=== PATIENT | male | born 1950 | race Caucasian/White ===

== ENCOUNTER 2019-05-04 22:58 | Emergency (ER) | payer MEDICARE, OTHER ==
[~2019-05-04] VITALS: Ht 177.8 cm; Wt 90.9 kg
[2019-05-04 22:59] VITALS: Ht 177.8 cm; Wt 90.9 kg
[2019-05-04] MEDS ORDERED: UROCIT-K10 MEQ PO (23:01)
[2019-05-04] MEDS ORDERED: NEURONTIN 400400 MG PO ×2 (23:01→23:04)
[2019-05-04] MEDS ORDERED: LISINOPRIL10 MG PO ×2 (23:01→23:05)
[2019-05-04] MEDS ORDERED: LIPITOR40 MG PO (23:02)
[2019-05-04] MEDS ORDERED: FLOMAX0.4 MG PO (23:02)
[2019-05-04] MEDS ORDERED: NORVASC10 MG PO (23:02)
[2019-05-04] MEDS ORDERED: CYMBALTA60 MG PO (23:03)
[2019-05-04] MEDS ORDERED: KLONOPIN1 MG PO (23:03)
[2019-05-04] MEDS ORDERED: VITAMIN B-121000 MCG PO (23:03)
[2019-05-04] MEDS ORDERED: FUROSEMIDE20 MG PO (23:04)
[2019-05-04] MEDS ORDERED: FLUTICASONE PRO16 GM NASAL (23:04)
[2019-05-04] MEDS ORDERED: HYDROCHLOROTHIA50 MG PO (23:05)
[2019-05-04] MEDS ORDERED: CLARITIN 10 MG10 MG PO (23:05)
[2019-05-04] MEDS ORDERED: GLUCOPHAGE500 MG PO (23:05)
[2019-05-04] MEDS ORDERED: REMERON15 MG PO (23:05)
[2019-05-04] MEDS ORDERED: NAPROSYN500 MG PO (23:06)
[2019-05-04] MEDS ORDERED: PIOGLITAZONE15 MG PO (23:06)
[2019-05-04] MEDS ORDERED: BAYER CHEWABLE81 MG PO (23:07)
[2019-05-04] MEDS ORDERED: ULTRAM50 MG PO (23:07)
[2019-05-05 00:06] LABS: HEMATOCRIT 38.8 % (42.0-54.0); HEMOGLOBIN 12.8 g/dL (13.5-17.5); LYMPHOCYTES 9.3 % (15-50); MCH 28.3 pg (26.0-34.0); MCV 85.8 fL (80.0-100.0); MEAN PLATELET VOLUME 10.5 fL (7.4-10.4); NEUTROPHILS 86.3 % (40-80); PLATELET COUNT 225 10x3/uL (130-400); RBC 4.52 10x6/uL (4.20-6.10); RDW 13.9 % (11.5-14.5); WBC 10.9 10x3/uL (4.8-10.8)
[2019-05-05 00:26] LABS: CALC OSMOLALITY 283 mosm/kg (275-300); CALCIUM 8.8 mg/dL (8.5-10.1); CARBON DIOXIDE 26.7 mmol/L (21.0-32.0); CHLORIDE - SERUM 102 mmol/L (98-107); GLUCOSE 167 mg/dL (74-106); POTASSIUM - SERUM 3.9 mmol/L (3.5-5.1); SODIUM 138 mmol/L (136-145); UREA NITROGEN 24 mg/dL (7-18); eGFR NON AFRICAN AMERICAN 78 mL/min (90-120)
[2019-05-05 00:38] LABS: ALBUMIN 3.5 g/dL (3.4-5.0); ALKALINE PHOSPHATASE 84 U/L (46-116); ALT (SGPT) 23 U/L (10-68); BILIRUBIN - TOTAL 0.89 mg/dL (0.2-1.3); PROTEIN - SERUM 7.2 g/dL (6.4-8.2)
[2019-05-05] MEDS ORDERED: TORADOL10 MG PO (00:54)
[2019-05-05 01:38] VITALS: BP 134/66
[2019-05-05 01:46] LABS: APPEARANCE CLEAR (CLEAR); BILIRUBIN NEGATIVE (NEGATIVE); COLOR YELLOW (YELLOW); GLUCOSE NEGATIVE (NEGATIVE); KETONE NEGATIVE (NEGATIVE); NITRITE NEGATIVE (NEGATIVE); PROTEIN 1+ mg/dL (NEGATIVE); SPECIFIC GRAVITY 1.015 (1.005-1.020); UROBILINOGEN NORMAL (NORMAL)
[2019-05-05 01:48] LABS: BACTERIA FEW /hpf (NEGATIVE); EPITHELIAL CELLS 0-5 /hpf (0-5); MUCUS <1+ /lpf (NONE SEEN); WHITE CELLS - URINE 0-5 /hpf (NEGATIVE)
[2019-05-13] MEDS ORDERED: VOLTAREN100 GM (10:20)
[2019-05-13] MEDS ORDERED: CYMBALTA60 MG PO (10:21)
[2019-05-13] MEDS ORDERED: FUROSEMIDE20 MG PO (10:22)
[2019-05-13] MEDS ORDERED: REMERON15 MG PO (10:26)
[2019-05-13] MEDS ORDERED: MULTI-DAY VITAM1 TAB PO (10:26)
[2019-05-13] MEDS ORDERED: VIMOVO 500-201 EACH PO (10:26)
[2019-05-13] MEDS ORDERED: PIOGLITAZONE15 MG (10:28)
[2019-06-09 09:39] VITALS: Ht 177.8 cm; Wt 90.9 kg
== END 2019-05-05 01:38 | disposition home or self-care (01) ==
LOC: D.ER 22:58
PROVIDERS: Emergency Medicine
DX: N13.8 Other obstructive and reflux uropathy (principal); N20.1 Calculus of ureter

== ENCOUNTER 2019-05-15 08:20 | Day surgery (SDC) | payer MEDICARE, OTHER ==
[2019-05-13 11:18] LABS: CALC OSMOLALITY 285 mosm/kg (275-300); CALCIUM 9.6 mg/dL (8.5-10.1); CHLORIDE - SERUM 106 mmol/L (98-107); GLUCOSE 120 mg/dL (74-106); POTASSIUM - SERUM 3.7 mmol/L (3.5-5.1); SODIUM 142 mmol/L (136-145); UREA NITROGEN 18 mg/dL (7-18); eGFR NON AFRICAN AMERICAN 78 mL/min (90-120)
[2019-05-13 11:30] LABS: HEMATOCRIT 40.1 % (42.0-54.0); MCH 28.7 pg (26.0-34.0); MCHC 32.4 g/dL (31.0-37.0); MCV 88.5 fL (80.0-100.0); MEAN PLATELET VOLUME 11.2 fL (7.4-10.4); RBC 4.53 10x6/uL (4.20-6.10); RDW 14.4 % (11.5-14.5); WBC 8.5 10x3/uL (4.8-10.8)
[~2019-05-15] VITALS: Ht 177.8 cm; Wt 104.3 kg
[~2019-05-15 08:20] MED LIST: BAYER CHEWABLE81 MG PO; CLARITIN 10 MG10 MG PO; CYMBALTA60 MG PO; FLOMAX0.4 MG PO; FLUTICASONE PRO16 GM NASAL; FUROSEMIDE20 MG PO; GLUCOPHAGE500 MG PO; HYDROCHLOROTHIA50 MG PO; KLONOPIN1 MG PO; LIPITOR40 MG PO; LISINOPRIL10 MG PO; MULTI-DAY VITAM1 TAB PO; NAPROSYN500 MG PO; NEURONTIN 400400 MG PO; NORVASC10 MG PO; PIOGLITAZONE15 MG; PIOGLITAZONE15 MG PO; REMERON15 MG PO; TORADOL10 MG PO; ULTRAM50 MG PO; UROCIT-K10 MEQ PO; VIMOVO 500-201 EACH PO; VITAMIN B-121000 MCG PO; VOLTAREN100 GM
[2019-05-15] MEDS ORDERED: HYDROCODON-ACE1 EAC7 PO (09:37)
[2019-05-15] MEDS ORDERED: ZOFRAN8 MG PO (09:38)
[2019-05-15 09:44] VITALS: BP 129/69; Ht 177.8 cm; Wt 104.3 kg
--- NOTE | 2019-05-15 09:57 | NUR ---
4849 REQUEST FOR BEHAVIORAL HEALTH CONSULT CALLED IN TO ASHLEIGH YOON, OPERATOR HELPER.
--- NOTE | 2019-05-15 10:57 | NUR ---
DR. FABIAN NOTIFED AND REVIEWED PT'S BEHAVIOR AND ASSESSMENT RESULTS. PT IS A LOW RISK PER DR. FABIAN. DR. FABIAN STATED TO GIVE RESOURCES TO PT AT TIME OF DISCHARGE. NO FURHTER ORDERS AT THIS TIME. RESOURCES REVIEWED WITH PT AND HE VERBALIZIED UNDERSTANDING.
--- NOTE | 2019-05-16 09:08 | OP ---
PATIENT NAME: GILDARDO INIGUEZ MEDICAL RECORD: [id number] :46 LOCATION:[facility] ADMISSION DATE: SURGEON: DANY CARRILLO MD DATE OF OPERATION: 05/15/2019 SURGEON: Dany Carrillo MD ANESTHESIA: General anesthesia by Dariel Carrasco CRNA. DIAGNOSIS: A 7-mm right proximal ureteral stone, 5-mm right lower pole renal stone. PROCEDURES: Cystoscopy, right ureteral stent insertion 6-Slovenian x 26 cm with string attached, right extracorporeal shock wave lithotripsy. 2250 shocks were given to the right proximal ureteral stone, 750 shocks were given to right lower pole renal stone. FINDINGS: Radiodense proximal ureteral and renal stone. BLOOD LOSS: None. CLINICAL HISTORY: This is a 68-year-old male who has a history of kidney stones since he was age 20. He came to the Emergency Room with gross hematuria and passage of 2 kidney stones. He continued to have right flank pain. A CT scan of the abdomen and pelvis shows a 7 x 6 mm right ureteropelvic junction stone and also a 5-mm lower pole renal stone. There are some smaller punctate renal stones in the right kidney also. On the left side, there is a 20-mm renal stone, which will require a percutaneous nephrolithotomy in the future to take care of. We are now treating the right side. He is not allergic to any medications. He was given Ancef pottery decoration designer to the OR. DESCRIPTION OF PROCEDURE: The patient was given induction of general anesthesia. He was then placed into dorsal lithotomy position and prepped and draped. Fluoroscopy revealed the stone to be visible as radiodensities. We targeted the proximal ureteral stone first. Lithotripsy was started after targeting the stone in 2 planes. In the meantime, we performed cystoscopy. He has single ureteral orifices with no signs of bladder tumors. A Sensor wire was placed into the right ureteral orifice and pushed past the stone into the renal pelvis. Over the wire, we inserted the 6-Slovenian x 24 cm ureteral stent. Once the stent was in correct position, the wire was withdrawn entirely. The distal end of the stent was pushed into the bladder using the pusher. The bladder was then emptied through the cystoscope. The scope was removed. The string on the distal end of stent was maintained. It was tied to itself in a knot and cut shorter. We gave the ureteral stone 1500 shocks. At this time, it was seen to have fragmented along the course of the ureteral stent. We then switched our focus to the lower pole stone. This was targeted. It broke up after 750 shocks. We then went back to the ureteral stone. There were still some fairly large fragments left and we used the remaining shock wave energy of 750 on to the right proximal ureteral stone. Therefore, the right proximal ureteral stone had a total of 2250 shocks. At the end of the procedure, all the stones were seen to be well fragmented. I will see him back in 2 weeks' time with a KUB to determine if the stones have completely cleared. At that time, if he is stone free on the right side will remove the stent. We will make arrangements for the left-sided PCNL in the future also. OPERATIVE REPORT [id number] GILDARDO INIGUEZ TRANSINT:[id number] Voice Confirmation ID: [id number] DOCUMENT ID: [id number] DANY CARRILLO MD at 0908 CC: [id number] DICTATION DATE: 05/15/19 1349 CONTRACT WRITER: 05/15/19 2139 [facility] 05/15/19 [facility] [address] [place] [address]
== END 2019-05-15 16:06 | disposition home or self-care (01) ==
LOC: D.OPS 08:20 → D.PAN 10:30 → D.OPS 12:45 → D.PAN 12:45 → D.OPS 16:06
PROVIDERS: Anesthesiology; ATTEND Urology
DX: N20.0 Calculus of kidney (principal)

== ENCOUNTER → 2019-05-30 10:40 | Outpatient (CLI) | payer MEDICARE, OTHER ==
[2019-05-15 09:44] VITALS: BMI 33.0
[~2019-05-30 10:40] MED LIST changes: +HYDROCODON-ACE1 EAC7 PO; +ZOFRAN8 MG PO
== END | disposition home or self-care (01) ==
LOC: D.RAD 08:30
PROVIDERS: ATTEND Urology
DX: N20.0 Calculus of kidney (principal)

== ENCOUNTER 2019-06-08 16:42 | Inpatient (IN) | payer MEDICARE, OTHER ==
[~2019-06-08] VITALS: Ht 177.8 cm; Wt 91.2 kg
--- NOTE | ~2019-06-08 | HEMODYNAMI ---
PATIENT:GILDARDO INIGUEZ MEDICAL RECORD: [id number] : 46 LOCATION:[facility] D.2309 ADMISSION DATE: 06/08/19 Generatedon:06/10/201915:47 Patient name: GILDARDO INIGUEZ Patient #: [id number] : 1950 Date of study: 06/10/2019 Page: Of Hemodynamic Procedure Report Patient Data Patient Demographics Procedure consent was obtained First Name: GILDARDO Gender: Male Last Name: HIRA : 1950 [facility] Initial: C Age: 68 year(s) Patient #: [id number] Race: SSN: [id number] Additional ID: [id number] Contact details Address: [address] [place] [address] State: [place] City: [facility] Zip code: [address] Admission Admission Data Admission Date: 06/08/2019 Admission Time: 18:59 Arrival Date: 06/08/2019 Arrival Time: 18:59 Admit Source: Emergency Insurance Payor: Medicare department [facility] #: [id number] Room #: D.2309 Height (in.): 70.08 BSA: 2.09 (m2) Height (cm.): 178 BMI: 28.72 (kg/m2) Weight (lbs.): 200.62 Weight (kg.): 91 Lab Results Lab Result Date: 06/10/2019 Lab Result Time: 0:00 Biochemistry Name Units Result Min Max BUN mg/dl 91 --(----)-* 7 18 Creatinine mg/dl 3.8 --(----)-* 0.6 1.3 eGFR ml/min 17 *-(----)-- 90 120 NONAFRICAN CBC Name Units Result Min Max Hemoglobin g/dl 12.1 *-(----)-- 13.5 17.5 Procedure Procedure Types Cath Procedure Diagnostic Procedure C Coronaries only Sedation Charges Moderate Sedation up to 15 minutes Procedure Description Procedure Date Procedure Date: 06/10/2019 Procedure Start Time: 15:28 Procedure End Time: 15:42 Procedure Staff Name Function Renny Malone MD Performing Physician Kaylin Campbell RT Monitor Dorinda Elliott RT Scrub Mariah Wheeler RN Nurse Procedure Data Cath Procedure Fluoroscopy Diagnostic fluoroscopy Total fluoroscopy Time: 1.2 time: 1.2 min min Diagnostic fluoroscopy Total fluoroscopy dose: 423 dose: 423 mGy mGy Contrast Material Contrast Material Type Amount (ml) Isovue 300 25 Entry Location Entry Primary Successful Side Size Upsize Upsize Entry Closure Succes sful Closure Location (Fr) 1 (Fr) 2 (Fr) Remarks Device Remarks Femoral Right 5 Fr Exoseal artery Estimated blood loss: 5 ml Diagnostic catheters Device Type Used For End Catheter Placement MULTIPACK JL 4.0 5Fr Left Coronary catheter Angiography MULTIPACK 3DRC 5Fr Right Coronary catheter Angiography Procedure Complications No complications Procedure Medications Medication Administration Route Dosage Oxygen etCO2 Nasal cannula 3 l/min Lidocaine 2% added to field 20 Heparin Flush Bag added to field 2 bags (1000units/500ml NS) 0.9% NaCl I.V. 100 ml/hr Versed I.V. 1 mg Fentanyl I.V. 50 mcg Integrilin (Bolus I.V. 8.5 ml 2mg/ml) Integrilin Drip I.V. drip 7.3 ml/hr (75mg/100ml) Hemodynamics Rest BSA: 2.09 (m2) HGB: 12.1 (g/dl) O2 Consumption: Estimated: 254.21 (ml/min) O2 Co nsumption indexed: Estimated:121.63 (ml/min/m) Heart Rate: 86 (bpm) Snapshots Pre Cath Intra NCS Post Cath Vital Signs Time Heart Resp SPO2 etCO2 NIBP Rhythm Pain Sedation Rate (ipm) (%) (mmHg) (mmHg) Status Level (bpm) 15:19:08 111 28 92 0 104/73(93) NSR w/ ST 0 (11) 9(A) Elevation , No pain 15:23:14 111 24 92 0 116/76(88) NSR w/ ST 0 (11) 9(A) Elevation , No pain 15:27:26 115 25 92 0 118/72(93) NSR w/ ST 0 (11) 9(A) Elevation , No pain 15:31:40 113 29 92 0 125/73(99) NSR w/ ST 0 (11) 9(A) Elevation , No pain 15:35:56 112 26 92 0 121/72(95) NSR w/ ST 0 (11) 9(A) Elevation , No pain 15:40:08 115 25 92 0 121/78(93) NSR w/ ST 0 (11) 9(A) Elevation , No pain Medications Time Medication Route Dose Verified Delivered Reason Notes Effectiveness by by 15:21:39 Oxygen etCO2 3 Renny Lemus used for Nasal l/min [facility] RN procedure cannula 15:21:46 Lidocaine 2% added 20ml Renny Lawson for local to vial [facility] anesthetic field MD SMITH 15:21:53 Heparin Flush added 2 Renny Renny used for Bag to bags [facility] procedure (1000units/500ml field MD SMITH NS) 15:22:04 0.9% NaCl I.V. 100 Renny Lemus Per ml/hr [facility] RN physician 15:23:33 Versed I.V. 1 mg Renny Lemus for sedation [facility] RN, MD 15:23:39 Fentanyl I.V. 50 Renny Philipie for sedation mcg [facility] RN, MD 15:41:42 Integrilin Drip I.V. 7.3 Renny Lemus for renal (75mg/100ml) drip ml/hr [facility] RN antiplatelet dose MD therapy infusion. 15:41:42 Integrilin I.V. 8.5 Renny Lemus for (Bolus 2mg/ml) ml [facility] RN antiplatelet MD therapy Procedure Log Time Note 14:49:41 Informed consent obtained and on chart 14:51:08 Admit Source: Emergency department 14:51:13 Arrival Date: 06/08/2019 6:59:00 PM 14:51:46 Insurance Payor : Medicare 14:51:56 Patient Height : 70.08 inches 14:52:00 Patient Weight : 200.62 lbs 14:52:40 Lab Result : Hemoglobin 12.1 g/dl 14:52:40 Lab Result : eGFR NONAFRICAN 17 ml/min 14:52:40 Lab Result : BUN 91 mg/dl 14:52:40 Lab Result : Creatinine 3.8 mg/dl 14:53:11 Procedure Status Urgent Heart Cath (IP). 14:53:20 Diagnostic Cath Status : Elective 14:53:44 Dorinda Elliott RT(R) sent for patient. Start room use. 14:53:45 Time tracking: Regular hours (M-F 7:00 - 5:00) 14:53:49 Plan of Care:Hemodynamics will remain stable., Cardiac rhythm will remain stable., Comfort level will be maintained., Respiratory function will remain adequate., Patient/ family verbilizes understanding of procedure., Procedure tolerated without complication., Recovers from procedure without complications.. 15:08:53 Patient received from ICU to [facility] 2 Alert and oriented. Tansferred to table in Supine position. 15:08:54 Warm blankets applied, and rachael hugger turned on for patient comfort. 15:08:55 Correct patient and procedure confirmed by team. 15:08:55 ECG and BP/O2 sat monitors applied to patient. 15:15:34 Pt transferred to with 3 liters oxygen via nasal cannula. 15:17:58 Vital chart was started 15:18:01 Baseline sample Acquired. 15:18:13 Full Disclosure recording started 15:18:17 H&P Date Dictated: 06/10/2019 New H&P dictated by physician.. 15:18:19 Pre-procedure instructions explained to patient. 15:18:19 Pre-op teaching completed and patient verbalized understanding. 15:18:20 Family in waiting room. 15:18:22 Patient NPO since Midnight. 15:18:25 Is the patient allergic to Iodine/contrast media? No. 15:18:26 Was the patient premedicated? Yes 15:18:27 Is patient on blood thinner?Yes 15:18:36 ACC The patient was administered the following blood thiners within the last 24 hours: ACCPlavix 15:18:39 Patient diabetic? Yes. 15:18:40 If diabetic: On Metformin? No 15:18:43 Previous problem with sedation/anesthesia? No ? 15:18:45 Snore? Yes 15:18:46 Sleep apnea? No 15:18:47 Deviated septum? No 15:18:48 Opens mouth fully? Yes 15:18:49 Sticks out tongue? Yes 15:19:05 Airway obstruction? No ? 15:19:07 Dentures? No ? 15:19:11 Pre procedure: right dorsailis pedis pulse 2+ Normal; easily identifiable; not easily obliterated 15:19:14 Pre procedure: left dorsailis pedis pulse 2+ Normal; easily identifiable; not easily obliterated 15:19:17 Patient pain scale 0/10 ?. 15:19:24 IV patent on arrival in left forearm with 0.9% NaCl at [facility]. 15:19:28 Lab results completed and on chart. 15:19:32 Risk of Mortality: 3.4 15:19:37 Risk of blood transfusion: 4.1 15:19:42 Risk of ELDA: 23.8 15:19:47 Right groin area was prepped with chlora-prep and draped in sterile fashion 15:19:49 Alarms reviewed by R. N. 15:19:49 Sharps counted by scrub and verified by R.N. 15:19:51 Physician arrived 15:19:51 --------ALL STOP TIME OUT------ 15:19:51 Final Timeout: patient, procedure, and site verified with staff and physician. All members of the team are in agreement. 15:19:54 Right groin site verified by team. 15:19:58 Fire Safety Assessment: A--An alcohol-based skin anteseptic being used preoperatively., C--Open oxygen or nitrous oxide is being used., D--An ESU, laser, or fiber-optic light is being used. 15:20:01 Physical assessment completed. ASA score P 2 - A patient with mild systemic disease as per Renny Malone MD. 15:20:05 3a) 45-59 Moderately reduced kidney function. 15:20:08 Maximum allowable contrast dose (3.7 X eGFR X 0.75)47 ml. 15:20:12 Sedation plan: IV Moderate Sedation Medication:Versed, Fentanyl 15:21:39 Oxygen 3 l/min etCO2 Nasal cannula was administered by Mariah Wheeler RN; used for procedure; Verbal order read back and verified. 15:21:46 Lidocaine 2% 20ml vial added to field was administered by Renny Malone MD; for local anesthetic; Verbal order read back and verified. 15:21:53 Heparin Flush Bag (1000units/500ml NS) 2 bags added to field was administered by Renny Malone MD; used for procedure; Verbal order read back and verified. 15:22:04 0.9% NaCl 100 ml/hr I.V. was administered by Mariah Wheeler RN; Per physician; Verbal order read back and verified. 15:23:23 Use device set Femoral Dx 15:23:24 ACIST Syringe (19989) opened to sterile field. 15:23:24 Bag Decanter (2002S) opened to sterile field. 15:23:25 Medline Cath Pack ([id number]) opened to sterile field. 15:23:26 ACIST Hand Control (32723) opened to sterile field. 15:23:26 ACIST Manifold (95536) opened to sterile field. 15:23:27 DIAGNOSTIC Multipack 5Fr catheter set ([id number]) opened to sterile field. 15:23:27 Tegaderm 4 x 4 (1626W) opened to sterile field. 15:23:29 SHEATH 5FR House (QFH955) opened to sterile field. 15:23:29 EMERALD Guide Wire (856-681) opened to sterile field. 15:23:33 Versed 1 mg I.V. was administered by Mariah Wheeler RN; for sedation; Verbal order read back and verified. 15:23:39 Fentanyl 50 mcg I.V. was administered by Mariah Wheeler RN; for sedation; Verbal order read back and verified. 15:28:12 Procedure started. 15:28:28 Local anesthetic to right femoral artery with Lidocaine 2% by Renny Malone MD.INITIAL ACCESS ONLY 15:32:32 A 5 Fr sheath was inserted into the Right Femoral artery 15:32:45 A MULTIPACK JL 4.0 5Fr catheter was advanced over the wire and used for Left Coronary Angiography. 15:32:53 LCA angiography performed. 15:32:56 Injector settings: Ml/sec: 3, Volume: 6, 15:33:04 Zero performed for pressure channel P1 15:34:59 Catheter removed. 15:35:04 A MULTIPACK 3DRC 5Fr catheter was advanced over the wire and used for Right Coronary Angiography. 15:36:52 RCA angiography performed. 15:36:54 Injector settings: Ml/sec: 3, Volume: 6, 15:37:44 Zero performed for pressure channel P1 15:39:35 Catheter removed. 15:40:15 no LV performed due to creatinine level per Dr Malone 15:40:25 EXOSEAL 5Fr (EX500) opened to sterile field. 15:40:33 Sheath removed intact; hemostasis achieved with Exoseal to the Right Femoral artery. 15:40:35 Procedure ended.(Physican Out) 15:40:43 Fluoroscopy time 01.20 minutes. 15:40:47 Flurop Dose total: 423 15:40:47 Fluoroscopy dose: 423 mGy 15:40:52 Dose Area Product 01310 mGy/cm. 15:41:07 Contrast amount:Isovue 300 25ml. 15:41:08 Maximum allowable dose exceeded? No. 15:41:09 Sharps counted by scrub and verified by R.N. 15:41:10 Insertion/operative site no bleeding no hematoma. 15:41:13 Post-op/insertion site Right Femoral artery dressed using a 4 x 4 and Tegaderm. 15:41:16 Post procedure rhythm: unchanged. 15:41:18 Estimated blood loss: 5 ml 15:41:19 Post procedure instruction explained to patient.Patient verbalizes understanding. 15:41:20 Patient needs reinforcement of post procedure teaching. 15:41:33 Procedure type changed to Cath procedure, Diagnostic procedure, C, Coronaries only, Sedation Charges, Moderate Sedation up to 15 minutes 15:41:33 Procedure and supply charges have been captured, reviewed, submitted and are correct. 15:41:42 Integrilin Drip (75mg/100ml) 7.3 ml/hr I.V. drip was administered by Mariah Wheeler RN; for antiplatelet therapy; renal dose infusion. Verbal order read back and verified. 15:41:42 Integrilin (Bolus 2mg/ml) 8.5 ml I.V. was administered by Mariah Wheeler RN; for antiplatelet therapy; Verbal order read back and verified. 15:42:22 Procedure Complication : No complications 15:42:24 Vital chart was stopped 15:42:26 [facility] Findings: MVD- MD will discuss options w/ pt 15:42:28 Operative report dictated upon procedure completion. 15:42:29 See physician's report for complete and final results. 15:42:32 Report given to ICU. 15:42:34 Patient transfered to ICU with Stretcher. 15:42:36 Procedure ended. 15:42:36 Full Disclosure recording stopped 15:42:42 End room use (Document Last) Device Usage Item Name Manufacture Quantity Catalog Hospital Part Current Minimal L ot# / Number Charge Number Stock Stock Serial# Code ACIST Acist 1 62300 182701 733173 [id number] 20 Syringe Medical (62111) Systems Inc Bag Microtek 1 2001S 471422 15930 231070 5 Decanter Medical Inc. () Medline Medline 1 [id number] 613350 61820 522431 5 Cath Pack ([id number]) ACIST Hand Acist 1 72947 338324 203500 009497 5 Control Medical (28814) Systems Inc ACIST Acist 1 95957 852393 039827 203837 5 Manifold Medical (41477) Systems Inc DIAGNOSTIC Cardinal 1 [id number] 054513 08751 282715 30 [email or web address] Health 5Fr catheter set (LC0052) Tegaderm 4 3M 1 1626W 004899 447401 015993 5 x 4 (1626W) SHEATH 5FR Terumo 1 TRR937 352153 996594 742729 5 House (HRO926) EMERALD Cardinal 1 952-455 786644 027002 250452 5 Guide Wire [facility] (502455) MULTIPACK Cardinal 1 034588 5 JL 4.0 5Fr Health catheter MULTIPACK Cardinal 1 896424 5 3DRC 5Fr Health catheter EXOSEAL 5Fr Cardinal 1 EX500 666376 517571 789411 10 (EX500) Health Signature Audit [place] Stage Time Signature Unsigned Intra-Procedure 06/10/2019 Kaylin Campbell 3:43:43 PM RT(R) Intra-Procedure 06/10/2019 Mariah Wheeler RN 3:44:08 PM Intra-Procedure 06/10/2019 Renny Contreras 3:47:16 PM Luke SMITH Signatures Performing Physician : Signature : Renny Malone MD Date : Time : Monitor : Kaylin Campbell RT Signature : Date : Time : Nurse : Mariah Wheeler RN Signature : Date : Time : [place] [address] [place] [address]
--- NOTE | ~2019-06-08 | HEMODYNAMI ---
PATIENT:GILDARDO INIGUEZ MEDICAL RECORD: [id number] : 46 LOCATION:D[facility] D.2309 ADMISSION DATE: 06/08/19 Generatedon:06/11/201915:17 Patient name: GILDARDO INIGUEZ Patient #: [id number] : 1950 Date of study: 06/11/2019 Page: Of Hemodynamic Procedure Report Patient Data Patient Demographics First Name: GILDARDO Gender: Male Last Name: HIRA : 1950 [facility] Initial: C Age: 68 year(s) Patient #: [id number] Race: SSN: [id number] Additional ID: [id number] Contact details Address: [address] [place] [address] State: [place] City: [facility] Zip code: [address] Admission Admission Data Admission Date: 06/08/2019 Admission Time: 18:59 Arrival Date: 06/08/2019 Arrival Time: 18:59 Admit Source: Emergency Insurance Payor: Medicare department HIC #: [id number] Room #: D.2309 Height (in.): 70.08 BSA: 2.09 (m2) Height (cm.): 178 BMI: 28.72 (kg/m2) Weight (lbs.): 200.62 Weight (kg.): 91 Lab Results Lab Result Date: 06/10/2019 Lab Result Time: 0:00 Biochemistry Name Units Result Min Max BUN mg/dl 91 --(----)-* 7 18 Creatinine mg/dl 3.8 --(----)-* 0.6 1.3 eGFR ml/min 17 *-(----)-- 90 120 NONAFRICAN CBC Name Units Result Min Max Hemoglobin g/dl 12.1 *-(----)-- 13.5 17.5 Procedure Procedure Types Cath Procedure Diagnostic Procedure LHC LH w/Coronaries PCI Procedure PTCA PTCA Initial x2 Hemochron ACT Test Procedure Description Procedure Date Procedure Date: 06/11/2019 Procedure Start Time: 14:46 Procedure End Time: 15:06 Procedure Staff Name Function Renny Malone MD Performing Physician Dorinda Elilott RT Scrub Henry Bauer RN Nurse Gerber Waite RT Monitor Procedure Data Cath Procedure Fluoroscopy Diagnostic fluoroscopy Total fluoroscopy Time: 3.3 time: 3.3 min min Diagnostic fluoroscopy Total fluoroscopy dose: 668 dose: 668 mGy mGy Contrast Material Contrast Material Type Amount (ml) Isovue 370 55 Entry Location Entry Primary Successful Side Size Upsize Upsize Entry Closure Succes sful Closure Location (Fr) 1 (Fr) 2 (Fr) Remarks Device Remarks Femoral Right 5 Fr 6 Fr Exoseal artery Short Diagnostic catheters Device Type Used For End Catheter Placement MULTIPACK JL 4.0 5Fr Left Coronary catheter Angiography Procedure Complications No complications Procedure Medications Medication Administration Route Dosage 0.9% NaCl I.V. 100 ml/hr Oxygen NC 8 l/min Heparin Flush Bag added to field 2 bags (1000units/500ml NS) Lidocaine 2% added to field 20 Heparin Bolus I.V. 4000 units Hemodynamics Rest BSA: 2.09 (m2) HGB: 12.1 (g/dl) O2 Consumption: Estimated: 284.24 (ml/min) O2 Co nsumption indexed: Estimated:136 (ml/min/m) Pre Cath Intra NCS Post Cath Vital Signs Time Heart Resp SPO2 etCO2 NIBP Rhythm Pain Sedation Rate (ipm) (%) (mmHg) (mmHg) Status Level (bpm) 14:41:18 109 23 92 0 118/68(89) NSR 0 (11) 10(A) , No pain 14:45:34 109 28 91 0 108/71(94) NSR 0 (11) 10(A) , No pain 14:49:50 111 27 92 0 117/67(82) NSR 0 (11) 10(A) , No pain 14:54:08 112 29 92 0 119/72(86) NSR 0 (11) 10(A) , No pain 14:58:28 110 27 92 0 118/70(95) NSR 0 (11) 10(A) , No pain 15:02:46 111 28 92 0 117/73(86) NSR 0 (11) 10(A) , No pain 15:07:04 113 28 92 0 119/75(95) NSR 0 (11) 10(A) , No pain Medications Time Medication Route Dose Verified Delivered Reason Notes Effectiveness by by 14:39:16 0.9% NaCl I.V. 100 Henry Henry Per physician ml/hr Lizette Bauer RN RN 14:39:29 Oxygen NC 8 Henry Henry for low 02 sats l/min Lizette Bauer RN RN 14:39:41 Heparin Flush added 2 Henry Henry used for Bag to bags Lizette Bauer procedure (1000units/500ml field RN RN NS) 14:39:52 Lidocaine 2% added 20ml Henry Henry for local to vial Lizette Bauer anesthetic RN RN 14:56:42 Heparin Bolus I.V. 4000 Henry Henry for units Lizette Bauer anticoagulation RN rehab therapist Log Time Note 14:22:18 Patient Weight : 200.62 lbs 14:22:18 Patient Height : 70.08 inches 14:23:31 Procedure Status Urgent Heart Cath (IP). 14:23:53 ACC Patient presents with Non-STEMI CCS Anginal Class 4--Inability to carry out any physical activity w/o angina. Angina may occur at rest. 14:24:00 Gerber Acit RT(R) sent for patient. Start room use. 14:24:11 Time tracking: Regular hours (M-F 7:00 - 5:00) 14:24:24 Plan of Care:Hemodynamics will remain stable., Cardiac rhythm will remain stable., Comfort level will be maintained., Respiratory function will remain adequate., Patient/ family verbilizes understanding of procedure., Procedure tolerated without complication., Recovers from procedure without complications.. 14:24:37 Patient received from ICU to CCL 1 Alert and oriented. Tansferred to table in Supine position. 14:24:38 Warm blankets applied, and rachael hugger turned on for patient comfort. 14:24:40 Correct patient and procedure confirmed by team. 14:24:46 H&P Date Dictated: 06/11/2019 Within 30 days and on chart., H&P Addendum completed by physician on day of procedure. (MUST COMPLETE FOR ALL OUTPATIENTS). 14:24:50 Pre-procedure instructions explained to patient. 14:24:54 Family in waiting room. 14:24:57 Patient NPO since Midnight. 14:25:03 Is the patient allergic to Iodine/contrast media? No. 14:25:11 Is patient on blood thinner?Yes 14:35:33 ACC The patient was administered the following blood thiners within the last 24 hours: ACCPlavix 14:36:18 Patient diabetic? Yes. 14:36:20 If diabetic: On Metformin? No 14:36:21 ----Pre-sedation anethsthesia assessment.---- 14:36:23 Previous problem with sedation/anesthesia? No ? 14:36:25 Snore? Yes 14:36:26 Sleep apnea? No 14:36:28 Deviated septum? No 14:36:29 Opens mouth fully? Yes 14:36:30 Sticks out tongue? Yes 14:36:33 Airway obstruction? No ? 14:36:35 Dentures? No ? 14:36:41 Pre procedure: right dorsailis pedis pulse 2+ Normal; easily identifiable; not easily obliterated 14:36:45 Patient pain scale 0/10 ?. 14:36:49 IV patent on arrival in left antecubital with 0.9% NaCl at [facility]. 14:36:54 Lab results completed and on chart. 14:37:23 Right groin area was prepped with chlora-prep and draped in sterile fashion 14:37:24 Alarms reviewed by R. N. 14:37:25 Sharps counted by scrub and verified by R.N. 14:37:26 --------ALL STOP TIME OUT------ 14:37:26 Physician arrived 14:37:27 Final Timeout: patient, procedure, and site verified with staff and physician. All members of the team are in agreement. 14:37:31 Right groin site verified by team. 14:37:35 Fire Safety Assessment: A--An alcohol-based skin anteseptic being used preoperatively., C--Open oxygen or nitrous oxide is being used., D--An ESU, laser, or fiber-optic light is being used. 14:37:39 Physical assessment completed. ASA score P 2 - A patient with mild systemic disease as per Renny Malone MD. 14:38:22 Maximum allowable contrast dose (3.7 X eGFR X 0.75)47.17 ml. 14:38:27 Sedation plan: IV Moderate Sedation Medication:Versed, Fentanyl 14:39:16 0.9% NaCl 100 ml/hr I.V. was administered by Henry Bauer RN; Per physician; Verbal order read back and verified. 14:39:29 Oxygen 8 l/min NC was administered by Henry Bauer RN; for low 02 sats; Verbal order read back and verified. 14:39:41 Heparin Flush Bag (1000units/500ml NS) 2 bags added to field was administered by Henry Bauer RN; used for procedure; Verbal order read back and verified. 14:39:52 Lidocaine 2% 20ml vial added to field was administered by Henry Bauer RN; for local anesthetic; Verbal order read back and verified. 14:40:05 Vital chart was started 14:44:43 Use device set Femoral Dx 14:44:44 ACIST Syringe (64489) opened to sterile field. 14:44:45 Medline Cath Pack ([id number]) opened to sterile field. 14:44:45 Bag Decanter (2002S) opened to sterile field. 14:44:47 ACIST Hand Control (41565) opened to sterile field. 14:44:49 DIAGNOSTIC Multipack 5Fr catheter set (XB2830) opened to sterile field. 14:44:49 ACIST Manifold (26331) opened to sterile field. 14:44:52 Tegaderm 4 x 4 (1626W) opened to sterile field. 14:44:54 SHEATH 5FR [place] (FUN076) opened to sterile field. 14:44:55 EMERALD Guide Wire (831-458) opened to sterile field. 14:46:42 Full Disclosure recording started 14:46:42 Procedure started. 14:46:56 Local anesthetic to right femoral artery with Lidocaine 2% by Renny Malone MD.INITIAL ACCESS ONLY 14:47:05 A 5 Fr sheath was inserted into the Right Femoral artery 14:49:42 A MULTIPACK JL 4.0 5Fr catheter was advanced over the wire and used for Left Coronary Angiography. 14:49:46 LCA angiography performed. 14:52:16 Catheter removed. 14:53:29 SHEATH 6FR [place] (LHG933) opened to sterile field. 14:53:31 INFLATOR Merit BasixCompak (ZT1898) opened to sterile field. 14:56:42 Heparin Bolus 4000 units I.V. was administered by Henry Bauer RN; for anticoagulation; Verbal order read back and verified. 14:57:13 GUIDE 6FR JL 4.0 catheter ([id number]) opened to sterile field. 14:57:15 WHISPER 300cm guide wire ([id number]) opened to sterile field. 14:57:16 PERCUTANEOUS ENTRY 19GA needle opened to sterile field. 14:57:42 Sheath upsized to a 6 Fr Short. 14:57:59 6 Fr JL 4 guide catheter was inserted over the wire 14:58:05 WHISPER wire advanced. 14:58:42 Inflate balloon Inflation number: 1 A EUPHORA 3.0 x 15 Balloon ([id number]) was prepped and advanced across the Mid CX , then inflated to 3 TITA for 0:14 (min:sec) . 15:00:47 Balloon removed over the wire. 15:00:52 Wire removed. 15:01:00 WHISPER wire advanced. 15:01:31 Inflation number: 1 The EUPHORA 3.0 x 15 Balloon ([id number]) was reinflated across the Dist LAD 97, to 6 TITA for 0:17 (min:sec) . 15:02:39 Inflation number: 2 The EUPHORA 3.0 x 15 Balloon ([id number]) was reinflated across the Dist LAD , to 6 TITA for 0:05 (min:sec) . 15:03:00 Balloon removed over the wire. 15:03:03 Wire removed. 15:03:04 Guide catheter removed. 15:03:20 Sheath removed intact; hemostasis achieved with Exoseal to the Right Femoral artery. 15:03:33 EXOSEAL 6Fr (EX600) opened to sterile field. 15:04:21 Procedure ended.(Physican Out) 15:04:22 ACT drawn and resulted at 204 seconds. (normal therapeutic range 180-240 seconds). 15:04:41 Fluoroscopy time 03.30 minutes. 15:04:48 Fluoroscopy dose: 668 mGy 15:04:48 Flurop Dose total: 668 15:04:56 Dose Area Product 86.7 mGy/cm. 15:05:02 Contrast amount:Isovue 370 55ml. 15:05:12 Maximum allowable dose exceeded? Yes. 15:05:13 Sharps counted by scrub and verified by R.N. 15:05:20 Insertion/operative site no bleeding no hematoma. 15:05:24 Post-op/insertion site Right Femoral artery dressed using a 4 x 4 and Tegaderm. 15:05:27 Post right femoral artery:stable 15:05:29 Post Procedure Pulses reassessed and unchanged 15:05:31 Post procedure: right dorsailis pedis pulse 1+ Palpable, but thready & weak; easily obliterated. 15:05:34 Post-procedure physical assessment completed. ASA score P 2 - A patient with mild systemic disease as per Renny Malone MD. 15:05:38 Post procedure rhythm: unchanged. 15:05:40 Post procedure instruction explained to patient.Patient verbalizes understanding. 15:05:44 Procedure and supply charges have been captured, reviewed, submitted and are correct. 15:06:04 Procedure type changed to Cath procedure, Diagnostic procedure, LHC, LHC w/Coronaries, PCI procedure, PTCA, PTCA Initial x2, Hemochron ACT Test 15:06:10 Procedure Complication : No complications 15:06:13 Vital chart was stopped 15:06:17 Operative report dictated upon procedure completion. 15:06:18 See physician's report for complete and final results. 15:06:21 Report given to ICU. 15:06:24 Patient transfered to ICU with Bed. 15:06:26 Full Disclosure recording stopped 15:06:26 Procedure ended. 15:06:29 End room use (Document Last) Intervention Summary Intervention Notes Time ActionType Lesion and Equipment Action# Pressure Duration Attributes Used 14:58:42 Inflate Mid CX EUPHORA 1 3 00:14 balloon 3.0 x 15 Balloon ([id number]) 15:01:31 Reinflate Dist LAD EUPHORA 1 6 00:17 balloon 3.0 x 15 Balloon ([id number]) 15:02:39 Reinflate Dist LAD EUPHORA 2 6 00:05 balloon 3.0 x 15 Balloon ([id number]) Device Usage Item Name Manufacture Quantity Catalog Hospital Part Current Minimal Lot# / Number Charge Number Stock Stock Serial# Code ACIST Acist 1 50832 664879 207436 316675 20 Syringe Medical (61317) Systems Inc Bag Decanter Microtek 1 2001S 711466 58726 026451 5 (2001S) Medical Inc. Medline Cath Medline 1 [id number] 258556 48848 508978 5 Pack ([id number]) ACIST Hand Acist 1 33039 856374 351450 575972 5 Control Medical (32605) Systems Inc ACIST Acist 1 89190 725514 298076 818353 5 Manifold Medical (33208) Systems Inc DIAGNOSTIC Cardinal 1 QM9976 405268 87864 515525 30 MultipZeltiq Aesthetics 5Fr catheter set (ID4607) Tegaderm 4 x 3M 1 1626W 119255 565190 487412 5 4 (1626W) SHEATH 5FR Terumo 1 PNP111 199349 336377 472803 5 [place] (HSF686) EMERALD Cardinal 1 502-455 615112 723105 143725 5 Guide Wire [facility] (502-455) MULTIPACK JL Cardinal 1 597249 5 4.0 5Fr Instapio catheter SHEATH 6FR Terumo 1 VQQ648 220271 265439 835922 40 [place] (HIS440) INFLATOR [facility] 1 BY1472 890026 407216 194224 15 [facility] Medical BasixCompak (HS1757) GUIDE 6FR JL Medtronic 1 KH1NC92 373444 98570 786491 1 4.0 catheter (KB5KH81) WHISPER Khan 1 [id number] 270140 507045 203685 5 300cm guide Vascular wire ([id number]) PERCUTANEOUS [facility] 1 E85265 614114 274531 5 9808706 ENTRY 19GA needle EUPHORA 3.0 Medtronic 1 [id number] 660215 031212 743032 5 [id number] x 15 Balloon ([id number]) EXOSEAL 6Fr Cardinal 1 EX600 257535 619696 268777 10 (EX600) Health Signature Audit [place] Stage Time Signature Unsigned Intra-Procedure 06/11/2019 Dorinda Elliott 3:16:39 PM RT(R) Intra-Procedure 06/11/2019 Gerber Waite RT(R) 3:17:02 PM Intra-Procedure 06/11/2019 Henry 3:17:21 PM Lizette SOTELO Intra-Procedure 06/11/2019 Renny Contreras 3:17:56 PM Luke SMITH [facility] [address] [place] [address]
--- NOTE | ~2019-06-08 | HEMODYNAMI ---
PATIENT:GILDARDO INIGUEZ MEDICAL RECORD: [id number] : 46 LOCATION[facility] D.2127 ADMISSION DATE: 06/08/19 Generatedon:06/20/201914:03 Patient name: GILDARDO INIGUEZ Patient #: [id number] : 1950 Date of study: 06/20/2019 Page: Of Hemodynamic Procedure Report Patient Data Patient Demographics Procedure consent was obtained First Name: GILDARDO Gender: Male Last Name: HIRA : 1950 [facility] Initial: C Age: 68 year(s) Patient #: [id number] Race: SSN: [id number] Additional ID: [id number] Contact details Address: [address] [place] [address] State: [place] City: [facility] Zip code: [address] Past Medical History Allergies: No known allergies Admission Admission Data Admission Date: 06/08/2019 Admission Time: 18:59 Arrival Date: 06/08/2019 Arrival Time: 18:59 Admit Source: Other Insurance Payor: Medicare Room #: D.2127 [facility] #: [id number] Height (in.): 70.08 BSA: 2.09 (m2) Height (cm.): 178 BMI: 28.72 (kg/m2) Weight (lbs.): 200.62 Weight (kg.): 91 Lab Results Lab Result Date: 06/20/2019 Lab Result Time: 0:00 Biochemistry Name Units Result Min Max BUN mg/dl 25 --(----)-* 7 18 Creatinine mg/dl 1.1 --(--*-)-- 0.6 1.3 eGFR ml/min 70.96294 *-(----)-- 90 120 NONAFRICAN CBC Name Units Result Min Max Hematocrit % 31.8 *-(----)-- 42 54 Hemoglobin g/dl 10.2 *-(----)-- 13.5 17.5 Procedure Procedure Types Cath Procedure Diagnostic Procedure SOLIS Procedure Description Procedure Date Procedure Date: 06/20/2019 Procedure Start Time: 13:46 Procedure End Time: 14:01 Procedure Staff Name Function Renny Malone MD Performing Physician Henry Bauer RN Nurse Samantha Quezdaa RT Monitor Srinivasan Craft MD Additional personnel Dorinda Elliott RT Durability Technician Amelia Bates Wardrobe Specialty Worker Procedure Data Cath Procedure Estimated blood loss: 0 ml Procedure Complications No complications Procedure Medications Medication Administration Route Dosage 0.9% NaCl I.V. 100 ml/hr Oxygen etCO2 Nasal cannula 5 l/min Refer to Anesthesia Notes for Sedation Medications Hurricaine Florien P.O. 1 Sprays Hemodynamics Rest BSA: 2.09 (m2) HGB: 10.2 (g/dl) O2 Consumption: Estimated: 267.74 (ml/min) O2 Consumption indexed: Estimated:128.11 (ml/min/m) Heart Rate: 103 (bpm) Snapshots Pre Cath Intra NCS Post Cath Vital Signs Time Heart Resp SPO2 etCO2 NIBP (mmHg) Rhythm Pain Sedation Rate (ipm) (%) (mmHg) Status Level (bpm) 13:40:18 103 27 93 0 123/76(106) NSR 0 (11) 10(A) , No pain 13:44:38 103 18 98 24.5 120/75(98) NSR 0 (11) 10(A) , No pain 13:49:11 89 29 97 20.1 98/46(71) NSR 0 (11) 8(A) , No pain 13:53:33 94 29 96 11.9 106/44(62) NSR 0 (11) 8(A) , No pain 13:57:53 90 50 97 16.3 88/44(61) NSR 0 (11) 9(A) , No pain 13:59:42 95 33 99 3.7 96/58(77) NSR 0 (11) 9(A) , No pain Medications Time Medication Route Dose Verified Delivered Reason Notes Effecti veness by by 13:35:21 0.9% NaCl I.V. 100 Henry Henry Per ml/hr Lizette Bauer physician RN RN 13:35:38 Oxygen etCO2 5 Henry Henry for low 02 Nasal l/min Lizette Bauer sats cannula RN RN 13:45:15 Hurricaine P[address]O. 1 Henry Figueroa for local Florien Sprays Lizette Bauer anesthetic RN RN 13:48:34 Refer to Henry Figueroa for Anesthesia Lizette Bauer sedation Notes for RN RN Sedation Medications Procedure Log Time Note 13:23:58 Patient Height : 70.08 inches 13:23:58 Patient Weight : 200.62 lbs 13:32:25 Diagnostic Cath Status : Elective 13:32:44 Informed consent obtained and on chart 13:33:37 Lab Result : eGFR NONAFRICAN 70.66113 ml/min 13:33:37 Lab Result : Creatinine 1.1 mg/dl 13:33:37 Lab Result : BUN 25 mg/dl 13:33:37 Lab Result : Hemoglobin 10.2 g/dl 13:33:37 Lab Result : Hematocrit 31.8 % 13:33:59 Procedure Status Urgent Heart Cath (IP). 13:34:04 Dorinda Elliott RT(R) sent for patient. Start room use. 13:34:07 Time tracking: Regular hours (M-F 7:00 - 5:00) 13:34:12 Plan of Care:Hemodynamics will remain stable., Cardiac rhythm will remain stable., Comfort level will be maintained., Respiratory function will remain adequate., Patient/ family verbilizes understanding of procedure., Procedure tolerated without complication., Recovers from procedure without complications.. 13:34:20 Admit Source: Other 13:34:27 H&P Date Dictated: 06/20/2019 Within 30 days and on chart.. 13:35:07 Patient allergic to No known allergies 13:35:14 Srinivasan Craft MD present and monitoring patient for TIVA. 13:35:18 Patient received from Med II to CCL 3 Alert and oriented. Tansferred to table in Supine position. 13:35:19 Warm blankets applied, and rachael hugger turned on for patient comfort. 13:35:19 Correct patient and procedure confirmed by team. 13:35:21 0.9% NaCl 100 ml/hr I.V. was administered by Henry Bauer RN; Per physician; Verbal order read back and verified. 13:35:21 ECG and BP/O2 sat monitors applied to patient. 13:35:31 ACC Patient presents with Stable Angina CCS Anginal Class 2--Slight limitation of ordinary activity. 13:35:38 Oxygen 5 l/min etCO2 Nasal cannula was administered by Henry Bauer RN; for low 02 sats; Verbal order read back and verified. 13:35:45 Pre-procedure instructions explained to patient. 13:35:46 Pre-op teaching completed and patient verbalized understanding. 13:35:49 Family unavailable. 13:35:51 Patient NPO since Midnight. 13:36:08 IV patent on arrival in left antecubital with 0.9% NaCl at [facility]. 13:36:13 Lab results completed and on chart. 13:36:18 Stress Test: no; N/A ? 13:36:27 Sharps counted by scrub and verified by R.N. 13:36:28 Alarms reviewed by R. N. 13:39:01 Vital chart was started 13:39:03 Baseline sample Acquired. 13:39:07 Rhythm: sinus tachycardia 13:39:08 Full Disclosure recording started 13:39:58 Is patient on blood thinner?Yes 13:40:01 ACC The patient was administered the following blood thiners within the last 24 hours: ACCPlavix 13:40:22 Patient diabetic? Yes. 13:40:24 If diabetic: On Metformin? No 13:40:27 Previous problem with sedation/anesthesia? No ? 13:40:28 Snore? Yes 13:40:29 Sleep apnea? No 13:40:30 Deviated septum? No 13:40:31 Opens mouth fully? Yes 13:40:33 Sticks out tongue? Yes 13:40:34 Airway obstruction? No ? 13:40:37 Dentures? No ? 13:42:37 --------ALL STOP TIME OUT------ 13:42:38 Final Timeout: patient, procedure, and site verified with staff and physician. All members of the team are in agreement. 13:42:41 Physical assessment completed. ASA score P 4 - A patient with severe systemic disease that is a constant threat to life as per Renny Malone MD. 13:42:46 Sedation plan: TIVA Medication:Propofol 13:45:15 Hurricaine Florien 1 Sprays P.O. was administered by Henry Bauer RN; for local anesthetic; Verbal order read back and verified. 13:45:35 [facility] present for SOLIS. 13:46:15 SOLIS 13:46:30 Procedure started. 13:48:22 SOLIS started. 13:48:34 Refer to Anesthesia Notes for Sedation Medications was administered by Henry Bauer RN; for sedation; Verbal order read back and verified. 13:54:14 SOLIS completed. 13:54:18 Procedure ended.(Physican Out) 13:55:50 Post-procedure physical assessment completed. ASA score P 4 - A patient with severe systemic disease that is a constant threat to life as per Renny Malone MD. 13:55:53 Post procedure rhythm: sinus rhythm 13:55:55 Estimated blood loss: 0 ml 13:55:57 Post procedure instruction explained to patient.Patient verbalizes understanding. 13:55:57 Patient needs reinforcement of post procedure teaching. 13:56:10 Procedure and supply charges have been captured, reviewed, submitted and are correct. 13:56:39 SOLIS Findings: POSITIVE ENDOCARDITIS 13:56:54 Operative report dictated upon procedure completion. 13:56:55 See physician's report for complete and final results. 14:01:09 Procedure Complication : No complications 14:01:12 Vital chart was stopped 14:01:19 Report given to Med II. 14:01:22 Patient transfered to Med II with Bed. 14:01:23 Procedure ended. 14:01:23 Full Disclosure recording stopped 14:01:32 End room use (Document Last) 14:02:04 End room use (Document Last) 14:02:37 End room use (Document Last) Signature Audit [place] Stage Time Signature Unsigned Intra-Procedure 06/20/2019 Samantha Quezada 2:02:04 PM RT(R) Intra-Procedure 06/20/2019 Henry 2:02:37 PM Lizette SOTELO Intra-Procedure 06/20/2019 Renny Contreras 2:03:39 PM Luke SMITH [facility] [id number] [place] [address]
--- NOTE | 2019-06-08 17:08 | NUR ---
FSBS 532 AT THIS TIME
--- NOTE | 2019-06-08 17:09 | NUR ---
ADVISED EDRenzo FOFANA THAT PATIENT AHS HAD 500 CC BOLUS OF NS GIVEN FULL STACK PYTHON DEVELOPER. ORDER FOR 500 CC NORMAL SALINE BOLUS GIVEN TO TOLAL 1 LITER BOLUS FOR PATIENT.
[2019-06-08 17:20] LABS: APPEARANCE HAZY (CLEAR); BILIRUBIN NEGATIVE (NEGATIVE); COLOR YELLOW (YELLOW); GLUCOSE 1000 mg/dL (NEGATIVE); KETONE NEGATIVE (NEGATIVE); NITRITE POSITIVE (NEGATIVE); PROTEIN TRACE mg/dL (NEGATIVE); UROBILINOGEN NORMAL (NORMAL)
[2019-06-08 17:21] LABS: AMORPHOUS SEDIMENT >1+ /lpf (NONE SEEN); BACTERIA MODERATE /hpf (NEGATIVE); MUCUS <1+ /lpf (NONE SEEN); SPERMATOZOA RARE /hpf (NONE SEEN)
[2019-06-08 17:30] VITALS: BP 141/95
[2019-06-08 17:42] LABS: BASOPHILS 0.1 % (0-2); EOSINOPHILS 0 % (0-7); HEMATOCRIT 35.8 % (42.0-54.0); HEMOGLOBIN 12.1 g/dL (13.5-17.5); IMMATURE GRANULOCYTES 2.5 % (0-5); LYMPHOCYTES 1.9 % (15-50); MCH 28.1 pg (26.0-34.0); MCHC 33.8 g/dL (31.0-37.0); MCV 83.1 fL (80.0-100.0); MEAN PLATELET VOLUME 12.2 fL (7.4-10.4); MONOCYTES 0.8 % (2-11); NEUTROPHILS 94.7 % (40-80); PLATELET COUNT 159 10x3/uL (130-400); RBC 4.31 10x6/uL (4.20-6.10); RDW 14.6 % (11.5-14.5); WBC 15.1 10x3/uL (4.8-10.8)
[2019-06-08 17:53] LABS: ALBUMIN 2.3 g/dL (3.4-5.0); ALKALINE PHOSPHATASE 100 U/L (46-116); ALT (SGPT) 49 U/L (10-68); BILIRUBIN - TOTAL 1.67 mg/dL (0.2-1.3); CALCIUM 8.6 mg/dL (8.5-10.1); CARBON DIOXIDE 21.4 mmol/L (21.0-32.0); CHLORIDE - SERUM 96 mmol/L (98-107); CREATININE - SERUM 2.3 mg/dL (0.6-1.3); POTASSIUM - SERUM 3.7 mmol/L (3.5-5.1); PROTEIN - SERUM 6.2 g/dL (6.4-8.2); SODIUM 131 mmol/L (136-145); UREA NITROGEN 76 mg/dL (7-18); eGFR NON AFRICAN AMERICAN 30 mL/min (90-120)
[2019-06-08 17:55] LABS: CALC OSMOLALITY 310 mosm/kg (275-300)
[2019-06-08 17:56] LABS: GLUCOSE 540 mg/dL (74-106)
--- NOTE | 2019-06-08 17:56 | NUR ---
CRITICAL LAB CALLED BY JIG GRINDER SET UP OPERATOR AT THIS TIME. GLUCOSE OF 540. NOTIFIED EDP
[2019-06-08 18:00] LABS: KETONE - SERUM NEGATIVE (NEGATIVE)
--- NOTE | 2019-06-08 18:17 | NUR ---
FSBS 400 AT THIS TIME
--- NOTE | 2019-06-08 18:21 | NUR ---
BLOOD CULTURES HAVE BEEN DRAWN
[2019-06-08 18:26] VITALS: BP 152/79
[2019-06-08 20:21] VITALS: BP 141/73
[2019-06-08 22:25] VITALS: BP 141/73; BMI 28.7
--- NOTE | 2019-06-08 23:34 | NUR ---
AIDEE AT 1945 WITH ER STAFF. CONFUSED , O2 AT 2L VIA N/C. IV TO RIGHT FA. ORDERS FOR NS AT 100ML/HR. FSBS TAKEN AT 2118 458 RECHECK 446, GAVE 28 UNITS OF HUMULIN REG. RECHECK AT 2205 FSBS WAS 400. UROLOGIST CALLED AND INFORMED. NO NEW ORDERS.
[2019-06-09 00:30] VITALS: BP 145/76
--- NOTE | 2019-06-09 02:48 | NUR ---
PATIENT PULLED OUT IV RESITED IV TO LEFT FA 22GAGE TOLARATED WELL.
[2019-06-09 05:00] VITALS: BP 141/85
[2019-06-09 06:17] LABS: ANION GAP 16.3 mmol/L (8-16); CALCIUM 8.9 mg/dL (8.5-10.1); CARBON DIOXIDE 23.2 mmol/L (21.0-32.0); CREATININE - SERUM 2.1 mg/dL (0.6-1.3); MAGNESIUM - SERUM 2.1 mg/dL (1.8-2.4); PHOSPHOROUS 3.1 mg/dL (2.5-4.9); POTASSIUM - SERUM 3.5 mmol/L (3.5-5.1)
[2019-06-09 06:31] LABS: HEMATOCRIT 35.8 % (42.0-54.0); MCH 28.4 pg (26.0-34.0); MCHC 33.5 g/dL (31.0-37.0); MCV 84.8 fL (80.0-100.0); MEAN PLATELET VOLUME 12.1 fL (7.4-10.4); PLATELET COUNT 213 10x3/uL (130-400); RBC 4.22 10x6/uL (4.20-6.10); RDW 14.9 % (11.5-14.5); WBC 23.6 10x3/uL (4.8-10.8)
[2019-06-09 08:45] VITALS: BP 142/79
[2019-06-09 09:39] VITALS: BMI 28.6
[2019-06-09 09:44] LABS: INR 1.14 (0.85-1.17); PROTIME 14.1 SECONDS (11.6-15.0)
[2019-06-09 10:20] LABS: BASOPHILS 1 % (0-2); LYMPHOCYTES 9 % (15-50); MONOCYTES 10 % (2-11); NEUTROPHILS 73 % (40-80); PLATELET ESTIMATE NORMAL
--- NOTE | 2019-06-09 11:14 | NUR ---
PLACED IN TEMP CONTACT ISOLATION. 2+ GRAM COCCI AND CLUSTERS WELL STAPH IN URINE.
--- NOTE | 2019-06-09 11:21 | NUR ---
PATIENT WAS WET. MITA AND I CHANGED HIM. BACK FROM RADIOLOGY.
[2019-06-09 16:46] VITALS: BP 119/70
[2019-06-09 19:30] VITALS: BP 125/60
--- NOTE | 2019-06-09 20:00 | NUR ---
ALERT RESTING IN BED, DENIES PAIN, O2 IN CONTINOUS USE AT 3L APPEARS SOB WITH DEMINISHED BREATH SOUNDS, SEE SHIFT ASSESSMENT, CALL LIGHT IN REACH
[2019-06-10] VITALS (20 sets, daily range): BP systolic 99–122; BP diastolic 50–84
--- NOTE | 2019-06-10 | NUR ---
CALL RECIEVED FROM POPPED CORN OVEN ATTENDANT REPORTS PT APPEARS TO BE IN VTACH, PT RESTING IN BED WITH EYES CLOSED AROUSED EASILY, REPORTS HAVING MILD PAIN TO MID CHEST AREA WITH PRESSURE FEELING, RAPID RESPONSE CALLED
--- NOTE | 2019-06-10 00:10 | NUR ---
ICU NURSE AND RT WITH PT EKG DONE ICU NURSE TAKING TO JOHN STRNIGER WHO IS IN ICU, VITAL SIGNS STABLE O2 SAT AT 90-92% RT INCREASED O2 TO 4 L, PT REPORTS PAIN AND PRESSURE BETTER NOW, HR REMAINING AT 123
--- NOTE | 2019-06-10 00:30 | NUR ---
JOHN HERE TO ASSESS PT, ORDERS RECIEVED
--- NOTE | 2019-06-10 01:00 | NUR ---
PT RESTING IN BED REPORTS PAIN BETTER NOW NO MORE PRESSURE, CALL LIGHT IN REACH INSTRUCTED TO CALL FOR ANY RETURN OF PAIN OR PRESSURE
[2019-06-10 01:27] LABS: CREATINE KINASE 152 UL (21-232)
[2019-06-10 01:29] LABS: TROPONIN-I 0.119 ng/mL (0.000-0.060)
[2019-06-10 07:45] LABS: CALCIUM 8.5 mg/dL (8.5-10.1); CARBON DIOXIDE 19.1 mmol/L (21.0-32.0); CHLORIDE - SERUM 104 mmol/L (98-107); CKMB 90.5 U/L (0.0-3.6); GLUCOSE 227 mg/dL (74-106); MAGNESIUM - SERUM 2.4 mg/dL (1.8-2.4); SODIUM 139 mmol/L (136-145)
[2019-06-10 07:47] LABS: CALC OSMOLALITY 312 mosm/kg (275-300); CREATINE KINASE 574 UL (21-232); CREATININE - SERUM 3.8 mg/dL (0.6-1.3); PHOSPHOROUS 4.9 mg/dL (2.5-4.9); POTASSIUM - SERUM 4.3 mmol/L (3.5-5.1); UREA NITROGEN 91 mg/dL (7-18); eGFR NON AFRICAN AMERICAN 17 mL/min (90-120)
[2019-06-10 07:48] LABS: TROPONIN-I 16.728 ng/mL (0.000-0.060)
[2019-06-10 07:53] LABS: BASOPHILS 0.2 % (0-2); EOSINOPHILS 0 % (0-7); HEMATOCRIT 34.2 % (42.0-54.0); HEMOGLOBIN 11.2 g/dL (13.5-17.5); IMMATURE GRANULOCYTES 1.8 % (0-5); LYMPHOCYTES 2.9 % (15-50); MCH 28.1 pg (26.0-34.0); MCHC 32.7 g/dL (31.0-37.0); MCV 85.7 fL (80.0-100.0); MEAN PLATELET VOLUME 12.1 fL (7.4-10.4); NEUTROPHILS 91.1 % (40-80); PLATELET COUNT 188 10x3/uL (130-400); RBC 3.99 10x6/uL (4.20-6.10); RDW 15.2 % (11.5-14.5); WBC 22.1 10x3/uL (4.8-10.8)
--- NOTE | 2019-06-10 07:58 | NUR ---
after review chart, noted the trop went from 0.119 to 16.728 notified Carlos CONTE and Keila the RN. Dr Garvey called telemetry, they stated he was [address] Sinus [address] with elevated ST segments
[2019-06-10 08:07] LABS: C-REACTIVE PROTEIN 31.5 mg/dL (0.0-0.9)
--- NOTE | 2019-06-10 08:19 | NUR ---
SPOKE WITH DR. SILVA, INFORMED HIM OF INCREASE IN CARDIAC ENZYMES. NO NEW ORDERS VERBALIZED. PT SLEEPING, NO REPORTS OF DISCOMFORT.
[2019-06-10 09:22] LABS: CHOL - HDL RATIO 8.4 ratio (2.3-4.9); LDL-HDL RATIO 3.5 ratio (1.5-3.5)
[2019-06-10 09:33] LABS: ERYTHROCYTE SEDIMENTATION RATE 74 mm/hr (0-20)
--- NOTE | 2019-06-10 11:10 | NUR ---
PATIENT RECEIVED TO ICU VIA BED. PATIENT ALERT AND ORIENTED X 4, VSS. INCONTINENT OF URINE. CLEANED AND LINENS CHANGED, REPOSTIONED IN BED. HR - 110 ST ON CM, RR 20, BSS CLEAR BUT DIMINISHED. SPO2 - 95% ON NC AT 4 LPM. IV INFUSING TO LEFT FA 20 GA, D51/2NS WITH 100 MEQ OF BICARB INFUSING AT 100 CC/HR WITH NO S/S OF INFILTRATION. T - 98.1. HEAD TO TOE ASSESSMENT COMPLETED.
--- NOTE | 2019-06-10 12:09 | NUR ---
22 GA IV TO LEFT WRIST X 1 ATTEMPT. POSITIVE BLOOD RETURN AND FLUSHES EASILY.
--- NOTE | 2019-06-10 13:00 | NUR ---
PATIENT RESTING QUIETLY, VSS. NO NEEDS AT THIS TIME. TURNED AND REPOSTIONED IN BED.
[2019-06-10 14:02] LABS: CKMB 297.3 U/L (0.0-3.6)
--- NOTE | 2019-06-10 14:03 | CN ---
PATIENT NAME:GILDARDO INIGUEZ MEDICAL RECORD: [id number] : 46 LOCATION:MANDY.2309 ADMIT DATE: 06/08/19 ACCOUNT: [id number] CONSULTING PHYSICIAN: STEF SILVA MD REFERRING PHYSICIAN: NITA RANDALL MD DATE OF CONSULTATION: 06/10/2019 HISTORY OF PRESENT ILLNESS: A 68-year-old gentleman with known history of coronary artery disease status post intervention, has a history of diabetes mellitus, fair control, admitted with flank pain, probably urosepsis with increased lactic acid, started on antibiotics. Had ischemic symptoms last night from cardiovascular standpoint. Subsequently, found to have elevated cardiac enzymes consistent with NSTEMI. We are asked to see him concerning his cardiovascular status. PAST MEDICAL HISTORY: Includes history of; 1. Coronary artery disease, status post intervention. 2. Hypertension. 3. Hyperlipidemia. 4. Diabetes mellitus. 5. Chronic renal insufficiency. 6. Renal calculi in the past. ALLERGIES: MILK. MEDICATIONS: Typically include lisinopril 10 mg p.o. daily, amlodipine 10 mg p.o. daily, atorvastatin 80 mg p.o. daily, Neurontin 400 t.i.d., tramadol 50 b.i.d., [place] 5/325 every day, Naprosyn 500 b.i.d., Lasix 20 every day, hydrochlorothiazide 50 every day, pioglitazone 45 mg p.o. every day. SOCIAL HISTORY: Nonsmoker, nondrinker. REVIEW OF SYSTEMS: The patient reports easy bruising but reports no swollen glands. The patient reports no fever, no night sweats, no significant weight gain, no significant weight loss. No significant exercise tolerance. The patient reports no dry eyes, no irritation, no vision change. Patient reports no difficulty hearing and no ear pain. Patient reports no frequent nose bleeds or nose and sinus problems. Patient reports on arm pain on exertion. No shortness of breath while lying down. No history of heart murmur. Patient reports no cough, no wheezing or coughing up blood. Patient reports no abdominal pain, no vomiting. Normal appetite. No diarrhea and not vomiting blood. No nausea and no constipation. Patient reports no incontinence. No difficulty urinating. No hematuria. No increased frequency. Patient reports no muscle aches. No weakness, no arthralgias, no back pain. No swelling of the extremities. Patient reports no abnormal mole, no jaundice, no rashes. Reports no loss of consciousness. No weakness and no numbness. No seizures, dizziness, or headaches. The patient reports no depression, no sleep disturbance, feeling safe in a relationship and no alcohol abuse. Patient reports on fatigue. Reports no runny nose or sinus pressure. No itching, no hives, and no frequent sneezing. PHYSICAL EXAMINATION: GENERAL: Elderly gentleman in no acute distress. VITAL SIGNS: Blood pressure 104/64, pulse of 104. HEENT: Normocephalic, atraumatic. CONSULT REPORT [id number] GILDARDO INIGUEZ NECK: No JVD or bruit. HEART: Regular. A II/ systolic ejection murmur. LUNGS: Fair air excursion. ABDOMEN: Soft, nontender. EXTREMITIES: Pulses decreased, 1+ with no edema. IMPRESSION: Acute coronary syndrome, non-ST segment elevation myocardial infarction, creatinine at 3.8 at this point. However, given the marked bump in enzymes, concern with his diffuse ST changes some residual left main disease, we will plan for angiography. Obviously, high risk procedure with possibility of worsening renal insufficiency, etc. discussed with the patient in detail. TRANSINT:[id number] Voice Confirmation ID: [id number] DOCUMENT ID: [id number] STEF SILVA MD at 1403 CC: [id number] DICTATION DATE: 06/10/19 0849 TAILOR HELPER: 06/10/19 1124 ADM IN [place] [id number] [place] [address]
[2019-06-10 14:04] LABS: CREATINE KINASE 1578 UL (21-232)
[2019-06-10 14:20] LABS: TROPONIN-I 46.657 ng/mL (0.000-0.060)
--- NOTE | 2019-06-10 15:06 | NUR ---
CHRISTI TO BOLT MACHINE OPERATOR. REASSESSMENT COMPLETED. VSS.
--- NOTE | 2019-06-10 16:20 | NUR ---
PATIENT BACK FROM CREDIT VERIFICATION CLERK, RIGHT GROIN SOFT NO HEMATOMA, DRESSING C/D/I. PATIENT DROWSY. VSS. INTEGRILIN INFUSING AT 7.3 CC/HR STARTED AT 1540 HRS AND TO TRANSFUSE FOR 18 HOURS (D/C AT 0940 AM ON 06/11/19).
--- NOTE | 2019-06-10 17:04 | NUR ---
PATIENT RESTING QUEITLY NO NEEDS AT THIS TIME. VSS.
--- NOTE | 2019-06-10 19:00 | NUR ---
ASSESSMENT COMPLETED. PT CONT TO LAY FLAT S/P INDUSTRIAL WELDER. DENIES ANY NEEDS OR PAIN. CALL LIGHT IN REACH.
--- NOTE | 2019-06-10 21:00 | NUR ---
AT APPROX 2029, PT C/O ABD PAIN. ABD BECAME HARD AND LEFT SIDE HARD WELL. PER JOHN MCDERMOTT APRN/DR. RANDALL, PLACED ROBLES CATHETER WTIH APPROX 1700 ML RETURN. STOPPED FLOW AT APPROX 800 ML AND RESTARTED AFTER APPROX 10 MINS FOR THE REST OF URINE TO FLOW. ALREADY ON CONTACT ISOLATION FOR MRSA IN URINE. ABD LESS DISTENDED AND HARD
--- NOTE | 2019-06-10 23:00 | NUR ---
RE-ASSESSMENT COMPLETED. NO CHANGES OTHER THAN NEW ROBLES CATHETER PREVIOUSLY MENTIONED. CALL LIGHT IN REACH
[2019-06-11] VITALS (22 sets, daily range): BP systolic 98–137; BP diastolic 59–87
--- NOTE | 2019-06-11 01:00 | NUR ---
LAYING IN BED. EASILY WAKES. DENIES ANY NEEDS. CALL LIGHT IN REACH. RIGHT GROIN DRSG STILL CDI, SOFT.
--- NOTE | 2019-06-11 03:00 | NUR ---
RE-ASSESSMENT COMPLETED. NO CHANGES SINCE LAST ASSESSMENT
--- NOTE | 2019-06-11 05:00 | NUR ---
LAYING IN BED, CALL LIGHT IN REACH. EASILY WAKES TO NAME. DENIES ANY NEEDS
[2019-06-11 06:10] LABS: CALCIUM 8.4 mg/dL (8.5-10.1); MAGNESIUM - SERUM 2.5 mg/dL (1.8-2.4); PHOSPHOROUS 4.1 mg/dL (2.5-4.9)
[2019-06-11 06:12] LABS: CREATININE - SERUM 2.7 mg/dL (0.6-1.3)
[2019-06-11 06:13] LABS: ANION GAP 13.9 mmol/L (8-16); CARBON DIOXIDE 24.6 mmol/L (21.0-32.0); POTASSIUM - SERUM 3.5 mmol/L (3.5-5.1)
--- NOTE | 2019-06-11 07:10 | NUR ---
AWAKES EASILY TO VERBAL STIMULI SKIN WARM AND DRY. IV RIGHT HAND INFUSING WITH INTEGRINLIN INFUSING AT 7.3 ML/HR. IV WITHOTU REDNESS OR SWELLING. LEFT FOREARM INFUSING WITH D51/2 NS WITH 2 AMPS OF NA BICARB AT 100 ML HOUR. ROBLES CATH PATEHT. NAPPING WHEN NOT AWAKEN BY STAFF.
[2019-06-11 07:32] LABS: HEMATOCRIT 35.2 % (42.0-54.0); HEMOGLOBIN 11.6 g/dL (13.5-17.5); MCH 27.8 pg (26.0-34.0); MCV 84.4 fL (80.0-100.0); MEAN PLATELET VOLUME 12.2 fL (7.4-10.4); PLATELET COUNT 264 10x3/uL (130-400); RBC 4.17 10x6/uL (4.20-6.10); RDW 15.4 % (11.5-14.5)
--- NOTE | 2019-06-11 08:00 | NUR ---
DR. SILVA HERE NOTIFIED OF INCREASE OF OXYGEN DUE TO PULSE OX DROPPING. NO NEW ORDERS RECEIVED.
[2019-06-11 08:54] LABS: CHOL - HDL RATIO 8.1 ratio (2.3-4.9); LDL-HDL RATIO 3.4 ratio (1.5-3.5)
--- NOTE | 2019-06-11 09:00 | NUR ---
PO MEDS TAKEN WITHOUT DIFFICULTY. GOOD SWALLOWING. GOOD COUGH EFFORT. SLOW TO RESPOND. QUITE. DENIES PAIN.
[2019-06-11 09:25] LABS: ANISOCYTOSIS OCC; CRENATED CELLS 1+; LYMPHOCYTES 2 % (15-50); MONOCYTES 8 % (2-11); NEUTROPHILS 78 % (40-80); PLATELET ESTIMATE NORMAL; POLYCHROMASIA OCC; ROULEAUX OCC; SMUDGE CELLS OCC
--- NOTE | 2019-06-11 09:50 | NUR ---
Nutrition follow-up: Pt now in ICU s/p rapid response Has been NPO for heart cath Diet: ADA consistent CHO with very poor po intake Labs reviewed; BUN/Cr elevated Wt: 229# Will offer nutritional supplements. If po intake remains poor will need to begin nutrition support. RDN following.
--- NOTE | 2019-06-11 11:00 | NUR ---
LUNG SOUNDS VERY DIMINSHED. ROBLES CATH PATENT SOME BLOOD CLOTS NOTED.
--- NOTE | 2019-06-11 11:10 | MORECARE ---
CASE MANAGEMENT DISCHARGE SUMMARY PATIENT: GILDARDO INIGUEZ UNIT: [id number] ADM DATE: 06/08/19 AGE: 68 : 48 SEX: M ROOM/BED: D.2309 AUTHOR: KULDIP JAY PHYSICIAN: REFERRING PHYSICIAN: NITA RANDALL MD DATE OF SERVICE: 06/11/19 Discharge Plan Patient Name: GILDARDO INIGUEZ [facility] [facility] 1950 Planned Disposition: Anticipated Discharge Date: Discharge Date: Expected LOS: Initial Reviewer: [email or web address] Initial Review Date: 06/11/2019 Generated: 06/11/19 12:10 pm Patient Name: GILDARDO INIGUEZ Page [id number] at 1110 All edits/amendments must be made on the electronic document DICTATION DATE: 06/11/19 1110 HOG ROOM SUPERVISOR: MADHAV 06/11/19 1110 RPT#: [id number] DC DATE: STATUS: ADM IN [facility] [address] [place] [address] END OF REPORT
--- NOTE | 2019-06-11 11:17 | MORECARE ---
CASE MANAGEMENT DISCHARGE SUMMARY PATIENT: GILDARDO INIGUEZ UNIT: [id number] ADM DATE: 06/08/19 AGE: 68 : 48 SEX: M ROOM/BED: D.2309 AUTHOR: KULDIP JAY PHYSICIAN: REFERRING PHYSICIAN: NITA RANDALL MD DATE OF SERVICE: 06/11/19 Discharge Plan Patient Name: GILDARDO INIGUEZ [facility] : 1950 Planned Disposition: Anticipated Discharge Date: Discharge Date: Expected LOS: Initial Reviewer: [email or web address] Initial Review Date: 06/11/2019 Generated: 06/11/19 12:17 pm DCPIA - Discharge Planning Initial Assessment Updated by [email or web address]: Lissy Ambrosio on 06/11/19 11:17 am * Is the patient Alert and Oriented? Yes * How many steps to enter\exit or inside your home? * [facility] * Pharmacy [facility] * Preadmission Environment Home Alone * ADLs Independent * Equipment Walker * List name and contact numbers for known caregivers / representatives who currently or will assist patient after discharge: [facility]- [phone] * Verbal permission to speak to the caregivers and representatives has been obtained from the patient. Yes * Community resources currently utilized None * Additional services required to return to the preadmission environment? No * Can the patient safely return to the preadmission environment? Yes * Has this patient been hospitalized within the prior 30 days at any hospital? No Last DP export: 06/11/19 10:10 a Patient Name: GILDARDO INIGUEZ Page [id number] at 1117 All edits/amendments must be made on the electronic document DICTATION DATE: 06/11/19 1117 PRODUCTION SUPERVISOR OFF SHIFT: MADHAV 06/11/19 1117 RPT#: [id number] DC DATE: STATUS: ADM IN [address] [place] [address] END OF REPORT
--- NOTE | 2019-06-11 11:31 | MORECARE ---
CASE MANAGEMENT DISCHARGE SUMMARY PATIENT: GILDARDO INIGUEZ UNIT: [id number] ADM DATE: 06/08/19 AGE: 68 : 48 SEX: M ROOM/BED: D.2309 AUTHOR: MISTY,DOC PHYSICIAN: REFERRING PHYSICIAN: NITA RANDALL MD DATE OF SERVICE: 06/11/19 Discharge Plan Patient Name: GILDARDO INIGUEZ Facility: [facility]:[place] : 1950 Planned Disposition: Anticipated Discharge Date: Discharge Date: Expected LOS: Initial Reviewer: [email or web address] Initial Review Date: 06/11/2019 Generated: 06/11/19 12:31 pm Comments DCP- Discharge Planning Updated by [email or web address]: Lissy Ambrosio on 06/11/19 10:[address] Patient Name: GILDARDO INIGUEZ Admission Status: ER Accout number: [id number] Admission Date: 06-08-2019 : 1950 Admission Diagnosis:SEPSIS, UNSPECIFIED ORGANISM Attending: NITA RANDALL Current LOS: 3 Anticipated DC Date: Planned Disposition: Primary Insurance: MEDICARE A & B Discharge Planning Comments: CM met with patient at bedside after explaining CM role and obtaining verbal consent. Patient lives at home alone with his service dog (Hilda) where he is independent with his care and plans to return there upon discharge. Patient feels this would be a safe discharge. CM discussed availability / needs of home health and medical equipment. Patient states his medical POA is Jose Su [phone]. Patient did state that if needed he is interested in Inpatient Rehab or SNF rehab. WAQAS signed. Patient denies any discharge needs at this time. Patient states he will have his family drive him home upon discharge. CM will continue to follow and assist as needed with discharge planning / needs. Steel Fixer: Lissy Ambrosio DCPIA - Discharge Planning Initial Assessment Updated by [email or web address]: Lissy Ambrosio on 06/11/19 11:17 am * Is the patient Alert and Oriented? Yes * How many steps to enter\exit or inside your home? * [facility] * Pharmacy [place] - [facility] * Preadmission Environment Home Alone * ADLs Independent * Equipment Walker * List name and contact numbers for known caregivers / representatives who currently or will assist patient after discharge: JOSE SU [facility]- [phone] * Verbal permission to speak to the caregivers and representatives has been obtained from the patient. Yes * Community resources currently utilized None * Additional services required to return to the preadmission environment? No * Can the patient safely return to the preadmission environment? Yes * Has this patient been hospitalized within the prior 30 days at any hospital? No Last DP export: 06/11/19 10:17 a Patient Name: GILDARDO INIGUEZ Page [phone] at 1131 All edits/amendments must be made on the electronic document DICTATION DATE: 06/11/19 113 CONTACT LENS MOLDER: MADHAV 06/11/19 113 RPT#: [id number] DC DATE: STATUS: ADM IN [facility] [address] [place] [address] END OF REPORT
--- NOTE | 2019-06-11 12:00 | NUR ---
NURSE PRACTIONER FOR DR. RANDALL HERE. INFORMED OF PULSE OX DROPPING AND INCREASING OXYGEN. ORDERS RECEIVED FOR BREAHING TREATMENT.
--- NOTE | 2019-06-11 13:00 | NUR ---
NO CHANGES NOTED. OXYGEN INCREASED TO KEEP PULSE OX ABOVE 90%. SHORTNESS OF BREATH NOTED.
--- NOTE | 2019-06-11 14:00 | NUR ---
PREOP DONE FOR HEART CATH
--- NOTE | 2019-06-11 14:19 | NUR ---
TO STARCH DUMPER PER BED AND PORTABLE OXYGEN AT 8 LITERS.
--- NOTE | 2019-06-11 14:51 | NUR ---
NURSE PRACTIONER FOR DR. RANDALL HERE. INFORMED OF DECLINE IN PULSE OX AND INCREASING OXYGEN. ORDERS FOR BREATHING TREATMENTS RECEIVED.
--- NOTE | 2019-06-11 15:35 | NUR ---
RETURNED TO ROOM AWAKE AND ALERT SKIN WARM AND DRY. RIGHT GROIN DRESSING DRY AND INTACT. PEDAL PULSES PALABLE. NO DISTRESS. PATIENT LAYING FLAT INBED WITHOUT DISTRESS. MONITOR ST.
--- NOTE | 2019-06-11 16:00 | NUR ---
RIGHT GROIN DRESSING DRY AND INTACT NO SWELLING. PEDAL PULSES PALABLE. TAKING PO FLUIDS WELL. COUGHING UP THICK YELLOW SPUTUM.
--- NOTE | 2019-06-11 17:00 | NUR ---
NO CHANGES. FRIENDS HERE UPDATE GIVEN. TALKED WITH DR. RANDALL. RIGHT GROIN DRESSING DRY AND INTACT. PEDAL PULSES PALABLE. NO DISTRESS. OXYGEN AT 8 LITER NC.
--- NOTE | 2019-06-11 17:30 | NUR ---
DINNER TRAY SERVED AND SET UP FOR PATIENT. HEAD OF BED ELEVATED 30 DEGREES. RIGHT GROIN DRESSING DRY AND INTACT. PEDAL PULSES PALABLE.
--- NOTE | 2019-06-11 18:29 | NUR ---
COMPLETE BED CHANGE. NO SKIN BREAKDOWN NOTED. PATIENT TOLERATED POORLY. PAIN PILL GIVEN. DRINKING FLUIDS WELL. NS AT KVO ONLY IV FLUID INFUSING. ROBLES CATH PATENT. MINIMAL BLOOD IN ROBLES CATH.
--- NOTE | 2019-06-11 19:00 | NUR ---
ASSESSMENT COMPLETED. LAYING IN BED WITH EYES CLOSED, EASILY WAKES. DENIES ANY NEEDS. PERIPHERAL PULSES PRESENT AND EQUAL.
--- NOTE | 2019-06-11 21:00 | NUR ---
REPOSITIONED. DENIES ANY NEEDS. CALL LIGHT IN REACH
--- NOTE | 2019-06-11 23:00 | NUR ---
RE-ASSESSMENT COMPELTED. NO CHANGES SINCE LAST ASSESSMENT. CHG BATH GIVEN WITH COMPLETE LINEN CHANGE
[2019-06-12] VITALS (14 sets, daily range): BP systolic 100–129; BP diastolic 67–87
--- NOTE | 2019-06-12 01:00 | NUR ---
LAYING IN BED, CALL LIGHT IN REACH. EASILY WAKES. REPOSITIONED
--- NOTE | 2019-06-12 03:00 | NUR ---
RE-ASSESSMENT COMPLETED. NO CHANGES SINCE LAST ASSESSMENT. CALL LIGHT IN REACH.
[2019-06-12 04:57] LABS: ANION GAP 9.7 mmol/L (8-16); CARBON DIOXIDE 29.3 mmol/L (21.0-32.0); HEMATOCRIT 34.8 % (42.0-54.0); HEMOGLOBIN 11.6 g/dL (13.5-17.5); LYMPHOCYTES 3.2 % (15-50); MAGNESIUM - SERUM 2.6 mg/dL (1.8-2.4); MCH 28.3 pg (26.0-34.0); MCHC 33.3 g/dL (31.0-37.0); MCV 84.9 fL (80.0-100.0); MEAN PLATELET VOLUME 12.1 fL (7.4-10.4); NEUTROPHILS 93.1 % (40-80); PHOSPHOROUS 3.2 mg/dL (2.5-4.9); PLATELET COUNT 218 10x3/uL (130-400); RDW 15.7 % (11.5-14.5); VANCOMYCIN - RANDOM 4.5 ug/mL (10.0-20.0); WBC 22.8 10x3/uL (4.8-10.8)
--- NOTE | 2019-06-12 05:00 | NUR ---
DENIES ANY NEEDS. CALL LIGHT IN REACH. REPOSITIONED.
[2019-06-12 05:13] LABS: CREATININE - SERUM 1.7 mg/dL (0.6-1.3)
--- NOTE | 2019-06-12 07:34 | NUR ---
UP IN BED AWAKE AT THIS TIME. VSS. NO ACUTE DISTRESS NOTED. CALL LIGHT IN REACH. WILL CONTINUE PLAN OF CARE.
--- NOTE | 2019-06-12 09:02 | NUR ---
UP IN BED AWAKE AT THIS TIME. VSS. NO ACUTE DISTRESS NOTED. WILL CONTINUE PLAN OF CARE.
--- NOTE | 2019-06-12 11:02 | NUR ---
NO ACUTE DISTRESS NOTED. VSS. CALL LIGHT IN REACH. PULSES PRESENT. RT GROIN SITE CDI, NO EDEMA, NO DRAINAGE, NO BLEEDING. WILL CONTINUE PLAN OF CARE.
--- NOTE | 2019-06-12 13:32 | NUR ---
LEFT AT THIS TIME FOR RENOGRAM WITH NUCLEAR MED. VSS. NO ACUTE DISTRESS NOTED. LEFT VIA BED ACCOMPANIED BY HOSPITAL STAFF. WILL CONTINUE PLAN OF CARE.
--- NOTE | 2019-06-12 13:33 | NUR ---
PER DR TONIA HIGGINS TO TRANSFER TO FLOOR.
--- NOTE | 2019-06-12 14:15 | NUR ---
RETURNED FROM [facility] AT THIS TIME. VSS. NO ACUTE DISTRESS NOTED. WILL CONTINUE PLAN OF CARE.
--- NOTE | 2019-06-12 16:31 | NUR ---
REPORT CALLED TO RECIEVING NURSE. WILL HUBER PT SHORTLY.
--- NOTE | 2019-06-12 17:24 | NUR ---
CHG BATH OFFERED; PT REFUSED.
--- NOTE | 2019-06-12 17:51 | NUR ---
PT TRANSFERRED TO ROOM 2127 AT THIS TIME VIA BED ACCOMPANIED BY HOSPITAL STAFF. VSS. NO ACUTE DISTRESS NOTED. TRASNSFERRED WITH ALL PERSONAL ITEMS. NO FURTHER ACTIONS.
--- NOTE | 2019-06-12 18:25 | NUR ---
NEW PATIENT ICU TRANSFER VIA HOSPITAL BED ACOMPANIED BY ICU PERSONNEL. PATIENT TRANSFERRED TO HOSPITAL BED. PATIENT IS AWAKE, ALERT AND ORIENTED X 4. PATIENT DENIES ANY NEEDS OR PAIN. PATIENT IS STABLE AND VSS. WILL CONTINUE WITH PLAN OF CARE.
--- NOTE | 2019-06-12 19:10 | NUR ---
EVENING ROUNDS COMPLETED. VSS, AAOX3, ALTHOUGH APPEARS LETHARGIC. PT PLACED ON TELEMETRY, 98 SR AT THIS TIME. CONTACT PRECAUTION PROTOCOLS IN PLACE. PT C/O OF LOWER ABDOMINAL PAIN. PAIN MED WILL BE ADMINISTER WHEN DUE. PT DENIES ANY FURTHER NEEDS AT THIS WILL CPOC.
[2019-06-13] VITALS: BP 117/78
[2019-06-13 04:00] VITALS: BP 163/82
[2019-06-13 08:00] VITALS: BP 141/87
--- NOTE | 2019-06-13 08:22 | NUR ---
ALERT AND ORIENTED. TELEMERTY SHOWS SR 94. LEFT FA SL. O2 AT 10 L/M HIGH FLOW. DRSG TO RIGHT GROIN CLEAN AND DRY. ROBLES CATH PATENT TO GRAVITY BAG. PT IS ON ISOLATION FOR MRSA IN BLEED. WILL MONITOR
[2019-06-13 12:02] VITALS: BP 121/76
[2019-06-13 12:13] LABS: HEMATOCRIT 38.7 % (42.0-54.0); MCH 28.5 pg (26.0-34.0); MCHC 33.6 g/dL (31.0-37.0); MCV 84.9 fL (80.0-100.0); MEAN PLATELET VOLUME 12.9 fL (7.4-10.4); PLATELET COUNT 214 10x3/uL (130-400); RBC 4.56 10x6/uL (4.20-6.10); RDW 15.4 % (11.5-14.5); WBC 24.3 10x3/uL (4.8-10.8)
[2019-06-13 12:23] LABS: CALC OSMOLALITY 276 mosm/kg (275-300); CALCIUM 7.6 mg/dL (8.5-10.1); CARBON DIOXIDE 22.9 mmol/L (21.0-32.0); CHLORIDE - SERUM 101 mmol/L (98-107); CREATININE - SERUM 0.9 mg/dL (0.6-1.3); GLUCOSE 341 mg/dL (74-106); POTASSIUM - SERUM 4.2 mmol/L (3.5-5.1); SODIUM 126 mmol/L (136-145); UREA NITROGEN 44 mg/dL (7-18); eGFR NON AFRICAN AMERICAN 89 mL/min (90-120)
--- NOTE | 2019-06-13 14:15 | NUR ---
Nutrition Follow-up: Recent transfer from ICU. Heart cath 06/11. Diet: Cardiac PO intake: 63% avg x 4 meals Wt: 234# No BMs recorded Labs noted: Na 126, Glu 341, Ca 7.6 Meds noted: Solumedrol, Miralax, Humulin -Change to cardiac diabetic diet. -Offer Glucerna with meals. -RD following.
[2019-06-13 14:16] LABS: BURR CELLS OCC; CRENATED CELLS 1+; LYMPHOCYTES 8 % (15-50); MONOCYTES 7 % (2-11); NEUTROPHILS 78 % (40-80); PLATELET ESTIMATE NORMAL; ROULEAUX OCC
--- NOTE | 2019-06-13 15:16 | NUR ---
OT NOTE: PT COMPLETED BED MOB TASKS WITH MOD A. PT COMPLETED LB HYGIENE TASK WITH MAX A. PT COMPLETED BUE AROM LIMITED APPROX TO 40 DEGREES OF FLEXION. THANK YOU,YAMIL WILLIS
[2019-06-13 16:00] VITALS: BP 127/77
--- NOTE | 2019-06-13 16:07 | NUR ---
I have reviewed this patient and I concur with the Shift Assessment completed by the Licensed Practical Nurse today this shift.
--- NOTE | 2019-06-13 17:20 | MORECARE ---
CASE MANAGEMENT DISCHARGE SUMMARY PATIENT: GILDARDO INIGUEZ UNIT: [id number] ADM DATE: 06/08/19 AGE: 68 : 48 SEX: M ROOM/BED: D.3657 AUTHOR: MISTY,DOC PHYSICIAN: REFERRING PHYSICIAN: NITA RANDALL MD DATE OF SERVICE: 06/13/19 Discharge Plan Patient Name: GILDARDO INIGUEZ Facility: [facility]:[place] : 1950 Planned Disposition: E Mail System Administrator Care Fac MCR Anticipated Discharge Date: Discharge Date: Expected LOS: Initial Reviewer: [email or web address] Initial Review Date: 06/11/2019 Generated: 06/13/19 6:20 pm DCP- Discharge Planning Updated by [email or web address]: Lissy Ambrosio on 06/11/19 10:[address] Patient Name: GILDARDO INIGUEZ Admission Status: ER Accout number: [id number] Admission Date: 06-08-2019 : 1950 Admission Diagnosis:SEPSIS, UNSPECIFIED ORGANISM Attending: NITA RANDALL Current LOS: 3 Anticipated DC Date: Planned Disposition: Primary Insurance: MEDICARE A & B Discharge Planning Comments: CM met with patient at bedside after explaining CM role and obtaining verbal consent. Patient lives at home alone with his service dog (Hilda) where he is independent with his care and plans to return there upon discharge. Patient feels this would be a safe discharge. CM discussed availability / needs of home health and medical equipment. Patient states his medical POA is [facility] [phone]. Patient did state that if needed he is interested in Inpatient Rehab or SNF rehab. WAQAS signed. Patient denies any discharge needs at this time. Patient states he will have his family drive him home upon discharge. CM will continue to follow and assist as needed with discharge planning / needs. Rail Assembler: Lissy Ambrosio DCPIA - Discharge Planning Initial Assessment Updated by [email or web address]: Lissy Ambrosio on 06/11/19 11:17 am * Is the patient Alert and Oriented? Yes * How many steps to enter\exit or inside your home? * [facility]CP [facility] * [facility] [place] [facility] * Preadmission Environment Home Alone * ADLs Independent * Equipment Walker * List name and contact numbers for known caregivers / representatives who currently or will assist patient after discharge: JOSE SU [facility]- [phone] * Verbal permission to speak to the caregivers and representatives has been obtained from the patient. Yes * Community resources currently utilized None * Additional services required to return to the preadmission environment? No * Can the patient safely return to the preadmission environment? Yes * Has this patient been hospitalized within the prior 30 days at any hospital? No External Providers External Provider: Gretta Dick [facility] Next Contact Date: 06/13/2019 Service Request Date: Service Type: Resolution: Reviewer: Comments: Last DP export: 06/11/19 10:31 a Patient Name: GILDARDO INIGUEZ Page 14949 at 1720 All edits/amendments must be made on the electronic document DICTATION DATE: 06/13/191719 SUPERVISOR ORDNANCE TRUCK INSTALLATION: MADHAV 06/13/191719 RPT#: [id number] DC DATE: STATUS: ADM IN [facility] [address] [place] [address] END OF REPORT
--- NOTE | 2019-06-13 17:39 | MORECARE ---
CASE MANAGEMENT DISCHARGE SUMMARY PATIENT: GILDARDO INIGUEZ UNIT: [id number] ADM DATE: 06/08/19 AGE: 68 : 48 SEX: M ROOM/BED: D.1110 AUTHOR: MISTY,DOC PHYSICIAN: REFERRING PHYSICIAN: NITA RANDALL MD DATE OF SERVICE: 06/13/19 Discharge Plan Patient Name: GILDARDO INIGUEZ Facility: [facility]:[place] : 1950 Planned Disposition: [facility] Fac [facility]CR Anticipated Discharge Date: Discharge Date: Expected LOS: Initial Reviewer: [id number] Initial Review Date: 06/11/2019 Generated: 06/13/19 6:39 pm Comments DCP- Discharge Planning Updated by [id number]: Moi Cruz on 06/13/19 4:[address] Patient Name: GILDARDO INIGUEZ Encounter No: [id number] : 1950 Primary Insurance: MEDICARE A & B Anticipated DC Date: Planned Disposition: [facility] Fac [facility] External Planned Provider: [facility] [place] DCP follow-up note: CM RECEIVED LTACH ORDER; CM MET WITH PT IN ROOM, DISCUSSED ORDER, PROVIDERS OF LTACH AND LOCATIONS. PT STATES HE LIVES IN [place] AND WANTS TO BE EVALUATED FOR ADMISSION TO [facility] IN [place]. IMPORTANT MESSAGE FROM MEDICARE PROVIDED AND EXPLAINED. CM CALLED MELANIE OF [facility], , REQUESTED EVAULATION SOON POSSIBLE AND ASKED THAT PT BE EVALUATED THIS WEEKEND IF POSSIBLE FOR LTACH ADMISSION. CM FAXED REFERRAL TO [facility] AT [phone]. CM WAITING ADMISSION DETERMINATION FROM [facility]. Moi Cruz, CASE MANAGEMENT DCP- Discharge Planning Updated by [email or web address]: Lissy Ambrosio on 06/11/19 10:[address] Patient Name: GILDARDO INIGUEZ Admission Status: ER Accout number: [id number] Admission Date: 06-08-2019 : 1950 Admission Diagnosis:SEPSIS, UNSPECIFIED ORGANISM Attending: NITA RANDALL Current LOS: 3 Anticipated DC Date: Planned Disposition: Primary Insurance: MEDICARE A & B Discharge Planning Comments: CM met with patient at bedside after explaining CM role and obtaining verbal consent. Patient lives at home alone with his service dog (Hilda) where he is independent with his care and plans to return there upon discharge. Patient feels this would be a safe discharge. CM discussed availability / needs of home health and medical equipment. Patient states his medical POA is Jose Su [phone]. Patient did state that if needed he is interested in Inpatient Rehab or SNF rehab. WAQAS signed. Patient denies any discharge needs at this time. Patient states he will have his family drive him home upon discharge. CM will continue to follow and assist as needed with discharge planning / needs. Extractor Loader And Unloader: Lissy Ambrosio DCSUNGA - Discharge Planning Initial Assessment Updated by [id number]: Lissy Ambrosio on 06/11/19 11:17 am * Is the patient Alert and Oriented? Yes * How many steps to enter\exit or inside your home? * [facility] * [facility] - [facility] * Preadmission Environment Home Alone * ADLs Independent * Equipment Walker * List name and contact numbers for known caregivers / representatives who currently or will assist patient after discharge: JOSE SU - [place] - MED POA- [phone] * Verbal permission to speak to the caregivers and representatives has been obtained from the patient. Yes * Community resources currently utilized None * Additional services required to return to the preadmission environment? No * Can the patient safely return to the preadmission environment? Yes * Has this patient been hospitalized within the prior 30 days at any hospital? No Coverage Notice Reviewer: [id number] Sun Cruz Notice Issued Date-Time: 06/13/2019 16:35 Notice Type: IM Discharge Notice Notice Delivered To: Patient Relationship to Patient: Director Business Travel Name: Delivery Method: HAND - Hand Delivered Meggan Days: Prior Verbal Notification: Recipient Understood Notice: Yes Recipient Signature: Yes Med Rec Note Co-signed by Attending: Coverage Notice Comment: Last DP export: 06/13/19 4:20 p Patient Name: GILDARDO INIGUEZ Page 92761 at 5514 All edits/amendments must be made on the electronic document DICTATION DATE: 06/13/191738 ANALYTICAL SCIENTIST: MADHAV 06/13/191738 RPT#: [id number] [place] DATE: STATUS: ADM IN [facility] [address] [facility] [place] [address] END OF REPORT
--- NOTE | 2019-06-13 19:20 | NUR ---
RECEIVED REPORT, WILL ASSUME CARE OF PT, SLEEPING,NO DISTRESS NOTICED AT THIS TIME, BED IS LOW, SRX2, CALL LIGHT IN REACH, WILL CONTINUE PLAN OF CARE
[2019-06-13 20:30] VITALS: BP 109/74
[2019-06-14] VITALS: BP 116/74
[2019-06-14 04:30] VITALS: BP 113/72
[2019-06-14 05:35] LABS: BASOPHILS 0.1 % (0-2); EOSINOPHILS 0 % (0-7); HEMATOCRIT 38.3 % (42.0-54.0); HEMOGLOBIN 12.9 g/dL (13.5-17.5); IMMATURE GRANULOCYTES 2.7 % (0-5); LYMPHOCYTES 3.6 % (15-50); MCH 28.4 pg (26.0-34.0); MCHC 33.7 g/dL (31.0-37.0); MCV 84.2 fL (80.0-100.0); MEAN PLATELET VOLUME 11.8 fL (7.4-10.4); MONOCYTES 3.7 % (2-11); NEUTROPHILS 89.9 % (40-80); PLATELET COUNT 211 10x3/uL (130-400); RBC 4.55 10x6/uL (4.20-6.10); RDW 15.2 % (11.5-14.5); WBC 26.3 10x3/uL (4.8-10.8)
[2019-06-14 05:49] LABS: CALC OSMOLALITY 290 mosm/kg (275-300); CALCIUM 8.1 mg/dL (8.5-10.1); CARBON DIOXIDE 25.8 mmol/L (21.0-32.0); CHLORIDE - SERUM 106 mmol/L (98-107); GLUCOSE 149 mg/dL (74-106); POTASSIUM - SERUM 4.6 mmol/L (3.5-5.1); SODIUM 140 mmol/L (136-145); UREA NITROGEN 38 mg/dL (7-18); eGFR NON AFRICAN AMERICAN 78 mL/min (90-120)
--- NOTE | 2019-06-14 07:43 | NUR ---
REPORT RECIEVED. PT SITTING FOWLERS IN BED. RR EVEN AND UNLABORED ON 6L HF NC. PT HAS A L FA PIV THAT IS SL AND A L HAND PIV THAT IS SL. HE HAS A ROBLES DRAINING. BED LOCKED AND IN LOWEST POSITION, CALL LIGHT WITHIN REACH. WILL CTM
[2019-06-14 08:01] VITALS: BP 133/78
[2019-06-14 11:56] VITALS: BP 118/75
[2019-06-14 15:43] VITALS: BP 131/82
--- NOTE | 2019-06-14 16:25 | NUR ---
I have reviewed this patient and I concur with the Shift Assessment completed by the Licensed Practical Nurse today this shift.
--- NOTE | 2019-06-14 19:00 | NUR ---
REPORT RECEIVED. PT UP IN BED RR EVEN AND UNLABORED ON 6L HF. NO S/SX OF DISTRESS NOTED AT THIS TIME. PT DENIES NEEDS. SRX2, CALL LIGHT IN REACH. WILL CTM.
[2019-06-14 20:30] VITALS: BP 118/78
[2019-06-15] VITALS: BP 117/69
[2019-06-15 05:08] LABS: HEMOGLOBIN 11.8 g/dL (13.5-17.5); MCH 28.4 pg (26.0-34.0); MCHC 32.8 g/dL (31.0-37.0); MCV 86.5 fL (80.0-100.0); PLATELET COUNT 244 10x3/uL (130-400); RBC 4.16 10x6/uL (4.20-6.10); RDW 15.5 % (11.5-14.5)
[2019-06-15 05:10] LABS: BURR CELLS OCC; EOSINOPHILS 1 % (0-7); LYMPHOCYTES 10 % (15-50); MONOCYTES 6 % (2-11); NEUTROPHILS 75 % (40-80); PLATELET ESTIMATE NORMAL; ROULEAUX OCC
[2019-06-15 05:21] LABS: CALC OSMOLALITY 293 mosm/kg (275-300); CALCIUM 7.6 mg/dL (8.5-10.1); CARBON DIOXIDE 26.4 mmol/L (21.0-32.0); CHLORIDE - SERUM 107 mmol/L (98-107); CREATININE - SERUM 0.8 mg/dL (0.6-1.3); POTASSIUM - SERUM 4.7 mmol/L (3.5-5.1); SODIUM 140 mmol/L (136-145); UREA NITROGEN 39 mg/dL (7-18); eGFR NON AFRICAN AMERICAN > 90 mL/min (90-120)
[2019-06-15 05:23] LABS: GLUCOSE 213 mg/dL (74-106)
--- NOTE | 2019-06-15 07:00 | NUR ---
RECEIVED REPORT. ASSUMED CARE OF PATIENT. CALL LIGHT WITHIN REACH. NO DISTRESS. DENIES NEEDS. PATIENT NOTED TO SPEAK WITH A "STUDDER".
[2019-06-15 08:50] VITALS: BP 120/77
--- NOTE | 2019-06-15 11:19 | NUR ---
FSBS 209. 12 UNITS HUMULIN ADMINISTERED PER SLIDING SCALE.
[2019-06-15 12:56] VITALS: BP 138/80
--- NOTE | 2019-06-15 15:12 | NUR ---
PATIENT LEAVING UNIT VIA BED AT THIS TIME FOR CT OF ABD AND PELVIS DUE TO PAIN.
--- NOTE | 2019-06-15 15:47 | NUR ---
RETURNED FROM MRI AT THIS TIME. PATIENT MEDICATED FOR PAIN. CALL LIGHT WITHIN REACH. NO DISTRESS.
--- NOTE | 2019-06-15 16:30 | NUR ---
FSBS 233. 12 UNITS OF HUMULIN ADMINISTERED PER SLIDING SCALE.
--- NOTE | 2019-06-15 16:56 | NUR ---
CULTURE CULTURE SENT TO LAB.
[2019-06-15 17:30] VITALS: BP 135/69
--- NOTE | 2019-06-15 19:05 | NUR ---
BEDSIDE REPORT COMPLETED AT THIS TIME, NO CHANGES NOTED FROM NURSE REPORT, PT IS AAOX3 PT IS CONFUSED TO TIME. PT DENIES COMPLAINTS AT THIS TIME, NO DISTRESS NOTED, WILL MONITOR FOR CHANGES
[2019-06-15 20:04] VITALS: BP 106/63
[2019-06-16 00:01] VITALS: BP 117/55
[2019-06-16 05:28] VITALS: BP 121/62
[2019-06-16 05:38] LABS: BASOPHILS 0.1 % (0-2); EOSINOPHILS 0.2 % (0-7); HEMATOCRIT 38.1 % (42.0-54.0); HEMOGLOBIN 12.7 g/dL (13.5-17.5); IMMATURE GRANULOCYTES 4.1 % (0-5); LYMPHOCYTES 5.4 % (15-50); MCHC 33.3 g/dL (31.0-37.0); MCV 83.9 fL (80.0-100.0); MONOCYTES 4.7 % (2-11); NEUTROPHILS 85.5 % (40-80); PLATELET COUNT 297 10x3/uL (130-400); RBC 4.54 10x6/uL (4.20-6.10); RDW 15.1 % (11.5-14.5); WBC 26.7 10x3/uL (4.8-10.8)
[2019-06-16 05:48] LABS: CALC OSMOLALITY 283 mosm/kg (275-300); CALCIUM 8.2 mg/dL (8.5-10.1); CARBON DIOXIDE 27.6 mmol/L (21.0-32.0); CHLORIDE - SERUM 106 mmol/L (98-107); CREATININE - SERUM 0.9 mg/dL (0.6-1.3); POTASSIUM - SERUM 4.2 mmol/L (3.5-5.1); SODIUM 138 mmol/L (136-145); UREA NITROGEN 31 mg/dL (7-18); eGFR NON AFRICAN AMERICAN 89 mL/min (90-120)
[2019-06-16 05:51] LABS: GLUCOSE 108 mg/dL (74-106)
--- NOTE | 2019-06-16 07:10 | NUR ---
ASSESSMENT DONE. DENIES NEEDS
[2019-06-16 08:00] VITALS: BP 213/120
--- NOTE | 2019-06-16 09:24 | MORECARE ---
CASE MANAGEMENT DISCHARGE SUMMARY PATIENT: GILDARDO INIGUEZ UNIT: [id number] ADM DATE: 06/08/19 AGE: 68 : 48 SEX: M ROOM/BED: D.0489 AUTHOR: MISTY,DOC PHYSICIAN: REFERRING PHYSICIAN: NITA RANDALL MD DATE OF SERVICE: 06/16/19 Discharge Plan Patient Name: GILDARDO INIGUEZ Facility: [facility]:[place] : 1950 Planned Disposition: Flume Worker Acute Care Facility Anticipated Discharge Date: 06/16/19 Discharge Date: Expected LOS: 8 Initial Reviewer: [email or web address] Initial Review Date: 06/11/2019 Generated: 06/16/19 10:24 am Comments DCP- Discharge Planning Updated by [email or web address]: Moi Cruz on 06/16/19 8:[address] Patient Name: GILDARDO INIGUEZ Encounter No: [id number] : 1950 Primary Insurance: MEDICARE A & B Anticipated DC Date: 06-16-2019 Planned Disposition: Longterm Acute Care Facility External Planned Provider: [facility] DCP follow-up note: CM REVIEWED FAX CONFIRMATION, FAX DID NOT COMPLETE TO [facility] ON SUNDAY EVENING. CM FAXED REFERRAL AGAN TO [facility] AT [phone]. CM FAXED UPDATED REFERRAL INFORMATION TO [facility] AT [phone]. CM WAITING ADMISSION DETERMINATION FROM [facility]. ALEX Cerrato DCP- Discharge Planning Updated by [id number]: Moi Cruz on 06/13/19 4:[address] Patient Name: GILDARDO INIGUEZ Encounter No: [id number] : 1950 Primary Insurance: MEDICARE A & B Anticipated DC Date: Planned Disposition: Flume Worker Care Fac [facility] External Planned Provider: [facility] [place] DCP follow-up note: CM RECEIVED LTACH ORDER; CM MET WITH PT IN ROOM, DISCUSSED ORDER, PROVIDERS OF LTACH AND LOCATIONS. PT STATES HE LIVES IN [place] AND WANTS TO BE EVALUATED FOR ADMISSION TO [facility] IN [place]. IMPORTANT MESSAGE FROM MEDICARE PROVIDED AND EXPLAINED. CM CALLED MELANIE OF [facility], , REQUESTED EVAULATION SOON POSSIBLE AND ASKED THAT PT BE EVALUATED THIS WEEKEND IF POSSIBLE FOR LTACH ADMISSION. CM FAXED REFERRAL TO [facility] AT [phone]. CM WAITING ADMISSION DETERMINATION FROM [facility]. Moi Cruz, CASE MANAGEMENT DCP- Discharge Planning Updated by [id number]: Lissy Ambrosio on 06/11/19 10:[address] Patient Name: GILDARDO INIGUEZ Admission Status: ER Accout number: [id number] Admission Date: 06-08-2019 : 1950 Admission Diagnosis:SEPSIS, UNSPECIFIED ORGANISM Attending: NITA RANDALL Current LOS: 3 Anticipated DC Date: Planned Disposition: Primary Insurance: MEDICARE A & B Discharge Planning Comments: CM met with patient at bedside after explaining CM role and obtaining verbal consent. Patient lives at home alone with his service dog (Hilda) where he is independent with his care and plans to return there upon discharge. Patient feels this would be a safe discharge. CM discussed availability / needs of home health and medical equipment. Patient states his medical POA is Jose Su [phone]. Patient did state that if needed he is interested in Inpatient Rehab or SNF rehab. WAQAS signed. Patient denies any discharge needs at this time. Patient states he will have his family drive him home upon discharge. CM will continue to follow and assist as needed with discharge planning / needs. Weighter: Lissy Ambrosio DCPIA - Discharge Planning Initial Assessment Updated by [email or web address]: Lissy Ambrosio on 06/11/19 11:17 am * Is the patient Alert and Oriented? Yes * How many steps to enter\exit or inside your home? * [facility]CP [facility] * Pharmacy [facility] - [facility] * Preadmission Environment Home Alone * ADLs Independent * Equipment Walker * List name and contact numbers for known caregivers / representatives who currently or will assist patient after discharge: JOSE SU - [facility] MED POA- [phone] * Verbal permission to speak to the caregivers and representatives has been obtained from the patient. Yes * Community resources currently utilized None * Additional services required to return to the preadmission environment? No * Can the patient safely return to the preadmission environment? Yes * Has this patient been hospitalized within the prior 30 days at any hospital? No Coverage Notice Reviewer: [id number] Sun Cruz Notice Issued Date-Time: 06/13/2019 16:35 Notice Type: IM Discharge Notice Notice Delivered To: Patient Relationship to Patient: Top Lift Cutter Name: Delivery Method: HAND - Hand Delivered Meggan Days: Prior Verbal Notification: Recipient Understood Notice: Yes Recipient Signature: Yes Med Rec Note Co-signed by Attending: Coverage Notice Comment: Last DP export: 06/13/19 4:39 p Patient Name: GILDARDO INIGUEZ Page 11950 at 0924 All edits/amendments must be made on the electronic document DICTATION DATE: 06/16/19923 LEARNING ADMINISTRATOR: MADHAV 06/16/19923 RPT#: [id number] DC DATE: STATUS: ADM IN [facility] [address] [place] [address] END OF REPORT
[2019-06-16 12:00] VITALS: BP 93/48
--- NOTE | 2019-06-16 14:00 | NUR ---
I have reviewed this patient and I concur with the Shift Assessment completed by the Licensed Practical Nurse today this shift.
--- NOTE | 2019-06-16 14:29 | NUR ---
OT NOTE: PT REPORTING SEVERE PAIN IN BACK, HIPS, AND KNEES. PT LIEING ON L SIDE; ABLE TO MOVE FEET TO EOB WITH MIN ASSIST AND EXT TIME; SUPINE TO SIT WITH MAX ASSIST AND SEVERE PAIN. SITTING BALANCE ON EOB WITHOUT SUPPORT. PERFORMED UE AND LE EXS WHILE ON EOB BUT ONLY ABLE TO PERFORM A FEW REPS AT A TIME DUE TO PAIN AND WEAKNESS. ABLE TO WASH FACE WITH CLOTH AND SET UP, HOWEVER, UNABLE TO ECTOR OR DOFF GOWN WITHOUT MAX ASSIST; TOTAL ASSIST TO ECTOR SOCKS. PT WITH CONTINUED CONFUSION. BACK TO BED WITH MAX ASSIST X 2 FOR SIT TO SUPINE, ROLLING SIDE TO SIDE, AND SCOOTING UP IN BED. ABDULLAHI VERMA, OTR/L
--- NOTE | 2019-06-16 14:38 | NUR ---
OT NOTE: PT HAD C/O PAIN IN BACK AREA. NURSING AWARE. PT COMPLETED BED MOB TASK WITH MAX A. PT COMPLETED EOB SITTING WITH SBA/CGA. PT COMPLETED SUPINE TO SIT WITH MAX A. PT COMPLETED BUE AROM AX WITHIN AVAILABLE ROM. THANK YOU, YAMIL WILLIS
--- NOTE | 2019-06-16 15:12 | MORECARE ---
CASE MANAGEMENT DISCHARGE SUMMARY PATIENT: GILDARDO INIGUEZ UNIT: [id number] ADM DATE: 06/08/19 AGE: 68 : 48 SEX: M ROOM/BED: D.2620 AUTHOR: MISTY,DOC PHYSICIAN: REFERRING PHYSICIAN: NITA RANDALL MD DATE OF SERVICE: 06/16/19 Discharge Plan Patient Name: GILDARDO INIGUEZ Facility: [facility]:[place] : 1950 Planned Disposition: Wire Inspector Acute Care Facility Anticipated Discharge Date: 06/16/19 Discharge Date: Expected LOS: 8 Initial Reviewer: [id number] Initial Review Date: 06/11/2019 Generated: 06/16/19 4:11 pm Comments DCP- Discharge Planning Updated by [email or web address]: Moi Cruz on 06/16/19 2:[address] Patient Name: GILDARDO INIGUEZ Encounter No: [id number] : 1950 Primary Insurance: MEDICARE A & B Anticipated DC Date: 06-16-2019 Planned Disposition: Long-Term Acute Care Facility External Planned Provider: [facility] [place] DCP follow-up note: CM REVIEWED FAX CONFIRMATION, FAX DID NOT COMPLETE TO [facility] ON SUNDAY EVENING. CM FAXED REFERRAL AGAN TO [facility] AT [phone]. CM FAXED UPDATED REFERRAL INFORMATION TO [facility] AT [phone]. CM WAITING ADMISSION DETERMINATION FROM [facility]. Moi Cruz CASE MANAGEMENT Appended by Moi Cruz on 06/16/2019 15:10 EMBEDDED SYSTEMS DESIGNER: CM RECEIVED CALL FROM MELANIE [facility], , WHO INFORMED CM THAT HER DOCTOR WILL NOT ACCEPT UNTIL WBC ARE BELOW 20 AND PT'S IS CURRENTLY AT 26.7. MELANIE ALSO INFORMED CM THAT THE SOURCE OF INFECTION AND NEEDED ANTIBIOTICS HAVE TO BE IDENTIFIED PRIOR TO SCHOOL BUS INSPECTOR REVIEW AT [facility]. DG LOPEZ NOTIFIED. CM WAITING ON WBC TO TREND DOWN AND WILL RESUBMIT TO [facility] WHEN BELOW 20. ALEX CELAYA DCP- Discharge Planning Updated by [email or web address]: Moi Cruz on 06/13/19 4:[address] Patient Name: GILDARDO INIGUEZ Encounter No: [id number] : 1950 Primary Insurance: MEDICARE A & B Anticipated DC Date: Planned Disposition: [facility] Inspector Care Fac [facility] External Planned Provider: [facility] [place] DCP follow-up note: CM RECEIVED LTACH ORDER; CM MET WITH PT IN ROOM, DISCUSSED ORDER, PROVIDERS OF LTACH AND LOCATIONS. PT STATES HE LIVES IN [place] AND WANTS TO BE EVALUATED FOR ADMISSION TO [facility] IN [place]. IMPORTANT MESSAGE FROM MEDICARE PROVIDED AND EXPLAINED. CM CALLED MELANIE OF [facility], , REQUESTED EVAULATION SOON POSSIBLE AND ASKED THAT PT BE EVALUATED THIS WEEKEND IF POSSIBLE FOR LTACH ADMISSION. CM FAXED REFERRAL TO [facility] AT [phone]. CM WAITING ADMISSION DETERMINATION FROM [facility]. Moi Cruz, CASE MANAGEMENT DCP- Discharge Planning Updated by [id number]: Lissy Ambrosio on 06/11/19 10:[address] Patient Name: GILDARDO INIGUEZ Admission Status: ER Accout number: [id number] Admission Date: 06-08-2019 : 1950 Admission Diagnosis:SEPSIS, UNSPECIFIED ORGANISM Attending: NITA RANDALL Current LOS: 3 Anticipated DC Date: Planned Disposition: Primary Insurance: MEDICARE A & B Discharge Planning Comments: CM met with patient at bedside after explaining CM role and obtaining verbal consent. Patient lives at home alone with his service dog (Hilda) where he is independent with his care and plans to return there upon discharge. Patient feels this would be a safe discharge. CM discussed availability / needs of home health and medical equipment. Patient states his medical POA is Jose Su [phone]. Patient did state that if needed he is interested in Inpatient Rehab or SNF rehab. WAQAS signed. Patient denies any discharge needs at this time. Patient states he will have his family drive him home upon discharge. CM will continue to follow and assist as needed with discharge planning / needs. Putty Mixer: Lissy Ambrosio DCPIA - Discharge Planning Initial Assessment Updated by [id number]: Lissy Ambrosio on 06/11/19 11:17 am * Is the patient Alert and Oriented? Yes * How many steps to enter\exit or inside your home? * [facility]CP [facility] * [facility] - [facility] * Preadmission Environment Home Alone * ADLs Independent * Equipment Walker * List name and contact numbers for known caregivers / representatives who currently or will assist patient after discharge: JOSE SU [facility]- [phone] * Verbal permission to speak to the caregivers and representatives has been obtained from the patient. Yes * Community resources currently utilized None * Additional services required to return to the preadmission environment? No * Can the patient safely return to the preadmission environment? Yes * Has this patient been hospitalized within the prior 30 days at any hospital? No Coverage Notice Reviewer: [id number] Sun Cruz Notice Issued Date-Time: 06/13/2019 16:35 Notice Type: IM Discharge Notice Notice Delivered To: Patient Relationship to Patient: Cementer Hand Name: Delivery Method: HAND - Hand Delivered Meggan Days: Prior Verbal Notification: Recipient Understood Notice: Yes Recipient Signature: Yes Med Rec Note Co-signed by Attending: Coverage Notice Comment: Last DP export: 06/16/19 8:24 a Patient Name: GILDARDO INIGUEZ Page 70099 at 1512 All edits/amendments must be made on the electronic document DICTATION DATE: 06/16/191510 LAY HEALTH ADVOCATE: MADHAV 06/16/191510 RPT#: [id number] DC DATE: STATUS: ADM IN [facility] [address] [place] [address] END OF REPORT
[2019-06-16 16:00] VITALS: BP 116/65
--- NOTE | 2019-06-16 19:26 | NUR ---
RECEIVED BEDSIDE REPORT. PATIENT IS ALERT AND ORIENTED X 3. RESPIRATIONS ARE EVEN AND UNLABORED. NO S/S OF DISTRESS. NO C/O PAIN. NEEDS MET. CALL LIGHT WITHIN REACH. WILL CPOC.
[2019-06-16 20:45] VITALS: BP 113/69
[2019-06-17 00:30] VITALS: BP 117/70
--- NOTE | 2019-06-17 02:38 | NUR ---
PATIENT APPEARS TO BE SLEEPING. RESPIRATIONS ARE EVEN AND UNLABORED. NO S/S OF DISTRESS. NO C/O PAIN. CALL LIGHT WITHIN REACH. WILL CPOC.
[2019-06-17 04:43] VITALS: BP 119/71
[2019-06-17 05:57] LABS: HEMATOCRIT 36.1 % (42.0-54.0); HEMOGLOBIN 12.6 g/dL (13.5-17.5); MCH 29.4 pg (26.0-34.0); MCHC 34.9 g/dL (31.0-37.0); MCV 84.1 fL (80.0-100.0); MEAN PLATELET VOLUME 12.2 fL (7.4-10.4); PLATELET COUNT 343 10x3/uL (130-400); RBC 4.29 10x6/uL (4.20-6.10); RDW 14.9 % (11.5-14.5); WBC 26.8 10x3/uL (4.8-10.8)
[2019-06-17 06:24] LABS: CALC OSMOLALITY 285 mosm/kg (275-300); CALCIUM 8.1 mg/dL (8.5-10.1); CARBON DIOXIDE 27.2 mmol/L (21.0-32.0); CHLORIDE - SERUM 107 mmol/L (98-107); GLUCOSE 114 mg/dL (74-106); POTASSIUM - SERUM 4.7 mmol/L (3.5-5.1); SODIUM 139 mmol/L (136-145); UREA NITROGEN 33 mg/dL (7-18); eGFR NON AFRICAN AMERICAN 78 mL/min (90-120)
--- NOTE | 2019-06-17 07:15 | NUR ---
ASSESSMENT DONE. DENIES NEEDS
[2019-06-17 07:39] LABS: LYMPHOCYTES 8 % (15-50); MONOCYTES 4 % (2-11); NEUTROPHILS 85 % (40-80); PLATELET ESTIMATE NORMAL
[2019-06-17 08:00] VITALS: BP 125/68
[2019-06-17 12:00] VITALS: BP 141/77
--- NOTE | 2019-06-17 13:13 | OP ---
PATIENT NAME: GILDARDO INIGUEZ MEDICAL RECORD: [id number] :[birth year] LOCATION:D. D.7 ADMISSION DATE:06/08/19 SURGEON: STEF SILVA MD DATE OF OPERATION: 06/10/2019 PROCEDURE: Left heart catheterization, selective coronary angiography, right femoral artery approach. CATHETERS: 5-Armenian sheath, 5/4 left and right Nkechi, 5/4 pig. The procedure was well tolerated. The patient was returned to ICU after procedure finished. ExoSeal device placed. FINDINGS: Left ventriculography not performed (Echo, EF 35% to 40%) CORONARY ANATOMY: LEFT MAIN: Left main is free of disease. LAD: Entirely smooth-walled vessel until distal two-thirds and is totally occluded with thrombus appearing area at the distal portion of the LAD. CIRCUMFLEX: Again, is totally smooth walled vessel as is the first OM. At the distal portion, there appears to be thrombus again distally. RIGHT CORONARY ARTERY: The right coronary artery is a smooth-walled vessel, no significant stenosis. IMPRESSION: This certainly has appearance of embolic phenomena spontaneous thrombosis, no significant lesion noticed anywhere else may have been somewhat hypercoagulable sepsis. At this point in time, decision was made to use IV antiplatelet as well as continue Lovenox. This will decrease the contrast load as well. If creatinine stays stable, we will take a relook hopefully. Given the appearance of the vessel, may not need intervention or only minimal intervention. TRANSINT:[id number] Voice Confirmation ID: [id number] DOCUMENT ID: [id number] STEF SILVA MD at 1313 CC: [id number] DICTATION DATE: 06/10/19 1551 WARE TESTER: 06/10/19 2151 ADM IN [facility] [address] [place] [address]
--- NOTE | 2019-06-17 13:13 | EC ---
PATIENT:GILDARDO INIGUEZ DATE OF SERVICE: 06/08/19 SEX: M MEDICAL RECORD: [id number] DATE OF : [birth year] LOCATION:D.M2 D.212 AGE OF PATIENT: 68 ADMISSION DATE: 06/08/19 REFERRING PHYSICIAN: INTERPRETING PHYSICIAN: STEF SILVA MD ECHOCARDIOGRAM REPORT ECHO CHARGES Date: CLINICAL DIAGNOSIS: ECHOCARDIOGRAPHIC MEASUREMENTS (adult normal given) AC root (d.<3.7cm) cm LV Septum d (<1.2 cm> cm Valve Excursion cm LV Septum (systole) cm Left Atria (s.<4.0cm> cm LVPW d(<1.2cm) cm RV (d.<2.3cm) cm LVPW (sytole) cm LV diastole(<5.6CM) cm MV E-F(>70mm/sec) cm LV systole cm LVOT Diameter cm MV exc.(>10mm) cm Est.ejection fraction (50-75%) % DOPPLER: LVIT cm/sec A cm/sec E cm/sec LA cm/sec RVSP mmHg LVOT cm/sec AOP1/2T m/s Asc. Ao cm/sec RVOT cm/sec RA cm/sec PA cm/sec AV Gradient Peak mmHg AV Mean mmHg AV Area cm MV Gradient Peak mmHg MV Mean mmHg MV Area cm COMMENTS: Inspector Penetrant: Social Studies Teacher: JIAN# Pericardial Effusion DATE OF SERVICE: Adequate 2D Echo, Color Flow, Spectral Doppler, and M-mode LVH is present. LV internal dimension is normal. There is hypokinesis of the anterior apex, lateral apex, and anterior apical region. Overall function is reduced, at 30% to 35%. Aortic valve sclerosis without evidence of stenosis by Doppler interrogation. Left atrium is normal at 3.4 cm. Mitral valve shows no prolapse. Trace MR. Right-sided chamber is grossly normal. Trace TR. ECHOCARDIOGRAM REPORT [id number] GILDARDO INIGUEZ TRANSINT:[id number] Voice Confirmation ID: [id number] DOCUMENT ID: [id number] STEF SILVA MD at 1313 CC: [id number] DICTATION DATE: 06/11/19 1436 NEWSPAPER COPY EDITOR: 06/11/191958 ADM IN [address] [place] [address]
--- NOTE | 2019-06-17 13:13 | OP ---
PATIENT NAME: GILDARDO INIGUEZ MEDICAL RECORD: [id number] :[birth year] LOCATION:D.M2 D.7 ADMISSION DATE:06/08/19 SURGEON: STEF SILVA MD DATE OF OPERATION: 06/11/2019 Catheterization, PTCA report. We placed a 6-German sheath in the right femoral artery. Repeat angiography showed still marked thrombus burden in the circumflex and LAD. We then placed 300 cm Whisper wire down this portion of the circumflex using a 3.0 x 15 mm [place] balloon, went up and down the vessel, which showed still a significant thrombus burden, but improvement in the distal lumen. Next, a wire was placed down the LAD and balloon inflations were performed. This showed really no improvement in LAD. IMPRESSION: Successful percutaneous transluminal coronary angioplasty to the circumflex with improved distal flow still marked thrombus burden in the LAD. Sheath closed with ExoSeal device. Plavix has previously been loaded. Heparin was used during the case. TRANSINT:[id number] Voice Confirmation ID: [id number] DOCUMENT ID: [id number] STEF SILVA MD at 1313 CC: [id number] DICTATION DATE: 06/11/19 1517 SENIOR GAMEMASTER: 06/11/19 2818 ADM IN [facility] [address] [place] [address]
--- NOTE | 2019-06-17 13:19 | MORECARE ---
CASE MANAGEMENT DISCHARGE SUMMARY PATIENT: GILDARDO INIGUEZ UNIT: [id number] ADM DATE: 06/08/19 AGE: 68 : 48 SEX: M ROOM/BED: D.1189 AUTHOR: MISTY,DOC PHYSICIAN: REFERRING PHYSICIAN: NITA RANDALL MD DATE OF SERVICE: 06/17/19 Discharge Plan Patient Name: GILDARDO INIGUEZ Facility: [facility]:[place] : 1950 Planned Disposition: Cash Manager Acute Care Facility Anticipated Discharge Date: 06/16/19 Discharge Date: Expected LOS: 8 Initial Reviewer: [email or web address] Initial Review Date: 06/11/2019 Generated: 06/17/19 2:19 pm Comments DCP- Discharge Planning Updated by [email or web address]: Moi Cruz on 06/16/19 2:[address] Patient Name: GILDARDO INIGUEZ Encounter No: [id number] : 1950 Primary Insurance: MEDICARE A & B Anticipated DC Date: 06-16-2019 Planned Disposition: [facility] Acute Care Facility External Planned Provider: [facility] DCP follow-up note: CM REVIEWED FAX CONFIRMATION, FAX DID NOT COMPLETE TO [facility] ON SUNDAY EVENING. CM FAXED REFERRAL AGAN TO [facility] AT [phone]. CM FAXED UPDATED REFERRAL INFORMATION TO [facility] AT [phone]. CM WAITING ADMISSION DETERMINATION FROM [facility]. 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 MELANIE ALSO INFORMED CM THAT THE SOURCE OF INFECTION AND NEEDED ANTIBIOTICS HAVE TO BE IDENTIFIED PRIOR TO FILM CRITIC REVIEW AT [facility]. DG LOPEZ NOTIFIED. CM WAITING ON WBC TO TREND DOWN AND WILL RESUBMIT TO [facility] WHEN BELOW 20. ALEX CELAYA DCP- Discharge Planning Updated by [email or web address]: Moi Cruz on 06/13/19 4:[address] Patient Name: GILDARDO INIGUEZ Encounter No: [id number] : 1950 Primary Insurance: MEDICARE A & B Anticipated DC Date: Planned Disposition: Cash Manager Care Fac MCR External Planned Provider: [facility] [place] DCP follow-up note: CM RECEIVED LTACH ORDER; CM MET WITH PT IN ROOM, DISCUSSED ORDER, PROVIDERS OF LTACH AND LOCATIONS. PT STATES HE LIVES IN [place] AND WANTS TO BE EVALUATED FOR ADMISSION TO [facility] IN [place]. IMPORTANT MESSAGE FROM MEDICARE PROVIDED AND EXPLAINED. CM CALLED MELANIE OF [facility], , REQUESTED EVAULATION SOON POSSIBLE AND ASKED THAT PT BE EVALUATED THIS WEEKEND IF POSSIBLE FOR LTACH ADMISSION. CM FAXED REFERRAL TO [facility] AT [phone]. CM WAITING ADMISSION DETERMINATION FROM [facility]. Moi Cruz, CASE MANAGEMENT DCP- Discharge Planning Updated by [email or web address]: Lissy Ambrosio on 06/11/19 10:[address] Patient Name: GILDARDO INIGUEZ Admission Status: ER Accout number: [id number] Admission Date: 06-08-2019 : 1950 Admission Diagnosis:SEPSIS, UNSPECIFIED ORGANISM Attending: NITA RANDALL Current LOS: 3 Anticipated DC Date: Planned Disposition: Primary Insurance: MEDICARE A & B Discharge Planning Comments: CM met with patient at bedside after explaining CM role and obtaining verbal consent. Patient lives at home alone with his service dog (Hilda) where he is independent with his care and plans to return there upon discharge. Patient feels this would be a safe discharge. CM discussed availability / needs of home health and medical equipment. Patient states his medical POA is [facility] [phone]. Patient did state that if needed he is interested in Inpatient Rehab or SNF rehab. WAQAS signed. Patient denies any discharge needs at this time. Patient states he will have his family drive him home upon discharge. CM will continue to follow and assist as needed with discharge planning / needs. Dock Boss: Lissy Ambrosio DCPIA - Discharge Planning Initial Assessment Updated by [email or web address]: Lissy Ambrosio on 06/11/19 11:17 am * Is the patient Alert and Oriented? Yes * How many steps to enter\exit or inside your home? * [facility] * [facility] * Preadmission Environment Home Alone * ADLs Independent * Equipment Walker * List name and contact numbers for known caregivers / representatives who currently or will assist patient after discharge: JOSE SU [facility]- [phone] * Verbal permission to speak to the caregivers and representatives has been obtained from the patient. Yes * Community resources currently utilized None * Additional services required to return to the preadmission environment? No * Can the patient safely return to the preadmission environment? Yes * Has this patient been hospitalized within the prior 30 days at any hospital? No External Providers External Provider: [facility] Next Contact Date: 06/17/2019 Service Request Date: Service Type: Resolution: Reviewer: Comments: Coverage Notice Reviewer: [email or web address] - Moi Cruz Notice Issued Date-Time: 06/13/2019 16:35 Notice Type: IM Discharge Notice Notice Delivered To: Patient Relationship to Patient: Transition Teacher Name: Delivery Method: HAND - Hand Delivered Meggan Days: Prior Verbal Notification: Recipient Understood Notice: Yes Recipient Signature: Yes Med Rec Note Co-signed by Attending: Coverage Notice Comment: Last DP export: 06/16/19 2:12 p Patient Name: GILDARDO INIGUEZ Page 82293 at 1319 All edits/amendments must be made on the electronic document DICTATION DATE: 06/17/19 1319 ELECTRICAL TECHNICIAN INSTRUCTOR: MADHAV 06/17/19 1319 RPT#: [id number] DC DATE: STATUS: ADM IN [facility] [address] [place] [address] END OF REPORT
--- NOTE | 2019-06-17 13:33 | MORECARE ---
CASE MANAGEMENT DISCHARGE SUMMARY PATIENT: GILDARDO INIGUEZ UNIT: [id number] ADM DATE: 06/08/19 AGE: 68 : 48 SEX: M ROOM/BED: D.0248 AUTHOR: MISTY,DOC PHYSICIAN: REFERRING PHYSICIAN: NITA RANDALL MD DATE OF SERVICE: 06/17/19 Discharge Plan Patient Name: GILDARDO INIGUEZ Facility: [facility]:[place] : 1950 Planned Disposition: Inpatient Rehab Anticipated Discharge Date: 06/18/19 Discharge Date: Expected LOS: 10 Initial Reviewer: [email or web address] Initial Review Date: 06/11/2019 Generated: 06/17/19 2:33 pm Comments DCP- Discharge Planning Updated by [email or web address]: Moi Cruz on 06/16/19 2:[address] Patient Name: GILDARDO INIGUEZ Encounter No: [id number] : 1950 Primary Insurance: MEDICARE A & B Anticipated DC Date: 06-16-2019 Planned Disposition: [facility] Acute Care Facility External Planned Provider: [facility] DCP follow-up note: CM REVIEWED FAX CONFIRMATION, FAX DID NOT COMPLETE TO [facility] ON SUNDAY EVENING. CM FAXED REFERRAL AGAN TO [facility] AT [phone]. CM FAXED UPDATED REFERRAL INFORMATION TO [facility] AT [phone]. CM WAITING ADMISSION DETERMINATION FROM [facility]. 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 MELANIE ALSO INFORMED CM THAT THE SOURCE OF INFECTION AND NEEDED ANTIBIOTICS HAVE TO BE IDENTIFIED PRIOR TO LAMP CLEAN[address] LIGHT REVIEW AT [facility]. DG LOPEZ NOTIFIED. CM WAITING ON WBC TO TREND DOWN AND WILL RESUBMIT TO [facility] WHEN BELOW 20. ALEX CELAYA DCP- Discharge Planning Updated by [email or web address]: Moi Cruz on 06/13/19 4:[address] Patient Name: GILDARDO INIGUEZ Encounter No: [id number] : 1950 Primary Insurance: MEDICARE A & B Anticipated DC Date: Planned Disposition: [facility] Care Fac MCR External Planned Provider: [facility] [place] DCP follow-up note: CM RECEIVED LTACH ORDER; CM MET WITH PT IN ROOM, DISCUSSED ORDER, PROVIDERS OF LTACH AND LOCATIONS. PT STATES HE LIVES IN [place] AND WANTS TO BE EVALUATED FOR ADMISSION TO [facility] IN [place]. IMPORTANT MESSAGE FROM MEDICARE PROVIDED AND EXPLAINED. CM CALLED M[facility]ANIE OF [facility], , REQUESTED EVAULATION SOON POSSIBLE AND ASKED THAT PT BE EVALUATED THIS WEEKEND IF POSSIBLE FOR LTACH ADMISSION. CM FAXED REFERRAL TO [facility] AT [phone]. CM WAITING ADMISSION DETERMINATION FROM [facility]. Moi Cruz, CASE MANAGEMENT DCP- Discharge Planning Updated by [email or web address]: Lissy Ambrosio on 06/11/19 10:[address] Patient Name: GILDARDO INIGUEZ Admission Status: ER Accout number: [id number] Admission Date: 06-08-2019 : 1950 Admission Diagnosis:SEPSIS, UNSPECIFIED ORGANISM Attending: NITA RANDALL Current LOS: 3 Anticipated DC Date: Planned Disposition: Primary Insurance: MEDICARE A & B Discharge Planning Comments: CM met with patient at bedside after explaining CM role and obtaining verbal consent. Patient lives at home alone with his service dog (Hilda) where he is independent with his care and plans to return there upon discharge. Patient feels this would be a safe discharge. CM discussed availability / needs of home health and medical equipment. Patient states his medical POA is [facility] [phone]. Patient did state that if needed he is interested in Inpatient Rehab or SNF rehab. WAQAS signed. Patient denies any discharge needs at this time. Patient states he will have his family drive him home upon discharge. CM will continue to follow and assist as needed with discharge planning / needs. Mail Order Biller: Lissy Ambrosio DCPIA - Discharge Planning Initial Assessment Updated by [email or web address]: Lissy Ambrosio on 06/11/19 11:17 am * Is the patient Alert and Oriented? Yes * How many steps to enter\exit or inside your home? * [facility] * [facility] * Preadmission Environment Home Alone * ADLs Independent * Equipment Walker * List name and contact numbers for known caregivers / representatives who currently or will assist patient after discharge: JO[facility] SU [facility]- [phone] * Verbal permission to speak to the caregivers and representatives has been obtained from the patient. Yes * Community resources currently utilized None * Additional services required to return to the preadmission environment? No * Can the patient safely return to the preadmission environment? Yes * Has this patient been hospitalized within the prior 30 days at any hospital? No Coverage Notice Reviewer: THAO Cruz Notice Issued Date-Time: 06/13/2019 16:35 Notice Type: IM Discharge Notice Notice Delivered To: Patient Relationship to Patient: Carpet Cleaning Technician Name: Delivery Method: HAND - Hand Delivered Meggan Days: Prior Verbal Notification: Recipient Understood Notice: Yes Recipient Signature: Yes Med Rec Note Co-signed by Attending: Coverage Notice Comment: Reviewer: THAO Cruz Notice Issued Date-Time: 06/17/2019 12:55 Notice Type: IM Discharge Notice Notice Delivered To: Patient Relationship to Patient: Carpet Cleaning Technician Name: Delivery Method: HAND - Hand Delivered Meggan Days: Prior Verbal Notification: Recipient Understood Notice: Yes Recipient Signature: Yes Med Rec Note Co-signed by Attending: Coverage Notice Comment: Reviewer: THAO Cruz Notice Issued Date-Time: 06/17/2019 12:55 Notice Type: Patient Choice Letter Notice Delivered To: Patient Relationship to Patient: Carpet Cleaning Technician Name: Delivery Method: HAND - Hand Delivered Meggan Days: Prior Verbal Notification: Recipient Understood Notice: Yes Recipient Signature: Yes Med Rec Note Co-signed by Attending: Coverage Notice Comment: [facility] Last DP export: 06/17/19 12:19 Patient Name: GILDARDO INIGUEZ Page [id number] at 1333 All edits/amendments must be made on the electronic document DICTATION DATE: 06/17/19 1333 WELDING MACHINE OPERATOR ELECTRON BEAM: MADHAV 06/17/19 1333 RPT#: [id number] DC DATE: STATUS: ADM IN [facility] [address] [place] [address] END OF REPORT
--- NOTE | 2019-06-17 13:42 | MORECARE ---
CASE MANAGEMENT DISCHARGE SUMMARY PATIENT: GILDARDO INIGUEZ UNIT: [id number] ADM DATE: 06/08/19 AGE: 68 : 48 SEX: M ROOM/BED: D.8537 AUTHOR: MISTY,DOC PHYSICIAN: REFERRING PHYSICIAN: NITA RANDALL MD DATE OF SERVICE: 06/17/19 Discharge Plan Patient Name: GILDARDO INIGUEZ [facility] [facility] 1950 Planned Disposition: Inpatient Rehab Anticipated Discharge Date: 06/18/19 Discharge Date: Expected LOS: 10 Initial Reviewer: [email or web address] Initial Review Date: 06/11/2019 Generated: 06/17/19 2:41 pm Comments DCP- Discharge Planning Updated by [email or web address]: Moi Cruz on 06/17/19 12:[address] Patient Name: GILDARDO INIGUEZ Encounter No: [id number] : 1950 Primary Insurance: MEDICARE A & B Anticipated DC Date: 06-18-2019 Planned Disposition: Inpatient Rehab External Planned Provider: [facility] DCP follow-up note: CM RECEIVED CALL FROM MELANIE SU AND THEN CHRIS JONES, BOTH REPORTING TO BE PT'S FRIENDS. BOTH ASKED THAT CM NOTIFY [facility] OF PT'S HOSPITAL STAY HE IS MISSING OUTPATIENT APPOINTMENTS AND ASKED FOR PLACEMENT IN [facility] OR [facility] FOR CONTINUED CARE. CM SPOKE TO CARE TEAM DURING MULTIDICIPLINARY TEAM MEETING, INFORMED OF LTACH DENIAL UNTIL PT'S WBC BELOW 20; DB OF INPATIENT REHAB AT [facility] INFORMED TEAM THAT INPATIENT REHAB WILL CONSIDER PT AND THEN TRANSITION TO LONG-TERM CARE IF NEEDED. CM SPOKE TO PT IN ROOM, DISCUSSED LTACH DENIAL, AVAILABILITY OF INPATIENT REHAB AT [facility] WELL DISCUSSED HIS FRIENDS SUGGESTION FOR REHAB AT [facility] OR [facility]. PT REQUESTED TO BE CONSIDERED FOR REHAB AT [facility] FIRST HE WILL GET MORE THERAPY; PT SIGNED CHOICE FOR [facility] AND [facility]. IMPORTANT MESSAGE FROM MEDICARE PROVIDED AND EXPLAINED. CM CALLED ABDULLAHI OF [facility] AT [phone]. PROVIDED REFERRAL INFORMATION, FAXED REFERRAL INFORMATION TO [facility] AT [phone]. CM CALLED [facility], , SPOKE TO NEGRITO AND NOTIFIED OF PT BEING IN HOSPITAL, ALL UPCOMING APPOINTMENTS WITH [place] CANCELLED FOR THIS MONTH. CM FAXED UPDATE TO [facility] AT [phone]. CM SPOKE TO DG LOPEZ AND RECEIVED INPATIENT REHAB PRESCREENING ORDER. CM NOTIFIED DB OF [facility]. CM WAITING ADMISSION DETERMINATION FROM [facility] WELL ADMISSION DETERMINATION FROM [facility]. ALEX Cerrato DCP- Discharge Planning Updated by [id number]: Moi Cruz on 06/16/19 2:[address] Patient Name: GILDARDO INIGUEZ Encounter No: [id number] : 1950 Primary Insurance: MEDICARE A & B Anticipated DC Date: 06-16-2019 Planned Disposition: Group Home Acute Care Facility External Planned Provider: [facility] [place] DCP follow-up note: CM REVIEWED FAX CONFIRMATION, FAX DID NOT COMPLETE TO [facility] ON SUNDAY EVENING. CM FAXED REFERRAL AGAN TO [facility] AT [phone]. CM FAXED UPDATED REFERRAL INFORMATION TO [facility] AT [phone]. CM WAITING ADMISSION DETERMINATION FROM [facility]. Moi Cruz CASE MANAGEMENT Appended by Moi Cruz on 06/16/2019 15:10 NUCLEAR MEDICINE TECHNICIAN: CM RECEIVED CALL FROM MELANIE [facility], , WHO INFORMED CM THAT HER DOCTOR WILL NOT ACCEPT UNTIL WBC ARE BELOW 20 AND PT'S IS CURRENTLY AT 26.7. MELANIE ALSO INFORMED CM THAT THE SOURCE OF INFECTION AND NEEDED ANTIBIOTICS HAVE TO BE IDENTIFIED PRIOR TO TAPE CUTTING MACHINE OPERATOR REVIEW AT [facility]. DG LOPEZ NOTIFIED. CM WAITING ON WBC TO TREND DOWN AND WILL RESUBMIT TO [facility] WHEN BELOW 20. ALEX CERRATO DCP- Discharge Planning Updated by [email or web address]: Moi Cruz on 06/13/19 4:[address] Patient Name: GILDARDO INIGUEZ Encounter No: [id number] : 1950 Primary Insurance: MEDICARE A & B Anticipated DC Date: Planned Disposition: Group Home Care Fac MCR External Planned Provider: [facility] DCP follow-up note: CM RECEIVED LTACH ORDER; CM MET WITH PT IN ROOM, DISCUSSED ORDER, PROVIDERS OF LTACH AND LOCATIONS. PT STATES HE LIVES IN [place] AND WANTS TO BE EVALUATED FOR ADMISSION TO [facility] [place]. IMPORTANT MESSAGE FROM MEDICARE PROVIDED AND EXPLAINED. CM CALLED MELANIE OF [facility], , REQUESTED EVAULATION SOON POSSIBLE AND ASKED THAT PT BE EVALUATED THIS WEEKEND IF POSSIBLE FOR LTACH ADMISSION. CM FAXED REFERRAL TO [facility] AT [phone]. CM WAITING ADMISSION DETERMINATION FROM [facility]. Moi Cruz, CASE MANAGEMENT DCP- Discharge Planning Updated by [email or web address]: Lissy Ambrosio on 06/11/19 10:[address] Patient Name: GILDARDO INIGUEZ Admission Status: ER Accout number: [id number] Admission Date: 06-08-2019 : 1950 Admission Diagnosis:SEPSIS, UNSPECIFIED ORGANISM Attending: NITA RANDALL Current LOS: 3 Anticipated DC Date: Planned Disposition: Primary Insurance: MEDICARE A & B Discharge Planning Comments: CM met with patient at bedside after explaining CM role and obtaining verbal consent. Patient lives at home alone with his service dog (Hilda) where he is independent with his care and plans to return there upon discharge. Patient feels this would be a safe discharge. CM discussed availability / needs of home health and medical equipment. Patient states his medical POA is [facility] [phone]. Patient did state that if needed he is interested in Inpatient Rehab or SNF rehab. WAQAS signed. Patient denies any discharge needs at this time. Patient states he will have his family drive him home upon discharge. CM will continue to follow and assist as needed with discharge planning / needs. Squeegeer And Former: Lissy Ambrosio DCPIA - Discharge Planning Initial Assessment Updated by [id number]: Lissy Ambrosio on 06/11/19 11:17 am * Is the patient Alert and Oriented? Yes * How many steps to enter\exit or inside your home? * [facility]CP [facility] * [facility]acy [place] [facility] * Preadmission Environment Home Alone * ADLs Independent * Equipment Walker * List name and contact numbers for known caregivers / representatives who currently or will assist patient after discharge: JOSE SU [facility]- [phone] * Verbal permission to speak to the caregivers and representatives has been obtained from the patient. Yes * Community resources currently utilized None * Additional services required to return to the preadmission environment? No * Can the patient safely return to the preadmission environment? Yes * Has this patient been hospitalized within the prior 30 days at any hospital? No Coverage Notice Reviewer: THAO Cruz Notice Issued Date-Time: 06/13/2019 16:35 Notice Type: IM Discharge Notice Notice Delivered To: Patient Relationship to Patient: Manager Web Application Name: Delivery Method: HAND - Hand Delivered Meggan Days: Prior Verbal Notification: Recipient Understood Notice: Yes Recipient Signature: Yes Med Rec Note Co-signed by Attending: Coverage Notice Comment: Reviewer: THAO Cruz Notice Issued Date-Time: 06/17/2019 12:55 Notice Type: IM Discharge Notice Notice Delivered To: Patient Relationship to Patient: Manager Web Application Name: Delivery Method: HAND - Hand Delivered Meggan Days: Prior Verbal Notification: Recipient Understood Notice: Yes Recipient Signature: Yes Med Rec Note Co-signed by Attending: Coverage Notice Comment: Reviewer: THAO Cruz Notice Issued Date-Time: 06/17/2019 12:55 Notice Type: Patient Choice Letter Notice Delivered To: Patient Relationship to Patient: Manager Web Application Name: Delivery Method: HAND - Hand Delivered Meggan Days: Prior Verbal Notification: Recipient Understood Notice: Yes Recipient Signature: Yes Med Rec Note Co-signed by Attending: Coverage Notice Comment: [facility] Last DP export: 06/17/19 12:33 Patient Name: GILDARDO INIGUEZ Page [phone] at 1342 All edits/amendments must be made on the electronic document DICTATION DATE: 06/17/19 1341 CORN CUTTER: MADHAV 06/17/19 1341 RPT#: [id number] DC DATE: STATUS: ADM IN [facility] [address] [place] [address] END OF REPORT
--- NOTE | 2019-06-17 13:58 | MORECARE ---
CASE MANAGEMENT DISCHARGE SUMMARY PATIENT: GILDARDO INIGUEZ UNIT: [id number] ADM DATE: 06/08/19 AGE: 68 : 48 SEX: M ROOM/BED: D.4142 AUTHOR: MISTY,DOC PHYSICIAN: REFERRING PHYSICIAN: NITA RANDALL MD DATE OF SERVICE: 06/17/19 Discharge Plan Patient Name: GILDARDO INIGUEZ [facility] [facility] 1950 Planned Disposition: Inpatient Rehab Anticipated Discharge Date: 06/18/19 Discharge Date: Expected LOS: 10 Initial Reviewer: [id number] Initial Review Date: 06/11/2019 Generated: 06/17/19 2:58 pm Comments DCP- Discharge Planning Updated by [email or web address]: Moi Cruz on 06/17/19 12:[address] Patient Name: GILDARDO INIGUEZ Encounter No: [id number] : 1950 Primary Insurance: MEDICARE A & B Anticipated DC Date: 06-18-2019 Planned Disposition: Inpatient Rehab External Planned Provider: [facility] IN[facility]IENT [facility] DCP follow-up note: CM RECEIVED CALL FROM MELANIE SU AND THEN CHRIS JONES, BOTH REPORTING TO BE PT'S FRIENDS. BOTH ASKED THAT CM NOTIFY [place] OF PT'S HOSPITAL STAY HE IS MISSING OUTPATIENT APPOINTMENTS AND ASKED FOR PLACEMENT IN [facility] OR [facility] FOR CONT[facility]UED CARE. CM SPOKE TO CARE TEAM DURING MULTIDICIPLINARY TEAM MEETING, INFORMED OF LTACH DENIAL UNTIL PT'S WBC BELOW 20; DB OF INPATIENT REHAB AT [facility] INFORMED TEAM THAT INPATIENT REHAB WILL CONSIDER PT AND THEN TRANSITION TO PENITENTIARY CARE IF NEEDED. CM SPOKE TO PT IN ROOM, DISCUSSED LTACH DENIAL, AVAILABILITY OF INPATIENT REHAB AT [facility] WELL DISCUSSED HIS FRIENDS SUGGESTION FOR REHAB AT [facility] OR [facility]. PT REQUESTED TO BE CONSIDERED FOR REHAB AT [facility] FIRST HE WILL GET MORE THERAPY; PT SIGNED CHOICE FOR [facility] AND [facility]. IMPORTANT MESSAGE FROM MEDICARE PROVIDED AND EXPLAINED. CM CALLED ABDULLAHI OF [facility] AT [phone]. PROVIDED REFERRAL INFORMATION, FAXED REFERRAL INFORMATION TO [facility] AT [phone]. CM CALLED [facility], , SPOKE TO NEGRITO AND NOTIFIED OF PT BEING IN HOSPITAL, ALL UPCOMING APPOINTMENTS WITH [place] CANCELLED FOR THIS MONTH. CM FAXED UPDATE TO [facility] AT [phone]. CM SPOKE TO DG LOPEZ AND RECEIVED INPATIENT REHAB PRESCREENING ORDER. CM NOTIFIED DB OF [facility] INPATIENT REHAB. CM WAITING ADMISSION DETERMINATION FROM [facility] INPATIENT [facility]HAB WELL ADMISSION DETERMINATION FROM [facility]. ALEX Cerrato DCP- Discharge Planning Updated by [id number]: Moi Cruz on 06/16/19 2:[address] Patient Name: GILDARDO INIGUEZ Encounter No: [id number] : 1950 Primary Insurance: MEDICARE A & B Anticipated DC Date: 06-16-2019 Planned Disposition: [facility] Acute Care Facility External Planned Provider: [facility] [place] [place] DCP follow-up note: CM REVIEWED FAX CONFIRMATION, FAX DID NOT COMPLETE TO [facility] ON SUNDAY EVENING. CM FAXED REFERRAL AGAN TO [facility] AT [phone]. CM FAXED UPDATED REFERRAL INFORMATION TO [facility] AT [phone]. CM WAITING ADMISSION DETERMINATION FROM [facility]. Moi Cruz CASE MANAGEMENT Appended by Moi Cruz on 06/16/2019 15:10 DIRECTOR BUILDING: CM RECEIVED CALL FROM MELANIE [facility], , WHO INFORMED CM THAT HER DOCTOR WILL NOT ACCEPT UNTIL WBC ARE BELOW 20 AND PT'S IS CURRENTLY AT 26.7. MELANIE ALSO INFORMED CM THAT THE SOURCE OF INFECTION AND NEEDED ANTIBIOTICS HAVE TO BE IDENTIFIED PRIOR TO 3D ARTIST REVIEW AT [facility]. DG LOPEZ NOTIFIED. CM WAITING ON WBC TO TREND DOWN AND WILL RESUBMIT TO [facility] WHEN BELOW 20. ALEX CERRATO DCP- Discharge Planning Updated by [email or web address]: Moi Cruz on 06/13/19 4:[address] Patient Name: GILDARDO INIGUEZ Encounter No: [id number] : 1950 Primary Insurance: MEDICARE A & B Anticipated DC Date: Planned Disposition: [facility] Care Fac MCR External Planned Provider: [facility] DCP follow-up note: CM RECEIVED LTACH ORDER; CM MET WITH PT IN ROOM, DISCUSSED ORDER, PROVIDERS OF LTACH AND LOCATIONS. PT STATES HE LIVES IN [place] AND WANTS TO BE EVALUATED FOR ADMISSION TO [facility] [place]. IMPORTANT MESSAGE FROM MEDICARE PROVIDED AND EXPLAINED. CM CALLED MELANIE OF [facility], , REQUESTED EVAULATION SOON POSSIBLE AND ASKED THAT PT BE EVALUATED THIS WEEKEND IF POSSIBLE FOR LTACH ADMISSION. CM FAXED REFERRAL TO [facility] AT [phone]. CM WAITING ADMISSION DETERMINATION FROM [facility]. Moi Cruz, CASE MANAGEMENT DCP- Discharge Planning Updated by [email or web address]: Lissy Ambrosio on 06/11/19 10:[address] Patient Name: GILDARDO INIGUEZ Admission Status: ER Accout number: [id number] Admission Date: 06-08-2019 : 1950 Admission Diagnosis:SEPSIS, UNSPECIFIED ORGANISM Attending: NITA RANDALL Current LOS: 3 Anticipated DC Date: Planned Disposition: Primary Insurance: MEDICARE A & B Discharge Planning Comments: CM met with patient at bedside after explaining CM role and obtaining verbal consent. Patient lives at home alone with his service dog (Hilda) where he is independent with his care and plans to return there upon discharge. Patient feels this would be a safe discharge. CM discussed availability / needs of home health and medical equipment. Patient states his medical POA is [facility] [phone]. Patient did state that if needed he is interested in Inpatient Rehab or SNF rehab. WAQAS signed. Patient denies any discharge needs at this time. Patient states he will have his family drive him home upon discharge. CM will continue to follow and assist as needed with discharge planning / needs. Wildlife Biostation Research Ecologist: Lissy Ambrosio DCPIA - Discharge Planning Initial Assessment Updated by [email or web address]: Lissy Ambrosio on 06/11/19 11:17 am * Is the patient Alert and Oriented? Yes * How many steps to enter\exit or inside your home? * [facility]CP [facility] [place] [facility] * Preadmission Environment Home Alone * ADLs Independent * Equipment Walker * List name and contact numbers for known caregivers / representatives who currently or will assist patient after discharge: [facility]- [phone] * Verbal permission to speak to the caregivers and representatives has been obtained from the patient. Yes * Community resources currently utilized None * Additional services required to return to the preadmission environment? No * Can the patient safely return to the preadmission environment? Yes * Has this patient been hospitalized within the prior 30 days at any hospital? No External Providers External Provider: OTHER-OTHER Next Contact Date: 06/17/2019 Service Request Date: Service Type: Resolution: Reviewer: Comments: Coverage Notice Reviewer: THAO Cruz Notice Issued Date-Time: 06/13/2019 16:35 Notice Type: IM Discharge Notice Notice Delivered To: Patient Relationship to Patient: Trailer Body Assembler Name: Delivery Method: HAND - Hand Delivered Meggan Days: Prior Verbal Notification: Recipient Understood Notice: Yes Recipient Signature: Yes Med Rec Note Co-signed by Attending: Coverage Notice Comment: Reviewer: THAO Cruz Notice Issued Date-Time: 06/17/2019 12:55 Notice Type: IM Discharge Notice Notice Delivered To: Patient Relationship to Patient: Trailer Body Assembler Name: Delivery Method: HAND - Hand Delivered Meggan Days: Prior Verbal Notification: Recipient Understood Notice: Yes Recipient Signature: Yes Med Rec Note Co-signed by Attending: Coverage Notice Comment: Reviewer: THAO Cruz Notice Issued Date-Time: 06/17/2019 12:55 Notice Type: Patient Choice Letter Notice Delivered To: Patient Relationship to Patient: Trailer Body Assembler Name: Delivery Method: HAND - Hand Delivered Meggan Days: Prior Verbal Notification: Recipient Understood Notice: Yes Recipient Signature: Yes Med Rec Note Co-signed by Attending: Coverage Notice Comment: LORENA GALLAGHER OR OSMAN [employer] Last DP export: 06/17/19 12:42 Patient Name: GILDARDO INIGUEZ Page 15497 at 1358 All edits/amendments must be made on the electronic document DICTATION DATE: 06/17/19 1358 CLIENT SERVICE MANAGER: MADHAV 06/17/19 135 RPT#: [id number] DC DATE: STATUS: ADM IN [facility] [address] [place] [address] END OF REPORT
--- NOTE | 2019-06-17 14:02 | NUR ---
OT NOTE: PT PERFORMED SO MUCH BETTER TODAY. BED MOB WITH MOD ASSIST; UE AROM EXS X 5 REPS X 3 SETS; PERFORMED SIT TO STAND WITH MOD ASSIST; ABLE TO STAND X 5 MIN; ABLE TO TAKE APPROX 4 SIDE STEPS TODAY. BACK TO BED WITH MOD ASSIST. PERFORMING SO MUCH BETTER. REPORTED PAIN OF 6/10 VS 9/10 ON PREVIOUS DAY. ABDULLAHI VERMA, OTR/L
--- NOTE | 2019-06-17 14:14 | NUR ---
Nutrition Follow-up: Pt unavailable on multiple attempts to visit. Chart reviewed. Diet: Diabetic PO intake: 0-25% (06/16-06/17) No new wt Last BM: 06/14 per chart Labs noted: Glu 114, Ca 8.1 Meds noted: Lantus, Solumedrol, Miralax, Humulin -Continue current diet as tolerated. -+Glucerna with meals -Rec may consider appetite stimulant. -RD following.
--- NOTE | 2019-06-17 15:08 | NUR ---
OT NOTE: PT COMPLETED BED MOB WITH MIN A. PT COMPLETED EOB WITH MIN A. PT COMPLETED SIT TO STAND WITH MOD A. PT COMPLETED BUE AROM AXS. THANK YOU,YAMIL WILLIS
[2019-06-17 16:00] VITALS: BP 153/76
--- NOTE | 2019-06-17 16:00 | NUR ---
I have reviewed this patient and I concur with the Shift Assessment completed by the Licensed Practical Nurse today this shift.
--- NOTE | 2019-06-17 16:21 | NUR ---
Rehab Prescreening Consult recieved and the chart has been reviewed. He is a good ARU candidate when he is medically stable. He has a WBC of 26.8 today, will see if it begins to trend down. Discussed with the CM Zane Cruz. Jazz Recio RN Clinical Liaison, Rehab
--- NOTE | 2019-06-17 17:12 | NUR ---
WITHOUT CHANGES OR DISTRESS NOTED AT THIS TIME. DENIES NEEDS
--- NOTE | 2019-06-17 21:20 | NUR ---
HS MEDS GIVEN WITH FRESH ICE WATER.
[2019-06-17 22:12] VITALS: BP 105/64
[2019-06-18 00:15] VITALS: BP 116/61
--- NOTE | 2019-06-18 02:37 | NUR ---
RESTING WITH EYES CLOSED, RESPERATIONS EVEN, NO S/S DISTRESS NOTED.
--- NOTE | 2019-06-18 04:19 | NUR ---
I have reviewed this patient and I concur with the Shift Assessment completed by the Licensed Practical Nurse today this shift.
[2019-06-18 04:30] VITALS: BP 104/55
--- NOTE | 2019-06-18 07:18 | NUR ---
AM ROUNDS- PT RESTING COMFORTABLY WITH EYES CLOSED, RESP EVEN AND NONLABORED ON 2L. LT WRIST IV SL AND LT FA IV INFUSING NS AT 10CC/HR. ROBLES CATHETER DRAINING TO GRAVITY. MONITOR SHOWING SR WITH RATE OF 74. CALL LIGHT IN REACH, BEDSIDE RAILS X2, NAD NOTED, WILL CONTINUE TO MONITOR.
[2019-06-18 08:06] LABS: BASOPHILS 0 % (0-2); EOSINOPHILS 0.3 % (0-7); HEMATOCRIT 35.9 % (42.0-54.0); HEMOGLOBIN 11.6 g/dL (13.5-17.5); IMMATURE GRANULOCYTES 1.6 % (0-5); LYMPHOCYTES 6.7 % (15-50); MCH 28.2 pg (26.0-34.0); MCHC 32.3 g/dL (31.0-37.0); MCV 87.1 fL (80.0-100.0); MEAN PLATELET VOLUME 12.1 fL (7.4-10.4); MONOCYTES 4.3 % (2-11); NEUTROPHILS 87.1 % (40-80); PLATELET COUNT 321 10x3/uL (130-400); RBC 4.12 10x6/uL (4.20-6.10); RDW 15.4 % (11.5-14.5); WBC 24.9 10x3/uL (4.8-10.8)
[2019-06-18 08:17] LABS: ANION GAP 10.1 mmol/L (8-16); CARBON DIOXIDE 27.1 mmol/L (21.0-32.0); CREATININE - SERUM 1.1 mg/dL (0.6-1.3); POTASSIUM - SERUM 4.2 mmol/L (3.5-5.1); VANCOMYCIN - TROUGH 38.2 ug/mL (10.0-20.0)
--- NOTE | 2019-06-18 08:24 | NUR ---
AM MEDS GIVEN AT THIS TIME, PT IN BED, EATING BREAKFAST, DENIES ANY NEEDS AT THIS TIME. CALL LIGHT IN REACH,NAD NOTED, WILL CONTINUE TO MONITOR.
[2019-06-18 09:36] VITALS: BP 115/50
--- NOTE | 2019-06-18 11:12 | NUR ---
BLOOD SUGAR OF 256, 16 UNITS GIVEN PER S/S. PT RESTING COMFORTABLY IN BED, DENIES ANY NEEDS AT THIS TIME. CALL LIGHT IN REACH, NAD NOTED, WILL CONTINUE TO MONITOR.
--- NOTE | 2019-06-18 12:12 | MORECARE ---
CASE MANAGEMENT DISCHARGE SUMMARY PATIENT: GILDARDO INIGUEZ UNIT: [id number] ADM DATE: 06/08/19 AGE: 68 : [birth year] SEX: M ROOM/BED: D.2127 AUTHOR: MISTYDOC PHYSICIAN: REFERRING PHYSICIAN: NITA RANDALL MD DATE OF SERVICE: 06/18/19 Discharge Plan Patient Name: GILDARDO INIGUEZ Facility: [facility]:[place] : 1950 Planned Disposition: Inpatient Rehab Anticipated Discharge Date: 06/18/19 Discharge Date: Expected LOS: 10 Initial Reviewer: [email or web address] Initial Review Date: 06/11/2019 Generated: 06/18/19 1:12 pm Comments DCP- Discharge Planning Updated by [email or web address]: González Jacob on 06/18/19 11:[address] Patient Name: GILDARDO INIGUEZ Encounter No: [id number] : 1950 Primary Insurance: MEDICARE A & B Anticipated DC Date: 06-18-2019 Planned Disposition: Inpatient Rehab External Planned Provider: [facility] INPATIENT REHAB DCP follow-up note: CM RECEIVED CALL FROM CARMEN DOCKERY WHO REFUSED PT FOR REHAB AND IV ANTIBOITICS. CM SPOKE TO CARE TEAM DURING MULTIDISCIPLINARY TEAM MEETING, WAS ADVISED BY DB OF INPATIENT REHAB THAT THEY WILL ACCEPT TODAY; DG LOPEZ INFORMED TEAM SHE PLANS TO DISCHARGE PT TODAY TO REHAB. PT TODAY. CM NOTIFIED PT WHO IS IN AGREEMENT WITH PLAN. [facility] INPATIENT REHAB TO CONTACT MED 2 NURSE WITH ROOM NUMBER WHEN READY TO ACCEPT PT AND NURSE REPORT. González Jacob CASE MANAGEMENT DCP- Discharge Planning Updated by [email or web address]: González Jacob on 06/17/19 12:[address] Patient Name: GILDARDO INIGUEZ Encounter No: [id number] : 1950 Primary Insurance: MEDICARE A & B Anticipated DC Date: 06-18-2019 Planned Disposition: Inpatient Rehab External Planned Provider: [facility] INPATIENT REHAB DCP follow-up note: CM RECEIVED CALL FROM MELANIE SU AND MIGEL JONES, BOTH REPORTING TO BE PT'S FRIENDS. BOTH ASKED THAT [facility] NOTIFY [facility] OF [facility] STAY HE IS MISSING OUTPATIENT APPOINTMENTS AND ASKED FOR PLACEMENT IN [facility] OR [facility] FOR CONTINUED CARE. CM SPOKE TO CARE TEAM DURING MULTIDICIPLINARY TEAM MEETING, INFORMED OF LTACH DENIAL UNTIL PT'S WBC BELOW 20; DB OF INPATIENT REHAB [facility] INFORMED TEAM THAT INPATIENT REHAB WILL CONSIDER PT AND THEN TRANSITION TO PENITENTIARY CARE IF NEEDED. CM SPOKE TO PT IN ROOM, DISCUSSED LTACH DENIAL, AVAILABILITY OF INPATIENT REHAB AT [facility] WELL DISCUSSED HIS FRIENDS SUGGESTION FOR REHAB AT [facility] OR [facility]. PT REQUESTED TO BE CONSIDERED FOR REHAB AT [facility] FIRST HE WILL GET MORE THERAPY; PT SIGNED CHOICE FOR [facility] AND [facility]. IMPORTANT MESSAGE FROM MEDICARE PROVIDED AND EXPLAINED. CM CALLED ABDULLAHI OF [facility] AT [phone]. PROVIDED REFERRAL INFORMATION, FAXED REFERRAL INFORMATION TO [facility] AT [phone]. CM CALLED [facility] [place], , SPOKE TO NEGRITO AND NOTIFIED OF PT BEING IN HOSPITAL, ALL [facility]POINTMENTS WITH [facility] CANCELLED FOR THIS MONTH. CM FAXED UPDATE TO [facility] AT [phone]. CM SPOKE TO DG LOPEZ AND RECEIVED INPATIENT REHAB PRESCREENING ORDER. CM NOTIFIED DB OF [facility] INPATIENT REHAB. CM WAITING ADMISSION DETERMINATION FROM [facility] INPATIENT REHAB WELL ADMISSION DETERMINATION FROM [facility]. ALEX Cerrato MANAGEMENT DCP- Discharge Planning Updated by [id number]: González Jacob on 06/16/19 2:[address] Patient Name: GILDARDO INIGUEZ Encounter No: [id number] : 1950 Primary Insurance: MEDICARE A & B Anticipated DC Date: 06-16-2019 Planned Disposition: Intermediate Acute Care Facility External Planned Provider: [facility] [place] DCP follow-up note: CM REVIEWED FAX CONFIRMATION, FAX DID NOT COMPLETE TO [facility] ON SUNDAY EVENING. CM FAXED REFERRAL AGAN TO [facility] AT [phone]. CM FAXED UPDATED REFERRAL INFORMATION TO [facility] AT [phone]. CM WAITING ADMISSION DETERMINATION FROM [facility]. González Jacob CASE MANAGEMENT Appended by González Jacob on 06/16/2019 15:10 LACQUER SPRAY BOOTH OPERATOR: CM RECEIVED CALL FROM MELANIE OF [facility], , WHO INFORMED CM THAT HER DOCTOR WILL NOT ACCEPT UNTIL WBC ARE BELOW 20 AND PT'S IS CURRENTLY AT 26.7. MELANIE ALSO INFORMED CM THAT THE SOURCE OF INFECTION AND NEEDED ANTIBIOTICS HAVE TO BE IDENTIFIED PRIOR TO HYDROELECTRIC PRODUCTION TECHNICIAN REVIEW AT [facility]. DG LOPEZ NOTIFIED. CM WAITING ON WBC TO TREND DOWN AND WILL RESUBMIT TO [facility] WHEN BELOW 20. GONZÁLEZ JACOB, CASE MANAGEMENT DCP- Discharge Planning Updated by [id number]: González Jacob on 06/13/19 4:[address] Patient Name: GILDARDO INIGUEZ Encounter No: [id number] : 1950 Primary Insurance: MEDICARE A & B Anticipated DC Date: Planned Disposition: Intermediate Care [facility] External Planned Provider: [facility] DCP follow-up note: CM RECEIVED LTACH ORDER; CM MET WITH PT IN ROOM, DISCUSSED ORDER, PROVIDERS OF LTACH AND LOCATIONS. PT STATES HE LIVES IN [place] AND WANTS TO BE EVALUATED FOR ADMISSION TO [facility] IN [place]. IMPORTANT MESSAGE FROM MEDICARE PROVIDED AND EXPLAINED. CM CALLED MELANIE OF [facility], , REQUESTED EVAULATION SOON POSSIBLE AND ASKED THAT PT BE EVALUATED THIS WEEKEND IF POSSIBLE FOR LTACH ADMISSION. CM FAXED REFERRAL TO [facility] AT [phone]. CM WAITING ADMISSION DETERMINATION FROM [facility]. González Jacob CASE MANAGEMENT DCP- Discharge Planning Updated by [email or web address]: Lissy Ambrosio on 06/11/19 10:[address] Patient Name: GILDARDO INIGUEZ Admission Status: ER Accout number: [id number] Admission Date: 06-08-2019 : 1950 Admission Diagnosis:SEPSIS, UNSPECIFIED ORGANISM Attending: NITA RANDALL Current LOS: 3 Anticipated DC Date: Planned Disposition: Primary Insurance: MEDICARE A & B Discharge Planning Comments: CM met with patient at bedside after explaining CM role and obtaining verbal consent. Patient lives at home alone with his service dog (Hilda) where he is independent with his care and plans to return there upon discharge. Patient feels this would be a safe discharge. CM discussed availability / needs of home health and medical equipment. Patient states his medical POA is [facility] [phone]. Patient did state that if needed he is interested in Inpatient Rehab or SNF rehab. WAQAS signed. Patient denies any discharge needs at this time. Patient states he will have his family drive him home upon discharge. CM will continue to follow and assist as needed with discharge planning / needs. Vehicle Window Tinter: Lissy Ambrosio DCSUNGA - Discharge Planning Initial Assessment Updated by [id number]: Lissy Ambrosio on 06/11/19 11:17 am * Is the patient Alert and Oriented? Yes * How many steps to enter\exit or inside your home? * [facility]CP [facility] * [facility] [place] [facility] * Preadmission Environment Home Alone * ADLs Independent * Equipment Walker * List name and contact numbers for known caregivers / representatives who currently or will assist patient after discharge: [facility] [place] [facility] POA- [phone] * Verbal permission to speak to the caregivers and representatives has been obtained from the patient. Yes * Community resources currently utilized None * Additional services required to return to the preadmission environment? No * Can the patient safely return to the preadmission environment? Yes * Has this patient been hospitalized within the prior 30 days at any hospital? No Coverage Notice Reviewer: THAO Jacob Notice Issued Date-Time: 06/13/2019 16:35 Notice Type: IM Discharge Notice Notice Delivered To: Patient Relationship to Patient: Flatwork Ironer Name: Delivery Method: HAND - Hand Delivered Meggan Days: Prior Verbal Notification: Recipient Understood Notice: Yes Recipient Signature: Yes Med Rec Note Co-signed by Attending: Coverage Notice Comment: Reviewer: THAO Jacob Notice Issued Date-Time: 06/17/2019 12:55 Notice Type: IM Discharge Notice Notice Delivered To: Patient Relationship to Patient: Flatwork Ironer Name: Delivery Method: HAND - Hand Delivered Meggan Days: Prior Verbal Notification: Recipient Understood Notice: Yes Recipient Signature: Yes Med Rec Note Co-signed by Attending: Coverage Notice Comment: Reviewer: THAO Jacob Notice Issued Date-Time: 06/17/2019 12:55 Notice Type: Patient Choice Letter Notice Delivered To: Patient Relationship to Patient: Flatwork Ironer Name: Delivery Method: HAND - Hand Delivered Meggan Days: Prior Verbal Notification: Recipient Understood Notice: Yes Recipient Signature: Yes Med Rec Note Co-signed by Attending: Coverage Notice Comment: LORENA GALLAGHER OR OSMAN GURROLA Last DP export: 06/17/19 12:58 Patient Name: GILDARDO INIGUEZ Page [id number] at 1212 All edits/amendments must be made on the electronic document DICTATION DATE: 06/18/191211 AGRICULTURE INSTRUCTOR: MADHAV 06/18/19 1212 RPT#: [id number] DC DATE: STATUS: ADM IN [facility] [address] [place] [address] END OF REPORT
[2019-06-18 14:47] VITALS: BP 120/69
--- NOTE | 2019-06-18 16:40 | NUR ---
BLOOD SUGAR OF 131, NO COVERAGE NEEDED PER S/S. PT RESTING COMFORTABLY IN BED, DENIES ANY NEEDS AT THIS TIME. CALL LIGHT IN REACH, NAD NOTED.
--- NOTE | 2019-06-18 23:09 | NUR ---
REPOSITIONED IN BED FOR COMFORT, ADJUSTED PILLOWS BEHIND BACK AND HEAD.
[2019-06-19 06:06] LABS: HEMATOCRIT 32.5 % (42.0-54.0); HEMOGLOBIN 10.7 g/dL (13.5-17.5); MCH 28.2 pg (26.0-34.0); MCHC 32.9 g/dL (31.0-37.0); MCV 85.5 fL (80.0-100.0); MEAN PLATELET VOLUME 11.1 fL (7.4-10.4); PLATELET COUNT 385 10x3/uL (130-400); RDW 15.2 % (11.5-14.5); WBC 22.6 10x3/uL (4.8-10.8)
[2019-06-19 06:10] LABS: ALBUMIN 1.2 g/dL (3.4-5.0); ALKALINE PHOSPHATASE 79 U/L (46-116); ALT (SGPT) 30 U/L (10-68); BILIRUBIN - TOTAL 1.02 mg/dL (0.2-1.3); CALC OSMOLALITY 281 mosm/kg (275-300); CALCIUM 7.5 mg/dL (8.5-10.1); CHLORIDE - SERUM 107 mmol/L (98-107); POTASSIUM - SERUM 3.9 mmol/L (3.5-5.1); PROTEIN - SERUM 5.1 g/dL (6.4-8.2); SODIUM 138 mmol/L (136-145); UREA NITROGEN 28 mg/dL (7-18); VANCOMYCIN - RANDOM 13.7 ug/mL (10.0-20.0); eGFR NON AFRICAN AMERICAN 78 mL/min (90-120)
[2019-06-19 06:12] LABS: GLUCOSE 104 mg/dL (74-106)
[2019-06-19 06:29] LABS: LYMPHOCYTES 3 % (15-50); MONOCYTES 4 % (2-11); NEUTROPHILS 93 % (40-80); PLATELET ESTIMATE NORMAL
[2019-06-19 08:00] VITALS: BP 135/59
--- NOTE | 2019-06-19 08:00 | NUR ---
AM ROUNDS COMPLETED. INTRODUCED MYSELF TO PT PRIMARY RN FOR TODAYS SHIFT. PT IS RESTING QUIETLY IN BED AND DENIES ANY CURRENT PAIN OR NEEDS AT THIS TIME. CL IN REACH, BED IN LOWEST, SIDE RAILS X2 ROBLES DRAINING TO GRAVITY. WILL CTM.
[2019-06-19 12:00] VITALS: BP 118/58
--- NOTE | 2019-06-19 12:48 | NUR ---
PT UP IN CHAIR WITH PHYSICAL THERAPY AND STATES HE IS FEELING MUCH BETTER GETTING OOB AND MOVING AROUND. RR NONLABORED WITH NC @2L IN PLACE. ROBLES DRAINING TO GRAVITY BILAT LEGS SWOLLEN WILL ENCOURAGE HIM TO ELEVATE THEM. NO CURRENT NEEDS. WILL CTM.
--- NOTE | 2019-06-19 14:13 | NUR ---
THERAPY AT BEDSIDE AND ASSISTED PT BACK INTO BED. PT YELLS UPON TRANSFERS AND STATES IT HURTS HIS BACK AND HIPS. PT NOW RESTING IN BED AND STATES HE IS COMFORTABLE. CL IN REACH, BED IN LOWEST, SIDE RAILS X2. WILL CTM.
--- NOTE | 2019-06-19 14:42 | NUR ---
OT NOTE: PT PERFORMED VERY WELL TODAY. CONT TO REQUIRE EXTENSIVE ASSIST WITH BED MOB INCLUDING ROLLING SIDE TO SIDE AND SUPINE TO SIT. MAX ASSIST TO SCOOT TO EOB. ABLE TO WASH FACE AND HANDS WITH CLOTH WHILE ON EOB. MIN ASSIST TO ECTOR GOWN BUT UNABLE TO TIE DUE TO DECREASED STRENGTH IN B HANDS. SIT TO STAND WITH MOD ASSIST X 2, HOWEVER, ONCE UP , PT ABLE TO TAKE STEPS TO CHAIR WITH USE OF WALKER AND EXTENDED AMOUNT OF TIME. STAND TO SIT WITH MOD ASSIST. TOLERATED SITTING UP IN CHAIR FOR 3 HRS. ASSISTED BACK TO BED WITH MAX ASSIST X 2 FOR SIT TO STAND, BUT AGAIN, ONCE UP, ABLE TO TAKE STEPS BACK TO BED WITH WALKER AND MIN ASSIST. SIT TO SUPINE WITH MAX ASSIST PT IS UNABLE TO GET LEGS BACK ON BED. EDUCATED ON UE/LE EXS TO PERFORM IN BED TO PREVENT STIFFNESS AND SKIN BREAKDOWN. ABDULLAHI VERMA, OTR/L
--- NOTE | 2019-06-19 16:23 | NUR ---
FSBS 272 PROVIDED PT WITH 16UNITS OF INSULIN PER SS. PT RESTING QUIETLY TURNED ON HIS SIDE WAITING ON HIS DINNER TRAY. EMPTIED 800CC OF ORANGISH COLORED URINE FROM ROBLES CATHETER. PT DENIES ANY CURRENT PAIN OR NEEDS AT THIS TIME. CL IN REACH. WILL CTM.
[2019-06-19 17:49] VITALS: BP 127/63
--- NOTE | 2019-06-19 18:14 | NUR ---
PT ATE DINNER AND REQUESTED BEING REPOSITIONED. REPOSITIONED PT UP IN BED AND ELEVATED BILAT FEET ON PILLOWS. PT VOICED THANKS AND IS RESTING QUIETLY DENIES AND FURTHER NEEDS AT THIS TIME. CL IN REACH, BED IN LOWEST, SIDE RAILS X2. WILL CTM.
[2019-06-19 20:30] VITALS: BP 117/62
--- NOTE | 2019-06-20 01:22 | NUR ---
RESTING WITH EYES CLOSED, RESPERATIONS EVEN, NO S/S DISTRESS NOTED.
--- NOTE | 2019-06-20 02:37 | NUR ---
I have reviewed this patient and I concur with the Shift Assessment completed by the Licensed Practical Nurse today this shift.
--- NOTE | 2019-06-20 02:49 | NUR ---
REPOSITIONED IN BED FOR COMFORT.
[2019-06-20 04:30] VITALS: BP 108/57
[2019-06-20 06:53] LABS: ALBUMIN 1.3 g/dL (3.4-5.0); ANION GAP 13.2 mmol/L (8-16); BILIRUBIN - TOTAL 1.18 mg/dL (0.2-1.3); CALCIUM 7.9 mg/dL (8.5-10.1); CARBON DIOXIDE 23.2 mmol/L (21.0-32.0); CREATININE - SERUM 1.1 mg/dL (0.6-1.3); POTASSIUM - SERUM 4.4 mmol/L (3.5-5.1); PROTEIN - SERUM 4.8 g/dL (6.4-8.2); VANCOMYCIN - RANDOM 12.8 ug/mL (10.0-20.0)
[2019-06-20 07:00] LABS: BASOPHILS 0 % (0-2); EOSINOPHILS 0.1 % (0-7); HEMATOCRIT 31.8 % (42.0-54.0); HEMOGLOBIN 10.2 g/dL (13.5-17.5); IMMATURE GRANULOCYTES 0.7 % (0-5); LYMPHOCYTES 7.1 % (15-50); MCH 27.7 pg (26.0-34.0); MCHC 32.1 g/dL (31.0-37.0); MCV 86.4 fL (80.0-100.0); MEAN PLATELET VOLUME 11.2 fL (7.4-10.4); MONOCYTES 5.5 % (2-11); NEUTROPHILS 86.6 % (40-80); PLATELET COUNT 402 10x3/uL (130-400); RBC 3.68 10x6/uL (4.20-6.10); RDW 15.3 % (11.5-14.5); WBC 20.9 10x3/uL (4.8-10.8)
--- NOTE | 2019-06-20 07:45 | NUR ---
ASSESSMENT DONE. DENIES NEEDS
[2019-06-20 09:13] VITALS: BP 109/57
[2019-06-20 09:39] VITALS: BP 109/57
--- NOTE | 2019-06-20 11:30 | NUR ---
OT NOTE: PT PERFORMED WELL TODAY. BED MOB WITH MOD ASSIST AND EXT TIME; SIT TO STAND WITH MOD ASSIST X 2; ABLE TO AMB APPROX 6 STEPS WITH WALKER TO CHAIR AND TRANSFERRED WITH MIN ASSIST. UE/LE AROM EXS; GROSS/FINE MOTOR TASKS TO IMPROVE LAMP SHADE ASSEMBLER STRENGTH AND COORDINATION. ABDULLAHI VERMA, OTR/L
--- NOTE | 2019-06-20 14:05 | NUR ---
Nutrition Follow-up: SOLIS today Diet: NPO PO intake: 75-100% (06/19) No new wt - daily wts ordered Last recorded BM: 06/14 Labs noted: Glu 110, Ca 7.9, Alb 1.3 Meds noted: Miralax, Humulin -Rec resume diet following procedure. -Need new wt. -RD following.
--- NOTE | 2019-06-20 14:42 | NUR ---
I have reviewed this patient and I concur with the Shift Assessment completed by the Licensed Practical Nurse today this shift.
--- NOTE | 2019-06-20 16:51 | NUR ---
WITHOUT CHANGES OR DISTRESS NOTED AT THIS TIME. DENIES NEEDS
[2019-06-20 17:52] VITALS: BP 87/53
--- NOTE | 2019-06-20 19:30 | NUR ---
REPORT RECEIVED. RR EVEN AND UNLABORED ON 2L HF. PT C/O OF 5/10 BILATERAL HIP PAIN. RR EVEN AND UNLABORED. NO S/SX OF DISTRESS NOTED. NO FURHTER VOICED C/O OR CONCERNS NOTED. S2X2, CALL LIGHT IN REACH. WILL CTM.
--- NOTE | 2019-06-20 19:31 | NUR ---
OT NOTE: PT COMPLETED HYGIENE TASKS WITH MAX A. PT COMPLETED BED MOB TASKS WITH MOD A FOR POSITIONING USING SIDE RAIL. THANK YOU,YAMIL WILLIS
[2019-06-20 20:00] VITALS: BP 114/54
[2019-06-21] VITALS: BP 121/61
[2019-06-21 04:00] VITALS: BP 126/58
[2019-06-21 07:02] LABS: BASOPHILS 0 % (0-2); EOSINOPHILS 0.1 % (0-7); HEMATOCRIT 31.4 % (42.0-54.0); HEMOGLOBIN 9.9 g/dL (13.5-17.5); IMMATURE GRANULOCYTES 0.6 % (0-5); LYMPHOCYTES 5.4 % (15-50); MCH 27.6 pg (26.0-34.0); MCHC 31.5 g/dL (31.0-37.0); MCV 87.5 fL (80.0-100.0); MEAN PLATELET VOLUME 10.9 fL (7.4-10.4); MONOCYTES 7.3 % (2-11); NEUTROPHILS 86.6 % (40-80); PLATELET COUNT 388 10x3/uL (130-400); RBC 3.59 10x6/uL (4.20-6.10); RDW 15.6 % (11.5-14.5); WBC 17.4 10x3/uL (4.8-10.8)
[2019-06-21 07:34] LABS: ALBUMIN 1.1 g/dL (3.4-5.0); ALKALINE PHOSPHATASE 72 U/L (46-116); ALT (SGPT) 23 U/L (10-68); BILIRUBIN - TOTAL 0.84 mg/dL (0.2-1.3); CALC OSMOLALITY 279 mosm/kg (275-300); CARBON DIOXIDE 25.1 mmol/L (21.0-32.0); CHLORIDE - SERUM 108 mmol/L (98-107); CREATININE - SERUM 0.9 mg/dL (0.6-1.3); GLUCOSE 95 mg/dL (74-106); POTASSIUM - SERUM 4.3 mmol/L (3.5-5.1); PROTEIN - SERUM 5.3 g/dL (6.4-8.2); SODIUM 138 mmol/L (136-145); UREA NITROGEN 23 mg/dL (7-18); VANCOMYCIN - RANDOM 6.1 ug/mL (10.0-20.0); eGFR NON AFRICAN AMERICAN 89 mL/min (90-120)
[2019-06-21 09:05] VITALS: BP 142/79
--- NOTE | 2019-06-21 10:44 | NUR ---
ALERT AND ORIENTED,CONFUSED AT TIMES.. TELEMERTY SHOWS SR 84. O2 AT 2 LM HIGH FLOW. LEFT WRIST AND LEFT FA HAVE SLS. ROBLES CATH PATEN TO GRAVITY BAG. PT IS ON ISOLATION. SR UP WITH CALL LIGHT IN REACH
[2019-06-21 12:41] VITALS: BP 129/63
[2019-06-21 14:08] LABS: PLT FUNCT.(P2Y12) PLAVIX 70 PRU (194-418)
--- NOTE | 2019-06-21 14:30 | NUR ---
I have reviewed this patient and I concur with the Shift Assessment completed by the Licensed Practical Nurse today this shift.
[2019-06-21 16:11] VITALS: BP 139/71
--- NOTE | 2019-06-21 19:10 | NUR ---
REPORT RECEIVED. PT RESTING IN BED. RR EVEN AND UNLABORED ON 2L HF. NO S/SX OF DISTRESS NOTED AT THIS TIME. NO VOICED C/O OR CONCERNS NOTED. CALL LIGHT IN REACH. WILL CTM.
[2019-06-21 20:36] VITALS: BP 126/67
[2019-06-22 00:27] VITALS: BP 98/55
--- NOTE | 2019-06-22 03:34 | NUR ---
PT C/O SHOULDER AND BACK PAIN. PROVIDED NORCO PER PRN ORDER. WILL CTM.
[2019-06-22 04:45] VITALS: BP 106/48
[2019-06-22 05:31] LABS: BASOPHILS 0 % (0-2); EOSINOPHILS 0.3 % (0-7); HEMOGLOBIN 9.6 g/dL (13.5-17.5); IMMATURE GRANULOCYTES 0.5 % (0-5); LYMPHOCYTES 3.6 % (15-50); MCH 27.8 pg (26.0-34.0); MEAN PLATELET VOLUME 10.8 fL (7.4-10.4); MONOCYTES 7.4 % (2-11); NEUTROPHILS 88.2 % (40-80); PLATELET COUNT 459 10x3/uL (130-400); RBC 3.45 10x6/uL (4.20-6.10); RDW 15.7 % (11.5-14.5); WBC 16.9 10x3/uL (4.8-10.8)
[2019-06-22 06:03] LABS: ALBUMIN 1.1 g/dL (3.4-5.0); ALKALINE PHOSPHATASE 87 U/L (46-116); ALT (SGPT) 23 U/L (10-68); BILIRUBIN - TOTAL 0.83 mg/dL (0.2-1.3); CALC OSMOLALITY 276 mosm/kg (275-300); CALCIUM 8.2 mg/dL (8.5-10.1); CARBON DIOXIDE 27.7 mmol/L (21.0-32.0); CHLORIDE - SERUM 106 mmol/L (98-107); CREATININE - SERUM 0.9 mg/dL (0.6-1.3); GLUCOSE 71 mg/dL (74-106); PROTEIN - SERUM 5.3 g/dL (6.4-8.2); SODIUM 138 mmol/L (136-145); UREA NITROGEN 22 mg/dL (7-18); eGFR NON AFRICAN AMERICAN 89 mL/min (90-120)
[2019-06-22 08:28] VITALS: BP 115/60
[2019-06-22 12:00] VITALS: BP 122/59
[2019-06-22 16:32] VITALS: BP 137/72
--- NOTE | 2019-06-22 19:20 | NUR ---
REPORT RECEIVED. PT IN BED RESTING WITH EYES CLOSED. RR EVEN AND UNLABORED ON 3L NC. NO S/SX OF DISTRESS NOTED AT THIS TIME. NO NEEDS EXPRESSED. SRX2, CALL LIGHT IN REACH WILL CTM.
[2019-06-22 20:45] VITALS: BP 116/59
--- NOTE | 2019-06-23 | NUR ---
PT IS HAVING SOME CONFUSION TONIGHT, REPEATING QUESTIONS. DISORIENTED TO THE TIME. NO FURTHER NEEDS EXPRESSED.
[2019-06-23 00:30] VITALS: BP 131/57
[2019-06-23 04:30] VITALS: BP 113/56
[2019-06-23 05:56] LABS: BASOPHILS 0.1 % (0-2); EOSINOPHILS 0.3 % (0-7); HEMATOCRIT 30.2 % (42.0-54.0); HEMOGLOBIN 9.6 g/dL (13.5-17.5); IMMATURE GRANULOCYTES 0.4 % (0-5); LYMPHOCYTES 7.8 % (15-50); MCH 27.9 pg (26.0-34.0); MCHC 31.8 g/dL (31.0-37.0); MCV 87.8 fL (80.0-100.0); MEAN PLATELET VOLUME 10.7 fL (7.4-10.4); MONOCYTES 8.4 % (2-11); PLATELET COUNT 426 10x3/uL (130-400); RBC 3.44 10x6/uL (4.20-6.10); RDW 15.6 % (11.5-14.5); WBC 13.5 10x3/uL (4.8-10.8)
[2019-06-23 06:33] LABS: ALBUMIN 1.1 g/dL (3.4-5.0); ALKALINE PHOSPHATASE 87 U/L (46-116); ALT (SGPT) 24 U/L (10-68); BILIRUBIN - TOTAL 0.77 mg/dL (0.2-1.3); CALC OSMOLALITY 276 mosm/kg (275-300); CALCIUM 8.5 mg/dL (8.5-10.1); CARBON DIOXIDE 26.9 mmol/L (21.0-32.0); CHLORIDE - SERUM 104 mmol/L (98-107); CREATININE - SERUM 0.9 mg/dL (0.6-1.3); PROTEIN - SERUM 5.7 g/dL (6.4-8.2); SODIUM 136 mmol/L (136-145); UREA NITROGEN 20 mg/dL (7-18); eGFR NON AFRICAN AMERICAN 89 mL/min (90-120)
[2019-06-23 06:46] LABS: GLUCOSE 137 mg/dL (74-106)
--- NOTE | 2019-06-23 07:00 | NUR ---
PT AWAKE AND ORIENTED WHEN I ENTERED ROOM THIS MORNING. LYING IN BED. NO COMPLAINTS OR CONCERNS AT THIS TIME. CL IN REACH, SRX2.
--- NOTE | 2019-06-23 10:40 | NUR ---
I have reviewed this patient and I concur with the Shift Assessment completed by the Licensed Practical Nurse today this shift.
[2019-06-23 11:31] VITALS: Ht 177.8 cm; Wt 91.2 kg
[2019-06-23 12:41] LABS: INR 1.2 (0.85-1.17); PROTIME 14.7 SECONDS (11.6-15.0)
[2019-06-23 12:42] LABS: APTT 44.6 SECONDS (22.8-39.4)
[2019-06-23 12:56] LABS: PHOSPHOROUS 4.2 mg/dL (2.5-4.9); T4 THYROXIN - FREE 1.28 ng/dL (0.76-1.46); THYROID STIMULATING HORMONE 4.71 uIU/mL (0.36-3.74)
[2019-06-23 13:41] VITALS: BP 145/85
[2019-06-23 16:32] VITALS: BP 123/74
--- NOTE | 2019-06-23 18:27 | NUR ---
PT AWAKE AND ORIENTED, CRYING OUT IN PAIN PERIODICALLY BUT PAIN MEDICATION NOT AVALIABLE AT THIS TIME. WILL PROVIDE WHEN AVALIABLE. PTS GIRLFIREND HAS BEEN IN ROOM MOST OF THE DAY. BATH PROVIDED, PT REARRANGED, CLEAN AND DRY AT THIS TIME. DENIES FRUTHER NEEDS AT THSI TIME. CL INR EACH,S RX2.
[2019-06-23 20:00] VITALS: BP 132/68
--- NOTE | 2019-06-23 21:40 | NUR ---
BOTH PIVS TO THE LEFT ARM LEAKING, BOTH IV CATHS REMOVED, TIP INTACT. WILL ATTEMPT TO RESITE IV.
--- NOTE | 2019-06-23 22:16 | NUR ---
2 NURSES UNSUCCESSFUL IN RESITING IV. CALL PLACED TO ER TO ASK IF THEY WILL ATTEMPT.
[2019-06-23 23:31] LABS: APPEARANCE CLEAR (CLEAR); BILIRUBIN NEGATIVE (NEGATIVE); COLOR YELLOW (YELLOW); GLUCOSE NEGATIVE (NEGATIVE); KETONE NEGATIVE (NEGATIVE); NITRITE NEGATIVE (NEGATIVE); PROTEIN TRACE mg/dL (NEGATIVE); UROBILINOGEN NORMAL (NORMAL)
[2019-06-23 23:34] LABS: BACTERIA FEW /hpf (NEGATIVE); EPITHELIAL CELLS 0-5 /hpf (0-5)
[2019-06-24] VITALS (37 sets, daily range): BP systolic 106–140; BP diastolic 46–72
--- NOTE | 2019-06-24 01:00 | NUR ---
IV SITED TO RIGHT HAND, 22 GUAGE, 2ND ATTEMPT BY Divina STEINER. IV VANC INFUSING.
--- NOTE | 2019-06-24 02:11 | NUR ---
REPOSITIONED IN BED FOR COMFORT.
--- NOTE | 2019-06-24 02:44 | NUR ---
I have reviewed this patient and I concur with the Shift Assessment completed by the Licensed Practical Nurse today this shift.
--- NOTE | 2019-06-24 04:18 | NUR ---
MEDICAL ADMINISTRATIVE AT BED SIDE, PT CLIPPED AND HIBICLENS BATH GIVEN. REPOSITIONED IN BED FOR COMFORT.
[2019-06-24 05:02] LABS: INR 1.35 (0.85-1.17); PROTIME 16.1 SECONDS (11.6-15.0)
[2019-06-24 05:03] LABS: APTT 42.5 SECONDS (22.8-39.4)
[2019-06-24 05:04] LABS: ANION GAP 9.5 mmol/L (8-16); BILIRUBIN - TOTAL 0.96 mg/dL (0.2-1.3); CALCIUM 8.4 mg/dL (8.5-10.1); CARBON DIOXIDE 26.6 mmol/L (21.0-32.0); POTASSIUM - SERUM 4.1 mmol/L (3.5-5.1); PROTEIN - SERUM 5.2 g/dL (6.4-8.2)
[2019-06-24 05:09] LABS: CREATININE - SERUM 1.3 mg/dL (0.6-1.3)
[2019-06-24 05:24] LABS: HEMATOCRIT 27.2 % (42.0-54.0); HEMOGLOBIN 8.8 g/dL (13.5-17.5); MCH 27.7 pg (26.0-34.0); MCHC 32.4 g/dL (31.0-37.0); MCV 85.5 fL (80.0-100.0); MEAN PLATELET VOLUME 10.4 fL (7.4-10.4); PLATELET COUNT 339 10x3/uL (130-400); RBC 3.18 10x6/uL (4.20-6.10); WBC 27.5 10x3/uL (4.8-10.8)
[2019-06-24 08:28] LABS: ANISOCYTOSIS OCC; BURR CELLS OCC; CRENATED CELLS OCC; LYMPHOCYTES 2 % (15-50); MONOCYTES 8 % (2-11); NEUTROPHILS 80 % (40-80); PLATELET ESTIMATE NORMAL; ROULEAUX OCC
[2019-06-24 12:35] LABS: PROTIME 18.8 SECONDS (11.6-15.0)
[2019-06-24 12:43] LABS: INR 1.64 (0.85-1.17)
--- NOTE | 2019-06-24 13:00 | NUR ---
PT ARRIVED IN THE UNIT. HOOKED TO ICU MONITORS. 8.0 ETT NOTED 22 AT THE LIP. RIGHT IJ SWAN NOTED ABOUT 51 CM. SWAN LOCKED. MIDSTERANAL AND SUBATERNAL DRESSING C/D/I. SUBSTERANAL CT X2 BIFURCATED INTO A SINGLE CT NOTED. CONNECTED TO 20 OF SUCTION WITH NO AIR LEAK. TPM WIRES CONNECTED TO PACEMAKER TURNED OFF PER DR MCDONALD. FC NOTED WITH CLEAR, YELLOW URINE. CALL LIGHT IN REACH. WLL CONT POC.
--- NOTE | 2019-06-24 13:30 | NUR ---
ABG DR MCDONALD NOTIFIED.
--- NOTE | 2019-06-24 13:45 | NUR ---
CT OUTPUT BLOODY WITH INCREASING OUT PUT. CLOTS NOTED DR MCDONALD NOTIFIED.
--- NOTE | 2019-06-24 13:50 | NUR ---
DR MCDONALD STATED TO GIVEN 1 PRBC AND TO GIVE 20 OF K.
--- NOTE | 2019-06-24 13:50 | NUR ---
Nutrition Follow-up: Moved to CVIVU today. Now s/p aortic valve replacement. COOK BOAT signed off yesterday. Diet: NPO PO intake: ~37% average x last 8 meals recorded WT: 240# (06/24/19); 234# (06/12/19) Last recorded BM: 06/23/19 Labs noted: Ca 8.4, Glu 194, Alb 1.0 Meds noted: miralax, humulin, reglan, pepcid -Rec resume diet following -RD following
--- NOTE | 2019-06-24 14:40 | NUR ---
JACKIE STARTED PER DR MCDONALD.
--- NOTE | 2019-06-24 14:50 | NUR ---
DR MCDONALD STATED TO GET ABG AT 6PM.
--- NOTE | 2019-06-24 14:55 | NUR ---
INCREAESED BLEADING AND CLOTS NOTED FROM CT. DR MCDONALD NOTIFIED.
--- NOTE | 2019-06-24 15:30 | NUR ---
GIVEN PLATLETS PER DR MCDONALD.
--- NOTE | 2019-06-24 15:50 | NUR ---
1 PRBC AND [address] MCDONALD. PT CONTS TO HAVE BLOODY DRAINAGE FROM CT AND STARTING TO LEAK AND OOZ AROUND THE CT INSERTION SITES. DR MCDNOALD AT THE PTS BEDSIDE AND AWARE.
--- NOTE | 2019-06-24 17:09 | NUR ---
SPOKE MAX IN THE PHARMACY AND TOLD HER THAT DR AZEVEDO WANTED VANC 1.5 TO BE MIDNIGHT AND NOON (Q12H). MAX IN PHARMACY RESCHELDED IT.
[2019-06-24 17:26] LABS: BASOPHILS 0.1 % (0-2); EOSINOPHILS 0.1 % (0-7); HEMATOCRIT 27.1 % (42.0-54.0); IMMATURE GRANULOCYTES 0.5 % (0-5); LYMPHOCYTES 4.5 % (15-50); MCH 28.5 pg (26.0-34.0); MCHC 33.2 g/dL (31.0-37.0); MCV 85.8 fL (80.0-100.0); MEAN PLATELET VOLUME 10.3 fL (7.4-10.4); NEUTROPHILS 88.8 % (40-80); PLATELET COUNT 220 10x3/uL (130-400); RBC 3.16 10x6/uL (4.20-6.10); RDW 14.5 % (11.5-14.5)
[2019-06-24 17:38] LABS: WBC 14.3 10x3/uL (4.8-10.8)
[2019-06-24 17:43] LABS: INR 1.35 (0.85-1.17); PROTIME 16.1 SECONDS (11.6-15.0)
--- NOTE | 2019-06-24 17:45 | NUR ---
CT CANISTER CHANGED OUT. OUT PUT AT 850 WITH BLOODY DRAINAGED. CANISTERED CHANGED TO BLOOD CLOTS BLOCKING DRAIN FLOW.
--- NOTE | 2019-06-24 18:00 | NUR ---
DR MCDONALD CALLED AND NOTIFIED ABOUT PT INCREASE BLEEDING. CALLED REHAB SPEC TO CALL IN OR TEAM. BACK TO THE OR PER DR MCDONALD.
--- NOTE | 2019-06-24 18:30 | NUR ---
PT LEFT TO THE OR.
--- NOTE | 2019-06-24 19:00 | NUR ---
REPORT RECEIVED BY DAY SHIFT RN, PT IN O.R. AT THIS TIME
[2019-06-24 20:27] LABS: INR 1.4 (0.85-1.17); PROTIME 16.6 SECONDS (11.6-15.0)
--- NOTE | 2019-06-24 20:37 | NUR ---
PT ARRIVED TO CVICU VIA OR BED WITH , AND OR TEAM AT BEDSIDE, PT SEDATED ON VENT PER ORDERS, ETT SECURED, LS CLEAR BILAT, RT IJ CVL PATENT DRSG C/D/I, RT IJ SWAN LOCKED NOTED 52cm, MIDSTERNAL AND SUBSTERNAL DRSG'S C/D/I, SUBSTERNAL CTx2, CT-ANTERIOR BLOODY FLUID NOTED IN TUBE, CT-POSTERIOR NO DRAINAGE NOTED, BOTH CT TO 20cm SUCTION, NO AIR LEAK NOTED, SUBSTERNAL TPM WIRES SECURED AND CONNECTED TO PACEMAKER, PACEMAKER CAME FROM O.R. TURNED OFF, CRITICORE ROBLES CATH SECURED PATENT WITH CLEAR YELLOW VOID, BOY HOSE AND SCD'S PLACED ON BLE, RT RADIAL ART LINE ZEROED WITH GOOD WAVEFORM ON CM, WRIST PROTECTOR SECURED, BILAT WRIST RESTRAINTS REPOSITIONED, SKIN ASSESSED, PT PLACED ON CVICU MONITORS, NO S/S OF ACUTE DISTRESS NOTED, VSS, WILL CONTINUE TO MONITOR
--- NOTE | 2019-06-24 22:35 | NUR ---
CALLED, UPDATE GIVEN, INFORMED OF NO POSTERIOR CT OUTPUT, STATED PT " IS JUST DRY" AND "NOT CONCERNED". ALSO UPDATE GIVEN ON ALL V/S AND SWANS PRESSURES, ALSO NOTED HEART TONES MUFFLED, NO ORDERS RECEIVED FROM , WILL CONTINUE TO MONITOR AND POC
--- NOTE | 2019-06-24 23:00 | NUR ---
REASSESSMENT COMPLETE PER FLOW SHEET, NO ACUTE CHANGES FROM PRIOR ASSESSMENT NOTED, ALL DRSG'S C/D/I, CTx2 TO 20cm SUCTION, NO AIR LEAK NOTED, CT-ANTERIOR WITH BLOODY DRAINAGE IN TUBES, CT-POSTERIOR NO DRAINAGE NOTED IN TUBE, PPP, VSS, PARTIAL BATH GIVEN, ELEVATED EXTREMITIES ON PILLOWS, SCROTUM ELEVATED, ROBLES CARE COMPLETED, BOY HEATON AND SCD'S BLE, CALL LIGHT IN REACH,M RESTRAINTS ASSESED, NO S/S OF PAIN OR DISTRESS AT THIS TIME, WILL CONTINUE TO MONITOR
[2019-06-25] VITALS (81 sets, daily range): BP systolic 98–149; BP diastolic 57–88
--- NOTE | 2019-06-25 00:11 | NUR ---
RESPIRATORY THERAPIST GUADALUPE CHANGED VENT SETTINGS PER ORDERS ANLS DECREASED FiO2 TO 70% PER ABG'S, PT VSS, NO S/S OF DISTRESS, WILL CONTINUE TO MONITOR
--- NOTE | 2019-06-25 02:05 | NUR ---
RT GUADALUPE DECREASED FiO2 TO 60% ON VENT PER ABG'S, PT VSS, NO S/S OF DISTRESS NOTED, WILL CONTINUE TO MONITOR
--- NOTE | 2019-06-25 03:00 | NUR ---
REASSESSMENT COMPLETE PER FLOW SHEET, NO ACUTE CHANGES FROM PRIOR ASSESSMENT NOTED, ALL DRSG'S C/D/I, CTx2 TO 20cm SUCTION, NO AIR LEAK NOTED, CRITICORE ROBLES CATH PATENT WITH CLEAR YELLOW VOID, NSR WITH PVC'S ON CM, OTHER VSS, REPOSITIONED FOR COMFORT, PARTIAL BATH COMPLETED, BOY HOSE AND SCD'S ON BLE, ORAL CARE AND SUCTIONING COMPLETED, CALL LIGHT IN REACH, BED ALARM ON, WILL CONTINUE TO MONITOR AND POC
--- NOTE | 2019-06-25 04:00 | NUR ---
RT GUADALUPE DECREASED FiO2 TO 50% PER ABG'S, ORAL CARE AND SUCTIONING COMPLETED, PT VSS, ABG K+ TREATED PER SEP/ORDERS, WILL CONTINUE TO MONITOR
--- NOTE | 2019-06-25 05:00 | NUR ---
PT SEDATED ON VENT, OPENS EYES AND FOLLOWS COMMANDS WITH VERBAL STEMULI, NO ACUTE DISTRESS NOTED, ORAL CARE AND SUCTIONING COMPLETED, REPOSITIONED FOR COMFORT, VSS, WILL CONTINUE TO MONITOR
[2019-06-25 06:07] LABS: BASOPHILS 0.1 % (0-2); EOSINOPHILS 0.5 % (0-7); HEMATOCRIT 28.5 % (42.0-54.0); HEMOGLOBIN 9.8 g/dL (13.5-17.5); IMMATURE GRANULOCYTES 0.5 % (0-5); MCH 29.3 pg (26.0-34.0); MCHC 34.4 g/dL (31.0-37.0); MCV 85.1 fL (80.0-100.0); MEAN PLATELET VOLUME 10.4 fL (7.4-10.4); NEUTROPHILS 83.9 % (40-80); PLATELET COUNT 252 10x3/uL (130-400); RBC 3.35 10x6/uL (4.20-6.10); RDW 14.6 % (11.5-14.5); WBC 11.9 10x3/uL (4.8-10.8)
[2019-06-25 06:17] LABS: APTT 33.6 SECONDS (22.8-39.4); INR 1.21 (0.85-1.17); PROTIME 14.8 SECONDS (11.6-15.0)
[2019-06-25 06:22] LABS: BILIRUBIN - TOTAL 1.39 mg/dL (0.2-1.3); CARBON DIOXIDE 23.9 mmol/L (21.0-32.0); CREATININE - SERUM 1.2 mg/dL (0.6-1.3); MAGNESIUM - SERUM 2.3 mg/dL (1.8-2.4); PHOSPHOROUS 4.7 mg/dL (2.5-4.9); POTASSIUM - SERUM 3.9 mmol/L (3.5-5.1); PROTEIN - SERUM 5.2 g/dL (6.4-8.2)
--- NOTE | 2019-06-25 07:51 | NUR ---
REPORT RECIEVED. SHIFT ASSESSMENT COMPLETE. PT REPOSITIONED. PT OPENS EYES TO SPEECH. FOLLOWS COMMANDS. LIGHTLY SEDATED. RIJ CENTRAL LINE WITH SWAN. DOBUTAMINE AT 5MCG, DIPRIVAN, K+ REPLACE AND PLASMALYTE INFUSING. ON VENT AT 40%. 8.0 ETT, 22 AT LIP. SOME BLOOD TINGED SECRETION WITH SUCTION NOTED. PT GENERALIZED EDEMA, WITH PITTING AT FEET. BRUISING NOTED TO ABDOMEN AND HANDS. WEEPING EDEMA NOTED AT ARMS, RUPTURED BLISTER AT RIGHT HIP. SCROTAL EDEMA. DRESSING AT RIGHT GROIN. MIDSTERNAL INCISION, DRESSING C,D,I. SUBSTERNAL DRESSING C,D,I OVER CHEST TUBE X2 AND TPM WIRES X2. MINIMAL OUTPUT FROM CHEST TUBE DRAINS. RIGHT RADIAL ART LINE. CRITICORE ROBLES. TEDS AND SCDS. CLEAR LUNG SOUNDS, HYPO BOWEL SOUNDS. VSS. TEMP 99.4
--- NOTE | 2019-06-25 09:00 | NUR ---
DR MCDONALD HAS BEEN BY TO SEE PATIENT. ASKED FOR DOBUTAMINE TO BE CHANGED TO 3MCG. OK TO WEAN. MAY REMOVE SWAN AFTER EXTUBATION AND VSS. PT AWAKE AT THIS TIME. DIPRIVAN IS OFF.
--- NOTE | 2019-06-25 09:59 | NUR ---
BLOOD DRAWN FROM VTJ CVL FOR CULTURES. RT CHANGED VENT SETTING TO SPONT DR RANDALL HAS BEEN IN TO SEE PATIENT.
--- NOTE | 2019-06-25 11:17 | NUR ---
PT EXTUBATED AT 11:16. PLACED ON 3L NC.
--- NOTE | 2019-06-25 12:20 | NUR ---
Nutrition Follow-up: POD 1 AVR. Extubated this AM. Diet: NPO Wt: 224.8# (wt on 06/23 was 240.3# on Med 2; scale discrepancy?) Last BM: 06/23 per chart Labs noted: Glu 144, Ca 8.0, Alb 2.0 Meds noted: KCl -Rec ADAT to cardiac diabetic as medically feasible; if unable to advance diet within 24-48 hours, rec nutrition support. -RD following.
--- NOTE | 2019-06-25 14:49 | NUR ---
PT RESTING AT THIS TIME. NO DISTRESS. CALL LIGHT IN REACH.
--- NOTE | 2019-06-25 17:10 | NUR ---
SUBSTERNAL DRESSING CHANGED PER PROTOCOL
--- NOTE | 2019-06-25 19:00 | NUR ---
REPORT RECEIVED AT BEDSIDE, SHIFT ASSESSMENT COMPLETE PER FLOW SHEET, PT AWAKE AND ALERT WITH PERIODS OF CONFUSION, ABLE TO REORIENT PT, CUP OF ICE WATER GIVEN PER REQUEST, NO SWALLOWING DIFFICULTY NOTED, REPOSITIONED PT UP IN BED FOR COMFORT, RT IJ CVL PATENT DRSG C/D/I, MIDSTERNAL AND SUBSTERNAL DRSG'S C/D/I, SUBSTERNAL CTx2 TO 20cm SUCTION, NO AIR LEAK NOTED, BLOODY DRAINAGE IN TUBES, TPM WIRES x2 CONNECTED TO PACEMAKER, PACEMAKER IS TURNED OFF, RT RADIAL ART LINE SECURED WITH WRIST PROTECTOR IN PLACE, POOR WAVEFORM ON CM, SENSATION AND COLOR INTACT IN RT ARM/HAND, CRITICORE ROBLES CATH PATENT WITH DARK YELLOW URINE, SCROTUM SWOLLEN, ELEVATED SCROTUM WITH SLING, BOY HOSE AND SCD'S ON BLE, VSS, NSR ON CM, CALL LIGHT IN REACH, BED ALARM ON, WILL CONTINUE TO ASSESS
--- NOTE | 2019-06-25 19:45 | NUR ---
PT C/O ACHING INCISIONAL PAIN RATED 8/10 ON NUMERIC PAIN SCALE, REPOSITIONED UP IN BED BY RNx2, PAIN MED GIVEN PER SEP/ORDERS, VSS, NSR ON CM, WILL CONTINUE TO MONITOR
--- NOTE | 2019-06-25 21:00 | NUR ---
MEDS GIVEN PER MAR/ORDERS, PT ABLE TO SWALLOW MEDS AND FLUID WITHOUT DIFFICULTY, PT STATED "LESS PAIN" SINCE PAIN MEDICATION, AND "ABLE TO SLEEP" PT VSS, NSR ON CM, SMALL ICE WATER GIVEN PER REQUEST, WILL CONTINUE TO MONITOR
--- NOTE | 2019-06-25 23:00 | NUR ---
REASSESSMENT COMPLETE PER FLOW SHEET, NO ACUTE CHANGES NOTED FROM PRIOR ASSESSMENT, REPOSITIONED PT IN BED FOR COMFORT, PT AWAKE AND ALERT AT THIS TIME, VSS, NSR ON CM, TCDB AND I/S COMPLETED [id number], MUCH ENCOURAGEMENT NEEDED, REVIEWED TEACHING ON USE OF I/S WITH PT, ALL DRSG'S C/D/I, RT RADIAL ART LINE CONTINUES TO HAVE POOR WAVEFORM ON CM, ALL PULSES PALPABLE, SCROTAL SWELLING PRESENT WITH SLING TO ELEVATE, CRITICORE ROBLES CATH PATENT WITH DARK YELLOW URINE, SMALL DRINK GIVEN OPER REQUEST, NO S/S OF ACUTE DISTRESS, CALL LIGHT IN REACH, BED ALARM ON, WILL CONTINUE TO MONITOR AND POC
[2019-06-26] VITALS (32 sets, daily range): BP systolic 109–144; BP diastolic 61–96
--- NOTE | 2019-06-26 01:15 | NUR ---
FSBG 91, INSULIN GTT TURNED OFF, 8 OUNCES ORANGE JUICE GIVEN, PT AWAKE AND ALERT, VSS, WILL CONTINUE TO MONITOR
--- NOTE | 2019-06-26 03:00 | NUR ---
REASSESSMENT COMPLETE PER FLOW SHEET, NO ACUTE CHANGES FROM PRIOR ASSESSMENT, PT AAOx4, DENIES PAIN OR NEEDS AT THIS TIME, VSS, RT RADIAL ART LINE INTACT WITH WRIST PROTECTOR POOR WAVEFORM ON CM, ALL OTHER DRSG'S C/D/I, REPOSITIONED FOR COMFORT, I/S COMPLETED WITH POOR EFFORT FROM PT 250-500ML x10, TCDB COMPLETED, PT NEEDED MUCH ENCOURAGEMENT, DRINK OF WATER GIVEN PER REQUEST, CALL LIGHT IN REACH, BED ALARM ON, WILL CONTINUE TO MONITOR
--- NOTE | 2019-06-26 06:00 | NUR ---
RT IJ CVL DRSG CHANGED PER PROTOCOL, DRSG C/D/I, PT TOLLERATED PROCEDURE WELL WITH NO S/S OF ACUTE DISTRESS, VSS, NSR ON CM, WILL CONTINUE TO MONITOR
[2019-06-26 07:05] LABS: BASOPHILS 0.2 % (0-2); EOSINOPHILS 0.6 % (0-7); HEMATOCRIT 29.4 % (42.0-54.0); HEMOGLOBIN 9.6 g/dL (13.5-17.5); IMMATURE GRANULOCYTES 0.3 % (0-5); LYMPHOCYTES 10.1 % (15-50); MCH 28.8 pg (26.0-34.0); MCHC 32.7 g/dL (31.0-37.0); MONOCYTES 7.4 % (2-11); NEUTROPHILS 81.4 % (40-80); PLATELET COUNT 240 10x3/uL (130-400); RBC 3.33 10x6/uL (4.20-6.10); RDW 15.3 % (11.5-14.5); WBC 11.7 10x3/uL (4.8-10.8)
[2019-06-26 07:09] LABS: MCV 88.3 fL (80.0-100.0)
[2019-06-26 07:18] LABS: ALBUMIN 1.8 g/dL (3.4-5.0); ANION GAP 8.9 mmol/L (8-16); BILIRUBIN - TOTAL 1.07 mg/dL (0.2-1.3); CALCIUM 7.8 mg/dL (8.5-10.1); CARBON DIOXIDE 27.9 mmol/L (21.0-32.0); CREATININE - SERUM 1.1 mg/dL (0.6-1.3); POTASSIUM - SERUM 3.8 mmol/L (3.5-5.1); PROTEIN - SERUM 5.4 g/dL (6.4-8.2)
--- NOTE | 2019-06-26 07:30 | NUR ---
REPORT RECEIVED. SHIFT ASSESSMENT COMPLETE. PT AWAKE, C/O PAIN. HAS BEEN DANGLED. LITTLE OUTPUT FROM CHEST TUBES. PT ALAN SITTING UP. KEPT PUSHING AGAINST NURSES AND FLAILING AROUND. VERY LITTLE ASSIST FROM PATIENT HOLDING HIMSELF UP. C/O CHOKING AT TIMES. REMINDED HIM TO COUGH TO HELP MOVE SPUTUM. DOES NOT WANT TO DO THINGS FOR HIMSELF. HAS TO BE ENCOURAGED.
--- NOTE | 2019-06-26 09:55 | NUR ---
DOBUTAMINE GTT STOPPED PER DR MCDONALD ORDER.
--- NOTE | 2019-06-26 11:51 | TEE ---
PATIENT:GILDARDO INIGUEZ MEDICAL RECORD: [id number] LOCATION:[place] [address] AGE OF PATIENT: 68 ADMISSION DATE: 06/08/19 SEX: M REFERRING PHYSICIAN: STEF SILVA MD INTERPRETING PHYSICIAN: STEF SILVA MD TRANSESOPHAGEAL ECHOCARDIOGRAM Date: 06/20/19 SOLIS CHARGE Y INDICATIONS: Endocarditis PREMEDICATIONS: PATIENT'S RESPONSE PROCEDURE DOPPLER MEASUREMENTS: LVIT LA PA RA LVOT RVOT Asc. Ao AV Gradient Peak AV Mean AV Area MV Gradient Peak MV Mean MV Area INTERPRETATION: Doppler: 2-D: COLOR FLOW DOPPLER NORMAL SALINE STUDY: MISCELLANOUS: DIAGNOSIS: PLAN: Experimental Aircraft Mechanic:3 Dr. Gregg Retail Experience Specialist: Cristofer GUTIERREZ COMMENTS: DATE OF SERVICE: 06/20/2019 After general sedation via anesthesia via TIVA, a transesophageal Omniplane probe was placed in the distal esophagus and proximal stomach without difficulty. FINDINGS: LVH appears present. LV internal dimension is normal. Wall motion is normal. EF is greater than or equal to 55%. Aortic valve has obvious vegetation. This appears to be on the left coronary cusp, this is 2 cm, fairly TRANSESOPHAGEAL ECHOCARDIOGRAM REPORT [id number] GILDARDO INIGUEZ sessile with no more than trace. Left atrium appears normal. Left atrium appendage is well visualized without significant regurgitation. Right-sided chambers appear grossly normal. Trace TR. TRANSINT:[id number] Voice Confirmation ID: [id number] DOCUMENT ID: [id number] at 1151 CC: STEF SILVA MD [id number] DICTATION DATE: 06/25/19 1316 OFFICE ASSISTANCE: 06/25/19 1055 ADM IN [facility] [address] [place] [id number]
--- NOTE | 2019-06-26 16:34 | NUR ---
PT HAD LARGE BM. WHILE CLEANING HIM UP HE BRADIED DOWN TO 27, SATS DROPPED. TPM TURNED ON. DR AZEVEDO CAME TO ROOM. ORDERED FOR SETTING TO BE VVI 60. PT RECOVERED RHYTHM ON OWN. ADDITIONAL SUPPLEMENTAL O2 WAS PROVIDED. PT CONVERSANT. AWARE OF SITUATION AND SURROUNDS. NURSE STAYED AT BEDSIDE TO MONITOR. SUBSTERNAL DRESSING CHANGED.
--- NOTE | 2019-06-26 16:51 | NUR ---
INSULIN GTT INITIATED PER PROTOCOL
--- NOTE | 2019-06-26 17:54 | NUR ---
PT HAD ANOTHER LARGE BM.
--- NOTE | 2019-06-26 18:32 | NUR ---
PT CLEANED UP FROM ANOTHER LARGE BOWEL MOVEMENT. THEN IMMEDIATELY ASKED FOR BEDPAN.
--- NOTE | 2019-06-26 19:00 | NUR ---
REPORT RECEIVED, SHIFT ASSESSMENT COMPLETE, PT AWAKE AND ALRET TO PLACE/TIME/SITUATION, ABLE TO ANSWER QUESTIONS, DENIES PAIN AT THIS TIME, RT IJ CVL PATENT DRSG C/D/I, RT RADIAL ART LINE IN PLACE WITH POOR WAVEFORM ON CM, ZEROED ART LINE WITH NO IMPROVEMENT OF WAVEFORM, NIBP READING ON LEFT UPPER ARM, MIDSTERNAL/SUBSTERNAL DRSG'S C/D/I, SUBSTERNAL CTx2 WTO 20cm SUCTION NO AIR LEAK NOTED, SEROSANG DRAINAGE NOTED IN CT'S, TPM WIRES x2 CONNECTED TO PACEMAKER, PACEMAKER ON VVI RATE 60bpm Vma 10, PT NSR @86bpm, OTHER VSS, NC @4 L/MIN, CRITICORE ROBLES CATH PATENT WITH CLEAR YELLOW URINE, SCROTAL SWELLING NOTED, SLING PLACED UNDER SCROTUM AND ELEVATED, SKIN CARE COMPLETED, BOY HEATON AND SCD'S ON BLE, I/S COMPLETED 500ml x10, MUCH ENCOURAGEMENT AND RETEACHING NEEDED, TCDB COMPLETED, REPOSITIONED IN BED FOR COMFORT, PT STATED HE NEEDS BED BACH, BED BACH PLACED UNDER PT AND REPOSITIONED FOR COMFORT USE, CUP ICE WATER GIVEN PER REQUEST, CALL LIGHT IN REACH, BED ALARM ON, WILL CONTINUE TO MONITOR AND POC
--- NOTE | 2019-06-26 19:30 | NUR ---
PT REMOVED FROM BEDPAN, PERICARE COMPLETED, PT HAD SEMIFORMED BROWN BM, PARTIAL LINEN CHANGE, SCROTUM ENLARGED PLACED SLING UNDER SCROTUM AND ELEVATED, SKIN CARE COMPLETED, VSS, PT GETS MODERATLY ANXIOUS WITH MOVEMENT ON TO SIDE WITH RNx2 AT BEDSIDE, PT REPOSITIONED UP IN BED FOR COMFORT, HOB ELEVATED, DRINK OF ICE WATER GIVEN PER REQUEST, WARM BLANKET PLACED ON PT, VSS, PT DENIES PAIN AT THIS TIME, WILL CONTINUE TO MONITOR
--- NOTE | 2019-06-26 22:30 | NUR ---
CALL LIGHT PRESSED, RN AT BEDSIDE, PT AWAKE AND ALERT, C/O NOSE BLEEDING FROM LEFT NARE, LIGHT AMOUNT OF RED CLOTTING BLOOD UNDER LEFT NARE, STERIL WATER SOAKED 4X4 GAUZE PLACED UNDER LEFT NARE, BLEEDING CONTROLLED WITH 4X4 GAUZE, BLOOD CLEANED FROM AROUND NOSE AND MOUTH, PT DENIES PAIN OR DISCOMFORT AT THIS TIME, VSS, NSR ON CM. PT STATED NOSE BLEED "STARTED FROM MEDICATION THAT WAS PUT IN NOSE" NC OXYGEN REPOSITIONED WITH GAUZE ON BOTH SIDES OF NOSE TO REDUCE IRRITATION OF NARE, PT STATED HE WAS "COMFORTABLE" AND " NO PAIN" WHEN ASKED BY RN, BLEEDIING CONTROLLED, WILL CONTINUE TO MONITOR
--- NOTE | 2019-06-26 23:45 | NUR ---
PT USED CALL LIGHT, RN AT BEDSIDE PT REQUESTING GRAPES TO EAT, PT GIVEN SMALL CUP WITH GRAPES, RN ELEVATED HOB TO 40 DEGREES AND BEDSIDE TABLE REPOSITIONED IN REACH OF PT, PT ANXIOUS AND REQUESTING TO LAY FLAT, RN DISCUSSED WITH PT THE NEED IN POSITION CHANGE AND HAVE HOB ELEVATED, PT ABLE TO SWALLOW FOOD WITHOUT DISTRESS, CALL LIGHT IN REACH, BED ALARM ON, VSS, WILL CONTINUE TO MONITOR
--- NOTE | 2019-06-26 23:45 | NUR ---
PT COUGHING INCREASED, CALL LIGHT PRESSED, RN AND RT CHRIS AT BEDSIDE, SUCTIONED THICK KEE MUCOUS, PT STATED "I STARTED TO COUGH AFTER DRINK OF WATER.", ORAL CARE COMPLETED WITH MOUTH WASH AND SUCTIONING, PT STATED " IFEEL BETTER NOW." VSS, NSR @ 87bpm ON CM, PT C/O INCISIONAL ACHING DISCOMFORT FROM COUGHING AND MOVEMENT, RATED 7/10 ON NUMERIC PAIN SCALE, PRN PAIN MED GIVEN PER SEP/, NO ACUTE S/S OF DISTRESS NOTED, CALL LIGHT IN REACH, BED ALARM ON, WILL CONTINUE TO MONITOR
[2019-06-27] VITALS (24 sets, daily range): BP systolic 95–127; BP diastolic 50–82
[2019-06-27 06:48] LABS: BASOPHILS 0.1 % (0-2); EOSINOPHILS 0.3 % (0-7); HEMATOCRIT 31.8 % (42.0-54.0); HEMOGLOBIN 10.4 g/dL (13.5-17.5); IMMATURE GRANULOCYTES 0.5 % (0-5); LYMPHOCYTES 11.2 % (15-50); MCHC 32.7 g/dL (31.0-37.0); MCV 88.6 fL (80.0-100.0); MEAN PLATELET VOLUME 10.5 fL (7.4-10.4); NEUTROPHILS 81.9 % (40-80); PLATELET COUNT 228 10x3/uL (130-400); RBC 3.59 10x6/uL (4.20-6.10); RDW 15.3 % (11.5-14.5); WBC 10.9 10x3/uL (4.8-10.8)
[2019-06-27 07:09] LABS: ALBUMIN 1.7 g/dL (3.4-5.0); ALKALINE PHOSPHATASE 71 U/L (46-116); ALT (SGPT) 31 U/L (10-68); BILIRUBIN - TOTAL 0.85 mg/dL (0.2-1.3); CALC OSMOLALITY 290 mosm/kg (275-300); CALCIUM 7.6 mg/dL (8.5-10.1); CARBON DIOXIDE 29.1 mmol/L (21.0-32.0); CHLORIDE - SERUM 106 mmol/L (98-107); GLUCOSE 91 mg/dL (74-106); PHOSPHOROUS 3.8 mg/dL (2.5-4.9); POTASSIUM - SERUM 3.4 mmol/L (3.5-5.1); SODIUM 143 mmol/L (136-145); UREA NITROGEN 30 mg/dL (7-18); eGFR NON AFRICAN AMERICAN 78 mL/min (90-120)
--- NOTE | 2019-06-27 11:24 | NUR ---
Nutrition Follow-up: Nurse reports pt did not eat much this AM. Diet: Diabetic Wt: 225.9# (up from 224.8# on 06/25) Last BM: 06/27 per chart Labs noted: K+ 3.4, Glu 91, Ca 7.6, Alb 1.7, PO4 3.8 Meds noted: Lasix, KDur, Senokot, Colace, KCl -Rec appetite stimulant. May consider Procalamine. -Monitor wt. -RD following.
--- NOTE | 2019-06-27 13:00 | NUR ---
MEDIASTINAL CHEST TUBES DC'D BY DR. AZEVEDO'S NURSE.
--- NOTE | 2019-06-27 19:00 | NUR ---
PT ASSESSMENT COMPLETED AT THIS TIME, NO CHANGES NOTED FROM NURSE REPORT, PT IS AWAKE AND ALERT IN THE BED, PT DENIES COMPLAINTS AT THIS TIME, VSS, WILL MONITOR FOR CHANGES
--- NOTE | 2019-06-27 19:11 | NUR ---
ORAL CARE DONE WITH PERIDEX
--- NOTE | 2019-06-27 21:00 | NUR ---
PT GIVEN PO MEDS AT THIS TIME, PT ELIZABETH WELL, NO DISTRESS OR COMPLAINTS AT THIS TIME, VSS, WILL CONT TO MONITOR FOR CHANGES
--- NOTE | 2019-06-27 23:00 | NUR ---
PT REASSESSMENT COMPLETED AT THIS TIME, NO CHANGES NOTED WILL MONITOR FOR CHANGES
[2019-06-28] VITALS (23 sets, daily range): BP systolic 93–141; BP diastolic 51–95
--- NOTE | 2019-06-28 01:00 | NUR ---
PT RESTING WITH EYES CLOSED RESP EVEN NON LABORED, VSS, NO DISTRESS NOTED AT THIS TIME
--- NOTE | 2019-06-28 03:00 | NUR ---
PT REASSESSMENT COMPLETED AT THIS TIME, NO CHANGES NOTED, VSS
--- NOTE | 2019-06-28 05:00 | NUR ---
I&O AND DAILY WEIGHT COMPLETED AT THIS TIME, NO CHANGES NOTED, VSS
[2019-06-28 06:14] LABS: BASOPHILS 0.2 % (0-2); EOSINOPHILS 0.7 % (0-7); HEMATOCRIT 30.7 % (42.0-54.0); HEMOGLOBIN 9.8 g/dL (13.5-17.5); IMMATURE GRANULOCYTES 1.2 % (0-5); LYMPHOCYTES 10.6 % (15-50); MCH 28.7 pg (26.0-34.0); MCHC 31.9 g/dL (31.0-37.0); MEAN PLATELET VOLUME 10.6 fL (7.4-10.4); MONOCYTES 8.3 % (2-11); PLATELET COUNT 255 10x3/uL (130-400); RBC 3.41 10x6/uL (4.20-6.10); RDW 15.6 % (11.5-14.5); WBC 10.1 10x3/uL (4.8-10.8)
[2019-06-28 06:28] LABS: ALBUMIN 1.6 g/dL (3.4-5.0); ALKALINE PHOSPHATASE 73 U/L (46-116); ALT (SGPT) 27 U/L (10-68); BILIRUBIN - TOTAL 0.95 mg/dL (0.2-1.3); CALC OSMOLALITY 290 mosm/kg (275-300); CALCIUM 7.9 mg/dL (8.5-10.1); CARBON DIOXIDE 28.8 mmol/L (21.0-32.0); CHLORIDE - SERUM 106 mmol/L (98-107); CREATININE - SERUM 0.9 mg/dL (0.6-1.3); GLUCOSE 124 mg/dL (74-106); MAGNESIUM - SERUM 1.8 mg/dL (1.8-2.4); PHOSPHOROUS 3.6 mg/dL (2.5-4.9); POTASSIUM - SERUM 3.3 mmol/L (3.5-5.1); PROTEIN - SERUM 5.4 g/dL (6.4-8.2); SODIUM 143 mmol/L (136-145); UREA NITROGEN 26 mg/dL (7-18); eGFR NON AFRICAN AMERICAN 89 mL/min (90-120)
--- NOTE | 2019-06-28 17:51 | MORECARE ---
CASE MANAGEMENT DISCHARGE SUMMARY PATIENT: GILDARDO INIGUEZ UNIT: [id number] ADM DATE: 06/08/19 AGE: 68 : [birth year] SEX: M ROOM/BED: D[facility] AUTHOR: MISTY,DOC PHYSICIAN: REFERRING PHYSICIAN: NITA RANDALL MD DATE OF SERVICE: 06/28/19 Discharge Plan Patient Name: GILDARDO INIGUEZ Facility: [facility]:[place] : 1950 Planned Disposition: Inpatient Rehab Anticipated Discharge Date: 06/18/19 Discharge Date: Expected LOS: 10 Initial Reviewer: [email or web address] Initial Review Date: 06/11/2019 Generated: 06/28/19 6:50 pm Comments DCP- Discharge Planning Updated by [email or web address]: Lissy Ambrosio on 06/28/19 4:[address] late entry 06/27/19 CM spoke with patient and his friend regarding discharge planning / needs. WAQAS signed for [facility] Inpatient Rehab if needed and agrees. CM will continue to follow and assist as needed with discharge planning / needs. DCP- Discharge Planning Updated by [id number]: González Jacob on 06/18/19 11:[address] Patient Name: GILDARDO INIGUEZ Encounter No: [id number] : 1950 Primary Insurance: MEDICARE A & B Anticipated DC Date: 06-18-2019 Planned Disposition: Inpatient Rehab External Planned Provider: [facility] INPATIENT REHAB DCP follow-up note: CM RECEIVED [facility] FOR REHAB AND IV ANTIBOITICS. CM SPOKE TO CARE TEAM DURING MULTIDISCIPLINARY TEAM MEETING, WAS ADVISED BY DB OF INPATIENT REHAB THAT THEY WILL ACCEPT TODAY; DG LOPEZ INFORMED TEAM SHE PLANS TO DISCHARGE PT TODAY TO REHAB. PT TODAY. CM NOTIFIED PT WHO IS IN AGREEMENT WITH PLAN. [facility] INPATIENT REHAB TO CONTACT MED 2 NURSE WITH ROOM NUMBER WHEN READY TO ACCEPT PT AND NURSE REPORT. González Jacob, CASE MANAGEMENT DCP- Discharge Planning Updated by [id number]: González Jacob on 06/17/19 12:[address] Patient Name: GILDARDO INIGUEZ Encounter No: [id number] : 1950 Primary Insurance: MEDICARE A & B Anticipated DC Date: 06-18-2019 Planned Disposition: Inpatient Rehab External Planned Provider: [facility] INPATIENT REHAB DCP follow-up note: CM RECEIVED CALL FROM MELANIE SU AND THEN CHRIS JONES, BOTH REPORTING TO BE PT'S FRIENDS. BOTH ASKED THAT CM NOTIFY [facility] STAY HE IS MISSING OUTPATIENT APPOINTMENTS AND ASKED FOR PLACEMENT IN [facility] OR [facility] FOR CONTINUED CARE. CM SPOKE TO CARE TEAM DURING MULTIDICIPLINARY TEAM MEETING, INFORMED OF LTACH DENIAL UNTIL PT'S WBC BELOW 20; DB OF INPATIENT REHAB AT [place] INFORMED TEAM THAT INPATIENT REHAB WILL CONSIDER PT AND THEN TRANSITION TO [facility] IF NEEDED. CM SPOKE TO PT IN ROOM, DISCUSSED LTACH DENIAL, AVAILABILITY OF INPATIENT REHAB AT [place] WELL DISCUSSED HIS FRIENDS SUGGESTION FOR REHAB AT [facility] OR [facility]. PT REQUESTED TO BE CONSIDERED FOR REHAB AT [place] FIRST HE WILL GET MORE THERAPY; PT SIGNED CHOICE FOR [facility] AND [facility]. IMPORTANT MESSAGE FROM MEDICARE PROVIDED AND EXPLAINED. CM CALLED ABDULLAHI OF [facility] AT [phone]. PROVIDED REFERRAL INFORMATION, FAXED REFERRAL INFORMATION TO [facility] AT [phone]. CM CALLED [facility] [place], , SPOKE TO NEGRITO AND NOTIFIED OF PT BEING IN HOSPITAL, ALL [facility]OMING APPOINTMENTS WITH [facility] CANCELLED FOR THIS MONTH. CM FAXED UPDATE TO [facility] AT [phone]. CM SPOKE TO DG LOPEZ AND RECEIVED INPATIENT REHAB PRESCREENING ORDER. CM NOTIFIED DB OF [facility] INPATIENT REHAB. CM WAITING ADMISSION DETERMINATION FROM [facility] INPATIENT REHAB WELL ADMISSION DETERMINATION FROM [facility]. González Jacob, CASE MANAGEMENT DCP- Discharge Planning Updated by [id number]: González Jacob on 06/16/19 2:[address] Patient Name: GILDARDO INIGUEZ Encounter No: [id number] : 1950 Primary Insurance: MEDICARE A & B Anticipated DC Date: 06-16-2019 Planned Disposition: Assisted Acute Care Facility External Planned Provider: [facility] [place] DCP follow-up note: CM REVIEWED FAX CONFIRMATION, FAX DID NOT COMPLETE TO [facility] ON SUNDAY EVENING. CM FAXED REFERRAL AGAN TO [facility] AT [phone]. CM FAXED UPDATED REFERRAL INFORMATION TO [facility] AT [phone]. CM WAITING ADMISSION DETERMINATION FROM [facility]. 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 MELANIE ALSO INFORMED CM THAT THE SOURCE OF INFECTION AND NEEDED ANTIBIOTICS HAVE TO BE IDENTIFIED PRIOR TO DEBEAKER REVIEW AT [facility]. DG LOPEZ NOTIFIED. CM WAITING ON WBC TO TREND DOWN AND WILL RESUBMIT TO [facility] WHEN BELOW 20. 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 PT STATES HE LIVES IN [place] AND WANTS TO BE EVALUATED FOR ADMISSION TO [facility] IN [place]. IMPORTANT MESSAGE FROM MEDICARE PROVIDED AND EXPLAINED. CM CALLED MELANIE OF [facility], , REQUESTED EVAULATION SOON POSSIBLE AND ASKED THAT PT BE EVALUATED THIS WEEKEND IF POSSIBLE FOR LTACH ADMISSION. CM FAXED REFERRAL TO [facility] AT [phone]. CM WAITING ADMISSION DETERMINATION FROM [facility]. ALEX Cerrato DCP- Discharge Planning Updated by [id number]: Lissy Ambrosio on 06/11/19 10:[address] Patient Name: GILDARDO INIGUEZ Admission Status: ER Accout number: [id number] Admission Date: 06-08-2019 : 1950 Admission Diagnosis:SEPSIS, UNSPECIFIED ORGANISM Attending: NITA RANDALL Current LOS: 3 Anticipated DC Date: Planned Disposition: Primary Insurance: MEDICARE A & B Discharge Planning Comments: CM met with patient at bedside after explaining CM role and obtaining verbal consent. Patient lives at home alone with his service dog (Hilda) where he is independent with his care and plans to return there upon discharge. Patient feels this would be a safe discharge. CM discussed availability / needs of home health and medical equipment. Patient states his medical POA is [facility] [phone]. Patient did state that if needed he is interested in Inpatient Rehab or SNF rehab. WAQAS signed. Patient denies any discharge needs at this time. Patient states he will have his family drive him home upon discharge. CM will continue to follow and assist as needed with discharge planning / needs. Car Whacker: Lissy Ambrosio RIPIA - Discharge Planning Initial Assessment Updated by [id number]: Lissy Ambrosio on 06/11/19 11:17 am * Is the patient Alert and Oriented? Yes * How many steps to enter\exit or inside your home? * [facility] * [facility]acy [facility] * Preadmission Environment Home Alone * ADLs Independent * Equipment Walker * List name and contact numbers for known caregivers / representatives who currently or will assist patient after discharge: JOSE SU - [facility] POA- [phone] * Verbal permission to speak to the caregivers and representatives has been obtained from the patient. Yes * Community resources currently utilized None * Additional services required to return to the preadmission environment? No * Can the patient safely return to the preadmission environment? Yes * Has this patient been hospitalized within the prior 30 days at any hospital? No Coverage Notice Reviewer: [id number] Sun Jacob Notice Issued Date-Time: 06/13/2019 16:35 Notice Type: IM Discharge Notice Notice Delivered To: Patient Relationship to Patient: Camera Mechanic Name: Delivery Method: HAND - Hand Delivered Meggan Days: Prior Verbal Notification: Recipient Understood Notice: Yes Recipient Signature: Yes Med Rec Note Co-signed by Attending: Coverage Notice Comment: Reviewer: [email or web address] Jacob Notice Issued Date-Time: 06/17/2019 12:55 Notice Type: IM Discharge Notice Notice Delivered To: Patient Relationship to Patient: Camera Mechanic Name: Delivery Method: HAND - Hand Delivered Meggan Days: Prior Verbal Notification: Recipient Understood Notice: Yes Recipient Signature: Yes Med Rec Note Co-signed by Attending: Coverage Notice Comment: Reviewer: [email or web address] - González Jacob Notice Issued Date-Time: 06/17/2019 12:55 Notice Type: Patient Choice Letter Notice Delivered To: Patient Relationship to Patient: Camera Mechanic Name: Delivery Method: HAND - Hand Delivered Meggan Days: Prior Verbal Notification: Recipient Understood Notice: Yes Recipient Signature: Yes Med Rec Note Co-signed by Attending: Coverage Notice Comment: LORENA GALLAGHER OR OSMAN GLENCOE Reviewer: [id number] Sun Ambrosio Notice Issued Date-Time: 06/27/2019 12:20 Notice Type: Patient Choice Letter Notice Delivered To: Patient Relationship to Patient: Camera Mechanic Name: Delivery Method: HAND - Hand Delivered Meggan Days: Prior Verbal Notification: Recipient Understood Notice: Yes Recipient Signature: Yes Med Rec Note Co-signed by Attending: Coverage Notice Comment: [facility] Inpatient Rehab Last DP export: 06/18/19 11:12 Patient Name: GILDARDO INIGUEZ Page [id number] at 1751 All edits/amendments must be made on the electronic document DICTATION DATE: 06/28/191749 FREIGHT TALLIER: MADHAV 06/28/191749 RPT#: [id number] DC DATE: STATUS: ADM IN [facility] [address] [place] [address] END OF REPORT
--- NOTE | 2019-06-28 18:55 | NUR ---
ORAL CARE DONE WITH PERIDEX
--- NOTE | 2019-06-28 19:00 | NUR ---
PT ASSESSMENT COMPLETED AT THIS TIME, NO CHANGES NOTED FROM NURSE REPORT, VSS PT AWAKE AND ALERT, NO DISTRESS NOTED, RESP EVEN NON LABORED, PT DENIES COMPLAINTS AT THIS TIME, WILL MONITOR FOR CHANGES
--- NOTE | 2019-06-28 21:00 | NUR ---
PT GIVEN PO MEDS AT THIS TIME AND [facility] WELL, NO CHANGES NOTED, VSS, WILL CONT TO MONITOR FOR CHANGES
--- NOTE | 2019-06-28 23:00 | NUR ---
PT REASSESSMENT COMPLETED AT THIS TIME, NO CHANGES NOTED, VSS
[2019-06-29] VITALS (24 sets, daily range): BP systolic 100–133; BP diastolic 49–95
--- NOTE | 2019-06-29 01:00 | NUR ---
PT RESTING WITH EYES CLOSED RESP, EVEN AND NON LABORED, VSS, NO DISTRESS NOTED, WILL MONITOR FOR CHANGES
--- NOTE | 2019-06-29 03:00 | NUR ---
PT REASSESSMENT COMPLETED AT THIS TIME, NO CHANGES NOTED, VSS
--- NOTE | 2019-06-29 05:00 | NUR ---
I&O AND DAILY WEIGHT COMPLETED, NO CHANGES NOTED AT THIS TIME, VSS
[2019-06-29 06:05] LABS: HEMATOCRIT 31.6 % (42.0-54.0); MCH 28.6 pg (26.0-34.0); MCHC 31.6 g/dL (31.0-37.0); MCV 90.3 fL (80.0-100.0); MEAN PLATELET VOLUME 10.3 fL (7.4-10.4); RBC 3.5 10x6/uL (4.20-6.10); RDW 15.8 % (11.5-14.5); WBC 9.5 10x3/uL (4.8-10.8)
[2019-06-29 07:15] LABS: CALC OSMOLALITY 287 mosm/kg (275-300); CALCIUM 7.9 mg/dL (8.5-10.1); CARBON DIOXIDE 33.3 mmol/L (21.0-32.0); CHLORIDE - SERUM 104 mmol/L (98-107); CREATININE - SERUM 0.9 mg/dL (0.6-1.3); GLUCOSE 134 mg/dL (74-106); POTASSIUM - SERUM 3.2 mmol/L (3.5-5.1); SODIUM 142 mmol/L (136-145); UREA NITROGEN 20 mg/dL (7-18); eGFR NON AFRICAN AMERICAN 89 mL/min (90-120)
[2019-06-29 07:21] LABS: ALBUMIN 1.7 g/dL (3.4-5.0); ALKALINE PHOSPHATASE 78 U/L (46-116); ALT (SGPT) 26 U/L (10-68); BILIRUBIN - TOTAL 1.05 mg/dL (0.2-1.3); PROTEIN - SERUM 5.7 g/dL (6.4-8.2)
--- NOTE | 2019-06-29 10:08 | NUR ---
RECIEVVED AWAKE ALERT-STATING WAS NOT GOING TO GET UP -IT HURTS TOO MUCH-HAS NO STRENGTH DOESN'T WANT TO INJURE STAFF-EXPLAINED TO PT WILL STEADLY WEAKEN IF NO PHYSICAL ACTIVITY-POTENTIALLY BECOME MCC BOUND-PT STATED HE'S PLANNING TO GO TO REHAB AND TEMPORARY NURSING FACILITY-AND DOESN'T NEED TO DO ANY OF THIS AT THIS TIME-STATED DR AZEVEDO STATED YESTERDAY DID NOT HAVE TO DO AMBULATING OR GETTING UP IN CHAIR--AGREED WITH PT WILL VERIFY WITH DR AZEVEDO PHYSICAL THERAPY REQUIREMENTS--PT AGREED TO ADHERE TO DR AZEVEDO'S DIRECTION 0930-PERCOCET 10MG PO GIVEN - PREMED FOR AMBULATION-PHYSCIAL THERAPIST-MADE AWARE OF PT REFUSAL AND CONDITION FOR AMBULATION
--- NOTE | 2019-06-29 19:00 | NUR ---
PT ASSESSMENT COMPLETED AT THIS TIME, NO CHANGES NOTED FROM NURSE REPORT, VSS, NO DISTRESS NOTED, WILL MONITOR FOR CHANGES
--- NOTE | 2019-06-29 19:04 | NUR ---
ORAL CARE DONE WITH PERIDEX
--- NOTE | 2019-06-29 21:00 | NUR ---
PT GIVEN PO MEDS AT THIS TIME, PT ELIZABETH WELL, NO DISTRESS NOTED, WILL MONITOR FOR CHANGES
--- NOTE | 2019-06-29 23:00 | NUR ---
PT REASSESSMENT COMPLETED AT THIS TIME, NO CHANGES NOTED, VSS
[2019-06-30] VITALS (24 sets, daily range): BP systolic 101–129; BP diastolic 55–72
--- NOTE | 2019-06-30 01:00 | NUR ---
PT RESTING WITH EYES CLOSED, RESP EVEN AND NON LABORED, VSS, WILL MONITOR FOR CHANGES
--- NOTE | 2019-06-30 03:00 | NUR ---
PT REASSESSMENT COMPLETED AT THIS TIME, NO CHANGES NOTED IN PATIENT COND. VSS, WILL MONITOR FOR CHANGES
--- NOTE | 2019-06-30 11:14 | NUR ---
0700 PT RECIEVED IN BED ALERT AND ORIENTED VSS, TPM BATTERY CHANGED ON NIGHT PER AITCHBONE BREAKER NURSE 0800 BREAKFAST TRAY SERVED, ATE 50% 0930 ASSISTED UP TO CHAIR BY RT 1000 CVL DOES NOT DRAW, CALLED LAB FOR LABS TO BE DRAWN 1100 CALLED AND LEFT MESSAGE FOR VASCULAR ACCESS NURSE ABOUT MIDLINE
[2019-06-30 12:05] LABS: ALBUMIN 1.8 g/dL (3.4-5.0); ALKALINE PHOSPHATASE 88 U/L (46-116); ALT (SGPT) 26 U/L (10-68); BILIRUBIN - TOTAL 1.16 mg/dL (0.2-1.3); CALC OSMOLALITY 285 mosm/kg (275-300); CARBON DIOXIDE 33.2 mmol/L (21.0-32.0); CHLORIDE - SERUM 100 mmol/L (98-107); GLUCOSE 126 mg/dL (74-106); POTASSIUM - SERUM 3.6 mmol/L (3.5-5.1); PROTEIN - SERUM 5.8 g/dL (6.4-8.2); SODIUM 141 mmol/L (136-145); UREA NITROGEN 20 mg/dL (7-18); eGFR NON AFRICAN AMERICAN 78 mL/min (90-120)
[2019-06-30 12:42] LABS: BASOPHILS 0.1 % (0-2); EOSINOPHILS 0.8 % (0-7); HEMATOCRIT 31.8 % (42.0-54.0); HEMOGLOBIN 10.2 g/dL (13.5-17.5); IMMATURE GRANULOCYTES 3.7 % (0-5); LYMPHOCYTES 15.6 % (15-50); MCH 28.9 pg (26.0-34.0); MCHC 32.1 g/dL (31.0-37.0); MCV 90.1 fL (80.0-100.0); MEAN PLATELET VOLUME 10.7 fL (7.4-10.4); MONOCYTES 9.4 % (2-11); NEUTROPHILS 70.4 % (40-80); PLATELET COUNT 274 10x3/uL (130-400); RBC 3.53 10x6/uL (4.20-6.10); RDW 16.4 % (11.5-14.5); WBC 8.7 10x3/uL (4.8-10.8)
--- NOTE | 2019-06-30 13:51 | NUR ---
Nutrition Follow-up: Ate ~50% of breakfast this AM. Noted I/O's -1133 yesterday. Diet: Diabetic PO intake: 27% avg x 7 meals Wt: 200.4# (down from 225.9# on 06/27 - diuresing) Last BM: 06/26 per chart Labs noted: Glu 126, Ca 8.0, Alb 1.8 Meds noted: Lasix, KDur, Glucophage, Humulin, Senokot, Colace, KCl -Rec appetite stimulant; may consider Procalamine. -Monitor wt. -RD following.
--- NOTE | 2019-06-30 14:30 | NUR ---
ASSISTED FROM CHAIR TO BED WITH PT
--- NOTE | 2019-06-30 17:28 | NUR ---
R MIDLINE INSERTED BY VASCULAR ACCESS NURSE, R IJ CVL DCD PER PROTOCOL TIP INTACT
[2019-07-01] VITALS (15 sets, daily range): BP systolic 99–134; BP diastolic 54–77
[2019-07-01 03:58] LABS: BASOPHILS 0.1 % (0-2); EOSINOPHILS 1.1 % (0-7); HEMATOCRIT 30.9 % (42.0-54.0); HEMOGLOBIN 9.8 g/dL (13.5-17.5); IMMATURE GRANULOCYTES 3.5 % (0-5); LYMPHOCYTES 18.9 % (15-50); MCH 28.5 pg (26.0-34.0); MCHC 31.7 g/dL (31.0-37.0); MCV 89.8 fL (80.0-100.0); MEAN PLATELET VOLUME 10.4 fL (7.4-10.4); MONOCYTES 11.3 % (2-11); NEUTROPHILS 65.1 % (40-80); PLATELET COUNT 254 10x3/uL (130-400); RBC 3.44 10x6/uL (4.20-6.10); RDW 16.4 % (11.5-14.5); WBC 7.1 10x3/uL (4.8-10.8)
[2019-07-01 04:11] LABS: ALBUMIN 1.6 g/dL (3.4-5.0); ALKALINE PHOSPHATASE 83 U/L (46-116); ALT (SGPT) 24 U/L (10-68); BILIRUBIN - TOTAL 1.07 mg/dL (0.2-1.3); CALC OSMOLALITY 284 mosm/kg (275-300); CALCIUM 7.9 mg/dL (8.5-10.1); CARBON DIOXIDE 33.4 mmol/L (21.0-32.0); CHLORIDE - SERUM 102 mmol/L (98-107); GLUCOSE 127 mg/dL (74-106); POTASSIUM - SERUM 3.2 mmol/L (3.5-5.1); PROTEIN - SERUM 5.6 g/dL (6.4-8.2); SODIUM 141 mmol/L (136-145); UREA NITROGEN 19 mg/dL (7-18); eGFR NON AFRICAN AMERICAN 78 mL/min (90-120)
--- NOTE | 2019-07-01 06:00 | NUR ---
RNx2 AND CURB HOP AT BEDSIDE, ASSISTED PT TO WHEELCHAIR FROM BED, PT REQUIERS MAXIMAL ASSIST TO TRANSFER, GAIT AND ABILITY TO BARE WEIGHT ARE POOR, PT TAKEN TO RADIOLOGY FOR IMAGING PER ORDERS, PT REQUIERED MAXIMAL ASSIST IN IMAGING, PT ASSISTED IN STABILITY STANDING DURING IMAGING PROCESS BY RN x2, ASSISTED PT BACK IN WHEELCHAIR AND TRANSFERED BACK TO CVICU WITH NO S/S OF DISTRESS, PT HAVING CONVERSATION WITH STAFF DURING TRANSFER, PT VSS, ASSISTED TO BEDSIDWE CHAIR, REPOSITIONED FOR COMFORT, VSS, NSR ON CM, CALL LIGHT IN REACH, VSS, WILL CONTINUE TO MONITOR
[2019-07-01] MEDS ORDERED: ALBUTEROL2.5 MG/3 M UPD (10:49)
[2019-07-01] MEDS ORDERED: LISINOPRIL2.5 MG PO (10:50)
[2019-07-01] MEDS ORDERED: ACETAMINOPHEN325 MG PO (10:51)
[2019-07-01] MEDS ORDERED: PERCOCET 5-3251 TAB PO (10:53)
[2019-07-01] MEDS ORDERED: Saline Mist NASAL SP NASAL (10:54)
[2019-07-01] MEDS ORDERED: K-DUR20 MEQ PO (10:54)
[2019-07-01] MEDS ORDERED: COLACE100 MG PO (10:55)
[2019-07-01] MEDS ORDERED: HUMULIN REG INJ [BKC SC (10:55)
[2019-07-01] MEDS ORDERED: GLUCOPHAGE500 MG PO (10:56)
[2019-07-01] MEDS ORDERED: ASPIRIN EC81 M1 PO (10:58)
[2019-07-01] MEDS ORDERED: COREG 3.1253.125 MG PO (10:58)
[2019-07-01] MEDS ORDERED: LASIX40 MG PO (11:00)
--- NOTE | 2019-07-01 12:15 | NUR ---
ROBLES DCD TIP INTACT URINAL PROVIDED
--- NOTE | 2019-07-01 12:26 | NUR ---
0700 PT RECIEVED UP IN CHAIR VSS TPM WIRES ATTACHED TPM VVI 60 VMA 10, 1L O2, R MIDLINE DRESSING CDI, ROBLES DRAINING YELLOW URINE 0800 BREAKFAST PROVIDED 0900 AM MEDS GIVEN 1100 ASSISTED TO BED BY PT, TPM WIRES REMVED BY DR ROA NURSE ANA 1200 ATE 100% LUNCH
--- NOTE | 2019-07-01 16:50 | NUR ---
1600 REPORT CALLED TO [facility] PT TO TRANSFER TO 1109, PTS RP NOTIFIED WHILE IN UNIT, DISCUSSED CUBICIN AND THAT TODAYS DOSE WILL BE RUNNING ON PTS ARRIVAL TO UNIT
--- NOTE | 2019-07-03 09:29 | MORECARE ---
CASE MANAGEMENT DISCHARGE SUMMARY PATIENT: GILDARDO INIGUEZ UNIT: [id number] ADM DATE: 06/08/19 AGE: 68 : [birth year] SEX: M ROOM/BED: [facility] AUTHOR: MISTY,DOC PHYSICIAN: REFERRING PHYSICIAN: NITA RANDALL MD DATE OF SERVICE: 07/03/19 Discharge Plan Patient Name: GILDARDO INIGUEZ [facility] [facility] 1950 Planned Disposition: Inpatient Rehab Anticipated Discharge Date: 06/18/19 Discharge Date: 07/01/2019 Expected LOS: 10 Initial Reviewer: [id number] Initial Review Date: 06/11/2019 Generated: 07/03/19 10:29 am DCP- Discharge Planning Updated by [id number]: Lissy Ambrosio on 06/28/19 4:[address] late entry 06/27/19 CM spoke with patient and his friend regarding discharge planning / needs. WAQAS signed for [facility] Inpatient Rehab if needed and agrees. CM will continue to follow and assist as needed with discharge planning / needs. DCP- Discharge Planning Updated by [id number]: González Jacob on 06/18/19 11:[address] Patient Name: GILDARDO INIGUEZ Encounter No: [id number] : 1950 Primary Insurance: MEDICARE A & B Anticipated DC Date: 06-18-2019 Planned Disposition: Inpatient Rehab External Planned Provider: [facility] INPATIENT REHAB DCP follow-up note: CM RECEIVED CALL FROM ABDULLAHI PAUL [facility] WHO REFUSED PT FOR REHAB AND IV ANTIBOITICS. CM SPOKE TO CARE TEAM DURING MULTIDISCIPLINARY TEAM MEETING, WAS ADVISED BY DB OF INPATIENT REHAB THAT THEY WILL ACCEPT TODAY; DG LOPEZ INFORMED TEAM SHE PLANS TO DISCHARGE PT TODAY TO REHAB. PT TODAY. CM NOTIFIED PT WHO IS IN AGREEMENT WITH PLAN. [facility] INPATIENT REHAB TO CONTACT MED 2 NURSE WITH ROOM NUMBER WHEN READY TO ACCEPT PT AND NURSE REPORT. González Jacob CASE MANAGEMENT DCP- Discharge Planning Updated by [id number]: González Jacob on 06/17/19 12:[address] Patient Name: GILDARDO INIGUEZ Encounter No: [id number] : 1950 Primary Insurance: MEDICARE A & B Anticipated DC Date: 06-18-2019 Planned Disposition: Inpatient Rehab External Planned Provider: [facility] INPATIENT REHAB DCP follow-up note: CM RECEIVED CALL FROM MELANIE SU AND THEN CHRIS ROBERT, BOTH REPORTING TO BE PT'S FRIENDS. BOTH ASKED THAT [facility] HE IS MISSING OUTPATIENT APPOINTMENTS AND ASKED FOR PLACEMENT IN [facility] OR [facility] FOR CONTINUED CARE. CM SPOKE TO CARE TEAM DURING MULTIDICIPLINARY TEAM MEETING, INFORMED OF LTACH DENIAL UNTIL PT'S WBC BELOW 20; DB OF INPATIENT REHAB AT [place] INFORMED TEAM THAT INPATIENT REHAB WILL CONSIDER PT AND THEN TRANSITION TO LONGTERM CARE IF NEEDED. CM SPOKE TO PT IN ROOM, DISCUSSED LTACH DENIAL, AVAILABILITY OF INPATIENT REHAB AT [facility] DISCUSSED HIS FRIENDS SUGGESTION FOR REHAB AT [facility] OR [facility]. PT REQUESTED TO BE CONSIDERED FOR REHAB AT [place] FIRST HE WILL GET MORE THERAPY; PT SIGNED CHOICE FOR [facility] AND [facility]. IMPORTANT MESSAGE FROM MEDICARE PROVIDED AND EXPLAINED. CM CALLED ABDULLAHI OF [facility] AT [phone]. PROVIDED REFERRAL INFORMATION, FAXED REFERRAL INFORMATION TO [facility] AT [phone]. [facility] [place], , SPOKE TO NEGRITO AND NOTIFIED OF PT BEING IN HOSPITAL, ALL [facility]ING [facility]POINTMENTS WITH [facility] CANCELLED FOR THIS MONTH. CM FAXED UPDATE TO [facility] AT [phone]. CM SPOKE TO DG LOPEZ AND RECEIVED INPATIENT REHAB PRESCREENING ORDER. CM NOTIFIED DB OF [facility] INPATIENT [facility]AB. CM WAITING ADMISSION DETERMINATION FROM [facility] INPATIENT REHAB WELL ADMISSION DETERMINATION FROM [facility] LONGTERM [facility]. González Jacob, CASE MANAGEMENT DCP- Discharge Planning Updated by [id number]: González Jacob on 06/16/19 2:[address] Patient Name: GILDARDO INIGUEZ Encounter No: [id number] : 1950 Primary Insurance: MEDICARE A & B Anticipated DC Date: 06-16-2019 Planned Disposition: [facility] External Planned Provider: [facility] [place] DCP follow-up note: CM REVIEWED FAX CONFIRMATION, FAX DID NOT COMPLETE TO [facility] ON SUNDAY EVENING. CM FAXED REFERRAL AGAN TO [facility] AT [phone]. CM FAXED UPDATED REFERRAL INFORMATION TO [facility] AT [phone]. CM WAITING ADMISSION DETERMINATION FROM [facility]. González Jacob, CASE MANAGEMENT Appended by González Jacob on 06/16/2019 15:10 SIGNING TEACHER: CM RECEIVED CALL FROM MELANIE OF [facility], , WHO INFORMED CM THAT HER DOCTOR WILL NOT ACCEPT UNTIL WBC ARE BELOW 20 AND PT'S IS CURRENTLY AT 26.7. MELANIE ALSO INFORMED CM THAT THE SOURCE OF INFECTION AND NEEDED ANTIBIOTICS HAVE TO BE IDENTIFIED PRIOR TO CARE TEAM COORDINATOR SCHEDULER REVIEW AT [facility] ACUTE [facility]. DG LOPEZ NOTIFIED. CM WAITING ON WBC TO TREND DOWN AND WILL RESUBMIT TO [facility] WHEN BELOW 20. GONZÁLEZ JACOB CASE MANAGEMENT DCP- Discharge Planning Updated by [id number]: González Jacob on 06/13/19 4:[address] Patient Name: GILDARDO INIGUEZ Encounter No: [id number] : 1950 Primary Insurance: MEDICARE A & B Anticipated DC Date: Planned Disposition: [facility] Industrial [facility] Fac [facility] External Planned Provider: [facility] DCP follow-up note: CM RECEIVED LTACH ORDER; CM MET WITH PT IN ROOM, DISCUSSED ORDER, PROVIDERS OF LTACH AND LOCATIONS. PT STATES HE LIVES IN [place] AND WANTS TO BE EVALUATED FOR ADMISSION TO [facility] IN [place]. IMPORTANT MESSAGE FROM MEDICARE PROVIDED AND EXPLAINED. CM CALLED MELANIE OF [facility], , REQUESTED EVAULATION SOON POSSIBLE AND ASKED THAT PT BE EVALUATED THIS WEEKEND IF POSSIBLE FOR LTACH ADMISSION. CM FAXED REFERRAL TO [facility] AT [phone]. CM WAITING ADMISSION DETERMINATION FROM [facility]. ALEX Cerrato DCP- Discharge Planning Updated by [id number]: Lissy Ambrosio on 06/11/19 10:[address] Patient Name: GILDARDO INIGUEZ Admission Status: ER Accout number: [id number] Admission Date: 06-08-2019 : 1950 Admission Diagnosis:SEPSIS, UNSPECIFIED ORGANISM Attending: NITA RANDALL Current LOS: 3 Anticipated DC Date: Planned Disposition: Primary Insurance: MEDICARE A & B Discharge Planning Comments: CM met with patient at bedside after explaining CM role and obtaining verbal consent. Patient lives at home alone with his service dog (Hilda) where he is independent with his care and plans to return there upon discharge. Patient feels this would be a safe discharge. CM discussed availability / needs of home health and medical equipment. Patient states his medical POA is [facility] [phone]. Patient did state that if needed he is interested in Inpatient Rehab or SNF rehab. WAQAS signed. Patient denies any discharge needs at this time. Patient states he will have his family drive him home upon discharge. CM will continue to follow and assist as needed with discharge planning / needs. Solution Specialist: Lissy Ambrosio DCPIA - Discharge Planning Initial Assessment Updated by [id number]: Lissy Ambrosio on 06/11/19 11:17 am * Is the patient Alert and Oriented? Yes * How many steps to enter\exit or inside your home? * [facility] * Preadmission Environment Home Alone * ADLs Independent * Equipment Walker * List name and contact numbers for known caregivers / representatives who currently or will assist patient after discharge: JOSE SU - [facility] POA- [phone] * Verbal permission to speak to the caregivers and representatives has been obtained from the patient. Yes * Community resources currently utilized None * Additional services required to return to the preadmission environment? No * Can the patient safely return to the preadmission environment? Yes * Has this patient been hospitalized within the prior 30 days at any hospital? No Coverage Notice Reviewer: [id number] Jacob Notice Issued Date-Time: 06/13/2019 16:35 Notice Type: IM Discharge Notice Notice Delivered To: Patient Relationship to Patient: Science Writer Name: Delivery Method: HAND - Hand Delivered Meggan Days: Prior Verbal Notification: Recipient Understood Notice: Yes Recipient Signature: Yes Med Rec Note Co-signed by Attending: Coverage Notice Comment: Reviewer: [id number] Jacob Notice Issued Date-Time: 06/17/2019 12:55 Notice Type: IM Discharge Notice Notice Delivered To: Patient Relationship to Patient: Science Writer Name: Delivery Method: HAND - Hand Delivered Meggan Days: Prior Verbal Notification: Recipient Understood Notice: Yes Recipient Signature: Yes Med Rec Note Co-signed by Attending: Coverage Notice Comment: Reviewer: [id number] Sun Jacob Notice Issued Date-Time: 06/17/2019 12:55 Notice Type: Patient Choice Letter Notice Delivered To: Patient Relationship to Patient: Science Writer Name: Delivery Method: HAND - Hand Delivered Meggan Days: Prior Verbal Notification: Recipient Understood Notice: Yes Recipient Signature: Yes Med Rec Note Co-signed by Attending: Coverage Notice Comment: LORENA GALLAGHER OR OSMAN GALILEO Reviewer: [id number] Sun Ambrosio Notice Issued Date-Time: 06/27/2019 12:20 Notice Type: Patient Choice Letter Notice Delivered To: Patient Relationship to Patient: Science Writer Name: Delivery Method: HAND - Hand Delivered Meggan Days: Prior Verbal Notification: Recipient Understood Notice: Yes Recipient Signature: Yes Med Rec Note Co-signed by Attending: Coverage Notice Comment: [facility] Inpatient Rehab Reviewer: [id number] Sun Ambrosio Notice Issued Date-Time: 07/01/2019 13:25 Notice Type: IM Discharge Notice Notice Delivered To: Patient Relationship to Patient: Self Science Writer Name: Delivery Method: HAND - Hand Delivered Meggan Days: Prior Verbal Notification: Recipient Understood Notice: Yes Recipient Signature: Yes Med Rec Note Co-signed by Attending: Coverage Notice Comment: Last DP export: 06/28/19 4:51 Patient Name: GILDARDO INIGUEZ Page [id number] at 0929 All edits/amendments must be made on the electronic document DICTATION DATE: 07/03/19927 HAT COPYIST: MADHAV 07/03/19927 RPT#: [id number] DC DATE:07/01/19 STATUS: DIS IN [facility] [address] [facility] [place] [address] END OF REPORT
--- NOTE | 2019-07-03 11:25 | TEE ---
PATIENT:GILDARDO INIGUEZ MEDICAL RECORD: [id number] LOCATION:[place] [address] AGE OF PATIENT: 68 ADMISSION DATE: 06/08/19 SEX: M REFERRING PHYSICIAN: INTERPRETING PHYSICIAN: STEF SILVA MD TRANSESOPHAGEAL ECHOCARDIOGRAM Date: 06/24/19 SOLIS CHARGE Y INDICATIONS: AVR ENDOCARDITIS PREMEDICATIONS: PATIENT'S RESPONSE PROCEDURE DOPPLER MEASUREMENTS: LVIT LA PA RA LVOT RVOT Asc. Ao AV Gradient Peak AV Mean AV Area MV Gradient Peak MV Mean MV Area INTERPRETATION: LVOT DIAM 2.3 CM ENDY 1.7 CM AV VMAX 1.1 M/S AV PGMAX 4.6 mmHg LA 4.2 cm LVd 5.3 cm LVs 4.3 cm Doppler: 2-D: COLOR FLOW DOPPLER NORMAL SALINE STUDY: MISCELLANOUS: DIAGNOSIS: PLAN: Genetics Physician:3 Dr. Gregg Mobile Application Developer: Syl ROGERS COMMENTS: Procedure physician: Dr. Jang DATE OF SERVICE: Preoperatively shows LV with hypokinesis of the anterior apex true apical region and an obvious vegetation on the aortic valve. Postop shows aortic valve replacement with no significant AI and EF still 40%. TRANSESOPHAGEAL ECHOCARDIOGRAM REPORT [id number] GILDARDO INIGUEZ TRANSINT:[id number] Voice Confirmation ID: [id number] DOCUMENT ID: [id number] at 1125 CC: [id number] DICTATION DATE: 06/26/19 1228 STARTING GATE DRIVER: 06/26/19 1434 DIS IN 07/01/19 [place] [id number] [place] [address]
== END 2019-07-01 16:53 | DRG 853 ==
LOC: D.ER 16:42 → D.MS 18:59 → D.M2 18:59 → D.CVICU 18:59 → D.ICU 06-10 11:03 → D.M2 06-12 17:54 → D.CVICU 06-24 09:52
PROVIDERS: Family Medicine; Internal Medicine Cardiovascular Disease; Internal Medicine Interventional Cardiology; Internal Medicine Pulmonary Disease; Thoracic Surgery (Cardiothoracic Vascular Surgery); ADMIT Internal Medicine Nephrology; ATTEND Internal Medicine Nephrology
PROC: B2111ZZ Fluoroscopy of Multiple Coronary Arteries using Low Osmolar Contrast (ICD-10-PCS; 2019-06-10)
PROC: B2151ZZ Fluoroscopy of Left Heart using Low Osmolar Contrast (ICD-10-PCS; 2019-06-10)
PROC: 4A023N7 Measurement of Cardiac Sampling and Pressure, Left Heart, Percutaneous Approach (ICD-10-PCS; 2019-06-10)
PROC: 02703ZZ Dilation of Coronary Artery, One Artery, Percutaneous Approach (ICD-10-PCS; principal; 2019-06-11 14:24)
PROC: 02RF08Z Replacement of Aortic Valve with Zooplastic Tissue, Open Approach (ICD-10-PCS; 2019-06-24)
PROC: 0W3F0ZZ Control Bleeding in Abdominal Wall, Open Approach (ICD-10-PCS; 2019-06-24)
PROC: 05HY33Z Insertion of Infusion Device into Upper Vein, Percutaneous Approach (ICD-10-PCS; 2019-06-30)
DX: A41.9 Sepsis, unspecified organism (principal); J96.01 Acute respiratory failure with hypoxia; N17.0 Acute kidney failure with tubular necrosis; I21.4 Non-ST elevation (NSTEMI) myocardial infarction; I50.21 Acute systolic (congestive) heart failure; I33.0 Acute and subacute infective endocarditis; E43 Unspecified severe protein-calorie malnutrition; N39.0 Urinary tract infection, site not specified; J98.11 Atelectasis; I76 Septic arterial embolism; I74.8 Embolism and thrombosis of other arteries; I97.618 Postprocedural hemorrhage of a circulatory system organ or structure following other circulatory system procedure; G93.40 Encephalopathy, unspecified; E11.65 Type 2 diabetes mellitus with hyperglycemia; D64.9 Anemia, unspecified; I25.10 Atherosclerotic heart disease of native coronary artery without angina pectoris; E66.9 Obesity, unspecified; Z68.28 Body mass index [BMI] 28.0-28.9, adult; E11.9 Type 2 diabetes mellitus without complications; B95.62 Methicillin resistant Staphylococcus aureus infection as the cause of diseases classified elsewhere; N13.9 Obstructive and reflux uropathy, unspecified; G72.89 Other specified myopathies; D73.5 Infarction of spleen; I11.0 Hypertensive heart disease with heart failure; M10.9 Gout, unspecified; R53.81 Other malaise

== ENCOUNTER 2019-06-18 15:38 | Inpatient (IN) | payer MEDICARE, OTHER ==
[~2019-06-18] VITALS: Ht 177.8 cm; Wt 97.5 kg
[2019-07-01] MEDS ORDERED: ALBUTEROL2.5 MG/3 M UPD (10:49)
[2019-07-01] MEDS ORDERED: LISINOPRIL2.5 MG PO (10:50)
[2019-07-01] MEDS ORDERED: ACETAMINOPHEN325 MG PO (10:51)
[2019-07-01] MEDS ORDERED: PERCOCET 5-3251 TAB PO (10:53)
[2019-07-01] MEDS ORDERED: Saline Mist NASAL SP NASAL (10:54)
[2019-07-01] MEDS ORDERED: K-DUR20 MEQ PO (10:54)
[2019-07-01] MEDS ORDERED: COLACE100 MG PO (10:55)
[2019-07-01] MEDS ORDERED: HUMULIN REG INJ [BKC SC (10:55)
[2019-07-01] MEDS ORDERED: GLUCOPHAGE500 MG PO (10:56)
[2019-07-01] MEDS ORDERED: ASPIRIN EC81 M1 PO (10:58)
[2019-07-01] MEDS ORDERED: COREG 3.1253.125 MG PO (10:58)
[2019-07-01] MEDS ORDERED: LASIX40 MG PO (11:00)
--- NOTE | 2019-07-01 17:16 | NUR ---
ADMITTED FROM CVICU. ALERT AND ORIENTED. BLAIR TO CHEST. PUCTURE SITES TO ABD WITH BANDAIDS. TWO ARE OPEN AREAS. CL IN REACH. SAFTEY INSTRUCTIONS GIVEN. ALARM ON BED.
--- NOTE | 2019-07-01 18:20 | NUR ---
QUESTIONED IF NEEDED K+ 20MCG AND 10MCG. CALLED [facility]/ NURSE ASKED DR AZEVEDO. HE WANTS PATIENT TO HAVE BOTH THE 20MCG AND THE 10MCG.
--- NOTE | 2019-07-01 19:38 | NUR ---
GREETED PATIENT AND INTRODUCED MYSELF HIS NURSE. PATIENT FINISHED SIGNING ADMISSION PAPERWORK. DENIES ANY NEEDS AT THIS TIME. CALL LIGHT IN REACH.
[2019-07-01 20:00] VITALS: BP 102/57
[2019-07-01 22:54] VITALS: BP 102/57; BMI 30.9
--- NOTE | 2019-07-02 01:16 | NUR ---
PT. AWAKE AND RESTING QUIETLY IN BED. CONTINUES TO HAVE DRY HACKY COUGH. NOTE MADE TO DR. OLIVIER. CALL LIGHT IN REACH.
--- NOTE | 2019-07-02 02:16 | NUR ---
PT. RESTING QUIETLY WITH EYES CLOSED. RESPIRATIONS EVEN. NO S/S OF DISTRESS. CALL LIGHT IN REACH.
--- NOTE | 2019-07-02 04:23 | NUR ---
PT. RESTING QUIETLY WITH EYES CLOSED. RESPIRATIONS EVEN. NO S/S OF DISTRESS. CALL LIGHT IN REACH.
[2019-07-02 07:27] LABS: BASOPHILS 0.2 % (0-2); EOSINOPHILS 0.8 % (0-7); HEMATOCRIT 32.1 % (42.0-54.0); HEMOGLOBIN 10.2 g/dL (13.5-17.5); IMMATURE GRANULOCYTES 3.8 % (0-5); LYMPHOCYTES 14.2 % (15-50); MCH 28.7 pg (26.0-34.0); MCHC 31.8 g/dL (31.0-37.0); MCV 90.2 fL (80.0-100.0); MEAN PLATELET VOLUME 10.6 fL (7.4-10.4); MONOCYTES 10.7 % (2-11); NEUTROPHILS 70.3 % (40-80); PLATELET COUNT 294 10x3/uL (130-400); RBC 3.56 10x6/uL (4.20-6.10); RDW 16.5 % (11.5-14.5); WBC 8.4 10x3/uL (4.8-10.8)
[2019-07-02 07:51] LABS: CALC OSMOLALITY 281 mosm/kg (275-300); CALCIUM 8.3 mg/dL (8.5-10.1); CARBON DIOXIDE 31.4 mmol/L (21.0-32.0); CHLORIDE - SERUM 102 mmol/L (98-107); CREATININE - SERUM 0.9 mg/dL (0.6-1.3); GLUCOSE 134 mg/dL (74-106); SODIUM 140 mmol/L (136-145); UREA NITROGEN 16 mg/dL (7-18); eGFR NON AFRICAN AMERICAN 89 mL/min (90-120)
[2019-07-02 07:57] LABS: POTASSIUM - SERUM 4.3 mmol/L (3.5-5.1)
[2019-07-02 08:00] VITALS: BP 116/69
--- NOTE | 2019-07-02 10:47 | NUR ---
LAYING IN BED RESTING QUIETLY. XRAY JUST TOOK FILMS OF CHEST. HE IS UNABLE TO STAND AT ALL EVEN WITH STAFF ASST. OXYGEN 2LNC IN USE. CHEST BLAIR INTACT WITH NO S/S INFECTION. USES URINAL TO VOID. BILAT TEDS HOSE IN PLACE FROM KNEES TO TOES. TEACHING ON STERNAL PRECAUTIONS WITH PT
--- NOTE | 2019-07-02 15:44 | NUR ---
LAYING IN BED WITH HEAD OF BED UP APPX 70 DEGREES. HAS TRIED TO VOID IN URINAL BUT KEEPS MISSING AND HAS SOAKED HIS PADS UNDER HIM. URINE OUTPUT SEEMS TO BE MORE THAN ENOUGH AFTER F/C DC/D. VIKTORIYAE PICC PATENT. HE IS ALERT AND ORIENTED AND PLEASANT AND COOPERATIVE. BILAT TEDS IN PLACE FROM KNEES TO TOES.
--- NOTE | 2019-07-02 18:02 | NUR ---
IS VOIDING OFTEN. TRIES TO USE THE URINAL BUT CANT UNDERSTAND WHY IT KEEPS SPILLING ON HIM WHEN HE HAS IT UPSIDE DOWN COVERING HIS PENIS........
[2019-07-02 19:15] VITALS: BP 137/62; BP 92/56
--- NOTE | 2019-07-02 19:22 | NUR ---
AWAKE AND ALERT. RESPRIATIONS UNLABORED ON O2/3L PER NASAL CANNULA. RIGHT UPPER ARM MIDLINE IV INTACT. BLAIR INTACT TO CHEST . SLIGHT SCABBED REDNESS TO INCIISON AND TO LOWER PUNCTURE SITES ON ABDOMENT. DRESSING INTACT WITH SIGNS OF BLEEDING TO PREVIOUS IJ SITE. BOY HEATON ON BLLE'S. NO ACUTE DISTRESS NOTED. CALL LIGHT IN REACH.
--- NOTE | 2019-07-02 22:59 | NUR ---
CONTINUES COUGHING AT INTERVALS. IS USED AND HEAD OF BED ADJUSTED. WILL CONTINUE TO MONITOR.
--- NOTE | 2019-07-03 03:04 | NUR ---
AWAKE AND VOIDED IN URINAL. HAD INCONTINENT EPISODE OF URINE ALSO. PADS CHANGED. ADJUSTED IN BED FOR COMFORT. USES STERNAL PRECAUTIONS INSTRUCTED.
--- NOTE | 2019-07-03 04:16 | NUR ---
MEDICATED FOR PERSISTANT COUGH WITH ROBITUSSIN. SEE MAR. STATES HE IS HAVING SINUS DRAINAGE. WILL CONTINUE TO MONITOR FOR EFFECTIVENESS.
--- NOTE | 2019-07-03 05:26 | NUR ---
RESTING NOW. COUGHING HAS SUBSIDED FOR NOW. WILL CONTINUE TO MONITOR.
[2019-07-03 06:31] LABS: HEMATOCRIT 33.1 % (42.0-54.0); HEMOGLOBIN 10.2 g/dL (13.5-17.5); MCH 28.7 pg (26.0-34.0); MCHC 30.8 g/dL (31.0-37.0); MEAN PLATELET VOLUME 10.7 fL (7.4-10.4); PLATELET COUNT 286 10x3/uL (130-400); RBC 3.55 10x6/uL (4.20-6.10); RDW 16.4 % (11.5-14.5); WBC 9.4 10x3/uL (4.8-10.8)
[2019-07-03 06:46] LABS: MCV 93.2 fL (80.0-100.0)
[2019-07-03 06:48] LABS: CALC OSMOLALITY 283 mosm/kg (275-300); CALCIUM 8.2 mg/dL (8.5-10.1); CARBON DIOXIDE 29.8 mmol/L (21.0-32.0); CHLORIDE - SERUM 104 mmol/L (98-107); CREATININE - SERUM 0.9 mg/dL (0.6-1.3); GLUCOSE 127 mg/dL (74-106); POTASSIUM - SERUM 3.8 mmol/L (3.5-5.1); SODIUM 141 mmol/L (136-145); UREA NITROGEN 15 mg/dL (7-18); eGFR NON AFRICAN AMERICAN 89 mL/min (90-120)
--- NOTE | 2019-07-03 08:06 | NUR ---
ALERT AND ORIENTED. BREKFAST SERVED. RESP EVEN ADN UNLABORED. CL IN REACH. CONTACT ISOLATION.
[2019-07-03 08:10] VITALS: BP 123/65
[2019-07-03 09:02] LABS: HYPOCHROMASIA OCC; LYMPHOCYTES 15 % (15-50); MONOCYTES 12 % (2-11); NEUTROPHILS 69 % (40-80); PLATELET ESTIMATE NORMAL; ROULEAUX OCC
--- NOTE | 2019-07-03 10:33 | NUR ---
PARTICIPATED IN THERAPY. SITTING UP IN WC AT THIS TIME IN ROOM. CL IN REACH.
[2019-07-03 13:40] VITALS: Ht 177.8 cm; Wt 97.5 kg
--- NOTE | 2019-07-03 14:38 | NUR ---
PATIENT ADMITTED TO REHAB FROM ACUTE FLOOR. DISHCARGE PLANS ARE FOR PATIENT TO DISCHARGE HOME. HIS PCP IS AT THE [place]. WILL CONTINUE TO FOLLOW WITH PATIENT.
--- NOTE | 2019-07-03 14:57 | NUR ---
REQUESTED CUBICIN X2 TIMES FROM PHARMACY. WAITING FOR IT TO BE DELIVERED. NONE ON UNIT AT THIS TIME.
--- NOTE | 2019-07-03 16:40 | NUR ---
NO CHANGE IN ASSESSMENT. REPOSITIONED IN BED. NO C/O PAIN AT THIS TIME. CL IN REACH.
--- NOTE | 2019-07-03 19:12 | NUR ---
GREETED PATIENT AND INTRODUCED MYSELF HIS NURSE. PATIENT IS RESTING QUIETLY IN BED AT THIS TIME. O2 AT 3L IN USE VIA NC. RESPIRATIONS EVEN. NO S/S OF DISTRESS. STATES THAT PAIN IS 5/10 IN MIDSTERNUM AND LEFT HIP. DENIES ANY FURTHER NEEDS AT THIS TIME. CALL LIGHT IN REACH.
[2019-07-03 19:30] VITALS: BP 104/64
--- NOTE | 2019-07-03 22:00 | NUR ---
PT. CLEANED OF INCONTINENT URINE. COMPLETE BED CHANGE. REPOSTIONED FOR COMFORT. CALL LIGHT IN REACH.
--- NOTE | 2019-07-03 23:31 | NUR ---
PT. CLEANED OF INCONTINENT URINE. COMPLETE LINEN CHANGE. REPOSITIONED FOR COMFORT. CALL LIGHT IN REACH.
--- NOTE | 2019-07-04 03:21 | NUR ---
PT. AWAKE LAYING IN BED. CALL LIGHT IN REACH.
[2019-07-04 07:08] LABS: BASOPHILS 0.2 % (0-2); HEMATOCRIT 30.9 % (42.0-54.0); HEMOGLOBIN 9.5 g/dL (13.5-17.5); IMMATURE GRANULOCYTES 2.3 % (0-5); LYMPHOCYTES 15.9 % (15-50); MCH 28.5 pg (26.0-34.0); MCHC 30.7 g/dL (31.0-37.0); MCV 92.8 fL (80.0-100.0); MEAN PLATELET VOLUME 10.5 fL (7.4-10.4); MONOCYTES 8.8 % (2-11); NEUTROPHILS 71.8 % (40-80); PLATELET COUNT 332 10x3/uL (130-400); RBC 3.33 10x6/uL (4.20-6.10); RDW 16.3 % (11.5-14.5); WBC 8.9 10x3/uL (4.8-10.8)
[2019-07-04 07:19] LABS: CALC OSMOLALITY 284 mosm/kg (275-300); CALCIUM 7.9 mg/dL (8.5-10.1); CARBON DIOXIDE 32.4 mmol/L (21.0-32.0); CHLORIDE - SERUM 104 mmol/L (98-107); CREATININE - SERUM 0.8 mg/dL (0.6-1.3); GLUCOSE 129 mg/dL (74-106); POTASSIUM - SERUM 4.1 mmol/L (3.5-5.1); SODIUM 142 mmol/L (136-145); UREA NITROGEN 12 mg/dL (7-18); eGFR NON AFRICAN AMERICAN > 90 mL/min (90-120)
--- NOTE | 2019-07-04 08:00 | NUR ---
PT RESTING IN BED WITH EYES OPEN CALL LIGHT IN REACH NO PROBLEMS WILL MONITER
--- NOTE | 2019-07-04 17:48 | NUR ---
PT RESTING IN BED WITH EYES OPEN CALL LIGHT IN REACH WILL MONITER
[2019-07-04 19:00] VITALS: BP 116/62
--- NOTE | 2019-07-04 19:25 | NUR ---
PT SITTING UP IN BED. CL IN REACH. ASSISTED PT WITH URINAL. PT VOIDED 300CC. PT DENIES FURTHER NEEDS. BED IN LOW SIDE RAILS X2. RESP EVEN AND UNLABORED. A/O X4. LUNGS CLEAR. BOWEL ACTIVE X4. STERNAL INCISION INTACT ESTEFANÍA. WILL CONTINUE TO MONITOR.
--- NOTE | 2019-07-05 01:11 | NUR ---
I have reviewed this patient and I concur with the Shift Assessment completed by the Licensed Practical Nurse today this shift.
--- NOTE | 2019-07-05 06:56 | NUR ---
PT COMPLAINING OF RIGHT FOOT HURTING AND RIGTH BIG TOE "FEELING FUNNY" BILATERAL FEET WARM TO TOUCH AND BILATERAL PULSES TO FEET. NO SIGNS OF ANYTHING OUT OF ORDINARY. WILL CONTINUE TO MONITOR.
[2019-07-05 08:00] VITALS: BP 121/72
--- NOTE | 2019-07-05 08:00 | NUR ---
PT RESTING IN BED WITH EYES OPEN CALL LIGHT IN REACH WILL MONITER
[2019-07-05 19:30] VITALS: BP 114/78
--- NOTE | 2019-07-05 19:37 | NUR ---
PT IS RESTING IN BED WITH EYES OPEN. ALERT AND ORIENTED X 3. DENIES ACUTE PAIN OR DISCOMFORT AT THIS TIME. NO NEEDS VOICED. CONTACT PRECAUTIONS OBSERVED. VSS. CHEST INCISION IS CDI. BLAIR ARE INTACT. SR'S ARE UP X 2 IN BED. CALL LIGHT AND BEDSIDE TABLE ARE WITHIN EASY REACH.
--- NOTE | 2019-07-05 22:05 | NUR ---
PT RESTING IN BED WITH EYES CLOSED. NO DISTRESS NOTED.
--- NOTE | 2019-07-05 23:50 | NUR ---
I have reviewed this patient and I concur with the Shift Assessment completed by the Licensed Practical Nurse today this shift.
--- NOTE | 2019-07-06 04:00 | NUR ---
PT RESTING IN BED WITH EYES CLOSED. NO DISTRESS NOTED. USING URINAL PRN.
[2019-07-06 08:00] VITALS: BP 142/86
--- NOTE | 2019-07-06 09:15 | NUR ---
PT AM MEDS ADMINSITERED. PT DENIES NEEDS. WCTM.
--- NOTE | 2019-07-06 19:25 | NUR ---
PT LYING IN BED WATCHING TV.CL IN REACH. DENIES NEEDS AT THIS TIME. BED IN LOW SIDE RAILS X2. RESP EVEN AND UNLABORED. LUNGS DIMINISHED. O2 ON 2L VIA NC. BOWEL ACTIVE X4. A/O X4. WILL CONTINUE TO MONITOR.
[2019-07-06 20:36] VITALS: BP 127/63
--- NOTE | 2019-07-07 00:31 | NUR ---
I have reviewed this patient and I concur with the Shift Assessment completed by the Licensed Practical Nurse today this shift.
[2019-07-07 06:15] LABS: BASOPHILS 0.2 % (0-2); EOSINOPHILS 0.5 % (0-7); HEMATOCRIT 29.7 % (42.0-54.0); LYMPHOCYTES 8.4 % (15-50); MCH 28.6 pg (26.0-34.0); MCHC 30.3 g/dL (31.0-37.0); MCV 94.3 fL (80.0-100.0); MEAN PLATELET VOLUME 10.9 fL (7.4-10.4); MONOCYTES 9.2 % (2-11); NEUTROPHILS 80.7 % (40-80); RBC 3.15 10x6/uL (4.20-6.10); RDW 16.5 % (11.5-14.5); WBC 17.2 10x3/uL (4.8-10.8)
[2019-07-07 06:23] LABS: CALC OSMOLALITY 287 mosm/kg (275-300); CALCIUM 8.3 mg/dL (8.5-10.1); CARBON DIOXIDE 30.1 mmol/L (21.0-32.0); CHLORIDE - SERUM 105 mmol/L (98-107); CREATININE - SERUM 0.9 mg/dL (0.6-1.3); GLUCOSE 136 mg/dL (74-106); POTASSIUM - SERUM 4.2 mmol/L (3.5-5.1); SODIUM 143 mmol/L (136-145); UREA NITROGEN 14 mg/dL (7-18); eGFR NON AFRICAN AMERICAN 89 mL/min (90-120)
[2019-07-07 06:38] LABS: PLATELET COUNT 555 10x3/uL (130-400)
--- NOTE | 2019-07-07 09:45 | NUR ---
PT AM MEDS ADMINSITERED. PT DENIES NEEDS. WCTM.
[2019-07-07 10:30] VITALS: BP 142/86
--- NOTE | 2019-07-07 14:44 | NUR ---
Nutrition Follow-up: Diet: Diabetic PO intake: ~86% average x last 9 meals Last BM: 07/05/19. WT: 215# (07/03/19) Meds noted: lasix, metformin, SSI. Labs noted: Glu 136. Continue current diet. RD following.
--- NOTE | 2019-07-07 20:00 | NUR ---
PT IS RESTING IN BED WITH EYES OPEN. ALERT AND ORIENTED X 3. DENIES ACUTE PAIN OR DISCOMFORT AT THIS TIME. NO NEEDS VOICED. BLAIR TO STERNUM ARE CDI. CONTACT PRECAUTIONS OBSERVED. RFA MIDLINE IV SALINE LOCK NOTED. SR'S ARE UP X 2 IN BED. CALL LIGHT AND BEDSIDE TABLE ARE WITHIN EASY REACH.
[2019-07-07 21:14] VITALS: BP 112/66
--- NOTE | 2019-07-07 22:07 | NUR ---
PT ASSISTED TO THE BATHROOM WITH MAX ASSIST FOR TRANSFERS AND ADL CARE. NO BM NOTED.
--- NOTE | 2019-07-08 00:01 | NUR ---
INC. CARE GIVEN AND PT REPOSITIONED IN BED TO HIS COMFORT.
--- NOTE | 2019-07-08 02:45 | NUR ---
I have reviewed this patient and I concur with the Shift Assessment completed by the Licensed Practical Nurse today this shift.
[2019-07-08 07:30] VITALS: BP 115/64
--- NOTE | 2019-07-08 08:33 | NUR ---
PT AM MEDS ADMINISTERED. PT RESTING IN BED, DENIES NEEDS. WCTM.
--- NOTE | 2019-07-08 10:36 | NUR ---
CARE TEAM MEETING: PATIENT PROGRESSING WELL IN THERAPY. TENATIVE DISCHARGE DATE IS 07/17/19. WILL CONTINUE TO FOLLOW WITH PATIENT.
--- NOTE | 2019-07-08 19:56 | NUR ---
AWAKE AND ALERT. RESTING IN BED WITH RESPIRATIONS UNLABORED. INCISION TO CHEST AND ABDOMENT INTACT. O2/2L ON PER NASAL CANNULA. RIGHT ARM MIDLINE SALINE LOCK INTACT. REMAINS IN ISOLATION. NO ACUTE DISTRESS NOTED. CALL LIGHT IN REACH.
[2019-07-08 21:13] VITALS: BP 106/58
--- NOTE | 2019-07-09 00:20 | NUR ---
SLEEPING WITH NO RESPIRATORY DISTRESS NOTED.
--- NOTE | 2019-07-09 03:49 | NUR ---
SLEEPING WITH RESPIRATIONS UNLABORED. NO DISTRESS NOTED.
--- NOTE | 2019-07-09 05:18 | NUR ---
QUIET HOURS. NO ACUTE CHANGES IN CONDITION THIS SHIFT. RESPRIATIONS UNLABORED WITH O2/2L ON PER NASAL CANNULA. REMAINS IN CONTACT ISOLATION. NO DISTRESS NOTED. CALL LIGHT IN REACH.
[2019-07-09 08:00] VITALS: BP 128/64
--- NOTE | 2019-07-09 10:02 | NUR ---
PATIENT IS ALERT/ORIENT. CONTINUES IN CONTACT ISOLATION. PRN PAIN MEDICATION GIVEN PER PATIENT REQUEST FOR NECK PAIN. CALL LIGHT WITHIN REACH. VOICES NO OTHER NEEDS AT THIS TIME. WILL CONTINUE WITH PLAN OF CARE.
--- NOTE | 2019-07-09 15:53 | NUR ---
PATIENT HAS VISITORS IN ROOM. CONTACT ISOLATION MAINTAINED
--- NOTE | 2019-07-09 17:57 | NUR ---
PICC LINE DRESSING CHANGED
[2019-07-09 19:31] VITALS: BP 115/61
--- NOTE | 2019-07-09 19:40 | NUR ---
AWAKE AND ALERT. RESTING IN BED WITH RESPIRATIONS UNLABORED. O2/2L ON PER NASAL CANNULA. CHEST INCISION IN TACT WITH SOME SCABBING BUT EDGES CLOSED. ABDOMINAL INCISION HEALING. RIGHT ARM MIDLINE IV INTACT. NO ACUTE DISTRESS NOTED. CALL LIGHT IN REACH.
--- NOTE | 2019-07-10 00:23 | NUR ---
RESTING IN BED WITH RESPIRATIONS UNLABORED. NO DISTRESS NOTED. CALL LIGHT IN REACH.
--- NOTE | 2019-07-10 02:26 | NUR ---
RESTING IN BED WITH RESPIRATIONS UNLABORED. NO DISTRESS NOTED. CALL LIGHT IN REACH.
--- NOTE | 2019-07-10 05:03 | NUR ---
QUIET HOURS. SLEPT IN SHORT INTERVALS. REMAINS IN ISOLATION. NO ACUTE CHANGES IN CONDITION THIS SHIFT. RESTING IN BED WITH NO DISTRESS NOTED.
[2019-07-10 06:15] LABS: BASOPHILS 0.2 % (0-2); EOSINOPHILS 0.7 % (0-7); HEMATOCRIT 28.5 % (42.0-54.0); HEMOGLOBIN 8.7 g/dL (13.5-17.5); IMMATURE GRANULOCYTES 1.9 % (0-5); LYMPHOCYTES 13.1 % (15-50); MCH 28.5 pg (26.0-34.0); MCHC 30.5 g/dL (31.0-37.0); MCV 93.4 fL (80.0-100.0); MEAN PLATELET VOLUME 10.5 fL (7.4-10.4); MONOCYTES 10.9 % (2-11); NEUTROPHILS 73.2 % (40-80); RBC 3.05 10x6/uL (4.20-6.10); RDW 16.3 % (11.5-14.5); WBC 11.7 10x3/uL (4.8-10.8)
[2019-07-10 06:23] LABS: CALC OSMOLALITY 284 mosm/kg (275-300); CALCIUM 8.3 mg/dL (8.5-10.1); CHLORIDE - SERUM 104 mmol/L (98-107); CREATININE - SERUM 0.8 mg/dL (0.6-1.3); GLUCOSE 127 mg/dL (74-106); POTASSIUM - SERUM 4.6 mmol/L (3.5-5.1); SODIUM 142 mmol/L (136-145); UREA NITROGEN 13 mg/dL (7-18); eGFR NON AFRICAN AMERICAN > 90 mL/min (90-120)
[2019-07-10 06:24] LABS: PLATELET COUNT 688 10x3/uL (130-400)
[2019-07-10 08:00] VITALS: BP 132/72
--- NOTE | 2019-07-10 08:05 | NUR ---
PATIENT IS ALERT/ORIENT. REMAINS IN CONTACT ISOLATION. VOICES NO NEEDS. CALL LIGHT WITHIN REACH. WILL CONTINUE WITH PLAN OF CARE
--- NOTE | 2019-07-10 12:44 | NUR ---
PATIENT IN REHAB ROOM. WORKING WITH PHYSICAL THERAPIST. ISOLATION PRECAUSIONS MAINTAINED. DENIES ANY PAIN/DISC AT THIS TIME
--- NOTE | 2019-07-10 13:19 | NUR ---
Nutrition Follow-up: Diet: Diabetic PO intake: 75% x last 3 meals Last BM: 07/09/19. WT: 215# (07/03/19), no new wt Meds noted: lasix, metformin, SSI. Labs noted: Glu 138. Continue current diet. RD following.
--- NOTE | 2019-07-10 15:26 | NUR ---
SPOKE WITH PATIENTS MARY LOU AND KAMARI WOULD LIKE A REFERRAL TO [facility] OR [facility] FOR POSSIBLE ADMISSION AT DISCHARGE. WILL CONTINUE TO FOLLOW WITH PATIENT AND WILL SEND REFERRAL.
--- NOTE | 2019-07-10 16:07 | NUR ---
OCCUPATIONAL THERAPIST WORKING WITH PATIENT IN ROOM.
--- NOTE | 2019-07-10 19:42 | NUR ---
AWAKE AND ALERT. RESTING IN BED. RESPRIRATIONS UNLABORED. INCISION TO CHEST HEALING WELL ABDOMEN SITES, ABDOMEN SITES HAVE SCABS. RIGHT ARM MIDLINE INTACT. ADJUSTED IN BED FOR COMFORT. NO ACUTE DISTRESS NOTED.
[2019-07-10 20:24] VITALS: BP 124/71
--- NOTE | 2019-07-11 00:03 | NUR ---
SLEEPING IN BED WITH RESPIRAITONS UNLABORED. NO DISTRESS NOTED.
--- NOTE | 2019-07-11 05:29 | NUR ---
RESTING IN BED. HASNT SLEPT MUCH TONIGHT. STATES HE IS ANXIOUS ABOUT GETTING OUT OF HERE . STATES HE WANTS TO TALK TO NATIONAL RECRUITER MORE. I INFORMED HIM I WOULD REPORT TO DAY NURSE TO LET NATIONAL RECRUITER KNOW THIS AM. HE VOICED UNDERSTANDING.
[2019-07-11 05:45] LABS: BASOPHILS 0.2 % (0-2); EOSINOPHILS 0.6 % (0-7); HEMATOCRIT 28.3 % (42.0-54.0); HEMOGLOBIN 8.7 g/dL (13.5-17.5); IMMATURE GRANULOCYTES 2.9 % (0-5); LYMPHOCYTES 13.1 % (15-50); MCH 28.4 pg (26.0-34.0); MCHC 30.7 g/dL (31.0-37.0); MCV 92.5 fL (80.0-100.0); MEAN PLATELET VOLUME 10.3 fL (7.4-10.4); MONOCYTES 12.1 % (2-11); NEUTROPHILS 71.1 % (40-80); PLATELET COUNT 663 10x3/uL (130-400); RBC 3.06 10x6/uL (4.20-6.10); RDW 15.9 % (11.5-14.5); WBC 10.8 10x3/uL (4.8-10.8)
[2019-07-11 06:23] LABS: CALC OSMOLALITY 284 mosm/kg (275-300); CALCIUM 8.5 mg/dL (8.5-10.1); CARBON DIOXIDE 31.7 mmol/L (21.0-32.0); CHLORIDE - SERUM 104 mmol/L (98-107); CREATININE - SERUM 0.8 mg/dL (0.6-1.3); GLUCOSE 136 mg/dL (74-106); POTASSIUM - SERUM 4.6 mmol/L (3.5-5.1); SODIUM 142 mmol/L (136-145); UREA NITROGEN 12 mg/dL (7-18); eGFR NON AFRICAN AMERICAN > 90 mL/min (90-120)
[2019-07-11 07:21] VITALS: BP 147/69
--- NOTE | 2019-07-11 10:30 | NUR ---
PT AM MEDS ADMINISTERED. C/O NECK PAIN, RATES PAIN 7, PAIN MEDS AND ROBAXIN GIVEN. WCTM.
--- NOTE | 2019-07-11 15:50 | NUR ---
PT ASSISTED BACK TO BED. C/O NECK PAIN, REPOSITIONED WITH SPECIFIC PILLOW. MIDLINE IV RUE INFUSING ABX. WCTM.
--- NOTE | 2019-07-11 19:15 | NUR ---
PT IS RESTING IN BED WITH EYES CLOSED. AWOKE EASILY TO VERBAL STIMULI. ALERT AND ORIENTED X 3. DENIES ACUTE PAIN OR DISCOMFORT AT THIS TIME. VSS. BLAIR TO STERNUM ARE CDI. SR'S ARE UP X 2 IN BED. CALL LIGHT AND BEDSIDE TABLE ARE WITHIN EASY REACH.
[2019-07-11 19:53] VITALS: BP 138/64
--- NOTE | 2019-07-11 21:09 | NUR ---
PT IS RESTING IN BED WITH EYES OPEN. NO NEEDS VOICED.
--- NOTE | 2019-07-12 01:52 | NUR ---
I have reviewed this patient and I concur with the Shift Assessment completed by the Licensed Practical Nurse today this shift.
--- NOTE | 2019-07-12 04:56 | NUR ---
RESTING IN BED WITH EYES CLOSED.
--- NOTE | 2019-07-12 05:32 | NUR ---
PT OFFERED A BATH AT THIS TIME. WHEN HE WAS GETTING UP, HE STATED IT WAS TO COLD RIGHT NOW. PT ASSISTED BACK TO BED.
[2019-07-12 08:00] VITALS: BP 131/81
--- NOTE | 2019-07-12 09:30 | NUR ---
PT AM MEDS ADMINISTERED. PT PARTICIPATING IN THERAPY AT THIS TIME. PT GIVEN PRN PAIN MEDICATION AND MUSCLE RELAXER. WCTM.
--- NOTE | 2019-07-12 19:32 | NUR ---
PT RESTING IN BED WITH EYES OPEN. ALERT AND ORIENTED X 3. DENIES ACUTE PAIN OR DISCOMFORT AT THIS TIME. PT ASSISTED TO THE BATHROOM WITH MOD ASSIST FOR TRANSFERS. SMALL LOOSE BM NOTED. BLAIR TO CHEST INCISION ARE CDI. CONTACT PRECAUTIONS OBSERVED. SR'S ARE UP X 2 IN BED. CALL LIGHT AND BEDSIDE TABLE ARE WITHIN EASY REACH.
--- NOTE | 2019-07-12 21:40 | NUR ---
PT IS RESTING QUIETLY IN BED WITH EYES CLOSED. NO ACUTE DISTRESS NOTED.
--- NOTE | 2019-07-12 23:23 | NUR ---
I have reviewed this patient and I concur with the Shift Assessment completed by the Licensed Practical Nurse today this shift.
--- NOTE | 2019-07-13 01:53 | NUR ---
RESTING IN BED WITH EYES CLOSED.
--- NOTE | 2019-07-13 04:54 | NUR ---
PT RESTING IN BED WITH EYES CLOSED. NO DISTRESS NOTED.
[2019-07-13 08:00] VITALS: BP 139/84
--- NOTE | 2019-07-13 19:33 | NUR ---
PT RESTING IN BED WITH EYES OPEN. NO NEEDS VOICED.
[2019-07-13 19:50] VITALS: BP 132/59
--- NOTE | 2019-07-13 22:09 | NUR ---
PT ASSISTED TO THE BATHROOM WITH MAX ASSIST FOR TRANSFERS. MOD ASSIST FOR TOILETING. LARGE PARTIALLY FORMED BM NOTED.
--- NOTE | 2019-07-14 02:44 | NUR ---
I have reviewed this patient and I concur with the Shift Assessment completed by the Licensed Practical Nurse today this shift.
[2019-07-14 06:27] LABS: BASOPHILS 0.3 % (0-2); EOSINOPHILS 0.8 % (0-7); HEMATOCRIT 30.6 % (42.0-54.0); HEMOGLOBIN 9.3 g/dL (13.5-17.5); IMMATURE GRANULOCYTES 4.6 % (0-5); LYMPHOCYTES 9.8 % (15-50); MCH 28.1 pg (26.0-34.0); MCHC 30.4 g/dL (31.0-37.0); MCV 92.4 fL (80.0-100.0); MEAN PLATELET VOLUME 10.7 fL (7.4-10.4); MONOCYTES 8.8 % (2-11); NEUTROPHILS 75.7 % (40-80); PLATELET COUNT 630 10x3/uL (130-400); RBC 3.31 10x6/uL (4.20-6.10); RDW 16.2 % (11.5-14.5); WBC 14.8 10x3/uL (4.8-10.8)
[2019-07-14 06:57] LABS: CALC OSMOLALITY 287 mosm/kg (275-300); CALCIUM 8.5 mg/dL (8.5-10.1); CARBON DIOXIDE 28.9 mmol/L (21.0-32.0); CHLORIDE - SERUM 105 mmol/L (98-107); CREATININE - SERUM 0.9 mg/dL (0.6-1.3); GLUCOSE 134 mg/dL (74-106); POTASSIUM - SERUM 4.4 mmol/L (3.5-5.1); SODIUM 143 mmol/L (136-145); UREA NITROGEN 14 mg/dL (7-18); eGFR NON AFRICAN AMERICAN 89 mL/min (90-120)
[2019-07-14 07:59] VITALS: BP 129/82
--- NOTE | 2019-07-14 08:05 | NUR ---
PATIENT REMAINS IN CONTACT ISOLOATION. PATIENT IS ALERT/ORIENT. CALL LIGHT WITHIN REACH. VOICES NO NEEDS AT THIS TIME. WILL CONTINUE WITH PLAN OF CARE
--- NOTE | 2019-07-14 10:32 | NUR ---
DR Taco OLIVIER INTO SEE PATIENT. NEW ORDER FOR REMOVAL OF SURGICAL CLIPS TO STERNUM.
--- NOTE | 2019-07-14 14:49 | NUR ---
SURGICAL CLIPS REMOVED FROM MID STERNUM WITHOUT DIFFICULTY. STERI STRIPES APPLIED
--- NOTE | 2019-07-14 16:00 | NUR ---
PATIENT HELPED BACK INTO BED BY THIS NURSE. MOD ASST FROM WHEELCHAIR TO BED
--- NOTE | 2019-07-14 16:12 | NUR ---
REFERRAL HAS BEEN FAXED TO [facility] FOR POSSIBLE ADMISSION ON 07/17/2019. WILL CONTINUE TO FOLLOW WITH PATIENT.
[2019-07-14 20:00] VITALS: BP 118/66
--- NOTE | 2019-07-14 20:27 | NUR ---
REC'D IN BED EYES CLOSED RESP. DEEP AND EVEN.CONTACT ISOLATION REMAINS IN CONTACT. WILL CONTACT WILL CONTINUE TO MONITOT FOR ANY CHGES. AND FOLLOW CURRENT PLAN OF CARE
--- NOTE | 2019-07-15 03:49 | NUR ---
I have reviewed this patient and I concur with the Shift Assessment completed by the Licensed Practical Nurse today this shift.
[2019-07-15 08:00] VITALS: BP 147/98
--- NOTE | 2019-07-15 10:00 | NUR ---
PT AM MEDS ADMINISTERD. PT DENIES NEEDS. WCTM.
[2019-07-15] MEDS ORDERED: FLOMAX0.4 MG PO (13:35)
[2019-07-15] MEDS ORDERED: PIOGLITAZONE15 MG PO (13:35)
--- NOTE | 2019-07-15 14:01 | NUR ---
[facility] HAS BEEN FAXED TO [facility] AT . WILL CONTINUE TO FOLLOW WITH PATIENT.
[2019-07-15 20:03] VITALS: BP 108/55
--- NOTE | 2019-07-15 20:06 | NUR ---
AWAKE AND ALERT. RESTING IN BED WITH RESPIRATIONS UNLABORED. CHEST INCISION INTACT WITH STERI-STRIPS IN PLACE. NO DISTRESS NOTED. CALL LIGHT IN REACH.
--- NOTE | 2019-07-16 00:18 | NUR ---
SLEEPING IN BED WITH RESPIRATIONS UNLABORED. NO DISTRESS NOTED.
--- NOTE | 2019-07-16 02:30 | NUR ---
CONTINUES RESTING IN BED WITH RESPIRATIONS UNALBORED. NO DISTRESS NOTED. REMAINS IN CONTACT ISOLATION. CALL LIGHT IN REACH.
--- NOTE | 2019-07-16 05:09 | NUR ---
QUIET HOURS. NO ACUTE CHANGES IN CONDITION THIS SHIFT. REMAINS IN ISOLATION. NO ACUTE DISTRESS NOTED. CALL LIGHT IN REACH.
[2019-07-16 08:00] VITALS: BP 117/69
[2019-07-16 08:06] LABS: CALC OSMOLALITY 283 mosm/kg (275-300); CALCIUM 8.4 mg/dL (8.5-10.1); CARBON DIOXIDE 26.1 mmol/L (21.0-32.0); CHLORIDE - SERUM 106 mmol/L (98-107); CREATININE - SERUM 0.8 mg/dL (0.6-1.3); GLUCOSE 133 mg/dL (74-106); POTASSIUM - SERUM 4.2 mmol/L (3.5-5.1); SODIUM 141 mmol/L (136-145); UREA NITROGEN 15 mg/dL (7-18); eGFR NON AFRICAN AMERICAN > 90 mL/min (90-120)
--- NOTE | 2019-07-16 08:15 | NUR ---
PT RESTING IN BED EATING BREAKFAST TOLERATING WELL WILL MONITER
[2019-07-16 08:18] LABS: HEMATOCRIT 30.6 % (42.0-54.0); HEMOGLOBIN 9.3 g/dL (13.5-17.5); MCH 28.4 pg (26.0-34.0); MCHC 30.4 g/dL (31.0-37.0); MCV 93.3 fL (80.0-100.0); MEAN PLATELET VOLUME 11.2 fL (7.4-10.4); RBC 3.28 10x6/uL (4.20-6.10); RDW 16.4 % (11.5-14.5); WBC 12.2 10x3/uL (4.8-10.8)
[2019-07-16 08:21] LABS: PLATELET COUNT 475 10x3/uL (130-400)
--- NOTE | 2019-07-16 08:43 | NUR ---
NUTRITION F/U PT REPORTS DECREASED APPETITE "FROM JUST LAYING IN BED." ENCOURAGED PT TO MAKE MENU SELECTIONS, WILL HOPEFULLY IMPROVE PO INTAKE. CURRENTLY 50 TO 75% INTAKE RECENT MEALS. BM RECORDED ON FOLLOWING
[2019-07-16 11:54] LABS: ANISOCYTOSIS OCC; CRENATED CELLS OCC; EOSINOPHILS 4 % (0-7); HELMET CELLS OCC; LYMPHOCYTES 17 % (15-50); MONOCYTES 15 % (2-11); NEUTROPHILS 63 % (40-80); PLATELET ESTIMATE INCREASED
--- NOTE | 2019-07-16 16:42 | NUR ---
CARE TEAM MEETING: TENTIVE DISCHARGE DATE IS 07/17/19. [facility] HAS DECLINED PATIENT FOR ADMISSION. A REFERRAL HAS BEEN FAXED TO [facility] AND A [facility]BERT LIST FOR ANTIBIOTICS HAS BEEN FAXED TO [facility]. WILL CONTINUE TO FOLLOW WITH PATIENT.
--- NOTE | 2019-07-16 18:44 | NUR ---
PT RESTING IN BED WITH EYES OPEN CALL LIGHT IN REACH NO PROBLEMS WILL MONITERS
[2019-07-16 19:58] VITALS: BP 99/57
--- NOTE | 2019-07-16 19:58 | NUR ---
GREETED PATIENT AND INTRODUCED MYSELF HIS NURSE. PT. IS LAYING IN BED WATCHING TV AT THIS TIME. STATES HE IS FEELING MUCH BETTER AND IS LOOKING FORWARD TO BEING DISCHARGED. PT. AOX4. RESPIRATIONS EVEN. NO S/S OF DISTRESS. CALL LIGHT IN REACH.
--- NOTE | 2019-07-17 00:39 | NUR ---
PT. RESTING QUIETLY WITH EYES CLOSED. RESPIRATIONS EVEN. NO S/S OF DISTRESS. CALL LIGHT IN REACH. RESPIRAITONS EVEN. NO S/S OF DISTRESS.
--- NOTE | 2019-07-17 03:38 | NUR ---
UT. RESTING QUIETLY WITH EYES CLOSED. RESPIRATIONS EVEN. NO S/S OF DISTRESS. CALL LIGHT IN REACH.
[2019-07-17 08:00] VITALS: BP 133/64
[2019-07-17] MEDS ORDERED: ZOLOFT100 MG PO (08:49)
--- NOTE | 2019-07-17 10:45 | NUR ---
PT RESTING IN BED, DENIES NEEDS. WCTM.
--- NOTE | 2019-07-17 19:46 | NUR ---
AWAKE AND ALERT. RESTING IN BED WITH RESPIRATIONS UNLABORED. NO ACUTE DISTRESS. MIDSTERNAL CHEST INCISION HEALING WITH STERI-STRIPS IN PLACE. RIGHT ARM MIDLINE INTACT. CALL LIGHT IN REACH.
[2019-07-17 19:52] VITALS: BP 112/64
--- NOTE | 2019-07-18 00:21 | NUR ---
C/O GAS PAIN. HYPERACTIVE BOWEL SOUNDS. NEW ORDER FOR MYLICON. WILL ADMINISTER WHEN AVAILABLE FROM PHARMACY.
--- NOTE | 2019-07-18 01:39 | NUR ---
RESTING NOW WITH ABDOMENAL PAIN SUBSIDING. NO ACUTE DISTRESS NOTED. WILL CONTINUE TO MONITOR.
--- NOTE | 2019-07-18 02:22 | NUR ---
ASSISTED UP TO BATHROOM AND HAD MEDIUM BM. NOW RESTING IN BED.
--- NOTE | 2019-07-18 03:21 | NUR ---
MEDICATED FOR CONTINUED C/O PAIN IN ABDOMEN. SEE MAR. WILL MONITOR FOR EFFECTIVENESS.
--- NOTE | 2019-07-18 05:13 | NUR ---
RESTING NOW WITH RESPIRATIONS UNLABORED. NO CURRENT C/O ABDOMINAL PAIN AT THIS TIME. CALL LIGHT IN REACH.
--- NOTE | 2019-07-18 08:00 | NUR ---
PATIENT IS ALERT/ORIENT. CALL LIGHT WITHIN REACH. VOICES NO NEEDS AT THIS TIME. PLAN TO DISCHARGE TO [facility] TODAY. WILL CONTINUE WITH PLAN OF CARE
[2019-07-18 08:07] VITALS: BP 115/71
[2019-07-18] MEDS ORDERED: CUBICIN500 MG IV (08:13)
[2019-07-18 08:16] LABS: BASOPHILS 0.1 % (0-2); EOSINOPHILS 1.1 % (0-7); HEMATOCRIT 31.5 % (42.0-54.0); HEMOGLOBIN 9.8 g/dL (13.5-17.5); MCH 28.2 pg (26.0-34.0); MCHC 31.1 g/dL (31.0-37.0); MCV 90.8 fL (80.0-100.0); MEAN PLATELET VOLUME 11.1 fL (7.4-10.4); MONOCYTES 5.6 % (2-11); NEUTROPHILS 82.2 % (40-80); PLATELET COUNT 466 10x3/uL (130-400); RBC 3.47 10x6/uL (4.20-6.10); RDW 16.3 % (11.5-14.5)
[2019-07-18 08:23] LABS: CALC OSMOLALITY 287 mosm/kg (275-300); CALCIUM 8.6 mg/dL (8.5-10.1); CHLORIDE - SERUM 106 mmol/L (98-107); GLUCOSE 159 mg/dL (74-106); POTASSIUM - SERUM 4.3 mmol/L (3.5-5.1); SODIUM 142 mmol/L (136-145); UREA NITROGEN 18 mg/dL (7-18); eGFR NON AFRICAN AMERICAN 78 mL/min (90-120)
--- NOTE | 2019-07-18 11:32 | NUR ---
PATIENT HELPED INTO BATHROOM. MOD ASST OF ONE FROM BED TO WHEELCHAIR AND WHEELCHAIR TO TOILET. CONT OF BLADDER
--- NOTE | 2019-07-18 12:01 | NUR ---
NUTRITION FOLLOW UP: INTERVIEW: Met with patient this am. He stated his appetite has not been the best and has been experiencing abdominal pain. He stated he had 4 BM yesterday. Denied vomiting and constipation. Patient was not able to eat breakfast this am due to the abdominal pain. He stated on a scale on 1 to 10, the pain was at an 8.5. DIET: Diabetic diet ALLERGIES: Milk PO INTAKE: 70% avg x 10 meals WT: 214 lbs SIG MEDS: Actos, Lasix, Metformin, Potassium citrate, KCl, Humulin, Colace SIG LABS: No recent sig lab values WILL CONTINUE TO MONITOR CLOSELY CLINICAL DIETITIAN FOLLOWING
--- NOTE | 2019-07-18 14:21 | NUR ---
DISCHARGE INSTRUCTIONS GIVEN TO PATIENT AND PATIENTS FRIEND. DISCHARGE MEDICATIONS CALLED INTO [facility] ON [address] PATIENT HELPED OUT TO CARE BY STAFF.
--- NOTE | 2019-07-18 14:52 | NUR ---
PATIENT DISCHARGED HOME WITH A FRIEND. [facility] WILL PROVIDE THERAPY AT HOME. PATIENT TO COME TO [facility] FOR IV ANTIBIOTICS DAILY FOR 22 DAYS. ORDERS HAVE BEEN FAXED TO OUTPATIENT SCHEDULING. [place] WILL CALL PATIENT WITH AN APPOINTMENT. DR. MCDONALD 08/13/2019 @ 11:15, DR. DALAL 09/09/2019 @ 2:00, DR. CARRILLO 08/18/2019 @ 9:15. PATIENT CHOICE FORM FOR HOME HEALTH WITH COMPARE DATA REVIEWED WITH PATIENT AND FORENSIC ANALYST. THEY BOTH VOICED UNDERSTANDING. DISCHARGE INSTRUCTIONS FAXED TO [place], HOME [facility], OUT PATIENT SCHEDULING AND REVIEWED WITH PATIENT AND CAREGIVER.
--- NOTE | 2019-07-21 15:23 | RHP ---
PATIENT: GILDARDO INIGUEZ MEDICAL RECORD: [id number] ACCOUNT: [id number] LOCATION:[facility] : [birth year] ADMISSION DATE: 07/01/19 REHABILITATION HISTORY AND PHYSICAL EXAMINATION POST ADMISSION PHYSICIAN EXAMINATION ADMITTING DIAGNOSIS: Disuse myopathy. HISTORY OF PRESENT ILLNESS: The patient is admitted secondary to disuse myopathy. He is a 68-year-old gentleman who is followed by the MI clinic with a past medical history of poorly-controlled diabetes, coronary artery disease with stents and angioplasty in the past, hypertension, he has got a history. He presented to the Emergency Room on 06/08/2019 with complaints of shortness of breath, right flank pain, confusion. He had a blood sugar greater than 500 and lethargic. Stated he had been feeling pretty poorly for the previous 6 days prior to his admit. He was found to be in acute renal failure, acute hypoxic respiratory failure, uncontrolled diabetes. He was septic and had a urinary tract infection. He had a cardiology consult on 06/10/2019 after having ischemic symptoms. He had V-tach and had elevated cardiac enzymes with a non-ST segment elevation myocardial infarction. His troponin went up to 46.6, CK-MB 297.3 and a CK was 1578. He underwent a left heart catheterization on 06/10/2019, findings of embolic phenomenon, spontaneous thrombosis with an EF of 35% to 40%. He had a urology consult during his stay. He has got a history of kidney stone since he was 20, had recently been in the ED with kidney stones and had a stent placed. A CT scan of his abdomen and pelvis showed a 7 x 6 mm right ureteropelvic junction stone and also a 5 mm lower pole renal stone. There were some smaller punctate renal stones in the right kidney also. The patient also has a 20 mm renal stone, which will require percutaneous nephrolithotomy in the future at some point. The patient had a cystoscopy with right ureteral stent placement with string attached, a right extracorporeal shock wave lithotripsy with 2250 shocks were given to the right proximal ureteral stone, 750 shocks were given to the right lower pole renal stone. KUB afterwards showed some changes consistent with this procedure. He had planned to have extracorporal shockwave therapy again. The stones largely had passed, stent was removed after his acute hospital stay. Had remaining 20 mm renal stone, which had to be addressed at some later point. He was placed on antibiotics. He was found to have blood and urine cultures for MRSA and has been in isolation. He was found to have endocarditis with cardiovascular surgery after having an echo done. The patient underwent an aortic valve replacement on 06/24/2019, he had some complications postop including anemia, which required blood transfusion. He had 4 units of fresh frozen plasma 7 units of packed red blood cells, 6 units of freeze placement. He has endocarditis, will require IV therapy for an extended period of time. He has been seen and followed by pulmonary during his stay. He has got bilateral pleural effusions and pneumonia during his acute stay. He has been seen by OT and PT during his stay. Currently on telemetry, he has been receiving IV antibiotic therapy, IV Lasix every 8 hours, supplement O2 anticoagulation therapy. He is on electrolyte protocol. He has got acute pain. We are monitoring his blood sugars closely. He has got decondition, proximal muscle weakness, debility, impaired mobility, gait disturbance and he is high fall risk and has self-care deficits. These are all barriers to his discharge home. Lives at home alone and was independent with his ADLs and mobility with use of a rolling walker. He is currently set up for max assist with his ADLs and mod-to-max assist for mobility. He would like to return home at his prior level of functioning with home health. HISTORY AND PHYSICAL [id number] GILDARDO INIGUEZ COMORBIDITIES: Include endocarditis, methicillin-resistant Staphylococcus aureus bacteremia, sepsis, hypoxic respiratory failure, acute renal failure, diabetes, normocytic anemia, hypertension, coronary artery disease, obesity, acute [place], bladder outlet obstruction, obstructive uropathy, disuse myopathy, acute coronary syndrome, non-ST segment elevation myocardial infarction, deconditioning, proximal muscle weakness, elevation of cardiac enzymes bilateral pleural effusions electrolyte abnormalities. PAST MEDICAL HISTORY: Significant for diabetes, hyperlipidemia, chronic renal insufficiency, renal calculi, coronary artery disease with stents and angioplasty in the past. He requires BiPAP. He has got apnea. PAST SURGICAL HISTORY: Minor surgeries during his service and kidney stones. ALLERGIES: MILK. CURRENT MEDICATIONS: Include daptomycin, he is on 1 gram IV every 24 hours; he is on Zestril 2.5 mg daily; furosemide 40 mg daily; Flonase nasal spray 1 spray daily; aspirin 81 mg daily; metformin 500 mg b.i.d. with meals; carvedilol 3.125 mg b.i.d. with meals; Ventolin updrafts as needed; he is on insulin; he is on an intermediate resistant sliding scale; potassium 20 mEq t.i.d.; potassium citrate or Urocit-K 10 mEq t.i.d. for kidney stones; Neurontin 400 mg t.i.d.; Colace 100 mg b.i.d.; Percocet 5/325 one tab every 4 hours p.r.n. and Tylenol 650 every 3 hours as needed. HABITS: No current alcohol or tobacco use. FAMILY HISTORY: Noncontributory. SOCIAL HISTORY: The patient hopes to return back home and get back to his prior level of functioning. REVIEW OF SYSTEMS: GENERAL: He does complain of some weakness and fatigue. HEENT: Denies cold, cough, or congestion. CARDIOVASCULAR: Denies any chest pain. PHYSICAL EXAMINATION: VITAL SIGNS: Stable, afebrile. GENERAL: A somewhat obese gentleman in no acute distress, alert upon exam. HEENT: Normocephalic and atraumatic. Mucosa moist. NECK: Supple. No lymphadenopathy. LUNGS: Clear at this time with no wheeze, rhonchi or rales. HEART: Regular rate and rhythm. No murmurs, rubs or gallops. ABDOMEN: Soft, benign, and nondistended. Positive bowel sounds times 4. EXTREMITIES: No clubbing, cyanosis or edema. NEUROLOGIC: He does have noted proximal muscle weakness. LABORATORY DATA: His white count is 8.4, H&H of 10 and 32, platelet count is 294. His sodium is 140, potassium 4.3, BUN and creatinine of 16 and 0.9, and blood sugar was noted to be 134. ASSESSMENT: A 68-year-old gentleman who presents secondary to disuse myopathy after prolonged hospital stay between septicemia, valve replacement, HISTORY AND PHYSICAL [id number] GILDARDO INIGUEZ endocarditis and kidney stones. The patient has potential to make improvement. We instituted the following multidisciplinary therapies including, but not limited to physical, occupational, respiratory, speech, nutritional services, prosthetics and orthotics. Given his complex medical condition and risk for more complications, rehabilitation services cannot be provided at a low level of care such a skilled nurse facility. PLAN: 1. Admit to [facility] for intensive inpatient therapy to include the following disciplines; A. Physical therapy to improve gait, all transfer skills and bed mobility to a modified independent level. B. Occupational therapy to a modified independent level. C. Case management to assist with discharge planning and placement options. D. Nutrition to assist with nutritional needs. E. Rehabilitation nursing to assist in monitoring the patient's underlying medical conditions and to assist with any type of bowel or bladder management. 2. The patient's current medication and medical care will be continued. 3. The patient will be placed on standard fall precautions. 4. The patient's estimated length of stay is approximately 7-10 days. 5. We will discuss the patient during care team staff meeting this week. We will watch closely for any signs of septicemia or problems and we will follow appropriately. I will see again in the a.m. TRANSINT:[id number] Voice Confirmation ID: [id number] DOCUMENT ID: [id number] 07/10/2019 Edited for leslie FISHER. NATALIA notes whether there has been none or any medical/functional change since admission: - No change since preadmission screen. NATALIA attests patient continues to be appropriate for IRF: - Continues to be appropriate. JASWINDER OLIVIER MD at 1523 CC: [id number] DICTATION DATE: 07/02/19 1142 CYLINDER SANDER OPERATOR: 07/02/19 1223 DIS IN 07/18/19 [id number] [place] [address]
== END 2019-07-18 15:04 | disposition home health service (06) | DRG 91 ==
LOC: D.REHAB 15:38
PROVIDERS: ADMIT Emergency Medicine; ATTEND Emergency Medicine
DX: G72.89 Other specified myopathies (principal); I21.4 Non-ST elevation (NSTEMI) myocardial infarction; A41.02 Sepsis due to Methicillin resistant Staphylococcus aureus; J96.01 Acute respiratory failure with hypoxia; N17.0 Acute kidney failure with tubular necrosis; J18.1 Lobar pneumonia, unspecified organism; I38 Endocarditis, valve unspecified; I24.9 Acute ischemic heart disease, unspecified; J90 Pleural effusion, not elsewhere classified; N39.0 Urinary tract infection, site not specified; D62 Acute posthemorrhagic anemia; E11.9 Type 2 diabetes mellitus without complications; I25.10 Atherosclerotic heart disease of native coronary artery without angina pectoris; I10 Essential (primary) hypertension; E66.9 Obesity, unspecified; N32.0 Bladder-neck obstruction; N13.9 Obstructive and reflux uropathy, unspecified; E87.8 Other disorders of electrolyte and fluid balance, not elsewhere classified; R53.1 Weakness; R53.81 Other malaise; E87.6 Hypokalemia; R00.1 Bradycardia, unspecified

== ENCOUNTER 2019-07-19 10:27 | Inpatient (IN) | payer MEDICARE, OTHER ==
[~2019-07-19] VITALS: Ht 177.8 cm; Wt 96.6 kg
--- NOTE | ~2019-07-19 | HEMODYNAMI ---
PATIENT:GILDARDO INIGUEZ MEDICAL RECORD: [id number] : 46 [facility] [id number] [id number] ADMISSION DATE: 07/19/19 Generatedon:07/22/201913:44 Patient name: GILDARDO INIGUEZ Patient #: [id number] SSN: [id number] : 1950 Date of study: 07/22/2019 Page: Of Hemodynamic Procedure Report Patient Data Patient Demographics Procedure consent was obtained First Name: GILDARDO Gender: Male Last Name: HIRA : 1950 [facility] Initial: C Age: 68 year(s) Patient #: [id number] Race: Ethnicity: or SSN: [id number] Additional ID: [id number] Contact details [address]: [address] [place] [address] State: [place] City: [place] Zip code: [address] Past Medical History Allergies: No known allergies Admission Admission Data Admission Date: 07/19/2019 Admission Time: 18:08 Room #: [id number] Lab Results Lab Result Date: 07/22/2019 Lab Result Time: 0:00 Biochemistry Name Units Result Min Max BUN mg/dl 16 --(---*)-- 7 18 eGFR ml/min 90 --(*---)-- 90 120 NONAFRICAN CBC Name Units Result Min Max Hematocrit % 28.7 *-(----)-- 42 54 Hemoglobin g/dl 9 *-(----)-- 13.5 17.5 Procedure Procedure Types Cath Procedure Diagnostic Procedure SOLIS Procedure Description Procedure Date Procedure Date: 07/22/2019 Procedure Start Time: 13:31 Procedure End Time: 13:42 Procedure Staff Name Function Renny Malone MD Performing Physician Mary Carmen Arboleda Choir Singer Samantha Quezada RT Monitor Mariah Wheeler RN Nurse Dariel Carrasco CRNA Additional personnel Wilver Rose RT Monitor Procedure Data Procedure Complications No complications Procedure Medications Medication Administration Route Dosage Oxygen etCO2 Nasal cannula 2 l/min [facility] P.O. 1 Sprays Refer to Anesthesia Notes for Sedation Medications Hemodynamics Rest HGB: 9 (g/dl) Heart Rate: 98 (bpm) Snapshots Pre Cath Intra NCS Post Cath Vital Signs Time Heart Resp SPO2 etCO2 NIBP Rhythm Pain Sedation Rate (ipm) (%) (mmHg) (mmHg) Status Level (bpm) 13:30:12 95 28 97 0 116/68(93) NSR 0 (11) 10(A) , No pain 13:32:51 80 48 96 0 93/47(56) NSR 0 (11) 9(A) , No pain 13:36:57 92 30 97 0 91/61(76) NSR 0 (11) 9(A) , No pain 13:38:33 90 25 98 0 99/48(73) NSR 0 (11) 9(A) , No pain 13:39:37 90 27 99 0 102/65(85) NSR 0 (11) 9(A) , No pain Medications Time Medication Route Dose Verified Delivered Reason Notes Effectiv eness by by 13:29:50 Oxygen etCO2 2 Renny Lemus used for Nasal l/min [facility] RN procedure cannula 13:30:00 [facility] P.O. 1 Renny Lemus Per Center Sprays [facility] RN physician 13:30:04 Refer to Renny Lemus Anesthesia [facility] RN Notes for Sedation Medications Procedure Log Time Note 12:53:49 Informed consent obtained and on chart 12:54:09 Procedure Status Urgent Heart Cath (IP). 12:54:10 Time tracking: Regular hours (M-F 7:00 - 5:00) 12:54:13 Plan of Care:Hemodynamics will remain stable., Cardiac rhythm will remain stable., Comfort level will be maintained., Respiratory function will remain adequate., Patient/ family verbilizes understanding of procedure., Procedure tolerated without complication., Recovers from procedure without complications.. 12:54:18 H&P Date Dictated: 07/22/2019 New H&P dictated by physician.. 12:56:59 Lab Result : BUN 16 mg/dl 12:56:59 Lab Result : eGFR NONAFRICAN 90 ml/min 12:56:59 Lab Result : Hemoglobin 9 g/dl 12:56:59 Lab Result : Hematocrit 28.7 % 12:58:42 Buffie Wheeler RN sent for patient. Start room use. 13:25:53 Dariel Carrasco CRNA present and monitoring patient for TIVA. 13:27:10 Patient arrived from PCU to CCL 1. Patient remains on bed/stretcher for procedure. 13:27:11 Warm blankets applied, and rachael hugger turned on for patient comfort. 13:27:12 Correct patient and procedure confirmed by team. 13:27:13 ECG and BP/O2 sat monitors applied to patient. 13::37 Rhythm: sinus rhythm 13::38 Full Disclosure recording started 13::39 Pre-procedure instructions explained to patient. 13::39 Pre-op teaching completed and patient verbalized understanding. 13::43 Family in patients room. 13::46 Patient NPO since Midnight. 13:27:50 Is the patient allergic to Iodine/contrast media? No. 13:27:55 Is patient on blood thinner?No 13:27:59 Patient diabetic? Yes. 13:28:01 If diabetic: On Metformin? Unknown 13:28:03 Previous problem with sedation/anesthesia? Yes nausea with sedation 13:28:05 Snore? No 13:28:22 Sleep apnea? No 13:28:23 Deviated septum? No 13:29:03 [facility] Teletype Mechanic present for SOLIS. 13:29:10 Vital chart was started 13:29:11 Baseline sample Acquired. 13:29:15 Opens mouth fully? Yes 13:29:16 Sticks out tongue? Yes 13:29:18 Airway obstruction? No ? 13:29:21 Dentures? No ? 13:29:38 IV patent on arrival in Left upper arm with 0.9% NaCl at [facility]. 13:29:42 Lab results completed and on chart. 13:29:46 Alarms reviewed by RTiffanie N. 13:29:50 Oxygen 2 l/min etCO2 Nasal cannula was administered by Mariah Wheeler RN; used for procedure; Verbal order read back and verified. 13:29:56 Pt prepped for SOLIS. 13:30:00 [facility] 1 Sprays P.O. was administered by Mariah Wheeler RN; Per physician; Verbal order read back and verified. 13:30:04 Refer to Anesthesia Notes for Sedation Medications was administered by Mariah Wheeler RN; ; Verbal order read back and verified. 13:30:10 Physician arrived 13:30:11 --------ALL STOP TIME OUT------ 13:30:11 Final Timeout: patient, procedure, and site verified with staff and physician. All members of the team are in agreement. 13:30:28 Fire Safety Assessment: B--The operative or invasive procedure is being performed above the xiphoid process or in the oropharynx., C--Open oxygen or nitrous oxide is being used. 13:30:37 Physical assessment completed. ASA score P 3 - A patient with severe systemic disease as per Renny Malone MD. 13:30:42 Sedation plan: TIVA Medication:Propofol 13:31:00 Procedure started. 13:31:02 SOLIS started. 13:37:22 SOLIS completed. 13:37:52 Procedure ended.(Physican Out) 13:38:54 Post procedure instruction explained to patient.Patient verbalizes understanding. 13:38:55 Patient needs reinforcement of post procedure teaching. 13:39:12 Procedure Complication : No complications 13:40:01 Procedure type changed to Cath procedure, Diagnostic procedure, SOLIS 13:41:08 SOLIS Findings: other (see MD operative note) 13:41:13 Operative report dictated upon procedure completion. 13:41:14 See physician's report for complete and final results. 13:41:28 Report given to Med/Surg. 13:42:08 Vital chart was stopped 13:42:14 Patient transfered to Med/Surg with Bed. 13:42:19 Procedure ended. 13:42:19 Full Disclosure recording stopped 13:42:21 End room use (Document Last) Signature Audit Kelso Stage Time Signature Unsigned Intra-Procedure 07/22/2019 Wilver Rose 1:43:54 PM RT(R) Intra-Procedure 07/22/2019 Mariah Wheeler RN 1:44:18 PM Intra-Procedure 07/22/2019 Renny Contreras 1:44:40 PM Luke [facility] [address] [place] [address]
[~2019-07-19 10:27] MED LIST changes: +ACETAMINOPHEN325 MG PO; +ALBUTEROL2.5 MG/3 M UPD; +ASPIRIN EC81 M1 PO; +COLACE100 MG PO; +COREG 3.1253.125 MG PO; +CUBICIN500 MG IV; +HUMULIN REG INJ [BKC SC; +K-DUR20 MEQ PO; +LASIX40 MG PO; +LISINOPRIL2.5 MG PO; +PERCOCET 5-3251 TAB PO; +Saline Mist NASAL SP NASAL; +ZOLOFT100 MG PO
[2019-07-19 12:13] LABS: HEMATOCRIT 33.3 % (42.0-54.0); HEMOGLOBIN 10.4 g/dL (13.5-17.5); MCH 28.2 pg (26.0-34.0); MCHC 31.2 g/dL (31.0-37.0); MCV 90.2 fL (80.0-100.0); MEAN PLATELET VOLUME 10.6 fL (7.4-10.4); PLATELET COUNT 489 10x3/uL (130-400); RBC 3.69 10x6/uL (4.20-6.10); RDW 16.1 % (11.5-14.5); WBC 22.5 10x3/uL (4.8-10.8)
[2019-07-19 12:24] LABS: CALC OSMOLALITY 278 mosm/kg (275-300); CALCIUM 9.1 mg/dL (8.5-10.1); CHLORIDE - SERUM 101 mmol/L (98-107); GLUCOSE 166 mg/dL (74-106); POTASSIUM - SERUM 3.9 mmol/L (3.5-5.1); SODIUM 137 mmol/L (136-145); UREA NITROGEN 16 mg/dL (7-18); eGFR NON AFRICAN AMERICAN 78 mL/min (90-120)
[2019-07-19 12:33] LABS: ALBUMIN 2.3 g/dL (3.4-5.0); ALKALINE PHOSPHATASE 113 U/L (46-116); ALT (SGPT) 19 U/L (10-68); BILIRUBIN - TOTAL 0.81 mg/dL (0.2-1.3); PROTEIN - SERUM 7.5 g/dL (6.4-8.2)
[2019-07-19 12:34] LABS: TROPONIN-I < 0.017 ng/mL (0.000-0.060)
[2019-07-19 12:44] LABS: LYMPHOCYTES 7 % (15-50); MONOCYTES 5 % (2-11); NEUTROPHILS 87 % (40-80); PLATELET ESTIMATE NORMAL
[2019-07-19 15:15] VITALS: BP 132/78
--- NOTE | 2019-07-19 15:15 | NUR ---
PT TO MRI AT THIS TIME.
--- NOTE | 2019-07-19 15:40 | NUR ---
PT RETURNED FROM MRI AT THIS TIME.
[2019-07-19 16:00] VITALS: BP 129/73
--- NOTE | 2019-07-19 17:00 | NUR ---
PT TO MRI AT THIS TIME.
--- NOTE | 2019-07-19 18:50 | NUR ---
DELAY IN PATIENT BEING TRANSFERRED TO ROOM D/T PACKET NOT READY.
[2019-07-19 20:00] VITALS: BP 119/71
[2019-07-20] VITALS (14 sets, daily range): BP systolic 14–153; BP diastolic 68–89; BMI 30.6
--- NOTE | 2019-07-20 07:13 | NUR ---
PT IS RESTING IN BED WITH EYES OPEN. RESPIRATIONS ARE EVEN AND UNLABORED. PT IS AAO X 4. PT DENIES PRESENCE OF N/V/PAIN AT THIS TIME. MIDLINE CHEST INCISION NOTED DRESSING INPLACE AND CDI. PT REPORTS RECENT OPEN HEART SURGERY. PT REFUSES SCDS AT THIS TIME. SOFT CERVICAL COLLAR IS ON. CONTACT ISOLATION PRECAUTIONS ARE IN PLACE. FALL PRECAUTIONS ARE IN PLACE. BED IS IN THE LOWEST POSITION. CALL LIGHT AND BEDSIDE TABLE ARE WITHIN REACH. SIDE RAILS X 2. PT DENIES FURTHER NEEDS. WILL CONT TO MONITOR.
[2019-07-20 10:49] LABS: HEMATOCRIT 30.3 % (42.0-54.0); HEMOGLOBIN 9.7 g/dL (13.5-17.5); MCH 28.4 pg (26.0-34.0); MCV 88.6 fL (80.0-100.0); MEAN PLATELET VOLUME 10.7 fL (7.4-10.4); PLATELET COUNT 451 10x3/uL (130-400); RBC 3.42 10x6/uL (4.20-6.10); RDW 15.8 % (11.5-14.5); WBC 43.9 10x3/uL (4.8-10.8)
--- NOTE | 2019-07-20 10:54 | NUR ---
PT STATES LAST DOSE OF CUBICIN AMDINSTERED IN ER "LAST NIGHT". PRIOR TO ER ADMINISTRATION PT STATES LAST DOSE WAS "THE DAY BEFORE" PT IS UNSURE OF TIME FRAME AND STATES "MORE THAN LIKELY IT WAS IN THE AFTERNOON. PT IS AAO X 4 AND ANSWERS ALL QUESTIONS APPROPRIATLEY.
[2019-07-20 11:06] LABS: ALBUMIN 1.8 g/dL (3.4-5.0); ALKALINE PHOSPHATASE 102 U/L (46-116); ALT (SGPT) 15 U/L (10-68); BILIRUBIN - TOTAL 1.05 mg/dL (0.2-1.3); CALC OSMOLALITY 274 mosm/kg (275-300); CALCIUM 8.8 mg/dL (8.5-10.1); CARBON DIOXIDE 27.2 mmol/L (21.0-32.0); CHLORIDE - SERUM 98 mmol/L (98-107); CREATININE - SERUM 0.9 mg/dL (0.6-1.3); GLUCOSE 243 mg/dL (74-106); POTASSIUM - SERUM 3.6 mmol/L (3.5-5.1); PROTEIN - SERUM 6.9 g/dL (6.4-8.2); SODIUM 133 mmol/L (136-145); UREA NITROGEN 16 mg/dL (7-18); eGFR NON AFRICAN AMERICAN 89 mL/min (90-120)
[2019-07-20 11:12] LABS: LYMPHOCYTES 2 % (15-50); MONOCYTES 5 % (2-11); NEUTROPHILS 87 % (40-80); PLATELET ESTIMATE NORMAL
[2019-07-20 12:01] LABS: APPEARANCE CLEAR (CLEAR); BILIRUBIN NEGATIVE (NEGATIVE); COLOR DK YELLOW (YELLOW); GLUCOSE 100 mg/dL (NEGATIVE); KETONE SMALL mg/dL (NEGATIVE); NITRITE NEGATIVE (NEGATIVE); PROTEIN 1+ mg/dL (NEGATIVE); UROBILINOGEN NORMAL (NORMAL)
[2019-07-20 12:15] LABS: BACTERIA FEW /hpf (NEGATIVE); EPITHELIAL CELLS 0-5 /hpf (0-5); WHITE CELLS - URINE 0-5 /hpf (NEGATIVE)
[2019-07-20 12:16] LABS: MUCUS >1+ /lpf (NONE SEEN)
[2019-07-20 12:34] LABS: CKMB 0.9 U/L (0.0-3.6); CREATINE KINASE 32 UL (21-232)
[2019-07-20 12:35] LABS: TROPONIN-I < 0.017 ng/mL (0.000-0.060)
--- NOTE | 2019-07-20 13:46 | NUR ---
1145 PT RECIEVED FROM THE FLOOR VIA BED TRANSFERED OVER TO ICU BED.. CLEAN GOWN AND LINENS ON PT HAD VOIDED AND WET PREVIOUS LINENS.. PLACED ON ICU MONITORING DEVICES.. WITHOUT C/O AT THIS TIME.. SOFT C COLLAR IN PLACE .. DR SCOTT IN ROOM AT BEDSIDE ALLVS AND HEMODYNAMIC MONITORING IS WNL .. THERE IS A MIDLINE CATH IN RIGHT UPPER ARM WITH NS INFUSING AT 999CC/HR.. ON ARRIVAL 1200 NS RATE DECREASED TO 50CC/HR.. 1230 FSBS DONE 223.. LUNCH SERVED AND PT IS FEEDING SELF.. 1300 CONITNUES WITH STABLE VS AND NO C/O 1330 ABGS DRAWN PER ORDER, VISITORS IN TO SEE PT.. UPDATE IS GIVEN.. VSS 1350 4 UNITS INSULIN FOR BS...
--- NOTE | 2019-07-20 15:03 | NUR ---
1500 PASSWORD CONFIRMED WITH PATIENT AFTER PHONE CALL RECIEVED AND PERSO WANTED DETAILED INFO ABOUT PATIENT ... PT STATED AT THIS TIME THAT ALL THIS PERSON NEEDED TO KNOW WAS HIS CURRENT STATUS.
--- NOTE | 2019-07-20 17:27 | NUR ---
PER DR SCOTT OKCHAVO TO TRANSFER TO FLOOR.
--- NOTE | 2019-07-20 17:40 | NUR ---
REPORT CALLED TO RECIEVING NURSE FOR PT TO TRANSFER TO FLOOR. WILL TRANSFER PT SHORTLY.
--- NOTE | 2019-07-20 18:23 | NUR ---
PT RECD TO FLOOR. PT IS AAO X 4. PT DENIES PRESENCE OF PAIN/N/V. NS IFUSING TO RIGHT UPPER ARM MIDLINE WITHOUT DIFFICULTY. RESPIRATIONS ARE EVEN AND UNLABORED. DRESSING TO MIDLINE CHEST IS INPLACE AND CDI. BRUISING NOTED TO ABDOMEN. ABDOMEN IS DISTENDED. PT DENIES PRESENCE OF TENDERNESS UPON PALPATION. CONTACT INSOLATION PRECAUTIONS ARE IN PLACE. SCDS REFUSED. SOFT CERVICAL COLLAR IS ON. BED IS IN THE LOWEST POSITION. CALL LIGHT AND BEDSIDE TABLE ARE WITHIN REACH. SIDE RAILS X 2. FALL PRECAUTIONS ARE IN PLACE. PT DENIES FURTHER NEEDS. WILL CONT TO MONITOR.
--- NOTE | 2019-07-20 19:10 | NUR ---
PATIENT ALERT AND ORIENTED. CERVICAL COLAR IN PLACE. PATIENT HAS MIDLINE CATHETER TO THE RIGHT UPPER ARM THAT IS INFUSING NS @ 30 PER ORDER. PATIENT WEARING 2 L NC. DENIES DISCOMFORT AT THIS TIME. CALL LIGHT IN REACH. FALL PRECAUTIONS IN PLACE. CPOC.
[2019-07-20 19:51] LABS: CKMB 0.4 U/L (0.0-3.6); CREATINE KINASE 23 UL (21-232)
[2019-07-20 19:57] LABS: TROPONIN-I < 0.017 ng/mL (0.000-0.060)
--- NOTE | 2019-07-20 21:30 | NUR ---
PROVIDED NORCO PRN FOR COMPLAINTS OF PAIN WITH HS MEDICATIONS. DENIES FURTHER NEEDS. CALL LIGHT IN REACH. FALL PRECAUTIONS IN PLACE. CPOC.
[2019-07-21] VITALS: BP 119/71
[2019-07-21 00:05] LABS: CKMB 0.5 U/L (0.0-3.6); CREATINE KINASE 19 UL (21-232); TROPONIN-I < 0.017 ng/mL (0.000-0.060)
[2019-07-21 04:00] VITALS: BP 108/57
--- NOTE | 2019-07-21 04:22 | NUR ---
I have reviewed this patient and I concur with the Shift Assessment completed by the Licensed Practical Nurse today this shift.
[2019-07-21 05:31] LABS: ALBUMIN 1.5 g/dL (3.4-5.0); ALKALINE PHOSPHATASE 101 U/L (46-116); ALT (SGPT) 12 U/L (10-68); BILIRUBIN - TOTAL 0.92 mg/dL (0.2-1.3); CALC OSMOLALITY 277 mosm/kg (275-300); CALCIUM 8.4 mg/dL (8.5-10.1); CARBON DIOXIDE 26.1 mmol/L (21.0-32.0); CHLORIDE - SERUM 103 mmol/L (98-107); CREATININE - SERUM 0.8 mg/dL (0.6-1.3); POTASSIUM - SERUM 3.7 mmol/L (3.5-5.1); PROTEIN - SERUM 6.2 g/dL (6.4-8.2); SODIUM 137 mmol/L (136-145); UREA NITROGEN 16 mg/dL (7-18); eGFR NON AFRICAN AMERICAN > 90 mL/min (90-120)
[2019-07-21 05:44] LABS: BASOPHILS 0 % (0-2); EOSINOPHILS 0 % (0-7); HEMATOCRIT 28.7 % (42.0-54.0); LYMPHOCYTES 2.1 % (15-50); MCHC 31.4 g/dL (31.0-37.0); MCV 89.1 fL (80.0-100.0); MEAN PLATELET VOLUME 10.8 fL (7.4-10.4); MONOCYTES 6.5 % (2-11); NEUTROPHILS 90.4 % (40-80); PLATELET COUNT 434 10x3/uL (130-400); RBC 3.22 10x6/uL (4.20-6.10); RDW 15.7 % (11.5-14.5); WBC 38.9 10x3/uL (4.8-10.8)
[2019-07-21 05:55] LABS: GLUCOSE 150 mg/dL (74-106)
[2019-07-21 08:56] VITALS: BP 113/77
[2019-07-21 12:18] VITALS: BP 121/73
[2019-07-21 14:10] VITALS: BMI 30.5
--- NOTE | 2019-07-21 14:46 | NUR ---
OT NOTE: ATTEMPTED EVAL HOWEVER PT SCHEDULED FOR SOLIS THIS AFTERNOON. PT ALSO WITH CERVICAL TRENSVERSE LIGAMENT TEAR. AWAIT NEURO CONSULT PRIOR TO MOVING PT. ABDULLAHI VERMA, OTR/L
[2019-07-21 16:34] VITALS: BP 111/62
--- NOTE | 2019-07-21 19:00 | NUR ---
PATIENT ALERT AND ORIENTED. WEARING CERVICAL COLAR AT THIS TIME. RIGHT UPPER ARM MIDLINE CATHETHER IS PATENT AND INFUSING ABX AT THIS TIME. SCAR TO THE CHEST IS CLEAN AND WELL APPROXIMATED WITH STERI STRIPS. TWO SCAB SORES THAT ARE BLACK IN COLOR NOTED TO CHEST WELL WITH ABDOMINAL BRUISING NOTED. PATIENT DENIES FURTHER NEEDS AT THIS TIME. SPOKE WITH PATIENT ABOUT NPO STATUS AT MIDNIGHT. PATIENT VERBALIZES UNDERSTANDING AT THIS TIME. CALL LIGHT IN REACH. CPOC.
[2019-07-21 19:39] LABS: ERYTHROCYTE SEDIMENTATION RATE 1 mm/hr (0-20)
[2019-07-21 20:00] VITALS: BP 113/67
[2019-07-22 00:17] VITALS: BP 118/70
--- NOTE | 2019-07-22 03:07 | NUR ---
RESTING WITH NO SIGNS OR SYMPTOMS OF DISTRESS CALL LIGHT REMAINS IN REACH. CPOC.
[2019-07-22 04:15] VITALS: BP 115/73
--- NOTE | 2019-07-22 06:20 | NUR ---
I have reviewed this patient and I concur with the Shift Assessment completed by the Licensed Practical Nurse today this shift.
[2019-07-22 06:22] LABS: ALBUMIN 1.6 g/dL (3.4-5.0); ALKALINE PHOSPHATASE 129 U/L (46-116); BILIRUBIN - TOTAL 0.81 mg/dL (0.2-1.3); CALC OSMOLALITY 282 mosm/kg (275-300); CALCIUM 8.8 mg/dL (8.5-10.1); CARBON DIOXIDE 24.9 mmol/L (21.0-32.0); CHLORIDE - SERUM 104 mmol/L (98-107); CREATININE - SERUM 0.8 mg/dL (0.6-1.3); GLUCOSE 147 mg/dL (74-106); POTASSIUM - SERUM 4.2 mmol/L (3.5-5.1); PROTEIN - SERUM 5.9 g/dL (6.4-8.2); SODIUM 139 mmol/L (136-145); UREA NITROGEN 18 mg/dL (7-18); eGFR NON AFRICAN AMERICAN > 90 mL/min (90-120)
[2019-07-22 06:28] LABS: ALT (SGPT) 16 U/L (10-68)
[2019-07-22 07:39] LABS: HEMATOCRIT 29.4 % (42.0-54.0); HEMOGLOBIN 9.1 g/dL (13.5-17.5); MCH 27.9 pg (26.0-34.0); MCV 90.2 fL (80.0-100.0); MEAN PLATELET VOLUME 11.7 fL (7.4-10.4); PLATELET COUNT 489 10x3/uL (130-400); RBC 3.26 10x6/uL (4.20-6.10); RDW 15.9 % (11.5-14.5); WBC 31.8 10x3/uL (4.8-10.8)
[2019-07-22 09:23] VITALS: BP 121/71
[2019-07-22 10:22] LABS: LYMPHOCYTES 6 % (15-50); MONOCYTES 11 % (2-11); NEUTROPHILS 79 % (40-80); PLATELET ESTIMATE INCREASED; ROULEAUX OCC
--- NOTE | 2019-07-22 11:15 | NUR ---
MIDLINE REMOVED WITH CATH TIP INTACT. PICC PLACED BY DIANDRA SOTELO IV ACCESS NURSE
[2019-07-22 13:12] VITALS: BP 127/74
--- NOTE | 2019-07-22 14:21 | MORECARE ---
CASE MANAGEMENT DISCHARGE SUMMARY PATIENT: GILDARDO INIGUEZ UNIT: [id number] ADM DATE: 07/19/19 AGE: 68 : [birth year] SEX: M ROOM/BED: [id number].2224 AUTHOR: KULDIP JAY PHYSICIAN: REFERRING PHYSICIAN: HANNA GLORIA MD DATE OF SERVICE: 07/22/19 Discharge Plan Patient Name: GILDARDO INIGUEZ Facility: [facility]:[place] : 1950 Planned Disposition: Home Anticipated Discharge Date: Discharge Date: Expected LOS: Initial Reviewer: [email or web address] Initial Review Date: 07/22/2019 Generated: 07/22/19 3:20 pm Patient Name: GILDARDO INIGUEZ Page [id number] at 1421 All edits/amendments must be made on the electronic document DICTATION DATE: 07/22/19 142 [employer]URAL [employer] PROCESSING SUPERVISOR: MADHAV 07/22/19 142 RPT#: [id number] DC DATE: STATUS: ADM IN [facility] [address] [place] [address] END OF REPORT
--- NOTE | 2019-07-22 14:29 | MORECARE ---
CASE MANAGEMENT DISCHARGE SUMMARY PATIENT: GILDARDO INIGUEZ UNIT: [id number] ADM DATE: 07/19/19 AGE: 68 : 48 SEX: M ROOM/BED: D.2224 AUTHOR: KULDIP JAY PHYSICIAN: REFERRING PHYSICIAN: HANNA GLORIA MD DATE OF SERVICE: 07/22/19 Discharge Plan Patient Name: GILDARDO INIGUEZ [facility] [facility] 1950 Planned Disposition: Home Anticipated Discharge Date: Discharge Date: Expected LOS: Initial Reviewer: [email or web address] Initial Review Date: 07/22/2019 Generated: 07/22/19 3:29 pm DCPIA - Discharge Planning Initial Assessment Updated by [email or web address]: Valencia Oneal on 07/22/19 2:22 pm * Is the patient Alert and Oriented? Yes * How many steps to enter\exit or inside your home? 0/0 * PCP [place] doctor * Pharmacy [facility] at [facility] * Preadmission Environment Home Alone * ADLs Independent * Equipment CPAP Grab Bars Walker * List name and contact numbers for known caregivers / representatives who currently or will assist patient after discharge: Vikki Su [facility] - [phone] * Verbal permission to speak to the caregivers and representatives has been obtained from the patient. Yes * Community resources currently utilized Home Health * Please name any agencies selected above. [facility] * Additional services required to return to the preadmission environment? Yes * Can the patient safely return to the preadmission environment? Yes * Has this patient been hospitalized within the prior 30 days at any hospital? Yes Last DP export: 07/22/19 1:21 p Patient Name: GILDARDO INIGUEZ Page 21380 at 1429 All edits/amendments must be made on the electronic document DICTATION DATE: 07/22/191428 GREASE RENDERER: MADHAV 07/22/191428 RPT#: [id number] DC DATE: STATUS: ADM IN [facility] [address] [place] [address] END OF REPORT
--- NOTE | 2019-07-22 14:37 | MORECARE ---
CASE MANAGEMENT DISCHARGE SUMMARY PATIENT: GILDARDO INIGUEZ UNIT: [id number] ADM DATE: 07/19/19 AGE: 68 : 48 SEX: M ROOM/BED: D.2224 AUTHOR: MISTY,DOC PHYSICIAN: REFERRING PHYSICIAN: HANNA GLORIA MD DATE OF SERVICE: 07/22/19 Discharge Plan Patient Name: GILDARDO INIGUEZ Facility: [facility]:[place] : 1950 Planned Disposition: Home Anticipated Discharge Date: Discharge Date: Expected LOS: Initial Reviewer: [email or web address] Initial Review Date: 07/22/2019 Generated: 07/22/19 3:36 pm Comments DCP- Discharge Planning Updated by [email or web address]: Valencia Oneal on 07/22/19 1:[address] Patient Name: GILDARDO INIGUEZ Admission Status: ER Accout number: [id number] Admission Date: 07-19-2019 : 1950 Admission Diagnosis: Attending: SRIKANTH Current LOS: 3 Anticipated DC Date: Planned Disposition: Home Primary Insurance: MEDICARE A & B Discharge Planning Comments: CM met with patient to complete initial dc planning assessment. CM educated patient on the CM role and verbal consent given by patient to complete assessment. Patient lives alone with his service dog. He was home one day before returning to the hospital after a fall. CM discussed availability of home health, rehab services, and medical equipment. I also talked to him about LTACH. Patient states that he is unsure what he will need at this time, he asks me to come back at a later date. He states that the skilled facilities would not take him before because of the expense of the Daptomycin. CM will continue to follow and will assist as needed with dc plans/needs. Furnace Combustion Analyst: Valencia Oneal DCPIA - Discharge Planning Initial Assessment Updated by [email or web address]: Valencia Oneal on 07/22/19 2:22 pm * Is the patient Alert and Oriented? Yes * How many steps to enter\exit or inside your home? 0/0 * PCP [place] doctor * Pharmacy [facility] * Preadmission Environment Home Alone * ADLs Independent * Equipment CPAP Grab Bars Walker * List name and contact numbers for known caregivers / representatives who currently or will assist patient after discharge: Vikki Su - [place] - [phone] * Verbal permission to speak to the caregivers and representatives has been obtained from the patient. Yes * Community resources currently utilized Home Health * Please name any agencies selected above. [facility] * Additional services required to return to the preadmission environment? Yes * Can the patient safely return to the preadmission environment? Yes * Has this patient been hospitalized within the prior 30 days at any hospital? Yes Last DP export: 07/22/19 1:29 p Patient Name: GILDARDO INIGUEZ Page 22850 at 1437 All edits/amendments must be made on the electronic document DICTATION DATE: 07/22/191435 BREAKER OPERATOR: MADHAV 07/22/191435 RPT#: [id number] DC DATE: STATUS: ADM IN [facility] [address] [place] [address] END OF REPORT
[2019-07-22 17:20] VITALS: BP 122/69
--- NOTE | 2019-07-22 19:45 | NUR ---
PT LYING IN BED WITHOUT DISTRESS, AOX4. LEFT PICC INFUSING NS @ KVO. REFUSES SCDS. C COLLAR IN PLACE. ASSISTED ON AND OFF BED BACH, PT HAD LARGE SOFT STOOL. DENIES PAIN OR NEEDS AT THIS TIME. CL IN REACH, WILL CTM
[2019-07-22 20:00] VITALS: BP 123/69
[2019-07-23 00:39] VITALS: BP 105/55
[2019-07-23 04:00] VITALS: BP 129/81
[2019-07-23 05:29] LABS: BASOPHILS 0 % (0-2); EOSINOPHILS 0.1 % (0-7); HEMOGLOBIN 8.4 g/dL (13.5-17.5); IMMATURE GRANULOCYTES 0.6 % (0-5); LYMPHOCYTES 4.4 % (15-50); MCH 27.9 pg (26.0-34.0); MCHC 31.1 g/dL (31.0-37.0); MCV 89.7 fL (80.0-100.0); MEAN PLATELET VOLUME 10.9 fL (7.4-10.4); MONOCYTES 6.2 % (2-11); NEUTROPHILS 88.7 % (40-80); PLATELET COUNT 492 10x3/uL (130-400); RBC 3.01 10x6/uL (4.20-6.10); RDW 15.9 % (11.5-14.5); WBC 21.9 10x3/uL (4.8-10.8)
[2019-07-23 06:12] LABS: ALBUMIN 1.5 g/dL (3.4-5.0); ALKALINE PHOSPHATASE 144 U/L (46-116); ALT (SGPT) 16 U/L (10-68); BILIRUBIN - TOTAL 0.66 mg/dL (0.2-1.3); CALC OSMOLALITY 283 mosm/kg (275-300); CALCIUM 8.4 mg/dL (8.5-10.1); CARBON DIOXIDE 23.1 mmol/L (21.0-32.0); CHLORIDE - SERUM 106 mmol/L (98-107); CREATININE - SERUM 0.8 mg/dL (0.6-1.3); GLUCOSE 133 mg/dL (74-106); POTASSIUM - SERUM 3.7 mmol/L (3.5-5.1); PROTEIN - SERUM 6.4 g/dL (6.4-8.2); SODIUM 140 mmol/L (136-145); UREA NITROGEN 21 mg/dL (7-18); eGFR NON AFRICAN AMERICAN > 90 mL/min (90-120)
--- NOTE | 2019-07-23 07:10 | NUR ---
PT RESTING IN BED. NO SIGNS OF DISTRESS. IV TO LEFT UPPER ARM PICC PATENT NO REDNESS OR TENDERNESS. ON 2L NC. ON TELEMTRY 93 SR. ON CONTACT ISO. STERI STRIPS TO CHEST. C-COLLAR ON. DENIES ANY FURTHER NEED AT THIS TIME. CALL LIGHT IN REACH. BED LOW POSITION. NO FAMILY AT BEDSIDE AT THIS TIME.
[2019-07-23 08:13] VITALS: BP 137/87
[2019-07-23 13:05] VITALS: BP 123/79
--- NOTE | 2019-07-23 13:54 | NUR ---
I have reviewed this patient and I concur with the Shift Assessment completed by the Licensed Practical Nurse today this shift.
[2019-07-23 16:27] LABS: % SATURATION 45 % (15-55); TOTAL IRON BIND CAPACITY 66 ug/dl (260-445)
[2019-07-23 16:33] VITALS: BP 121/70
[2019-07-23 16:53] LABS: UNSAT IRON BIND CAPACITY 36 ug/dl (150-375)
[2019-07-23 16:54] LABS: IRON 30 ug/dl (35-150)
[2019-07-23 20:00] VITALS: BP 138/83
[2019-07-24 04:00] VITALS: BP 136/81
--- NOTE | 2019-07-24 04:28 | NUR ---
I have reviewed this patient and I concur with the Shift Assessment completed by the Licensed Practical Nurse today this shift.
[2019-07-24 06:15] LABS: APTT 43.7 SECONDS (22.8-39.4); INR 1.29 (0.85-1.17)
[2019-07-24 06:24] LABS: ALBUMIN 1.6 g/dL (3.4-5.0); ALKALINE PHOSPHATASE 188 U/L (46-116); ALT (SGPT) 26 U/L (10-68); BILIRUBIN - DIRECT 0.19 mg/dL (0.00-0.30); BILIRUBIN - TOTAL 0.49 mg/dL (0.2-1.3); CALC OSMOLALITY 285 mosm/kg (275-300); CALCIUM 8.7 mg/dL (8.5-10.1); CARBON DIOXIDE 25.3 mmol/L (21.0-32.0); CHLORIDE - SERUM 105 mmol/L (98-107); GLUCOSE 177 mg/dL (74-106); PROTEIN - SERUM 6.7 g/dL (6.4-8.2); SODIUM 141 mmol/L (136-145); UREA NITROGEN 16 mg/dL (7-18); eGFR NON AFRICAN AMERICAN 78 mL/min (90-120)
[2019-07-24 06:42] LABS: HEMATOCRIT 26.3 % (42.0-54.0); HEMOGLOBIN 8.2 g/dL (13.5-17.5); MCH 28.1 pg (26.0-34.0); MCHC 31.2 g/dL (31.0-37.0); MCV 90.1 fL (80.0-100.0); MEAN PLATELET VOLUME 10.7 fL (7.4-10.4); PLATELET COUNT 544 10x3/uL (130-400); RBC 2.92 10x6/uL (4.20-6.10)
[2019-07-24 07:52] VITALS: BP 130/75
--- NOTE | 2019-07-24 08:00 | NUR ---
ASSESSMENT PER FLOW SHEET. PT IS WITHOUT DISTRESS.NPO FOR PROCEDURE TODAY. ISOLATION MAINTAINED.
[2019-07-24 09:51] LABS: ANISOCYTOSIS OCC; LYMPHOCYTES 11 % (15-50); MONOCYTES 8 % (2-11); NEUTROPHILS 78 % (40-80); PLATELET ESTIMATE INCREASED; POLYCHROMASIA OCC; ROULEAUX OCC
--- NOTE | 2019-07-24 12:09 | NUR ---
NUTRITION F/U PT CURRENTLY NPO AND OOR FOR PROCEDURE. TOLERATING DIET PRIOR TO NPO STATUS. WILL PROVIDE DIET WHEN RESUMED, MONITOR PO INTAKE. RD FOLLOWING
--- NOTE | 2019-07-24 12:37 | NUR ---
BACK FROM IR VIA BED. AWAKENS INT.PLACED BACK ON TELEMETRY.VSS, MONITOR FOR NEEDS.ISOLATION MAINTAINED
--- NOTE | 2019-07-24 13:25 | EC ---
PATIENT:GILDARDO INIGUEZ DATE OF SERVICE: 07/19/19 SEX: M MEDICAL RECORD: [id number] DATE OF : [birth year] LOCATION:D.MS [facility] AGE OF PATIENT: 68 ADMISSION DATE: 07/19/19 REFERRING PHYSICIAN: INTERPRETING PHYSICIAN: STEF SILVA MD ECHOCARDIOGRAM REPORT ECHO CHARGES 5 ECHO LIMITED Date: 07/21/19 CLINICAL DIAGNOSIS: POST OP, READMIT ECHOCARDIOGRAPHIC MEASUREMENTS (adult normal given) AC root (d.<3.7cm) 0 cm LV Septum d (<1.2 cm> 00 cm Valve Excursion 0 cm LV Septum (systole) 0 cm Left Atria (s.<4.0cm> 0 cm LVPW d(<1.2cm) 0 cm RV (d.<2.3cm) 0 cm LVPW (sytole) 0 cm LV diastole(<5.6CM) 0 cm MV E-F(>70mm/sec) 0 cm LV systole 0 cm LVOT Diameter 0 cm MV exc.(>10mm) 0 cm Est.ejection fraction (50-75%) 0 % DOPPLER: LVIT cm/sec A 0 cm/sec E 0 cm/sec LA 0 cm/sec RVSP 18.9 mmHg LVOT 0 cm/sec AOP1/2T m/s Asc. Ao 0 cm/sec RVOT 0 cm/sec RA 0 cm/sec PA 0 cm/sec AV Gradient Peak 0 mmHg AV Mean 0 mmHg AV Area 0 cm MV Gradient Peak 0 mmHg MV Mean 0 mmHg MV Area cm COMMENTS: Access Rep: Cristofer [facility] Quality System Manager: 2 Dr. Heaton TAPE# PACS Pericardial Effusion N DATE OF SERVICE: Adequate somewhat technically limited study includes 2D, color flow. Grossly LVH appears present. LV internal dimension appears normal. LV is globally diffusely hypokinetic with reduced EF 30% to 35%. The tissue prosthetic aortic valve is noted. No obvious vegetation. No significant AI. Left atrium appears dilated. Mitral valve shows good valve excursion. No significant MR. Right-sided chamber is normal. No significant TR. ECHOCARDIOGRAM REPORT [id number] GILDARDO INIGUEZ IMPRESSION: Decreased LV function described above. Would not be able to exclude aortic valve endocarditis postop in this patient who could consider SOLIS if clinically indicated. TRANSINT:[id number] Voice Confirmation ID: [id number] DOCUMENT ID: [id number] STEF SILVA MD at 1325 CC: [id number] DICTATION DATE: 07/21/19 1209 BOILER BLOWER: 07/21/19 2017 ADM IN [facility] [address] [place] [id number]
--- NOTE | 2019-07-24 13:25 | TEE ---
PATIENT:GILDARDO INIGUEZ MEDICAL RECORD: [id number] LOCATION:D.MS Wong222 AGE OF PATIENT: 68 ADMISSION DATE: 07/19/19 SEX: M REFERRING PHYSICIAN: INTERPRETING PHYSICIAN: STEF SILVA MD TRANSESOPHAGEAL ECHOCARDIOGRAM Date: 07/22/19 SOLIS CHARGE Y INDICATIONS: AVR - R/O ENDOCARDITIS PREMEDICATIONS: PATIENT'S RESPONSE PROCEDURE DOPPLER MEASUREMENTS: LVIT LA 0 PA 0 RA 0 LVOT 0 RVOT 0 Asc. Ao 0 AV Gradient Peak 0 AV Mean 0 AV Area 0 MV Gradient Peak 0 MV Mean 0 MV Area INTERPRETATION: Doppler: 2-D: COLOR FLOW DOPPLER NORMAL SALINE STUDY: MISCELLANOUS: DIAGNOSIS: PLAN: Battery Tester And Repairer:3 Dr. Gregg Conservation Worker: Syl ROGERS COMMENTS: DATE OF SERVICE: PROCEDURE: Transesophageal note. DESCRIPTION OF PROCEDURE: After general sedation via TIVA via anesthesia, transesophageal Omniplane probe was placed in the distal esophagus and proximal stomach without difficulty. FINDINGS: LVH appears present. LV internal dimension is normal. LV is TRANSESOPHAGEAL ECHOCARDIOGRAM REPORT [id number] GILDARDO INIGUEZ globally hypokinetic with reduced EF, estimated EF 30% to 35%. Prosthetic tissue aortic valve is well visualized with well visualized leaflets that shows no evidence of endocarditis. No significant AI. Good valve excursion. Left atrium appears normal. Mitral valve appears normal with trivial MR. Right-sided chambers are grossly normal. Trivial TR by color flow imaging. At the end of procedure, transesophageal Omniplane probe was turned posteriorly and this shows no evidence of atherosclerotic debris in the descending aorta. TRANSINT:[id number] Voice Confirmation ID: [id number] DOCUMENT ID: [id number] at 1325 CC: [id number] DICTATION DATE: 07/22/19 1344 LAMP REPLACER: 07/22/19 1547 ADM IN [place] [id number] [place] [address]
[2019-07-24 15:17] VITALS: Ht 177.8 cm; Wt 96.6 kg
[2019-07-24 16:33] VITALS: BP 133/73
--- NOTE | 2019-07-24 18:46 | NUR ---
PT IS WITHOUT DISTRESS.HE IS WITHOUT CHANGE.CONT PLAN OF CARE
[2019-07-24 20:00] VITALS: BP 137/88
--- NOTE | 2019-07-24 20:03 | NUR ---
OT NOTE: PT REQUIRED MIN A FOR SIMPLE HYGIENE TASKS OF UB. PT REQUIRED SBA FOR UE POSITIONING. [phone] THANK YOU,YAMIL WILLIS
[2019-07-25] VITALS: BP 138/85
--- NOTE | 2019-07-25 02:08 | NUR ---
PT RESTING IN BED. EYES CLOSED. NO SIGNS OF DISTRESS. BREATHING EVEN AND UNLABORED. IV SITE LT UPPER ARM PICC. DRESSING CLEAN DRY AND INTACT. NO SINGS OF INFECTION OR INFULTRATION. BOWEL SOUNDS ACTIVE. LUNG SOUNDS DIMINISHED. BRAC ON NECK. 3LO2 NASAL CANNULA. BILI DRAIN RT UPPER ABD. CLEAN DRY AND ITNACT. WILL CONTINUE PLAN OF CARE. CALL LGT IN REACH. BED LOWERED AND LOCKED. BED RAILS UPX2.
[2019-07-25 04:00] VITALS: BP 126/79
--- NOTE | 2019-07-25 05:02 | NUR ---
I have reviewed this patient and I concur with the Shift Assessment completed by the Licensed Practical Nurse today this shift.
[2019-07-25 05:45] LABS: ALBUMIN 1.5 g/dL (3.4-5.0); ALKALINE PHOSPHATASE 163 U/L (46-116); ALT (SGPT) 23 U/L (10-68); BILIRUBIN - TOTAL 0.45 mg/dL (0.2-1.3); CALC OSMOLALITY 283 mosm/kg (275-300); CALCIUM 8.3 mg/dL (8.5-10.1); CARBON DIOXIDE 25.3 mmol/L (21.0-32.0); CHLORIDE - SERUM 106 mmol/L (98-107); CREATININE - SERUM 0.9 mg/dL (0.6-1.3); GLUCOSE 154 mg/dL (74-106); POTASSIUM - SERUM 3.7 mmol/L (3.5-5.1); PROTEIN - SERUM 6.5 g/dL (6.4-8.2); SODIUM 140 mmol/L (136-145); UREA NITROGEN 19 mg/dL (7-18); eGFR NON AFRICAN AMERICAN 89 mL/min (90-120)
[2019-07-25 06:11] LABS: BASOPHILS 0.3 % (0-2); EOSINOPHILS 0.1 % (0-7); HEMATOCRIT 27.6 % (42.0-54.0); HEMOGLOBIN 8.4 g/dL (13.5-17.5); IMMATURE GRANULOCYTES 8.3 % (0-5); LYMPHOCYTES 6.5 % (15-50); MCH 27.4 pg (26.0-34.0); MCHC 30.4 g/dL (31.0-37.0); MCV 89.9 fL (80.0-100.0); MEAN PLATELET VOLUME 10.8 fL (7.4-10.4); MONOCYTES 6.6 % (2-11); NEUTROPHILS 78.2 % (40-80); PLATELET COUNT 490 10x3/uL (130-400); RBC 3.07 10x6/uL (4.20-6.10); RDW 16.1 % (11.5-14.5)
[2019-07-25 06:13] LABS: WBC 14.5 10x3/uL (4.8-10.8)
[2019-07-25 09:00] VITALS: BP 122/78
[2019-07-25 13:16] VITALS: BP 121/71
--- NOTE | 2019-07-25 14:48 | NUR ---
OT NOTE: PT PERFORMED VERY WELL TODAY; BED MOB WITH MIN/MOD ASSIST FOR SUPINE TO SIT AND ROLLING SIDE TO SIDE; SIT TO STAND WITH MIN ASSIST X 2 WITH USE OF WALKER. ABLE TO STAND FOR APPROX 3 MIN FOLLOWED BY REST BREAK. SIT TO STAND AGAIN AND WAS ABLE TO TAKE A FEW SIDE STEPS AND 3 STEPS FORWARD AND BACKWARD. AROM EXS ON EOB. INCREASED DIFFICULTY WITH GETTING BACK TO BED. MOD/MAX ASSIST FOR SIT TO SUPINE. ABDULLAHI VERMA, OTR/L [id number]
--- NOTE | 2019-07-25 15:36 | NUR ---
OT NOTE: PT COMPLETED BED MOB TASKS WITH CGA AND USE OF BED RAILS. PT COMPLETED FACE AND HAND HYGIENE WITH SET UP.PT COMPLETED BUE AROM AXS. [phone] THANK YOU,YAMIL WILLIS
--- NOTE | 2019-07-25 16:46 | NUR ---
Rehab Note- Acute Inpatient Rehab prescreen order received. THe patient was recently in our acute inpatient rehab unit. Will follow at this time for possible acute inpatient rehab stay prior to being discharged home. Thank you for this referral! Angela Bruce RN Clinical Liaison, [facility] Rehab
[2019-07-25 17:23] VITALS: BP 110/72
--- NOTE | 2019-07-25 17:27 | MORECARE ---
CASE MANAGEMENT DISCHARGE SUMMARY PATIENT: GILDARDO INIGUEZ UNIT: [id number] ADM DATE: 07/19/19 AGE: 68 : 48 SEX: M ROOM/BED: D.2224 AUTHOR: MISTY,DOC PHYSICIAN: REFERRING PHYSICIAN: HANNA GLORIA MD DATE OF SERVICE: 07/25/19 Discharge Plan Patient Name: GILDARDO INIGUEZ Facility: [facility]:[place] : 1950 Planned Disposition: Home Anticipated Discharge Date: Discharge Date: Expected LOS: Initial Reviewer: [email or web address] Initial Review Date: 07/22/2019 Generated: 07/25/19 6:27 pm Comments DCP- Discharge Planning Updated by [email or web address]: Valencia Oneal on 07/25/19 4:[address] CM met with patient concerning discharge planning/needs. He declines SNF or inpatient rehab at this time. States he plans to return home with [facility]. CM will continue to follow and assist with discharge planning/needs. DCP- Discharge Planning Updated by [email or web address]: Valencia Oneal on 07/22/19 1:[address] Patient Name: GILDARDO INIGUEZ Admission Status: ER Accout number: [id number] Admission Date: 07-19-2019 : 1950 Admission Diagnosis: Attending: SRIKANTH Current LOS: 3 Anticipated DC Date: Planned Disposition: Home Primary Insurance: MEDICARE A & B Discharge Planning Comments: CM met with patient to complete initial dc planning assessment. CM educated patient on the CM role and verbal consent given by patient to complete assessment. Patient lives alone with his service dog. He was home one day before returning to the hospital after a fall. CM discussed availability of home health, rehab services, and medical equipment. I also talked to him about LTACH. Patient states that he is unsure what he will need at this time, he asks me to come back at a later date. He states that the skilled facilities would not take him before because of the expense of the Daptomycin. CM will continue to follow and will assist as needed with dc plans/needs. Search Strategist: Valencia Oneal DCPIA - Discharge Planning Initial Assessment Updated by [email or web address]: Valencia Oneal on 07/22/19 2:22 pm * Is the patient Alert and Oriented? Yes * How many steps to enter\exit or inside your home? 0/0 * PCP [place] doctor * Pharmacy [facility] at [facility] * Preadmission Environment Home Alone * ADLs Independent * Equipment CPAP Grab Bars Walker * List name and contact numbers for known caregivers / representatives who currently or will assist patient after discharge: Vikki Su [facility] - [phone] * Verbal permission to speak to the caregivers and representatives has been obtained from the patient. Yes * Community resources currently utilized Home Health * Please name any agencies selected above. [facility] 4 [facility] * Additional services required to return to the preadmission environment? Yes * Can the patient safely return to the preadmission environment? Yes * Has this patient been hospitalized within the prior 30 days at any hospital? Yes Last DP export: 07/22/19 1:36 p Patient Name: GILDARDO INIGUEZ Page 57391 at 1727 All edits/amendments must be made on the electronic document DICTATION DATE: 07/25/191726 COLLAR POINTER: MADHAV 07/25/191726 RPT#: [id number] DC DATE: STATUS: ADM IN [facility] [address] [place] [address] END OF REPORT
[2019-07-25 20:00] VITALS: BP 143/86
[2019-07-26] VITALS: BP 138/86
[2019-07-26 04:00] VITALS: BP 136/82
[2019-07-26 06:21] LABS: ALBUMIN 1.5 g/dL (3.4-5.0); ALKALINE PHOSPHATASE 143 U/L (46-116); ALT (SGPT) 20 U/L (10-68); BILIRUBIN - TOTAL 0.38 mg/dL (0.2-1.3); CALC OSMOLALITY 284 mosm/kg (275-300); CALCIUM 8.3 mg/dL (8.5-10.1); CHLORIDE - SERUM 106 mmol/L (98-107); CREATININE - SERUM 0.8 mg/dL (0.6-1.3); GLUCOSE 107 mg/dL (74-106); POTASSIUM - SERUM 3.4 mmol/L (3.5-5.1); PROTEIN - SERUM 6.3 g/dL (6.4-8.2); SODIUM 142 mmol/L (136-145); UREA NITROGEN 17 mg/dL (7-18); eGFR NON AFRICAN AMERICAN > 90 mL/min (90-120)
[2019-07-26 06:37] LABS: HEMOGLOBIN 8.4 g/dL (13.5-17.5); MCH 27.9 pg (26.0-34.0); MCHC 31.1 g/dL (31.0-37.0); MCV 89.7 fL (80.0-100.0); MEAN PLATELET VOLUME 10.6 fL (7.4-10.4); PLATELET COUNT 436 10x3/uL (130-400); RBC 3.01 10x6/uL (4.20-6.10); RDW 16.3 % (11.5-14.5); WBC 11.2 10x3/uL (4.8-10.8)
[2019-07-26 07:59] LABS: LYMPHOCYTES 5 % (15-50); MONOCYTES 11 % (2-11); NEUTROPHILS 79 % (40-80); PLATELET ESTIMATE NORMAL
[2019-07-26 09:33] VITALS: BP 123/87
--- NOTE | 2019-07-26 09:35 | NUR ---
RESTING IN BED, NO DISTERSS NOTED, SOFT COLLAR IN PLACE, O2 PER NC, TELE SHOWING SR WITH BBB
[2019-07-26 13:47] VITALS: BP 127/71
[2019-07-26 17:35] VITALS: BP 117/71
--- NOTE | 2019-07-26 19:00 | NUR ---
BEDSIDE REPORT RECEIVED AND CARE OF PT ASSUMED. PT LYING IN HIGH ODOM'S POSITION WITH SOFT CERVICAL COLLAR IN PLACE. LEFT PICC LINE PATENT WITH NS INFUSING AT KVO. CONTACT ISOLATION IN PLACE. O2 NOT IN USE AT THIS TIME...ENCOURAGED PT TO WEAR O2 PER ORDER. HUMIDIFICATION CONNECTED TO O2 FOR C/O DRYNESS AND NOSEBLEED EARLIER. WILL MONITOR FOR NEEDS.
[2019-07-26 20:00] VITALS: BP 135/68
--- NOTE | 2019-07-26 21:00 | NUR ---
HS MEDICATION GIVEN. FSBS 161 THIS CHECK REQUIRING COVERAGE WITH 4 UNITS OF INSULIN PER SLIDING SCALE. WILL CONTINUE TO MONITOR FOR NEEDS. PT DECLINES SNACK AT THIS TIME.
[2019-07-27] VITALS: BP 123/79
--- NOTE | 2019-07-27 01:30 | NUR ---
STEPHEN BILLINGSLEY PER REQUEST.
[2019-07-27 04:00] VITALS: BP 116/71
[2019-07-27 07:04] LABS: ALBUMIN 1.5 g/dL (3.4-5.0); ALKALINE PHOSPHATASE 134 U/L (46-116); ALT (SGPT) 20 U/L (10-68); BILIRUBIN - TOTAL 0.38 mg/dL (0.2-1.3); CALC OSMOLALITY 283 mosm/kg (275-300); CARBON DIOXIDE 27.8 mmol/L (21.0-32.0); CHLORIDE - SERUM 107 mmol/L (98-107); CREATININE - SERUM 0.8 mg/dL (0.6-1.3); GLUCOSE 102 mg/dL (74-106); POTASSIUM - SERUM 3.3 mmol/L (3.5-5.1); PROTEIN - SERUM 6.3 g/dL (6.4-8.2); SODIUM 142 mmol/L (136-145); UREA NITROGEN 14 mg/dL (7-18); eGFR NON AFRICAN AMERICAN > 90 mL/min (90-120)
[2019-07-27 07:37] LABS: BASOPHILS 0.3 % (0-2); EOSINOPHILS 0.9 % (0-7); HEMATOCRIT 27.9 % (42.0-54.0); HEMOGLOBIN 8.5 g/dL (13.5-17.5); IMMATURE GRANULOCYTES 10.1 % (0-5); LYMPHOCYTES 10.8 % (15-50); MCH 27.4 pg (26.0-34.0); MCHC 30.5 g/dL (31.0-37.0); MEAN PLATELET VOLUME 10.8 fL (7.4-10.4); MONOCYTES 9.2 % (2-11); NEUTROPHILS 68.7 % (40-80); PLATELET COUNT 454 10x3/uL (130-400); RDW 16.4 % (11.5-14.5); WBC 9.2 10x3/uL (4.8-10.8)
--- NOTE | 2019-07-27 08:46 | NUR ---
RESTING IN BED, NO DISTRESS NOTED, IV INFUSING AT KVO PER PICC, SOFT COLLAR IN PLACE, UP TO BSC THIS AM
[2019-07-27 08:53] VITALS: BP 132/73
[2019-07-27 12:56] VITALS: BP 138/80
[2019-07-27 17:02] VITALS: BP 141/79
--- NOTE | 2019-07-27 19:00 | NUR ---
BEDSIDE REPORT RECEIVED AND CARE OF PT ASSUMED. PT LYING I LOW ODOM'S POSITION WATCHING TV. LEFT MIDLINE PATENT WITH VANC INFUSING AT THIS TIME. TELEMETRY IN PLACE PER ORDER. BILI DRAIN DRAINING TO GRAVITY WITH SMALL AMOUNT OF BROWN LIQUID IN BAG. WILL MONITOR FOR NEEDS.
[2019-07-27 20:00] VITALS: BP 140/80
--- NOTE | 2019-07-27 20:38 | NUR ---
HS MEDICATIONS GIVEN. PT DECLINED COLACE. FSBS 126 THIS CHECK REQUIRING NO COVERAGE PER SLIDING SCALE.
--- NOTE | 2019-07-27 23:00 | NUR ---
GAVE CJ JARVIS FOR HS SNACK PER REQUEST.
[2019-07-28] VITALS: BP 125/75
--- NOTE | 2019-07-28 01:30 | NUR ---
PT BATHED AND ALL LINENS AND GOWN CHANGED.
[2019-07-28 04:00] VITALS: BP 138/83
[2019-07-28 04:47] LABS: ALBUMIN 1.7 g/dL (3.4-5.0); ALKALINE PHOSPHATASE 132 U/L (46-116); ALT (SGPT) 22 U/L (10-68); CALC OSMOLALITY 284 mosm/kg (275-300); CALCIUM 8.2 mg/dL (8.5-10.1); CARBON DIOXIDE 28.9 mmol/L (21.0-32.0); CHLORIDE - SERUM 105 mmol/L (98-107); CREATININE - SERUM 0.8 mg/dL (0.6-1.3); GLUCOSE 127 mg/dL (74-106); POTASSIUM - SERUM 3.5 mmol/L (3.5-5.1); PROTEIN - SERUM 6.4 g/dL (6.4-8.2); SODIUM 142 mmol/L (136-145); UREA NITROGEN 12 mg/dL (7-18); eGFR NON AFRICAN AMERICAN > 90 mL/min (90-120)
[2019-07-28 05:00] LABS: BASOPHILS 0.2 % (0-2); EOSINOPHILS 0.8 % (0-7); HEMATOCRIT 29.2 % (42.0-54.0); IMMATURE GRANULOCYTES 8.9 % (0-5); LYMPHOCYTES 12.9 % (15-50); MCH 27.4 pg (26.0-34.0); MCHC 30.8 g/dL (31.0-37.0); MEAN PLATELET VOLUME 10.5 fL (7.4-10.4); MONOCYTES 10.2 % (2-11); PLATELET COUNT 470 10x3/uL (130-400); RBC 3.28 10x6/uL (4.20-6.10); RDW 16.4 % (11.5-14.5); WBC 9.4 10x3/uL (4.8-10.8)
[2019-07-28 07:58] VITALS: BP 129/53
--- NOTE | 2019-07-28 08:00 | NUR ---
LYING IN BED,WITHOUT DISTRESS.CALL LIGHT IN REACH
--- NOTE | 2019-07-28 08:24 | MORECARE ---
CASE MANAGEMENT DISCHARGE SUMMARY PATIENT: GILDARDO INIGUEZ UNIT: [id number] ADM DATE: 07/19/19 AGE: 68 : 46 SEX: M ROOM/BED: D.2224 AUTHOR: MISTY,DOC PHYSICIAN: REFERRING PHYSICIAN: HANNA GLORIA MD DATE OF SERVICE: 07/28/19 Discharge Plan Patient Name: GILDARDO INIGUEZ Facility: [facility]:[place] : 1950 Planned Disposition: Home Anticipated Discharge Date: Discharge Date: Expected LOS: Initial Reviewer: [email or web address] Initial Review Date: 07/22/2019 Generated: 07/28/19 9:24 am DCP- Discharge Planning Updated by [email or web address]: Valencia Oneal on 07/25/19 4:[address] CM met with patient concerning discharge planning/needs. He declines SNF or inpatient rehab at this time. States he plans to return home with [facility]. CM will continue to follow and assist with discharge planning/needs. DCP- Discharge Planning Updated by [email or web address]: Valencia Oneal on 07/22/19 1:[address] Patient Name: GILDARDO INIGUEZ Admission Status: ER Accout number: [id number] Admission Date: 07-19-2019 : 1950 Admission Diagnosis: Attending: SRIKANTH Current LOS: 3 Anticipated DC Date: Planned Disposition: Home Primary Insurance: MEDICARE A & B Discharge Planning Comments: CM met with patient to complete initial dc planning assessment. CM educated patient on the CM role and verbal consent given by patient to complete assessment. Patient lives alone with his service dog. He was home one day before returning to the hospital after a fall. CM discussed availability of home health, rehab services, and medical equipment. I also talked to him about LTACH. Patient states that he is unsure what he will need at this time, he asks me to come back at a later date. He states that the skilled facilities would not take him before because of the expense of the Daptomycin. CM will continue to follow and will assist as needed with dc plans/needs. Waterproofer: Valencia Oneal DCPIA - Discharge Planning Initial Assessment Updated by [email or web address]: Valencia Oneal on 07/22/19 2:22 pm * Is the patient Alert and Oriented? Yes * How many steps to enter\exit or inside your home? 0/0 * PCP [facility] doctor * Pharmacy [facility] at [facility] * Preadmission Environment Home Alone * ADLs Independent * Equipment CPAP Grab Bars Walker * List name and contact numbers for known caregivers / representatives who currently or will assist patient after discharge: Vikki Su [facility] - [phone] * Verbal permission to speak to the caregivers and representatives has been obtained from the patient. Yes * Community resources currently utilized Home Health * Please name any agencies selected above. [facility] * Additional services required to return to the preadmission environment? Yes * Can the patient safely return to the preadmission environment? Yes * Has this patient been hospitalized within the prior 30 days at any hospital? Yes External Providers [facility] Next Contact Date: Service Request Date: Service Type: Resolution: Reviewer: Comments: Coverage Notice Reviewer: [email or web address] Sun Oneal Notice Issued Date-Time: 07/28/2019 8:06 Notice Type: Patient Choice Letter Notice Delivered To: Patient Relationship to Patient: Self Security Incident Handler Name: Delivery Method: HAND - Hand Delivered Meggan Days: Prior Verbal Notification: Recipient Understood Notice: Yes Recipient Signature: Yes Med Rec Note Co-signed by Attending: Coverage Notice Comment: WAQAS FOR LORENA Molina DP export: 07/25/19 4:27 p Patient Name: GILDARDO INIGUEZ Page 13208 at 0824 All edits/amendments must be made on the electronic document DICTATION DATE: 07/28/19823 DIRECTOR OF TEACHING AND LEARNING: MADHAV 07/28/19823 RPT#: [id number] DC DATE: STATUS: ADM IN [facility] [address] [place] [address] END OF REPORT
--- NOTE | 2019-07-28 08:32 | MORECARE ---
CASE MANAGEMENT DISCHARGE SUMMARY PATIENT: GILDARDO INIGUEZ UNIT: [id number] ADM DATE: 07/19/19 AGE: 68 : 48 SEX: M ROOM/BED: D.2224 AUTHOR: MISTY,DOC PHYSICIAN: REFERRING PHYSICIAN: HANNA GLORIA MD DATE OF SERVICE: 07/28/19 Discharge Plan Patient Name: GILDARDO INIGUEZ Facility: [facility]:[place] : 1950 Planned Disposition: Home Anticipated Discharge Date: Discharge Date: Expected LOS: Initial Reviewer: [email or web address] Initial Review Date: 07/22/2019 Generated: 07/28/19 9:32 am DCP- Discharge Planning Updated by [email or web address]: Valencia Oneal on 07/25/19 4:[address] CM met with patient concerning discharge planning/needs. He declines SNF or inpatient rehab at this time. States he plans to return home with [facility]. CM will continue to follow and assist with discharge planning/needs. DCP- Discharge Planning Updated by [email or web address]: Valencia Oneal on 07/22/19 1:[address] Patient Name: GILDARDO INIGUEZ Admission Status: ER Accout number: [id number] Admission Date: 07-19-2019 : 1950 Admission Diagnosis: Attending: SRIKANTH Current LOS: 3 Anticipated DC Date: Planned Disposition: Home Primary Insurance: MEDICARE A & B Discharge Planning Comments: CM met with patient to complete initial dc planning assessment. CM educated patient on the CM role and verbal consent given by patient to complete assessment. Patient lives alone with his service dog. He was home one day before returning to the hospital after a fall. CM discussed availability of home health, rehab services, and medical equipment. I also talked to him about LTACH. Patient states that he is unsure what he will need at this time, he asks me to come back at a later date. He states that the skilled facilities would not take him before because of the expense of the Daptomycin. CM will continue to follow and will assist as needed with dc plans/needs. Commercial Roofing Estimator: Valencia Oneal DCPIA - Discharge Planning Initial Assessment Updated by [email or web address]: Valencia Oneal on 07/22/19 2:22 pm * Is the patient Alert and Oriented? Yes * How many steps to enter\exit or inside your home? 0/0 * PCP [facility] doctor * [facility]acy [facility] at [facility] * Preadmission Environment Home Alone * ADLs Independent * Equipment CPAP Grab Bars Walker * List name and contact numbers for known caregivers / representatives who currently or will assist patient after discharge: Vikki Su [facility] - [phone] * Verbal permission to speak to the caregivers and representatives has been obtained from the patient. Yes * Community resources currently utilized Home Health * Please name any agencies selected above. [facility] * Additional services required to return to the preadmission environment? Yes * Can the patient safely return to the preadmission environment? Yes * Has this patient been hospitalized within the prior 30 days at any hospital? Yes External Providers [facility] Next Contact Date: Service Request Date: Service Type: Resolution: Reviewer: Comments: Coverage Notice Reviewer: [email or web address] Sun Oneal Notice Issued Date-Time: 07/28/2019 8:06 Notice Type: Patient Choice Letter Notice Delivered To: Patient Relationship to Patient: Self Multi Craft Maintenance Technician Name: Delivery Method: HAND - Hand Delivered Meggan Days: Prior Verbal Notification: Recipient Understood Notice: Yes Recipient Signature: Yes Med Rec Note Co-signed by Attending: Coverage Notice Comment: WAQAS FOR LORENA Molina DP export: 07/25/19 4:27 p Patient Name: GILDARDO INIGUEZ Page 99072 at 0832 All edits/amendments must be made on the electronic document DICTATION DATE: 07/28/1932 FISHER LAMPARA NET: MADHAV 07/28/19 0832 RPT#: [id number] DC DATE: STATUS: ADM IN [facility] [address] [place] [address] END OF REPORT
--- NOTE | 2019-07-28 09:47 | NUR ---
ASSISTED PT TO [facility], PT ABLE TO FOLLOW DIRECTIONS AND AMBULATED WELL. ADMINISTERED SCHEDULED MEDS, NO OTHER NEEDS VOICED AT THIS TIME. PER IR RN Divina AGEE, FLUSH BILI DRAIN Q8 WITH 5CC OF NS. CONTINUE WITH PLAN OF CARE
[2019-07-28 11:39] VITALS: BP 128/75
--- NOTE | 2019-07-28 13:44 | NUR ---
Nutrition follow-up: Diet: ADA consistent CHO PO intake ~50% of meals Labs reviewed WT: 212# PO intake poor to fair at meals Will encourage increased po intake and offer nutritional supplements RDN following.
--- NOTE | 2019-07-28 14:30 | MORECARE ---
CASE MANAGEMENT DISCHARGE SUMMARY PATIENT: GILDARDO INIGUEZ UNIT: [id number] ADM DATE: 07/19/19 AGE: 68 : 48 SEX: M ROOM/BED: D.2224 AUTHOR: MISTY,DOC PHYSICIAN: REFERRING PHYSICIAN: HANNA GLORIA MD DATE OF SERVICE: 07/28/19 Discharge Plan Patient Name: GILDARDO INIGUEZ Facility: [facility]:[place] : 1950 Planned Disposition: Home Anticipated Discharge Date: Discharge Date: Expected LOS: Initial Reviewer: [email or web address] Initial Review Date: 07/22/2019 Generated: 07/28/19 3:30 pm DCP- Discharge Planning Updated by [email or web address]: Valencia Oneal on 07/25/19 4:[address] CM met with patient concerning discharge planning/needs. He declines SNF or inpatient rehab at this time. States he plans to return home with [facility]. CM will continue to follow and assist with discharge planning/needs. DCP- Discharge Planning Updated by [email or web address]: Valencia Oneal on 07/22/19 1:[address] Patient Name: GILDARDO INIGUEZ Admission Status: ER Accout number: [id number] Admission Date: 07-19-2019 : 1950 Admission Diagnosis: Attending: SRIKANTH Current LOS: 3 Anticipated DC Date: Planned Disposition: Home Primary Insurance: MEDICARE A & B Discharge Planning Comments: CM met with patient to complete initial dc planning assessment. CM educated patient on the CM role and verbal consent given by patient to complete assessment. Patient lives alone with his service dog. He was home one day before returning to the hospital after a fall. CM discussed availability of home health, rehab services, and medical equipment. I also talked to him about LTACH. Patient states that he is unsure what he will need at this time, he asks me to come back at a later date. He states that the skilled facilities would not take him before because of the expense of the Daptomycin. CM will continue to follow and will assist as needed with dc plans/needs. Configuration Technician: Valencia Oneal DCPIA - Discharge Planning Initial Assessment Updated by [email or web address]: Valencia Oneal on 07/22/19 2:22 pm * Is the patient Alert and Oriented? Yes * How many steps to enter\exit or inside your home? 0/0 * PCP VA doctor * Pharmacy Angelic at [facility] * Preadmission Environment Home Alone * ADLs Independent * Equipment CPAP Grab Bars Walker * List name and contact numbers for known caregivers / representatives who currently or will assist patient after discharge: Vikki Su [facility] - [phone] * Verbal permission to speak to the caregivers and representatives has been obtained from the patient. Yes * Community resources currently utilized Home Health * Please name any agencies selected above. [facility] * Additional services required to return to the preadmission environment? Yes * Can the patient safely return to the preadmission environment? Yes * Has this patient been hospitalized within the prior 30 days at any hospital? Yes External Providers External Provider: [facility] Next Contact Date: Service Request Date: Service Type: Resolution: Reviewer: Comments: Coverage Notice Reviewer: [email or web address] Sun Oneal Notice Issued Date-Time: 07/28/2019 8:06 Notice Type: Patient Choice Letter Notice Delivered To: Patient Relationship to Patient: Self Rubber Compounder Formulator Name: Delivery Method: HAND - Hand Delivered Meggan Days: Prior Verbal Notification: Recipient Understood Notice: Yes Recipient Signature: Yes Med Rec Note Co-signed by Attending: Coverage Notice Comment: WAQAS FOR LORENA Molina DP export: 07/28/19 7:32 a Patient Name: GILDARDO INIGUEZ Page 12618 at 1430 All edits/amendments must be made on the electronic document DICTATION DATE: 07/28/191429 DYNAMITE PACKING MACHINE FEEDER: MADHAV 07/28/19 143 RPT#: [id number] DC DATE: STATUS: ADM IN [facility] [address] [place] [address] END OF REPORT
--- NOTE | 2019-07-28 15:21 | NUR ---
PT LYING IN BED, ADMINISTERED SCHEDULED MEDS AND APPLIED OINTMENT TO GROIN AREA, NO NEEDS VOICED BY PT NO S/SX OF DISTRESS, CONTINUE WITH PLAN OF CARE
--- NOTE | 2019-07-28 15:46 | MORECARE ---
CASE MANAGEMENT DISCHARGE SUMMARY PATIENT: GILDARDO INIGUEZ UNIT: [id number] ADM DATE: 07/19/19 AGE: 68 : 48 SEX: M ROOM/BED: D.2224 AUTHOR: MISTY,DOC PHYSICIAN: REFERRING PHYSICIAN: HANNA GLORIA MD DATE OF SERVICE: 07/28/19 Discharge Plan Patient Name: GILDARDO INIGUEZ Facility: [facility]:[place] : 1950 Planned Disposition: Home Anticipated Discharge Date: Discharge Date: Expected LOS: Initial Reviewer: [email or web address] Initial Review Date: 07/22/2019 Generated: 07/28/19 4:45 pm Comments DCP- Discharge Planning Updated by [email or web address]: Valencia Oneal on 07/28/19 2:[address] Received an order for LTACH referral. I spoke with the patient regarding this and also regarding inpatient rehab. He states he does not want to go to inpatient rehab again. States if he is turned down by [facility] and [facility], he would consider LTACH at [facility]. CM will continue to follow and assist with discharge planning/needs. DCP- Discharge Planning Updated by [email or web address]: Valencia Oneal on 07/25/19 4:[address] CM met with patient concerning discharge planning/needs. He declines SNF or inpatient rehab at this time. States he plans to return home with [facility]. CM will continue to follow and assist with discharge planning/needs. DCP- Discharge Planning Updated by [email or web address]: Valencia Oneal on 07/22/19 1:[address] Patient Name: GILDARDO INIGUEZ Admission Status: ER Accout number: [id number] Admission Date: 07-19-2019 : 1950 Admission Diagnosis: Attending: SRIKANTH Current LOS: 3 Anticipated DC Date: Planned Disposition: Home Primary Insurance: MEDICARE A & B Discharge Planning Comments: CM met with patient to complete initial dc planning assessment. CM educated patient on the CM role and verbal consent given by patient to complete assessment. Patient lives alone with his service dog. He was home one day before returning to the hospital after a fall. CM discussed availability of home health, rehab services, and medical equipment. I also talked to him about LTACH. Patient states that he is unsure what he will need at this time, he asks me to come back at a later date. He states that the skilled facilities would not take him before because of the expense of the Daptomycin. CM will continue to follow and will assist as needed with dc plans/needs. Fire Controlman: Valencia Oneal DCPIA - Discharge Planning Initial Assessment Updated by [email or web address]: Valencia Oneal on 07/22/19 2:22 pm * Is the patient Alert and Oriented? Yes * How many steps to enter\exit or inside your home? 0/0 * PCP VA doctor * Pharmacy [facility] * Preadmission Environment Home Alone * ADLs Independent * Equipment CPAP Grab Bars Walker * List name and contact numbers for known caregivers / representatives who currently or will assist patient after discharge: Vikki Su fernie - [phone] * Verbal permission to speak to the caregivers and representatives has been obtained from the patient. Yes * Community resources currently utilized Home Health * Please name any agencies selected above. [facility] * Additional services required to return to the preadmission environment? Yes * Can the patient safely return to the preadmission environment? Yes * Has this patient been hospitalized within the prior 30 days at any hospital? Yes Coverage Notice Reviewer: [id number] Sun Oneal Notice Issued Date-Time: 07/28/2019 8:06 Notice Type: Patient Choice Letter Notice Delivered To: Patient Relationship to Patient: Self Acid Leveler Name: Delivery Method: HAND - Hand Delivered Meggan Days: Prior Verbal Notification: Recipient Understood Notice: Yes Recipient Signature: Yes Med Rec Note Co-signed by Attending: Coverage Notice Comment: WAQAS FOR LORENA GALLAGHER Reviewer: [id number] Sun Oneal Notice Issued Date-Time: 07/28/2019 15:44 Notice Type: Patient Choice Letter Notice Delivered To: Patient Relationship to Patient: Self Acid Leveler Name: Delivery Method: HAND - Hand Delivered Meggan Days: Prior Verbal Notification: Recipient Understood Notice: Yes Recipient Signature: Yes Med Rec Note Co-signed by Attending: Coverage Notice Comment: WAQAS for Alban Dockery in [place] Last DP export: 07/28/19 1:30 p Patient Name: GILDARDO INIGUEZ Page [phone] at 1546 All edits/amendments must be made on the electronic document DICTATION DATE: 07/28/19 154 MILIEU TECHNICIAN: MADHAV 07/28/19 1545 RPT#: [id number] DC DATE: STATUS: ADM IN [facility] [address] [place] [address] END OF REPORT
--- NOTE | 2019-07-28 15:59 | NUR ---
Redness/excoriation noted perineal area and penis. Lamisil cream has been ordered for application to these areas.
[2019-07-28 17:33] VITALS: BP 143/63
--- NOTE | 2019-07-28 19:00 | NUR ---
BEDSIDE REPORT RECEIVED AND CARE OF PT ASSUMED. PT LYING IN SUPINE POSITION WATCHING TV. LEFT MIDLINE PATENT WITH NS INFUSING AT KVO. TELEMETRY IN PLACE AND READING SR AT THIS ASSESSMENT. 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 WILL MONITOR FOR NEEDS.
--- NOTE | 2019-07-28 19:46 | NUR ---
OT NOTE: PT COMPLETED SUPINE TO SIT WITH MOD A. PT COMPLETED SIT TO STAND WITH MOD A. PT COMPLETED ADL MOB WITH CGA. PT COMPLETED FACE WASH WITH SET UP. PT COMPLETED UE AROM EXS WITH MINOR PAIN NOTED IN R SHOULDER. PT STATED ITS BEEN CHRONIC. [id number] THANK YOU, YAMIL WILLIS
--- NOTE | 2019-07-28 20:50 | NUR ---
HS MEDICATIONS GIVEN. FSBS 185 THIS CHECK, REQUIRING COVERAGE WITH 4 UNITS OF INSULIN PER SLIDING SCALE. WILL MONITOR FOR NEEDS.
[2019-07-28 21:11] VITALS: BP 115/77
[2019-07-29 01:24] VITALS: BP 114/81
[2019-07-29 04:56] VITALS: BP 110/70
[2019-07-29 05:23] LABS: ALBUMIN 1.7 g/dL (3.4-5.0); ALKALINE PHOSPHATASE 127 U/L (46-116); BILIRUBIN - TOTAL 0.41 mg/dL (0.2-1.3); CALC OSMOLALITY 281 mosm/kg (275-300); CALCIUM 8.1 mg/dL (8.5-10.1); CARBON DIOXIDE 29.1 mmol/L (21.0-32.0); CHLORIDE - SERUM 105 mmol/L (98-107); CREATININE - SERUM 0.9 mg/dL (0.6-1.3); GLUCOSE 97 mg/dL (74-106); POTASSIUM - SERUM 3.5 mmol/L (3.5-5.1); PROTEIN - SERUM 6.4 g/dL (6.4-8.2); SODIUM 142 mmol/L (136-145); UREA NITROGEN 11 mg/dL (7-18); VANCOMYCIN - RANDOM 20.2 ug/mL (10.0-20.0); eGFR NON AFRICAN AMERICAN 89 mL/min (90-120)
[2019-07-29 05:24] LABS: ALT (SGPT) 16 U/L (10-68)
[2019-07-29 05:30] LABS: HEMATOCRIT 29.5 % (42.0-54.0); HEMOGLOBIN 9.1 g/dL (13.5-17.5); MCH 27.3 pg (26.0-34.0); MCHC 30.8 g/dL (31.0-37.0); MCV 88.6 fL (80.0-100.0); MEAN PLATELET VOLUME 10.7 fL (7.4-10.4); PLATELET COUNT 460 10x3/uL (130-400); RBC 3.33 10x6/uL (4.20-6.10); RDW 16.4 % (11.5-14.5); WBC 11.1 10x3/uL (4.8-10.8)
[2019-07-29 07:08] LABS: EOSINOPHILS 1 % (0-7); LYMPHOCYTES 13 % (15-50); MONOCYTES 4 % (2-11); NEUTROPHILS 72 % (40-80)
[2019-07-29 07:09] LABS: PLATELET ESTIMATE NORMAL
[2019-07-29 09:16] VITALS: BP 121/73
--- NOTE | 2019-07-29 09:22 | NUR ---
PT LYING IN BED, ASSISTED PT WITH BREAKFST TRAY AND URINAL. NO NEEDS VOICED, BED IN LOW POSITION, CL IN REACH CONTINUE WITH PLAN OF CARE
--- NOTE | 2019-07-29 12:08 | MORECARE ---
CASE MANAGEMENT DISCHARGE SUMMARY PATIENT: GILDARDO INIGUEZ UNIT: [id number] ADM DATE: 07/19/19 AGE: 68 : 48 SEX: M ROOM/BED: D.2224 AUTHOR: MISTY,DOC PHYSICIAN: REFERRING PHYSICIAN: HANNA GLORIA MD DATE OF SERVICE: 07/29/19 Discharge Plan Patient Name: GILDARDO INIGUEZ Facility: [facility]:[place] : 1950 Planned Disposition: Home Anticipated Discharge Date: Discharge Date: Expected LOS: Initial Reviewer: [email or web address] Initial Review Date: 07/22/2019 Generated: 07/29/19 1:08 pm Comments DCP- Discharge Planning Updated by [id number]: Valencia Oneal on 07/29/19 11:[address] [facility] called and states they can accept patient tomorrow and steel pickler around 10:[address] Valenzuela and Yesenia Monroy and clarification order written for the IV antibiotics. I informed patient and he is agreeable to the plan. Elvis brace and limb have been called to adjust his soft collar. CM will continue to follow and assist with discharge planning/needs. DCP- Discharge Planning Updated by [email or web address]: Valencia Oneal on 07/28/19 2:[address] Received an order for LTACH referral. I spoke with the patient regarding this and also regarding inpatient rehab. He states he does not want to go to inpatient rehab again. States if he is turned down by [facility] and [facility], he would consider LTACH at [facility] in [place]. CM will continue to follow and assist with discharge planning/needs. DCP- Discharge Planning Updated by [email or web address]: Valencia Oneal on 07/25/19 4:[address] CM met with patient concerning discharge planning/needs. He declines SNF or inpatient rehab at this time. States he plans to return home with [facility]. CM will continue to follow and assist with discharge planning/needs. DCP- Discharge Planning Updated by [email or web address]: Valencia Oneal on 07/22/19 1:[address] Patient Name: GILDARDO INIGUEZ Admission Status: ER Accout number: [id number] Admission Date: 07-19-2019 : 1950 Admission Diagnosis: Attending: SRIKANTH Current LOS: 3 Anticipated DC Date: Planned Disposition: Home Primary Insurance: MEDICARE A & B Discharge Planning Comments: CM met with patient to complete initial dc planning assessment. CM educated patient on the CM role and verbal consent given by patient to complete assessment. Patient lives alone with his service dog. He was home one day before returning to the hospital after a fall. CM discussed availability of home health, rehab services, and medical equipment. I also talked to him about LTACH. Patient states that he is unsure what he will need at this time, he asks me to come back at a later date. He states that the skilled facilities would not take him before because of the expense of the Daptomycin. CM will continue to follow and will assist as needed with dc plans/needs. Reports Analyst: Valencia Oneal DCPIA - Discharge Planning Initial Assessment Updated by [email or web address]: Valencia Oneal on 07/22/19 2:22 pm * Is the patient Alert and Oriented? Yes * How many steps to enter\exit or inside your home? 0/0 * PCP [place] doctor * [facility]acy [facility] * Preadmission Environment Home Alone * ADLs Independent * Equipment CPAP Grab Bars Walker * List name and contact numbers for known caregivers / representatives who currently or will assist patient after discharge: Vikki Su - [employer] - [phone] * Verbal permission to speak to the caregivers and representatives has been obtained from the patient. Yes * Community resources currently utilized Home Health * Please name any agencies selected above. [facility] 4 [facility] * Additional services required to return to the preadmission environment? Yes * Can the patient safely return to the preadmission environment? Yes * Has this patient been hospitalized within the prior 30 days at any hospital? Yes Coverage Notice Reviewer: [id number] Sun Oneal Notice Issued Date-Time: 07/28/2019 8:06 Notice Type: Patient Choice Letter Notice Delivered To: Patient Relationship to Patient: Self Mainspring Strip Gauger Name: Delivery Method: HAND - Hand Delivered Meggan Days: Prior Verbal Notification: Recipient Understood Notice: Yes Recipient Signature: Yes Med Rec Note Co-signed by Attending: Coverage Notice Comment: WAQAS GALLAGHER Reviewer: [email or web address] Sun Oneal Notice Issued Date-Time: 07/28/2019 15:44 Notice Type: Patient Choice Letter Notice Delivered To: Patient Relationship to Patient: Self Mainspring Strip Gauger Name: Delivery Method: HAND - Hand Delivered Meggan Days: Prior Verbal Notification: Recipient Understood Notice: Yes Recipient Signature: Yes Med Rec Note Co-signed by Attending: Coverage Notice Comment: WAQAS for Alban Dockery in [place] Last DP export: 07/28/19 2:46 p Patient Name: GILDARDO INIGUEZ Page [phone] at 1208 All edits/amendments must be made on the electronic document DICTATION DATE: 07/29/19 1208 EAR NOSE THROAT SURGEON: MADHAV 07/29/19 1208 RPT#: [id number] DC DATE: STATUS: ADM IN [facility] [address] [place] [address] END OF REPORT
--- NOTE | 2019-07-29 12:19 | NUR ---
PT IS WITHOUT DISTRESS. ISOLATION MAINTAINED. DOOR OPEN
[2019-07-29 13:29] VITALS: BP 145/87
--- NOTE | 2019-07-29 16:03 | NUR ---
OT NOTE: MET WITH PT IN AM AND STARTED TO PERFORM BED MOB WHEN SOMEONE FROM [facility] CAME TO EVALUATE. ATTEMPTED LATER AND PT REPORTED THAT HE DID NOT FEEL WELL. REQUESTING SOMETHING BE DONE WITH NECK BRACE IT WAS VERY UNCOMFORTABLE. SINCE PT WAS NOT UP AND AMBULATING, PLACED SOFT COLLAR BACK ON. THE CURRENT COLLAR WAS DIFFICULT TO KEEP IN GOOD POSITION WHILE IN BED. ABDULLAHI VERMA, OTR/L
--- NOTE | 2019-07-29 19:00 | NUR ---
BEDSIDE REPORT RECEIVED AND CARE OF PT ASSUMED. PT LYING IN LOW ODOM'S POSITION WATCHING TV. LEFT MIDLINE PATENT WITH NS INFUSING AT KVO. WILL MONITOR FOR NEEDS.
--- NOTE | 2019-07-29 20:54 | NUR ---
HS MEDICATIONS GIVEN. FSBS 157 THIS CHECK. CLEANSED PERINEAL AREA AND APPLIED LAMISIL CREAM PER ORDER.
[2019-07-29 21:18] VITALS: BP 128/71
[2019-07-30 01:14] VITALS: BP 114/72
[2019-07-30 06:06] VITALS: BP 126/85
[2019-07-30 06:50] LABS: ALBUMIN 1.9 g/dL (3.4-5.0); ALKALINE PHOSPHATASE 121 U/L (46-116); ALT (SGPT) 17 U/L (10-68); CALC OSMOLALITY 283 mosm/kg (275-300); CALCIUM 8.3 mg/dL (8.5-10.1); CARBON DIOXIDE 27.8 mmol/L (21.0-32.0); CHLORIDE - SERUM 106 mmol/L (98-107); GLUCOSE 130 mg/dL (74-106); POTASSIUM - SERUM 3.7 mmol/L (3.5-5.1); PROTEIN - SERUM 6.7 g/dL (6.4-8.2); SODIUM 141 mmol/L (136-145); UREA NITROGEN 15 mg/dL (7-18); VANCOMYCIN - RANDOM 20.8 ug/mL (10.0-20.0); eGFR NON AFRICAN AMERICAN 78 mL/min (90-120)
[2019-07-30 07:40] LABS: BASOPHILS 0.3 % (0-2); EOSINOPHILS 0.5 % (0-7); HEMATOCRIT 30.8 % (42.0-54.0); HEMOGLOBIN 9.6 g/dL (13.5-17.5); IMMATURE GRANULOCYTES 8.1 % (0-5); LYMPHOCYTES 13.8 % (15-50); MCH 27.6 pg (26.0-34.0); MCHC 31.2 g/dL (31.0-37.0); MCV 88.5 fL (80.0-100.0); MEAN PLATELET VOLUME 10.6 fL (7.4-10.4); MONOCYTES 6.8 % (2-11); NEUTROPHILS 70.5 % (40-80); PLATELET COUNT 415 10x3/uL (130-400); RBC 3.48 10x6/uL (4.20-6.10); RDW 16.8 % (11.5-14.5); WBC 11.1 10x3/uL (4.8-10.8)
[2019-07-30] MEDS ORDERED: MAXIPIME 1 GM/D51 G1 IV (08:50)
[2019-07-30] MEDS ORDERED: VANCOMYCIN 1 GM/1 G1 IV (08:50)
[2019-07-30] MEDS ORDERED: FLORAJEN3 CAPS460 MG PO (08:51)
[2019-07-30] MEDS ORDERED: PROTONIX40 MG PO (08:51)
[2019-07-30] MEDS ORDERED: PIOGLITAZONE15 MG PO (08:52)
[2019-07-30 08:55] VITALS: BP 120/71
--- NOTE | 2019-07-30 15:36 | MORECARE ---
CASE MANAGEMENT DISCHARGE SUMMARY PATIENT: GILDARDO INIGUEZ UNIT: [id number] ADM DATE: 07/19/19 AGE: 68 : 48 SEX: M ROOM/BED: D.2224 AUTHOR: MISTY,DOC PHYSICIAN: REFERRING PHYSICIAN: HANNA GLORIA MD DATE OF SERVICE: 07/30/19 Discharge Plan Patient Name: GILDARDO INIGUEZ Facility: [facility]:[place] : 1950 Planned Disposition: Home Anticipated Discharge Date: Discharge Date: 07/30/2019 Expected LOS: Initial Reviewer: [email or web address] Initial Review Date: 07/22/2019 Generated: 07/30/19 4:35 pm Comments DCP- Discharge Planning Updated by [email or web address]: Valencia Oneal on 07/30/19 2:[address] Discharged today to a skilled (Medicare) bed at [facility]. DCP- Discharge Planning Updated by [email or web address]: Valencia Oneal on 07/29/19 11:[address] [facility] called and states they can accept patient tomorrow and bean picker around 10:[address] Valenzuela and Yesenia Monroy and clarification order written for the IV antibiotics. I informed patient and he is agreeable to the plan. Elvis brace and limb have been called to adjust his soft collar. CM will continue to follow and assist with discharge planning/needs. DCP- Discharge Planning Updated by [email or web address]: Valencia Oneal on 07/28/19 2:[address] Received an order for LTACH referral. I spoke with the patient regarding this and also regarding inpatient rehab. He states he does not want to go to inpatient rehab again. States if he is turned down by [facility] and [facility], he would consider LTACH at [facility] in [place]. CM will continue to follow and assist with discharge planning/needs. DCP- Discharge Planning Updated by [email or web address]: Valencia Oneal on 07/25/19 4:[address] CM met with patient concerning discharge planning/needs. He declines SNF or inpatient rehab at this time. States he plans to return home with [facility]. CM will continue to follow and assist with discharge planning/needs. DCP- Discharge Planning Updated by [email or web address]: Vlaencia Oneal on 07/22/19 1:[address] Patient Name: GILDARDO INIGUEZ Admission Status: ER Accout number: [id number] Admission Date: 07-19-2019 : 1950 Admission Diagnosis: Attending: SRIKANTH Current LOS: 3 Anticipated DC Date: Planned Disposition: Home Primary Insurance: MEDICARE A & B Discharge Planning Comments: CM met with patient to complete initial dc planning assessment. CM educated patient on the CM role and verbal consent given by patient to complete assessment. Patient lives alone with his service dog. He was home one day before returning to the hospital after a fall. CM discussed availability of home health, rehab services, and medical equipment. I also talked to him about LTACH. Patient states that he is unsure what he will need at this time, he asks me to come back at a later date. He states that the skilled facilities would not take him before because of the expense of the Daptomycin. CM will continue to follow and will assist as needed with dc plans/needs. Chalk Machine Operator: Valencia Oneal DCPIA - Discharge Planning Initial Assessment Updated by [email or web address]: Valencia Oneal on 07/22/19 2:22 pm * Is the patient Alert and Oriented? Yes * How many steps to enter\exit or inside your home? 0/0 * PCP [place] doctor * Pharmacy [facility] * Preadmission Environment Home Alone * ADLs Independent * Equipment CPAP Grab Bars Walker * List name and contact numbers for known caregivers / representatives who currently or will assist patient after discharge: Vikki Su [facility] - [phone] * Verbal permission to speak to the caregivers and representatives has been obtained from the patient. Yes * Community resources currently utilized Home Health * Please name any agencies selected above. [facility] * Additional services required to return to the preadmission environment? Yes * Can the patient safely return to the preadmission environment? Yes * Has this patient been hospitalized within the prior 30 days at any hospital? Yes Coverage Notice Reviewer: [email or web address] Sun Oneal Notice Issued Date-Time: 07/28/2019 8:06 Notice Type: Patient Choice Letter Notice Delivered To: Patient Relationship to Patient: Self Sourcing Associate Name: Delivery Method: HAND - Hand Delivered Meggan Days: Prior Verbal Notification: Recipient Understood Notice: Yes Recipient Signature: Yes Med Rec Note Co-signed by Attending: Coverage Notice Comment: WAQAS FOR LORENA ELLIOTT Reviewer: [email or web address] Sun Oneal Notice Issued Date-Time: 07/28/2019 15:44 Notice Type: Patient Choice Letter Notice Delivered To: Patient Relationship to Patient: Self Sourcing Associate Name: Delivery Method: HAND - Hand Delivered Meggan Days: Prior Verbal Notification: Recipient Understood Notice: Yes Recipient Signature: Yes Med Rec Note Co-signed by Attending: Coverage Notice Comment: WAQAS for Alban Dockery in [place] Last DP export: 07/29/19 11:08 a Patient Name: GILDARDO INIGUEZ Page [id number] at 1536 All edits/amendments must be made on the electronic document DICTATION DATE: 07/30/19 1535 OTR VAN CDL TRUCK DRIVER: MADHAV 07/30/19 1535 RPT#: [id number] DC DATE:07/30/19 STATUS: DIS IN [facility] [address] [place] [address] END OF REPORT
--- NOTE | 2019-07-30 16:22 | NUR ---
OT NOTE: PT COMPLETED FACE AND HAND HYGIENE WITH SET UP. PT COMPLETED BED MOB WITH SBA. PT COMPLETED UE AROM EXS. PT STATED HE IS LEAVING TO GO TO [facility]. [phone] THANK YOU,YAMIL WILLIS
--- NOTE | 2019-07-31 08:52 | MORECARE ---
CASE MANAGEMENT DISCHARGE SUMMARY PATIENT: GILDARDO INIGUEZ UNIT: [id number] ADM DATE: 07/19/19 AGE: 68 : 48 SEX: M ROOM/BED: D.2224 AUTHOR: MISTY,DOC PHYSICIAN: REFERRING PHYSICIAN: HANNA GLORIA MD DATE OF SERVICE: 07/31/19 Discharge Plan Patient Name: GILDARDO INIGUEZ Facility: [facility]:[place] : 1950 Planned Disposition: Home Anticipated Discharge Date: Discharge Date: 07/30/2019 Expected LOS: 0 Initial Reviewer: [email or web address] Initial Review Date: 07/22/2019 Generated: 07/31/19 9:51 am Comments DCP- Discharge Planning Updated by [email or web address]: Valencia Oneal on 07/30/19 2:[address] Discharged today to a skilled (Medicare) bed at [facility]. 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 Valenzuela and Yesenia Monroy and clarification order written for the IV antibiotics. I informed patient and he is agreeable to the plan. Elvis brace and limb have been called to adjust his soft collar. CM will continue to follow and assist with discharge planning/needs. DCP- Discharge Planning Updated by [id number]: Valencia Oneal on 07/28/19 2:[address] Received an order for LTACH referral. I spoke with the patient regarding this and also regarding inpatient rehab. He states he does not want to go to inpatient rehab again. States if he is turned down by [facility] and [facility], he would consider LTACH at [facility] in [place]. CM will continue to follow and assist with discharge planning/needs. DCP- Discharge Planning Updated by [id number]: Valencia Oneal on 07/25/19 4:[address] CM met with patient concerning discharge planning/needs. He declines SNF or inpatient rehab at this time. States he plans to return home with [facility]. CM will continue to follow and assist with discharge planning/needs. DCP- Discharge Planning Updated by [email or web address]: Valencia Oneal on 07/22/19 1:[address] Patient Name: GILDARDO INIGUEZ Admission Status: ER Accout number: [id number] Admission Date: 07-19-2019 : 1950 Admission Diagnosis: Attending: SRIKANTH Current LOS: 3 Anticipated DC Date: Planned Disposition: Home Primary Insurance: MEDICARE A & B Discharge Planning Comments: CM met with patient to complete initial dc planning assessment. CM educated patient on the CM role and verbal consent given by patient to complete assessment. Patient lives alone with his service dog. He was home one day before returning to the hospital after a fall. CM discussed availability of home health, rehab services, and medical equipment. I also talked to him about LTACH. Patient states that he is unsure what he will need at this time, he asks me to come back at a later date. He states that the skilled facilities would not take him before because of the expense of the Daptomycin. CM will continue to follow and will assist as needed with dc plans/needs. Affirmative Action Specialist: Valencia Oneal DCPIA - Discharge Planning Initial Assessment Updated by [email or web address]: Valencia Oneal on 07/22/19 2:22 pm * Is the patient Alert and Oriented? Yes * How many steps to enter\exit or inside your home? 0/0 * PCP [place] doctor * Pharmacy [place] [facility] * Preadmission Environment Home Alone * ADLs Independent * Equipment CPAP Grab Bars Walker * List name and contact numbers for known caregivers / representatives who currently or will assist patient after discharge: Vikki Su [facility] - [phone] * Verbal permission to speak to the caregivers and representatives has been obtained from the patient. Yes * Community resources currently utilized Home Health * Please name any agencies selected above. [facility] * Additional services required to return to the preadmission environment? Yes * Can the patient safely return to the preadmission environment? Yes * Has this patient been hospitalized within the prior 30 days at any hospital? Yes Coverage Notice Reviewer: [email or web address] - Valencia Oneal Notice Issued Date-Time: 07/28/2019 8:06 Notice Type: Patient Choice Letter Notice Delivered To: Patient Relationship to Patient: Self Piece Cutter Name: Delivery Method: HAND - Hand Delivered Meggan Days: Prior Verbal Notification: Recipient Understood Notice: Yes Recipient Signature: Yes Med Rec Note Co-signed by Attending: Coverage Notice Comment: WAQAS FOR LORENA ELLIOTT Reviewer: [email or web address] Sun Oneal Notice Issued Date-Time: 07/28/2019 15:44 Notice Type: Patient Choice Letter Notice Delivered To: Patient Relationship to Patient: Self Piece Cutter Name: Delivery Method: HAND - Hand Delivered Meggan Days: Prior Verbal Notification: Recipient Understood Notice: Yes Recipient Signature: Yes Med Rec Note Co-signed by Attending: Coverage Notice Comment: WAQAS for Alban Dockery in [place] Last DP export: 07/30/19 2:36 p Patient Name: GILDARDO INIGUEZ Page [id number] at 0852 All edits/amendments must be made on the electronic document DICTATION DATE: 07/31/19850 COIL SHAPER: MADHAV 07/31/19 0851 RPT#: [id number] DC DATE:07/30/19 STATUS: DIS IN [facility] [address] [place] [address] END OF REPORT
== END 2019-07-30 11:21 | DRG 871 ==
LOC: D.ER 10:27 → D.MS 18:08 → D.ICU 07-20 11:38 → D.MS 07-20 18:19
PROVIDERS: Emergency Medicine; Internal Medicine Interventional Cardiology; Internal Medicine Nephrology; Surgery; ADMIT Family Medicine; ATTEND Family Medicine
PROC: 05HY33Z Insertion of Infusion Device into Upper Vein, Percutaneous Approach (ICD-10-PCS; principal; 2019-07-22 12:58)
PROC: 0F9430Z Drainage of Gallbladder with Drainage Device, Percutaneous Approach (ICD-10-PCS; 2019-07-24)
DX: A41.9 Sepsis, unspecified organism (principal); E43 Unspecified severe protein-calorie malnutrition; I50.20 Unspecified systolic (congestive) heart failure; N10 Acute pyelonephritis; I38 Endocarditis, valve unspecified; R53.1 Weakness; W18.30XA Fall on same level, unspecified, initial encounter; Z91.81 History of falling; Y92.009 Unspecified place in unspecified non-institutional (private) residence as the place of occurrence of the external cause; E11.65 Type 2 diabetes mellitus with hyperglycemia; I11.0 Hypertensive heart disease with heart failure; I25.10 Atherosclerotic heart disease of native coronary artery without angina pectoris; G47.33 Obstructive sleep apnea (adult) (pediatric); F32.9 Major depressive disorder, single episode, unspecified; N20.0 Calculus of kidney; K81.9 Cholecystitis, unspecified; S13.4XXA Sprain of ligaments of cervical spine, initial encounter

== ENCOUNTER → 2019-09-09 17:20 | Outpatient (CLI) | payer MEDICARE, OTHER ==
[2019-07-24 15:17] VITALS: BMI 30.5
[~2019-09-09 17:20] MED LIST changes: +FLORAJEN3 CAPS460 MG PO; +MAXIPIME 1 GM/D51 G1 IV; +PROTONIX40 MG PO; +VANCOMYCIN 1 GM/1 G1 IV
== END | disposition home or self-care (01) ==
LOC: D.LABREF 17:20
PROVIDERS: ATTEND Urology
DX: N39.0 Urinary tract infection, site not specified (principal)

== ENCOUNTER 2019-09-15 11:44 | Outpatient (CLI) | payer MEDICARE, OTHER ==
[~2019-09-15] VITALS: Ht 177.8 cm; Wt 86.4 kg
--- NOTE | ~2019-09-15 | HEMODYNAMI ---
PATIENT:GILDARDO INIGUEZ MEDICAL RECORD: [id number] : [birth year] [id number] ADMISSION DATE: 09/15/19 Generatedon:09/15/201914:04 Patient name: GILDARDO INIGUEZ Patient #: [id number] : 1950 Date of study: 09/15/2019 Page: Of Hemodynamic Procedure Report Patient Data Patient Demographics Procedure consent was obtained First Name: GILDARDO Gender: Male Last Name: HIRA : 1950 Middle Initial: JAEL Age: 68 year(s) Patient #: [id number] Race: Ethnicity: or SSN: [id number] Additional ID: [id number] Contact details Address: [address] [place] [address] State: [place] City: [facility] Zip code: [address] Past Medical History Allergies Allergen Reaction Date Comments Reported Other allergy 09/15/2019 milk Admission Admission Data Admission Date: 09/15/2019 Admission Time: 11:44 Procedure Procedure Types Cath Procedure Peripheral Cath Diagnostic Procedure Biliary Cholangio Thru Existing Procedure Description Procedure Date Procedure Date: 09/15/2019 Procedure Start Time: 13:53 Procedure Staff Name Function Luke Harding MD Performing Physician Wilman Andrade RT Monitor KATTY VARGAS RT Scrub Sri Waite RN Nurse Procedure Data Cath Procedure Fluoroscopy Diagnostic fluoroscopy Total fluoroscopy Time: 1.1 time: 1.1 min min Diagnostic fluoroscopy Total fluoroscopy dose: 54 dose: 54 mGy mGy Contrast Material Contrast Material Type Amount (ml) Isovue 300 10 Diagnostic catheters Device Type Used For End Catheter Placement Merit Impress KA 2 5Fr 40CM catheter ([id number]) Hemodynamics Rest Pre Cath Intra NCS Post Cath Procedure Log Time Note 13:33:21 Wilman Andrade RT (R) (CV) sent for patient. Start room use. 13:33:28 Time tracking: Regular hours (M-F 7:00 - 5:00) 13:33:35 Patient received from Outpatients to IR Alert and oriented. Tansferred to table in Supine position. 13:33:38 Signed procedure consent form obtained from patient. 13:33:40 Correct patient and procedure confirmed by team. 13:33:42 Full Disclosure recording started 13:33:43 - 13:33:44 Pre-procedure instructions explained to patient. 13:33:45 Pre-op teaching completed and patient verbalized understanding. 13:33:47 Family in waiting room. 13:40:42 Patient allergic to Other allergymilk 13:40:47 Is the patient allergic to Iodine/contrast media? No. 13:40:49 Is patient on blood thinner?No 13:42:44 Patient diabetic? Yes. 13:42:45 If diabetic: On Metformin? No 13:42:49 - 13:43:01 Patient pain scale 0/10 no pain. 13:43:10 Right Abdomen was prepped with chlora-prep and draped in sterile fashion. 13:43:12 Alarms reviewed by R. N. 13:43:12 Sharps counted by scrub and verified by R.N. 13:43:16 Use device set IR Diagnostic 13:43:18 Bag Decanter (2002S) opened to sterile field. 13:43:18 Sterile Angiographic Pack opened to sterile field. 13:43:18 Tegaderm 4 x 4 ([id number]) opened to sterile field. 13:51:58 Physician arrived 13:52:00 --------ALL STOP TIME OUT------ 13:52:01 Final Timeout: patient, procedure, and site verified with staff and physician. All members of the team are in agreement. 13:52:11 Right abdomen site verified by team. 13:52:18 Fire Safety Assessment: A--An alcohol-based skin anteseptic being used preoperatively., C--Open oxygen or nitrous oxide is being used. 13:52:26 3a) 45-59 Moderately reduced kidney function. 13:52:48 Maximum allowable contrast dose (3.7 X eGFR X 0.75)135.97 ml. 13:52:54 Sedation plan: Local Anesthetic Medication:Lidocaine 13:53:15 Procedure started. 13:53:22 Local anesthetic to Abdominal area with Lidocaine 1% by Luke Harding MD.INITIAL ACCESS ONLY 13:55:33 BENTSON 145cm wire ([id number]) opened to sterile field. 13:56:52 GLIDE WIRE Angled Super Stiff 180cm ([id number]) opened to sterile field. 13:58:05 Micropuncture VSI 4FR kit opened to sterile field. 13:59:21 A Air2Web KA 2 5Fr 40CM catheter ([id number]) was advanced over the wire and used for . 14:01:46 Procedure ended.(Physican Out) 14:03:34 Fluoroscopy time 01.10 minutes. 14:03:42 Flurop Dose total: 54 14:03:42 Fluoroscopy dose: 54 mGy 14:03:46 Contrast amount:Isovue 300 10ml. 14:03:54 Post Abdominal area:stable 14:04:02 Post-op/insertion site Right Abdominal area dressed using a 4 x 4 and Tegaderm. 14:04:24 Report given to Outpatients. 14:04:31 Patient transfered to Outpatients with Stretcher. Device Usage Item Name Manufacture Quantity Catalog Hospital Part Current [facility] l Lot# / Number Charge Number Stock Stock Serial# Code Bag Decanter Microtek 1 [id number] 5 () Medical Inc. Sterile Cardinal 1 [id number] [id number] 374778 5 Angiographic Health Pack Tegaderm 4 x 3M 1 1626W [id number] 489330 [id number] 5 4 (1626W) BENTSON 145cm [employer] 1 [id number] 177791 5 wire ([id number]) GLIDE WIRE Terumo 1 [id number] 185628 749552 5 Angled Super Stiff 180cm ([id number]) Micropuncture VSI VASCULAR 1 [id number] 349682 105290 5 VSI 4FR kit SOLUTIONS Merit Impress Merit 1 [id number] 464712 325952 5 KA 2 5Fr 40CM Medical catheter ([id number]) Signature Audit Tererro Stage Time Signature Unsigned Intra-Procedure 09/15/2019 Wilman 2:04:51 PM [place] RT (R) (CV) [facility] [address] [place] [address]
[2019-09-15 12:26] LABS: BASOPHILS 0.5 % (0-2); EOSINOPHILS 1.6 % (0-7); HEMATOCRIT 31.6 % (42.0-54.0); HEMOGLOBIN 9.5 g/dL (13.5-17.5); IMMATURE GRANULOCYTES 0.8 % (0-5); LYMPHOCYTES 27.1 % (15-50); MCH 26.8 pg (26.0-34.0); MCHC 30.1 g/dL (31.0-37.0); MEAN PLATELET VOLUME 11.3 fL (7.4-10.4); PLATELET COUNT 370 10x3/uL (130-400); RBC 3.55 10x6/uL (4.20-6.10); WBC 6.4 10x3/uL (4.8-10.8)
[2019-09-15 12:29] LABS: APTT 32.9 SECONDS (22.8-39.4); INR 1.14 (0.85-1.17); PROTIME 14.5 SECONDS (11.6-15.0)
[2019-09-15 12:32] LABS: CALCIUM 9.1 mg/dL (8.5-10.1); CARBON DIOXIDE 30.7 mmol/L (21.0-32.0); CREATININE - SERUM 1.5 mg/dL (0.6-1.3); POTASSIUM - SERUM 3.7 mmol/L (3.5-5.1)
[2019-09-15] MEDS ORDERED: CIPRO500 MG PO (12:56)
[2019-09-15 12:59] VITALS: BP 130/73; Ht 177.8 cm; Wt 86.4 kg
--- NOTE | 2019-09-15 15:12 | NUR ---
DC INSTRUCTIONS GIVEN TO PT/SPOUSE. STATE UNDERSTANDING. DC'D IV CATH FULLY INTACT. PT LEFT UNIT VIA WC AT 1511
--- NOTE | 2019-09-15 15:24 | NUR ---
1415 ARRIVED TO ROOM AND PT AWAKE. VS STABLE. RECIEVED A FULL LIQ TRAY.INSTRUCTIONS GIVEN AND IV REMOVED
== END 2019-09-15 15:11 | disposition home or self-care (01) ==
LOC: D.SP 11:44 → D.RAD 13:00 → D.SP 13:00
PROVIDERS: ATTEND General Practice
DX: K81.0 Acute cholecystitis (principal)

== ENCOUNTER → 2019-11-24 12:36 | Outpatient (CLI) | payer MEDICARE, OTHER ==
[2019-09-15 12:59] VITALS: BMI 27.3
[~2019-11-24 12:36] MED LIST changes: +CIPRO500 MG PO
== END | disposition home or self-care (01) ==
LOC: D.LABREF 12:36
PROVIDERS: ATTEND Internal Medicine Pulmonary Disease
DX: Z11.59 Encounter for screening for other viral diseases (principal)

== ENCOUNTER → 2019-11-25 13:57 | Outpatient (CLI) | payer MEDICARE, OTHER ==
[2019-09-15 12:59] VITALS: BMI 27.3
[2019-11-25 15:23] LABS: BASOPHILS 0.3 % (0-2); EOSINOPHILS 1.6 % (0-7); HEMATOCRIT 39.4 % (42.0-54.0); HEMOGLOBIN 12.1 g/dL (13.5-17.5); IMMATURE GRANULOCYTES 0.2 % (0-5); LYMPHOCYTES 21.9 % (15-50); MCH 26.3 pg (26.0-34.0); MCHC 30.7 g/dL (31.0-37.0); MCV 85.7 fL (80.0-100.0); MEAN PLATELET VOLUME 12.2 fL (7.4-10.4); MONOCYTES 8.4 % (2-11); NEUTROPHILS 67.6 % (40-80); WBC 6.2 10x3/uL (4.8-10.8)
[2019-11-25 15:59] LABS: ANION GAP 15.2 mmol/L (8-16); CALCIUM 8.4 mg/dL (8.5-10.1); CARBON DIOXIDE 25.6 mmol/L (21.0-32.0); CREATININE - SERUM 1.6 mg/dL (0.6-1.3); POTASSIUM - SERUM 4.8 mmol/L (3.5-5.1)
[2019-11-25 16:25] LABS: PLATELET COUNT 263 10x3/uL (130-400)
== END | disposition home or self-care (01) ==
LOC: D.LAB 09-25 13:00 → D.RT 09-25 14:00 → D.LAB 10-16 14:45
PROVIDERS: ATTEND Internal Medicine Pulmonary Disease
DX: R06.09 Other forms of dyspnea (principal); I50.22 Chronic systolic (congestive) heart failure

== ENCOUNTER → 2020-02-09 13:12 | Outpatient (CLI) | payer MEDICARE, OTHER ==
[2019-09-15 12:59] VITALS: BMI 27.3
== END | disposition home or self-care (01) ==
LOC: D.CT 13:12
PROVIDERS: ATTEND Internal Medicine Pulmonary Disease
DX: R94.2 Abnormal results of pulmonary function studies (principal)

== ENCOUNTER 2020-11-08 06:43 | Day surgery (SDC) | payer MEDICARE, OTHER ==
[~2020-11-08] VITALS: Ht 177.8 cm; Wt 101.4 kg
[2020-11-08 07:23] LABS: BASOPHILS 0.2 % (0-2); EOSINOPHILS 2.3 % (0-7); HEMATOCRIT 40.6 % (42.0-54.0); HEMOGLOBIN 13.1 g/dL (13.5-17.5); IMMATURE GRANULOCYTES 0.5 % (0-5); LYMPHOCYTE ABS# 1.12 10x3/uL (1.32-3.57); LYMPHOCYTES 18.3 % (15-50); MCH 28.8 pg (26.0-34.0); MCHC 32.3 g/dL (31.0-37.0); MCV 89.2 fL (80.0-100.0); MEAN PLATELET VOLUME 12.3 fL (7.4-10.4); NEUTROPHIL ABS# 4.27 10x3/uL (1.78-5.38); NEUTROPHILS 69.7 % (40-80); PLATELET COUNT 175 10x3/uL (130-400); RBC 4.55 10x6/uL (4.20-6.10); WBC 6.1 10x3/uL (4.8-10.8)
[2020-11-08 07:38] LABS: ANION GAP 15.3 mmol/L (8-16); CALCIUM 9.2 mg/dL (8.5-10.1); CARBON DIOXIDE 25.1 mmol/L (21.0-32.0); CREATININE - SERUM 1.5 mg/dL (0.6-1.3); POTASSIUM - SERUM 4.4 mmol/L (3.5-5.1)
[2020-11-08] MEDS ORDERED: MOBIC7.5 MG PO (08:19)
[2020-11-08] MEDS ORDERED: CYCLOBENZAPRINE5 MG PO (08:19)
[2020-11-08 08:22] VITALS: BP 147/75; Ht 177.8 cm; Wt 101.4 kg
--- NOTE | 2020-11-08 10:00 | NUR ---
DC TEACHING COMPLETE TO CAREGIVER/FRIEND AND PT. VERBALIZED UNDERSTANDING. 1005 FAXED 3 MONTH F/U VISIT TO DR. ESTRADA'S OFFICE. 1015 PIV DC'D, CATHETER INTACT, CAREGIVER/FRIEND HELPING PT TO GET DRESSED AND TO BATHROOM. 1040 PT DC'D VIA WC ACCOMPANIED BY DAVID TO POV WITH CAREGIVER/FRIEND DRIVING. ALL BELONGINGS AND DC PACKET WITH CAREGIVER/FRIEND/PATIENT.
--- NOTE | 2020-11-09 14:32 | OP ---
PATIENT NAME: GILDARDO INIGUEZ MEDICAL RECORD: [id number] :[birth year] LOCATION:[facility] ADMISSION DATE: SURGEON: RADHA ESTRADA DO DATE OF OPERATION: 11/08/2020 PROCEDURE: Colonoscopy with polypectomy and biopsies. INDICATION FOR PROCEDURE: Diarrhea, change in bowel habits, history of colon polyps. SCOPE: Olympus video pediatric colonoscope. MEDICATIONS: Propofol 300 mg IV per anesthesia. WITHDRAWAL TIME: 18 minutes. ESTIMATED BLOOD LOSS: Minimal. COMPLICATIONS: None immediate. FINDINGS: Informed consent was given. The patient was made comfortable with the above medication. After reaching an adequate level of sedation by slow IV push, the patient was placed on his left side. Digital rectal examination was performed and was normal. The endoscope was then advanced under direct visualization through the rectum to the cecum, confirmed by the presence of the appendiceal orifice and ileocecal valve. The endoscope was slowly withdrawn and the mucosa was carefully examined. The prep quality was good. There were 2 polyps visualized on today's examination. The first was a benign-appearing sessile polyp measuring approximately 2 mm in size located in the transverse colon. It was removed using hot forceps. In the descending colon, there was a flat benign-appearing polyp measuring approximately 6 mm in size in the descending colon. It was removed using hot forceps. Random biopsies were taken to submit for histopathology and to rule out the presence of microscopic colitis. On one of these biopsies, a submucosal vessel was involved in the biopsy, which bled slightly after biopsy. For safety reasons, a single endoclip was placed over this site to prevent delayed bleed. Retroflexion was performed in the rectum with visualization of grade I internal hemorrhoids without bleeding. The endoscope was withdrawn from the patient. The patient tolerated the procedure well and there were no complications. IMPRESSION: 1. Two polyps, as described above, removed using hot forceps. 2. Otherwise normal colonoscopy with random biopsies taken. PLAN: 1. Discharge home when recovery parameters are met. 2. Follow up biopsy specimen results. 3. High fiber diet. 4. Continue current medications. 5. Supplement diet with 1-2 tablespoons of fiber daily. 6. Dicyclomine 20 mg up to three times daily as needed for loose stools or abdominal pain or cramping. 7. Recall colonoscopy in 3-5 years for surveillance of history of polyps. TRANSINT:[id number] Voice Confirmation ID: [id number] DOCUMENT ID: [id number] OPERATIVE REPORT [id number] GILDARDO INIGUEZ NATHAN A DO at 1432 CC: [id number] DICTATION DATE: 11/08/20925 INTELLECTUAL PROPERTY MANAGER: 11/08/20 1137 [facility] 11/08/20 [place] [id number] [place] [id number]
== END 2020-11-08 10:40 | disposition home or self-care (01) ==
LOC: D.OPS 06:43
PROVIDERS: Anesthesiology; ATTEND Internal Medicine Gastroenterology
DX: R19.7 Diarrhea, unspecified (principal); R19.4 Change in bowel habit; Z86.010 Personal history of colon polyps; K63.5 Polyp of colon; J44.9 Chronic obstructive pulmonary disease, unspecified; E11.9 Type 2 diabetes mellitus without complications; I10 Essential (primary) hypertension